=== PATIENT | female | born 1960 | race Caucasian/White ===

== ENCOUNTER → 2018-05-28 14:50 | Outpatient (CLI) | payer OTHER, SELFPAY ==
--- NOTE | 2018-05-28 14:55 | DI.CT.S_ITS ---
PROCEDURE: CT CHEST ABD PEL W CON INDICATIONS: recurrent ovarian cancer TECHNIQUE: After the administration of oral and intravenous contrast, 5 mm thick sections acquired from the lung apices to the symphysis. 5 mm coronal and sagittal reformats were performed, with additional 7 mm coronal MIP reformats through the lungs. For radiation dose reduction, the following was used: automated exposure control, adjustment of mA and/or kV according to patient size. COMPARISON: None. FINDINGS: Image quality: Excellent. CHEST: Lungs and pleura: No acute airspace opacities. No pleural effusions or pneumothorax. Central and peripheral airways appear patent and normal in caliber. Mediastinum: Heart size is normal. No pericardial effusion. No mediastinal or hilar adenopathy by size criteria. Thoracic aorta and central pulmonary arteries are normal in size. Esophagus is normal in caliber. No hiatal hernia. Chest wall: Bilateral breast implants. No axillary or supraclavicular adenopathy by size criteria. Thyroid gland appears normal. ABDOMEN: Solid organs: Liver is normal in size and enhancement. Gallbladder appears normal. Biliary system is mildly dilated. Pancreas enhances normally. Spleen is normal in size and enhancement. No adrenal nodules. Kidneys demonstrate normal size and enhancement, without hydronephrosis. Peritoneum and bowel: Bowel loops demonstrate normal wall thickness and caliber. Appendix is slightly thickened measuring 6.7 mm in diameter but no inflammatory changes are evident. The rectosigmoid colon is nondistended suggesting mild, diffuse wall thickening and mild diverticulosis. No free fluid or air. Nodes and vessels: No retroperitoneal or mesenteric adenopathy by size criteria. Aorta and inferior vena cava are normal in size. Miscellaneous: Midline diastases rectus. Right lower quadrant ostomy. PELVIS: Genitourinary: Bladder wall is mildly thickened. Uterus is surgically absent. Miscellaneous: No inguinal hernias or adenopathy. Bones: No suspicious bony lesions. No vertebral body compression fractures. IMPRESSION: 1. Status post hysterectomy. No evidence of metastatic disease. 2. Common bile duct is mildly dilated at 8.7 mm but tapers normally distally. Correlate with liver function tests. 3. Right lower quadrant ostomy. Midline diastases rectus 4. Slight thickening of the appendix without evidence of appendicitis. #5. Mild uniform thickening of the urinary bladder wall, correlate for possible cystitis. Dictated by: Archie Yates M.D. on 05/28/2018 at 16:49 Approved by: Archie Yates M.D. on 05/28/2018 at 16:58
[2018-05-28 15:21] LABS: BUN Creatinine Ratio 26.7 (6-22); Blood Urea Nitrogen 24 mg/dL (7-17); Estimated Glomerular Filt Rate > 60.0 mL/min (>60)
== END ==
PROVIDERS: PCP Internal Medicine; Visit Provider Nurse Practitioner Gerontology
DX: C56.9 Malignant neoplasm of unspecified ovary (principal)
CPT/HCPCS: 36415; 71260; 74177; 82565; 84520; Q9967

== ENCOUNTER 2019-06-13 08:53 | Emergency (ER) | payer OTHER, SELFPAY ==
--- NOTE | 2019-06-13 09:11 | PC.NURSE ---
Patient reports blood/dark brown mucous from urethra or vagina. Patient states it feels like a menstrual cycle. Patient states she is taking allergy medications to help dry up copious mucous production she had been having both in sinus and in colostomy bag.
[2019-06-13 09:13] VITALS: BP 113/73; PULSE 81; RESP 20; TEMP 35.7; O2SAT 99; BMI 29.2
[2019-06-13 09:21] LABS: Bacteria Urine None Seen
[2019-06-13 09:32] LABS: RBC Urine 10-30/HPF (0-5/HPF); WBC Urine 10-30/HPF (0-5/HPF)
[2019-06-13 09:33] LABS: Culture Indicated Urine Specimen Cultured; Squamous Epithelial Cell Urine 0-1 /HPF (0-5/HPF)
--- NOTE | 2019-06-13 09:39 | ED.FEMALEGU ---
HPI - Female Genitourinary General Chief complaint: Urogenital-Female Stated complaint: blood and brown mucas from uethra Time Seen by Provider: 06/13/19 09:03 Source: patient and family Mode of arrival: ambulatory Limitations: no limitations History of Present Illness HPI Narrative: Patient comes emergency department complaining of leakage of reddish brown fluid and mucus from her urethra. She states that this has been fairly constantly leaking. Patient states that she has never had this happen before, and that it just started this morning. Patient denies fevers or chills. No nausea or vomiting. No abdominal pain. Mild dysuria. 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 She has had a total hysterectomy, as well as bilateral mastectomy, and is on a PARB agent for chemotherapy. Patient states her last imaging study of the pelvis was in mid April. Patient denies any further complaints at this time. Related Data Home Medications Medication Instructions Recorded Confirmed multivitamin [Multiple Vitamins] 1 tab PO DAILY #0 05/16/17 06/13/19 turmeric 1 dose PO DAILY #0 05/16/17 06/13/19 fluoxetine [Prozac] 20 mg PO DAILY 04/10/19 06/13/19 olaparib 300 mg PO BID 04/10/19 06/13/19 fluconazole 150 mg PO QWEEK 06/13/19 06/13/19 Previous Rx's Medication Instructions Recorded sulfamethoxazole-trimethoprim 1 tab PO BID #14 tab 06/13/19 [Bactrim DS] Allergies Allergy/AdvReac Type Severity Reaction Status Date / Time No Known Drug Allergies Allergy Verified 06/13/19 09:18 Review of Systems Review of Systems ROS Unobtainable: All systems reviewed & are unremarkable except as noted in HPI and below Constitutional Constitutional: Denies chills, Denies fatigue, Denies fever(s), Denies frequent falls, Denies lethargy and Denies weakness Eyes Eyes: Denies change in vision, Denies eye discharge, Denies irritation and Denies loss of vision ENT Ears, Nose, Mouth, and Throat: Denies change in voice, Denies dizziness, Denies neck pain, Denies sore throat and Denies throat swelling Cardiovascular Cardiovascular: Denies chest pain, Denies irregular heart rhythm, Denies lightheadedness, Denies palpitations, Denies dyspnea, Denies dyspnea on exertion and Denies orthopnea Respiratory Respiratory: Denies cough, Denies dyspnea, Denies dyspnea on exertion and Denies wheezing Gastrointestinal Gastrointestinal: Denies abdominal pain, Denies change in bowel habits, Denies diarrhea, Denies nausea and Denies vomiting Genitourinary Genitourinary: Denies hematuria, Denies flank pain, Denies urinary incontinence and Denies urinary urgency Comments: Urethral mucus and fluid drainage, dysuria Musculoskeletal Musculoskeletal: Denies back pain, Denies muscle weakness, Denies neck pain, Denies numbness and Denies tingling Integumentary/Breasts Skin/Breast: Denies pruritus, Denies erythema, Denies rash and Denies wounds Neurologic Neurologic: Denies behavioral changes, Denies confusion, Denies dizziness, Denies frequent falls, Denies loss of vision, Denies numbness, Denies tingling and Denies weakness Psychiatric Psychiatric: Denies anxiety, Denies behavioral changes, Denies confusion, Denies depression, Denies homicidal ideation and Denies suicidal ideation Endocrine Endocrine: Denies fatigue, Denies flushing and Denies palpitations Hematologic/Lymphatic Hematologic/Lymphatic: Denies easy bruising Allergic/Immunologic Allergic/Immunologic: Denies urticaria, Denies throat swelling and Denies wheezing [facility] History Ovarian cancer, BRCA2 positive (Acute) Surgical History H/O bilateral mastectomy (Acute) H/O total hysterectomy (Acute) Social History Smoking Status: Never smoker Social History Smoking Status: Never smoker Exam Initial Vital Signs Initial Vital Signs: Vital Signs Temperature 96.3 F L 06/13/19 09:13 Pulse Rate 81 06/13/19 09:13 Respiratory Rate 20 06/13/19 09:13 Blood Pressure 113/73 06/13/19 09:13 Pulse Oximetry 99 06/13/19 09:13 Const General: cooperative and well developed Nutritional Appearance: well nourished Orientation: alert, awake, oriented x3 and not confused HENMT Head: normocephalic and atraumatic Ears: external ears normal and TM's normal bilaterally Nose: external nose normal and No nasal discharge Face and sinus: sinuses nontender, face symmetric, no sinus tenderness and No dry mucous membranes Mouth: oral mucosae normal and moist mucous membranes Teeth and gingiva: dentition normal Throat: tonsils normal and uvula midline Eyes General: appearance normal, both eyes and all related structures Eyelids: eyelids normal Conjunctivae: conjunctivae normal Sclera: sclerae normal Pupils: PERRL EOM: EOM intact bilaterally Neck Neck: normal visual inspection, trachea midline, No lymphadenopathy, No midline deformity and No JVD Lymphatic: No lymphedema Chest Chest: normal inspection of the chest Resp Effort & Inspection: normal respiratory effort, able to speak in complete sentences, no respiratory distress and no use of accessory muscles Auscultation: clear to auscultation bilaterally, no rales, no rhonchi and no wheezes Cardio Rate: regular rate Rhythm: regular rhythm Heart Sounds: no click, no gallops, no murmurs and no rubs Pulses: normal peripheral pulses GI Inspection: non-distended Palpation: soft, no hepatosplenomegaly, No guarding, No pulsatile mass and No tender Auscultation: normal bowel sounds Other: Patient has normal female genitalia. She is noted to have fluid coating her genitalia, with a drop of reddish brown serous fluid running down her vaginal introitus and perineum. No mucus or pus. Back/Spine/Pelvis Back: No CVA tenderness Cervical Spine: cervical ROM normal and No pain with cervical ROM Thoracic/Lumbar Spine: thoracic and lumbar spine normal to inspection Skin General: no rashes or lesions noted, No jaundice and No petechiae Neuro General: alert, oriented x3, gait normal and no focal motor deficits Speech: speech normal Extrem General: full ROM, no clubbing, cyanosis or edema, no pedal edema and no calf tenderness Psych Appearance: well kempt Mental Status: mental status grossly normal Attitude: cooperative Thought Content: normal and suicidality Judgment: judgment good Course Course Course Narrative: Patient was worked up with urinalysis and culture of the fluid. Urinalysis was strongly positive for infection. Culture is pending at this time. Patient was started on antibiotics in the emergency department. I spoke with Dr. Chanel, the patient's oncologist, who felt that this was all that should be done for the patient this time, but he would follow up with her after the antibiotic treatment to see how she is doing. Plan was discussed with the patient, who was agreeable. She was given a dose of Bactrim in the emergency department. We have discussed home management of symptoms, as well as the usual indications for return. Orders Ordered: Discontinued Medications Trimethoprim/Sulfamethoxazole (Bactrim Ds) 1 tab PO NOW ONE Stop: 06/13/19 09:57 Last Admin: 06/13/19 10:09 Dose: 1 tab Documented by: DEMETRI Vital Signs Vital signs: Vital Signs - 8 hr 06/13/19 09:13 Temperature 96.3 F L Pulse Rate 81 Respiratory Rate 20 Blood Pressure 113/73 Pulse Oximetry 99 MDM - Female Genitourinary Medical Records Attestation: I reviewed the patient's medical records. Lab Data Attestation: I reviewed the patient's lab results. Labs: Lab Results 06/13/19 Range/Units 09:20 Urine RBC 10-30/hpf H (0-5/HPF) Urine WBC 10-30/hpf H (0-5/HPF) Ur Squamous Epith Cells 0-1 /hpf (0-5/HPF) Urine Bacteria None seen (None) Ur Culture Indicated? Specimen cultured Urine Dip Bedside Urine Glucose Negative Bedside Urine Bilirubin - Negative Bedside Urine Ketone - Negative Urine Specific [place] 1.015 Bedside Urine Occult Blood + Bedside Urine pH 6.0 Bedside Urine Protein + 30 Bedside Urine Urobilinogen +/- 1mg Bedside Urine Nitrite - Negative Bedside Urine Leukocytes + 70 Esterase Discharge Plan Departure Patient Disposition: Home Clinical Impression: Urinary tract infection Qualifiers: Urinary tract infection type: acute cystitis Hematuria presence: with hematuria Qualified Code(s): N30.01 - Acute cystitis with hematuria Discharge Date/Time: 06/13/19 10:30 Instructions: DI for Urinary Tract Infection (UTI) Activity Restrictions/Additional Instructions: Your urine was strongly positive for infection. Your culture swab is being evaluated and preliminary results will be back tomorrow. Your case has been discussed with Dr. Chanel, who would like you to be treated for urinary tract infection 1st. If your symptoms continue, then he will explore further potential issues. However, at this point, he agrees that this is most likely a urinary tract infection. Please plan to keep her appointment in June with Dr. Chanel, as scheduled. He is happy to see you sooner if you need more expedited follow-up. If you develop high fevers, abdominal pain, or vomiting to the point where you cannot keep your antibiotics down, then please return to the emergency department. [facility] [place]. Prescriptions: New sulfamethoxazole-trimethoprim [Bactrim DS] 800-160 mg tablet 1 tab PO BID Qty: 14 RF: 0 No Action multivitamin [Multiple Vitamins] 1 EACH tablet 1 tab PO DAILY Qty: 0 RF: 0 turmeric 1 dose PO DAILY Qty: 0 RF: 0 fluoxetine [Prozac] 20 mg Capsule 20 mg PO DAILY RF: 0 olaparib 150 mg Tablet 300 mg PO BID RF: 0 fluconazole 150 mg tablet 150 mg PO QWEEK RF: 0 Referrals: Kolton Chanel MD [Physician] - Dianna Barragan MD [Primary Care Provider] -
[2019-06-13] MEDS: TRIMETH/SULFA 160/800 (DS) TABLET 1 TAB PO (10:09)
== END 2019-06-13 10:30 | disposition home or self-care (01) ==
PROVIDERS: Emergency Provider Emergency Medicine; PCP Internal Medicine
DX: N30.01 Acute cystitis with hematuria (principal)
CPT/HCPCS: 81003; 81015; 87070; 87077; 87086; 87186; 87205; 99283

== ENCOUNTER → 2019-09-23 10:19 | Outpatient (CLI) | payer OTHER, SELFPAY ==
[2019-09-23 11:09] LABS: Appearance Urine UA CLEAR; Bilirubin Urine UA NEGATIVE (NEGATIVE); Color Urine UA YELLOW; Glucose Urine UA NEGATIVE (Negative); Ketones Urine UA NEGATIVE (NEGATIVE); Leukocyte Esterase Urine UA NEGATIVE (NEGATIVE); Nitrite Urine UA NEGATIVE (Negative); Occult Blood Urine UA NEGATIVE (Negative); Protein Urine UA NEGATIVE (Negative); Specific Gravity Urine UA 1.015 (1.000-1.035); Urobilinogen Urine UA 0.2 E.U./dL (0.2)
[2019-09-23 11:47] LABS: Cholesterol 273 mg/dL (140-199); HDL Cholesterol 67 mg/dL (40-60); LDL Cholesterol Calculated 178 mg/dL (<100); Triglycerides 138 mg/dL (35-150)
[2019-09-23 12:04] LABS: pH Urine UA 6.5 (4.5-8.0)
[2019-09-23 12:27] LABS: RBC Urine 0-1/HPF (0-5/HPF)
[2019-09-23 12:28] LABS: Bacteria Urine Few (2-10); Culture Indicated Urine Cult Not Indicated; Mucus Urine 1+ (Negative); WBC Urine 1-5/HPF (0-5/HPF)
== END ==
PROVIDERS: PCP Student in an Organized Health Care Education/Training Program; Visit Provider Student in an Organized Health Care Education/Training Program
DX: Z13.220 Encounter for screening for lipoid disorders (principal); R30.0 Dysuria
CPT/HCPCS: 36415; 80061; 81001

== ENCOUNTER → 2020-01-08 10:51 | Outpatient (CLI) | payer OTHER, SELFPAY ==
--- NOTE | 2020-01-08 10:55 | DI.US.S_ITS ---
PROCEDURE: US PERIPH VENOUS LOW EXTREM RT INDICATIONS: RIGHT THIGH SWELLING,MILD PAIN,MILD NUMBNESS TECHNIQUE: Real-time imaging, as well as color and pulse Doppler interrogation, were performed of the lower extremity deep veins from the inguinal ligament to the popliteal fossa. COMPARISON: None. FINDINGS: There is a small amount of nonocclusive thrombus seen at the confluence of the greater saphenous vein and the common femoral vein. No additional findings of deep venous thrombosis can be seen. Additional, dedicated ultrasound scanning is performed at the area of right thigh swelling. No focal ultrasound abnormalities are seen within this region. Prominent lymph nodes can be seen within the groin and the common femoral vein. The IVC is patent. IMPRESSION: There is a small amount of nonocclusive thrombus seen at the confluence of the greater saphenous vein and common femoral vein, without additional findings of deep venous thrombosis. Prominent lymph nodes are noted. Dictated by: Alexis Montanez M.D. on 01/08/2020 at 11:08 Approved by: Alexis Montanez M.D. on 01/08/2020 at 11:10
== END ==
PROVIDERS: PCP Student in an Organized Health Care Education/Training Program; Referring Provider Internal Medicine Hematology & Oncology; Visit Provider Internal Medicine Hematology & Oncology
DX: C56.9 Malignant neoplasm of unspecified ovary (principal); I82.411 Acute embolism and thrombosis of right femoral vein; I82.890 Acute embolism and thrombosis of other specified veins; R59.0 Localized enlarged lymph nodes; M79.604 Pain in right leg; M79.89 Other specified soft tissue disorders; Z15.01 Genetic susceptibility to malignant neoplasm of breast
CPT/HCPCS: 93971

== ENCOUNTER → 2020-01-21 10:41 | Outpatient (CLI) | payer OTHER, SELFPAY ==
--- NOTE | 2020-01-21 12:04 | DI.CT.S_ITS ---
PROCEDURE: CT ABDOMEN PELVIS W CON INDICATIONS: ovarian cancer TECHNIQUE: After the administration of oral and intravenous contrast, 5 mm thick sections acquired from the diaphragms to the symphysis. 5 mm thick coronal and sagittal reformats were performed. For radiation dose reduction, the following was used: automated exposure control, adjustment of mA and/or kV according to patient size. COMPARISON: [facility], CT, CT CHEST ABD PEL W CON, 05/28/2018, 16:01. FINDINGS: Image quality: Excellent. ABDOMEN: Lung bases: Lung bases are clear. Heart size is normal. Solid organs: Liver is normal in size and enhancement. Gallbladder is unremarkable. Biliary system is non-dilated. Pancreas enhances normally. Spleen is normal in size and enhancement. No adrenal nodules. Kidneys are normal in size and enhancement, without hydronephrosis. Peritoneum and bowel: Again noted is ileostomy. There is diffuse rectal wall thickening, which has developed since the prior study. There is associated inflammatory change in the surrounding fat and outside of the perirectal fascia. There is an ill-defined area of fluid and air between the rectum and the bladder which does not appear to be endoluminal in the colon. This is not definite. It measures approximately 2.8 x 2.8 cm. It may potentially represent interloop abscess versus necrotic tumor, or may potentially be within the colon. Nodes and vessels: No retroperitoneal or mesenteric adenopathy. Aorta and inferior vena cava are normal in caliber. Miscellaneous: Again noted is rectus diastases with a herniation of bowel anteriorly. Interval development of anterior subcutaneous edema. PELVIS: Genitourinary: Diffuse bladder wall thickening has progressed.. Miscellaneous: No inguinal hernias or adenopathy. Uterus is surgically absent. Bones: No suspicious bony lesions. No vertebral body compression fractures. IMPRESSION: 1. Interval development of rectal wall thickening and increase in bladder wall thickening. 2. Question extraluminal fluid and air outside the rectosigmoid region, possibly representing interloop abscess or necrotic neoplasm. Comment: Repeat pelvic CT with IV and rectal contrast may be helpful to better evaluate the potential extraluminal fluid and air. Dictated by: Vitor Connolly M.D. on 01/21/2020 at 12:20 Approved by: Vitor Connolly M.D. on 01/21/2020 at 12:33
== END ==
PROVIDERS: PCP Student in an Organized Health Care Education/Training Program; Referring Provider Internal Medicine Hematology & Oncology; Visit Provider Internal Medicine Hematology & Oncology
DX: C56.9 Malignant neoplasm of unspecified ovary (principal); M62.08 Separation of muscle (nontraumatic), other site; Z15.01 Genetic susceptibility to malignant neoplasm of breast; Z15.09 Genetic susceptibility to other malignant neoplasm; Z93.2 Ileostomy status; Z90.710 Acquired absence of both cervix and uterus
CPT/HCPCS: 74177; Q9967

== ENCOUNTER → 2020-01-26 16:33 | Outpatient (CLI) | payer OTHER, SELFPAY ==
--- NOTE | 2020-01-26 16:38 | DI.US.S_ITS ---
PROCEDURE: US PERIPH VENOUS LOW EXTREM RT INDICATIONS: WORSENING RIGHT LEG SWELLING TECHNIQUE: Real-time imaging, as well as color and pulse Doppler interrogation, were performed of the lower extremity deep veins from the inguinal ligament to the popliteal fossa. COMPARISON: [facility], CT, CT ABDOMEN PELVIS W CON, 01/21/2020, 11:51. [facility], US, US PERIPH VENOUS LOW EXTREM RT, 01/08/2020, 11:30. FINDINGS: The common femoral, femoral and popliteal veins are normally compressible, and free of intraluminal thrombus. Color and pulse Doppler demonstrate normal phasic intraluminal flow. There is normal augmentation response to distal compression maneuver. The distal femoral vein is not well-seen. IMPRESSION: Negative for deep venous thrombosis. The previously seen deep venous thrombosis is no longer seen. Dictated by: Alexis Montanez M.D. on 01/26/2020 at 16:13 Approved by: Alexis Montanez M.D. on 01/26/2020 at 16:14
== END ==
PROVIDERS: PCP Student in an Organized Health Care Education/Training Program; Referring Provider Internal Medicine Hematology & Oncology; Visit Provider Internal Medicine Hematology & Oncology
DX: C56.9 Malignant neoplasm of unspecified ovary (principal); I82.811 Embolism and thrombosis of superficial veins of right lower extremity; I82.411 Acute embolism and thrombosis of right femoral vein; M79.604 Pain in right leg; M79.89 Other specified soft tissue disorders; Z15.09 Genetic susceptibility to other malignant neoplasm; Z79.01 Long term (current) use of anticoagulants
CPT/HCPCS: 93971

== ENCOUNTER → 2020-02-12 11:43 | Outpatient (CLI) | payer OTHER, SELFPAY ==
--- NOTE | 2020-02-12 11:47 | DI.CT.S_ITS ---
PROCEDURE: CT PELVIS W CON INDICATIONS: pelvis lesion TECHNIQUE: After the administration of oral contrast and intravenous contrast, 5 mm thick sections acquired from the iliac crests to the symphysis. 5 mm thick coronal and sagittal reformats were acquired. For radiation dose reduction, the following was used: automated exposure control, adjustment of mA and/or kV according to patient size. COMPARISON: [facility], CT, CT ABDOMEN PELVIS W CON, 01/21/2020, 11:51. FINDINGS: Image quality: Excellent. Peritoneum and bowel: Again noted is right lower quadrant ileostomy. There is no evidence of bowel obstruction. No small bowel loop thickening. The appendix is visualized and is within normal limits. Visualized colonic loops shows wall thickening versus underdistention involving distal descending colon and sigmoid colon extending to rectum. Previously described ill-defined area of fluid and air between rectum and bladder has decreased in size, with ill-defined fluid density area measures 2.3 x 1.9 cm in size. No internal air is seen on the current study. Patient is status post hysterectomy with no gross abnormality seen in the vaginal cuff region. There is no peritoneal free fluid or free air. Genitourinary: Diffuse bladder wall thickening is again noted more prominent along right and posterior wall of urinary bladder. No definite discrete bladder wall mass is seen.. Nodes and vessels: No iliac, pelvic, or inguinal adenopathy by size criteria are. Subcentimeter lymph nodes are noted in bilateral inguinal region or along bilateral external iliac chain measures up to 8 mm in short axis diameter.. Iliac vessels demonstrate normal size and enhancement. Bones: No suspicious bony lesions. Degenerative disc disease in lower lumbar spine is seen. Miscellaneous: No inguinal hernias. Asymmetric enlargement of right upper thigh is seen with subcutaneous fat stranding and small amount of fluid along anterior and medial right upper thigh muscles. IMPRESSION: 1. Interval decrease in size of previously described extraluminal fluid collection situated between rectum and urinary bladder with adjacent rectosigmoid colon wall thickening and bladder wall thickening, concerning for abscess collection in this area. This collection now measures 2.3 x 1.9 cm in size compared to 2.8 x 2.8 cm in size on previous study. No internal air is seen on the current study. 2. No peritoneal free fluid or free air. A right sided ileostomy in place. 3. Subcentimeter bilateral inguinal lymph nodes more prominent on the right side it measures up to 8 mm in size. 4. Finding is concerning for synovitis involving anterior medial right upper thigh as above. Dictated by: Lalo Coleman M.D. on 02/12/2020 at 13:47 Approved by: Lalo Coleman M.D. on 02/12/2020 at 14:17
--- NOTE | 2020-02-12 13:40 | DI.CT.S_ITS ---
PROCEDURE: CT LE RT W CON INDICATIONS: right leg swelling, and several right thigh lateral pain TECHNIQUE: After the administration of intravenous contrast, 3 mm axial sections acquired of the right thigh, with coronal and sagittal reformats. COMPARISON: None. FINDINGS: Image quality: Excellent. Bones: Right hip joint osteoarthritic changes are seen. No fracture or dislocation. No bony erosive changes. No suspicious intraosseous lesion. No evidence of avascular necrosis of femoral head. Soft tissues: Please correlate with CT of pelvis study performed on the same day for evaluation of peritoneal structures. There is asymmetrically enlarged right upper thigh with extensive subcutaneous soft tissue swelling and edema and overlying skin thickening. Small amount of fluid is seen along anterior and medial upper to mid thigh muscles. No gross intramuscular mass or fluid collection. No abnormal intramuscular enhancement is seen. IMPRESSION: 1. Asymmetric enlargement of the right thigh with suggestion of extensive right-sided cellulitis. No discrete drainable abscess collection is seen. Small amount of fluid along anterior medial right upper to mid thigh muscles. No evidence of intramuscular mass or fluid collection. 2. No fracture or dislocation. No suspicious intraosseous lesion. Right hip joint osteoarthritis. No evidence of avascular necrosis. 3. Please refer to CT of pelvis findings for evaluation of peritoneal structures. Dictated by: Lalo Coleman M.D. on 02/12/2020 at 14:22 Approved by: Lalo Coleman M.D. on 02/12/2020 at 14:25
== END ==
PROVIDERS: PCP Student in an Organized Health Care Education/Training Program; Referring Provider Internal Medicine Hematology & Oncology; Visit Provider Internal Medicine Hematology & Oncology
DX: C56.9 Malignant neoplasm of unspecified ovary (principal); R59.0 Localized enlarged lymph nodes; M79.651 Pain in right thigh; M79.89 Other specified soft tissue disorders; M16.11 Unilateral primary osteoarthritis, right hip; M51.36 Other intervertebral disc degeneration, lumbar region; Z15.01 Genetic susceptibility to malignant neoplasm of breast; Z15.09 Genetic susceptibility to other malignant neoplasm; Z93.2 Ileostomy status; Z90.710 Acquired absence of both cervix and uterus
CPT/HCPCS: 72193; 73701; Q9967

== ENCOUNTER → 2020-02-23 12:43 | Outpatient (CLI) | payer OTHER, SELFPAY ==
--- NOTE | 2020-02-23 12:44 | DI.MRI.S_ITS ---
PROCEDURE: MR LOWER LEG RT WO/W CON INDICATIONS: right thigh cellulitis, pain TECHNIQUE: Noncontrast coronal T1 spin echo and STIR, sagittal T1 spin echo with fat saturation and STIR, axial T1 spin echo and T2 fast spin echo with fat saturation. After the administration of contrast, axial/sagittal/coronal T1 spin echo with fat saturation through the right thigh. COMPARISON: None. FINDINGS: Image quality: Excellent. Bones: The visualized bone marrow demonstrates normal signal on all sequences. The overlying cortex appears intact. No abnormal intraosseous enhancement. Soft tissues: There is asymmetric diffuse soft tissue swelling and edema throughout visualized right thigh with overlying skin thickening suggestive of cellulitis. No discrete drainable abscess collection is seen. No enhancing subcutaneous soft tissue mass is seen. There is edema and enhancement involving inferior right iliopsoas muscle as well as anterior right upper to mid thigh muscles consistent with myositis. No intramuscular abscess collection is seen. IMPRESSION: 1. Significant cellulitis involving right thigh with underlying myositis involving anterior right upper to mid thigh muscles. No discrete drainable abscess collection. No gross soft tissue mass is noted. 2. No underlying marrow signal abnormality. No fracture or dislocation. No suspicious bony lesion. Dictated by: Lalo Coleman M.D. on 02/23/2020 at 14:52 Approved by: Lalo Coleman M.D. on 02/23/2020 at 15:02
== END ==
PROVIDERS: PCP Student in an Organized Health Care Education/Training Program; Referring Provider Student in an Organized Health Care Education/Training Program; Visit Provider Internal Medicine Hematology & Oncology
DX: C56.9 Malignant neoplasm of unspecified ovary (principal); L03.115 Cellulitis of right lower limb; M60.9 Myositis, unspecified; M79.604 Pain in right leg; M79.89 Other specified soft tissue disorders; Z15.01 Genetic susceptibility to malignant neoplasm of breast; Z15.09 Genetic susceptibility to other malignant neoplasm
CPT/HCPCS: 73720

== ENCOUNTER 2020-02-24 12:47 | Observation (INO) | payer OTHER, SELFPAY ==
[2020-02-24] VITALS (7 sets, daily range): BP systolic 93–119; BP diastolic 56–75; PULSE 67–82; RESP 13–18; TEMP 35.9–36.7; O2SAT 93–99; BMI 30.2
--- NOTE | 2020-02-24 14:06 | ED_ITS ---
HPI - Skin/Abscess/Foreign Bdy <SANGEETHA Bryan - Last Filed: 02/24/20 21:32> General Chief complaint: Skin/Abscess/Foreign Body Stated complaint: RT UPPER THIGH CELLULITIS PER AVI Time Seen by Provider: 02/24/20 13:29 Source: patient Mode of arrival: Wheelchair History of Present Illness HPI narrative: 60 year old female with a history of ovarian cancer (BRCA2 positive), presents to the emergency department complaining of right leg swelling. She states this has been ongoing since January 03, she noticed left leg swelling. Patient states she has been seen by Dr. Chanel who has diagnosed her with cellulitis. She received a recent MRI yesterday showing underlying myositis without abscess. Patient states she has been taking cephalexin and just finished a course of Augmentin without relief. She denies any fevers, chest pain, shortness of breath, nausea, vomiting, diarrhea, or any other concerns. Patient states she is receiving chemo for her ovarian cancer, her last chemo was 3 weeks ago. Related Data Home Medications Medication Instructions Recorded Confirmed multivitamin [Multiple Vitamins] 1 tab PO DAILY #0 05/16/17 02/24/20 turmeric 1 dose PO DAILY #0 05/16/17 02/24/20 sennosides-docusate sodium 1 tab-cap PO BEDTIME PRN 01/08/20 02/24/20 [Senokot-S] Eliquis 5 mg PO BID 01/15/20 02/24/20 Previous Rx's Medication Instructions Recorded fluoxetine 20 mg capsule 20 mg PO DAILY #90 cap 10/21/19 dexamethasone 4 mg PO DAILY #10 tab 11/24/19 zolpidem [Ambien] 5 mg PO BEDTIME PRN #30 tab 02/05/20 hydromorphone 1 - 2 mg PO Q3H PRN #35 tab 03/01/20 sulfamethoxazole-trimethoprim 1 tab PO Q12H #26 tab 03/04/20 [Bactrim DS] Allergies Allergy/AdvReac Type Severity Reaction Status Date / Time No Known Drug Allergies Allergy Verified 09/23/19 09:45 Review of Systems <SANGEETHA Bryan - Last Filed: 02/24/20 21:32> Review of Systems Narrative: REVIEW OF SYSTEMS: GENERAL: Denies fever or chills. HENT: No head trauma. EYES: No vision changes. CARDIOVASCULAR: No chest pain or syncope. RESPIRATORY: No shortness of breath or cough. GASTROINTESTINAL: No nausea, vomiting, diarrhea, or constipation. MUSCULOSKELETAL: Complains of R leg pain, see HPI. INTEGUMENTARY: Complains of redness on right leg, see HPI. NEURO: No numbness, tingling. PSYCH: No behavior or mood changes. Patient History <SANGEETHA Bryan - Last Filed: 02/24/20 21:32> Medical History Chicken pox (Resolved ~1962) Neuropathy (Chronic ~2012) Ovarian cancer, BRCA2 positive (Chronic ~2012) Pneumothorax (Inactive) Vertigo (Inactive ~2012) Surgical History Anesthesia (Resolved) H/O bilateral mastectomy (Resolved ~2015) H/O total hysterectomy (Resolved ~2012) Social History household members: other Smoking Status: Never smoker Smoking Status: Never smoker alcohol intake frequency: 0-2 drinks per day Substance Use Type: does not use Exam <SANGEETHA Bryan - Last Filed: 02/24/20 21:32> Initial Vital Signs Initial Vital Signs: Vital Signs Temperature 97 F L 02/24/20 13:18 Pulse Rate 76 02/24/20 13:18 Respiratory Rate 13 02/24/20 13:18 Blood Pressure 119/75 02/24/20 13:18 Pulse Oximetry 98 02/24/20 13:18 PHYSICAL EXAMINATION: GENERAL: Well groomed, alert, and cooperative. Answers questions promptly and appropriately. Vital signs noted. HENT: Normocephalic, atraumatic. EYES: Symmetrical, sclera white, no periorbital swelling. CARDIOVASCULAR: S1 and S2 sounds normal. Regular rate and rhythm, no murmurs, clicks, or bruits. No pedal edema. RESPIRATORY: Normal respiratory rate, trachea midline, airway patent. No stridor, nasal flaring or accessory muscle use. MUSCULOSKELETAL: Tenderness to lateral aspect of right upper thigh along and slightly anterior to IT band. Swelling, mild erythema, increased temp noted to medial aspect of thigh, no fluctuation. Soft compartments. Increased circumference of thigh as compared to left leg. No calf tenderness. EXTREMITIES: CMS intact. No pedal edema. SKIN: Warm, dry, soft, appropriate color for ethnicity. No lesions, rashes, or wounds. NEURO: Alert and Oriented X 3. No sensory deficits. PSYCH: Appropriate affect and mood. <Jerome Avelar MD - Last Filed: 03/05/20 07:40> Initial Vital Signs Initial Vital Signs: Vital Signs Temperature 97 F L 02/24/20 13:18 Pulse Rate 76 02/24/20 13:18 Respiratory Rate 13 02/24/20 13:18 Blood Pressure 119/75 02/24/20 13:18 Pulse Oximetry 98 02/24/20 13:18 Course <SANGEETHA Bryan - Last Filed: 02/24/20 21:32> Course Course Narrative: 1442: Spoke with Dr. Purdy with general surgery about MRI and patient's symptoms. Discussed myositis. Will get ultrasound to further investigate DVT. Discussed less likely compartment syndrome due to location, prolonged duration of symptoms, and exam findings. 1502: Dr. Purdy at bedside to evaluate patient. 1600: Spoke with with Dr. Cheema, discussed admission. Except observation for pain control. Orders Ordered: Discontinued Medications Acetaminophen (Tylenol) 650 mg PO Q6HR PRN PRN Reason: Fever/Mild Pain (1-3) Last Admin: 02/24/20 19:20 Dose: 650 mg Documented by: VICKEY Apixaban (Eliquis) 5 mg PO BID [facility] Last Admin: 02/25/20 09:05 Dose: 5 mg Documented by: Admin: 02/24/20 21:36 Dose: 5 mg Documented by: VICKEY Dexamethasone (Decadron) 4 mg PO DAILY [facility] Enoxaparin Sodium (Lovenox) 40 mg SUBCUT DAILY [facility] Fluoxetine HCl (Prozac) 20 mg PO DAILY [facility] Last Admin: 02/25/20 09:05 Dose: 20 mg Documented by: YAS Heparin Sodium (Porcine) (Heparin Flush (Port)) 500 unit IV NOW ONE Stop: 02/25/20 12:18 Last Admin: 02/25/20 12:18 Dose: 500 unit Documented by: YAS Hydromorphone HCl (Dilaudid) 0.5 mg IV NOW ONE Stop: 02/24/20 14:01 Last Admin: 02/24/20 14:31 Dose: 0.5 mg Documented by: CARLOS MANUEL Hydromorphone HCl (Dilaudid) 0.5 mg IV NOW ONE Stop: 02/24/20 14:58 Last Admin: 02/24/20 15:12 Dose: 0.5 mg Documented by: CARLOS MANUEL Hydromorphone HCl (Dilaudid) 0.5 mg IV NOW ONE Stop: 02/24/20 15:59 Last Admin: 02/24/20 16:23 Dose: 0.5 mg Documented by: CARLOS MANUEL Hydromorphone HCl (Dilaudid) 0.5 mg IV Q6HR PRN PRN Reason: Pain, Moderate (4-6) Last Admin: 02/24/20 19:25 Dose: 0.5 mg Documented by: VICKEY Hydromorphone HCl (Dilaudid) 2 mg PO Q3H PRN PRN Reason: Pain, Severe (7-10) Last Admin: 02/25/20 09:35 Dose: 2 mg Documented by: Admin: 02/25/20 06:51 Dose: 2 mg Documented by: Admin: 02/25/20 03:40 Dose: 2 mg Documented by: Admin: 02/24/20 23:30 Dose: 2 mg Documented by: ANEUDY Hydromorphone HCl (Dilaudid) 1 mg PO Q3H PRN PRN Reason: Pain, Severe (7-10) Vancomycin HCl/Dextrose (Vancomycin) 1,500 mg in 300 mls @ 200 mls/hr IV NOW ONE Stop: 02/24/20 15:31 Last Infusion: 02/24/20 16:25 Dose: 0 mls/hr Documented by: CARLOS MANUEL Admin: 02/24/20 14:31 Dose: 200 mls/hr Documented by: CARLOS MANUEL Sodium Chloride (Normal Saline 0.9%) 1,000 mls @ 125 mls/hr IV CONT KAREN Last Admin: 02/25/20 05:39 Dose: 125 mls/hr Documented by: Infusion: 02/25/20 02:45 Dose: 125 mls/hr Documented by: Admin: 02/24/20 18:45 Dose: 125 mls/hr Documented by: Infusion: 02/24/20 16:32 Dose: 0 mls/hr Documented by: CARLOS MANUEL Admin: 02/24/20 14:31 Dose: 125 mls/hr Documented by: CARLOS MANUEL Ceftriaxone Sodium/Dextrose (Rocephin) 2 gm in 50 mls @ 100 mls/hr IV Q24H [facility] Last Infusion: 02/24/20 19:20 Dose: 0 mls/hr Documented by: Admin: 02/24/20 18:46 Dose: 100 mls/hr Documented by: VICKEY Vancomycin HCl/Dextrose (Vancomycin) 750 mg in 150 mls @ 150 mls/hr IV Q12H [facility] Last Infusion: 02/25/20 03:39 Dose: 0 mls/hr Documented by: Admin: 02/25/20 02:06 Dose: 150 mls/hr Documented by: ANEUDY Multivitamins (Tab-A-Andrea) 1 tab PO DAILY [facility] Last Admin: 02/25/20 09:05 Dose: 1 tab Documented by: YAS Ondansetron HCl (Zofran) 4 mg IV NOW ONE Stop: 02/24/20 14:01 Last Admin: 02/24/20 14:31 Dose: 4 mg Documented by: CARLOS MANUEL Ondansetron HCl (Zofran) 4 mg IV Q8HR PRN PRN Reason: Nausea And Vomiting Vancomycin HCl (Vancomycin Per Pharmacy) 1 [place] [facility] [place] Stop: 02/24/20 18:44 Last Admin: 02/25/20 02:22 Dose: Not Given Documented by: ANEUDY Vancomycin HCl (Vancomycin Trough) 1 request [facility] [place] [facility] Stop: 02/26/20 01:31 Zolpidem Tartrate (Ambien) 5 mg PO BEDTIME PRN PRN Reason: Sleep Last Admin: 02/24/20 21:36 Dose: 5 mg Documented by: VICKEY Reevaluation(s) Reevaluation #1: Patient staffed with Dr. Avelar discussed test, test results, and plan of care. Consultations Consultation #1: Patient staffed with Dr. Avelar, discussed test, test results, plan of care. Vital Signs Vital signs: Vital Signs - 8 hr 02/24/20 14:37 02/24/20 15:30 Pulse Rate 67 82 Respiratory Rate 14 16 Blood Pressure [Right Arm] 113/56 L 117/59 L Pulse Oximetry 99 98 <Jerome Avelar MD - Last Filed: 03/05/20 07:40> Orders Ordered: Discontinued Medications Acetaminophen (Tylenol) 650 mg PO Q6HR PRN PRN Reason: Fever/Mild Pain (1-3) Last Admin: 02/24/20 19:20 Dose: 650 mg Documented by: VICKEY Apixaban (Eliquis) 5 mg PO BID [facility] Last Admin: 02/25/20 09:05 Dose: 5 mg Documented by: Admin: 02/24/20 21:36 Dose: 5 mg Documented by: VICKEY Dexamethasone (Decadron) 4 mg PO DAILY [facility] Enoxaparin Sodium (Lovenox) 40 mg SUBCUT DAILY [facility] Fluoxetine HCl (Prozac) 20 mg PO DAILY [facility] Last Admin: 02/25/20 09:05 Dose: 20 mg Documented by: YAS Heparin Sodium (Porcine) (Heparin Flush (Port)) 500 unit IV NOW ONE Stop: 02/25/20 12:18 Last Admin: 02/25/20 12:18 Dose: 500 unit Documented by: YAS Hydromorphone HCl (Dilaudid) 0.5 mg IV NOW ONE Stop: 02/24/20 14:01 Last Admin: 02/24/20 14:31 Dose: 0.5 mg Documented by: CARLOS MANUEL Hydromorphone HCl (Dilaudid) 0.5 mg IV NOW ONE Stop: 02/24/20 14:58 Last Admin: 02/24/20 15:12 Dose: 0.5 mg Documented by: CARLOS MANUEL Hydromorphone HCl (Dilaudid) 0.5 mg IV NOW ONE Stop: 02/24/20 15:59 Last Admin: 02/24/20 16:23 Dose: 0.5 mg Documented by: CARLOS MANUEL Hydromorphone HCl (Dilaudid) 0.5 mg IV Q6HR PRN PRN Reason: Pain, Moderate (4-6) Last Admin: 02/24/20 19:25 Dose: 0.5 mg Documented by: VICKEY Hydromorphone HCl (Dilaudid) 2 mg PO Q3H PRN PRN Reason: Pain, Severe (7-10) Last Admin: 02/25/20 09:35 Dose: 2 mg Documented by: Admin: 02/25/20 06:51 Dose: 2 mg Documented by: Admin: 02/25/20 03:40 Dose: 2 mg Documented by: Admin: 02/24/20 23:30 Dose: 2 mg Documented by: ANEUDY Hydromorphone HCl (Dilaudid) 1 mg PO Q3H PRN PRN Reason: Pain, Severe (7-10) Vancomycin HCl/Dextrose (Vancomycin) 1,500 mg in 300 mls @ 200 mls/hr IV NOW ONE Stop: 02/24/20 15:31 Last Infusion: 02/24/20 16:25 Dose: 0 mls/hr Documented by: CARLOS MANUEL Admin: 02/24/20 14:31 Dose: 200 mls/hr Documented by: CARLOS MANUEL Sodium Chloride (Normal Saline 0.9%) 1,000 mls @ 125 mls/hr IV CONT [facility] Last Admin: 02/25/20 05:39 Dose: 125 mls/hr Documented by: Infusion: 02/25/20 02:45 Dose: 125 mls/hr Documented by: Admin: 02/24/20 18:45 Dose: 125 mls/hr Documented by: Infusion: 02/24/20 16:32 Dose: 0 mls/hr Documented by: CARLOS MANUEL Admin: 02/24/20 14:31 Dose: 125 mls/hr Documented by: CARLOS MANUEL Ceftriaxone Sodium/Dextrose (Rocephin) 2 gm in 50 mls @ 100 mls/hr IV Q24H [facility] Last Infusion: 02/24/20 19:20 Dose: 0 mls/hr Documented by: Admin: 02/24/20 18:46 Dose: 100 mls/hr Documented by: VICKEY Vancomycin HCl/Dextrose (Vancomycin) 750 mg in 150 mls @ 150 mls/hr IV Q12H [facility] Last Infusion: 02/25/20 03:39 Dose: 0 mls/hr Documented by: Admin: 02/25/20 02:06 Dose: 150 mls/hr Documented by: ANEUDY Multivitamins (Tab-A-Andrea) 1 tab PO DAILY [facility] Last Admin: 02/25/20 09:05 Dose: 1 tab Documented by: YAS Ondansetron HCl (Zofran) 4 mg IV NOW ONE Stop: 02/24/20 14:01 Last Admin: 02/24/20 14:31 Dose: 4 mg Documented by: CARLOS MANUEL Ondansetron HCl (Zofran) 4 mg IV Q8HR PRN PRN Reason: Nausea And Vomiting Vancomycin HCl (Vancomycin Per Pharmacy) 1 request [facility] Stop: 02/24/20 18:44 Last Admin: 02/25/20 02:22 Dose: Not Given Documented by: ANEUDY Vancomycin HCl (Vancomycin Trough) 1 request [facility] [place] Stop: 02/26/20 01:31 Zolpidem Tartrate (Ambien) 5 mg PO BEDTIME PRN PRN Reason: Sleep Last Admin: 02/24/20 21:36 Dose: 5 mg Documented by: VICKEY Vital Signs Vital signs: Vital Signs - 8 hr 02/24/20 14:37 02/24/20 15:30 Pulse Rate 67 82 Respiratory Rate 14 16 Blood Pressure [Right Arm] 113/56 L 117/59 L Pulse Oximetry 99 98 MDM - Skin/Abscess/Foreign Bdy <SANGEETHA Bryan - Last Filed: 02/24/20 21:32> Medical Records Attestation: I reviewed the patient's medical records. Lab Data Attestation: I reviewed the patient's lab results. Result diagrams: 02/25/20 05:55 02/25/20 05:55 Labs: Lab Results 02/24/20 02/24/20 Range/Units 14:25 14:25 WBC 12.1 H (4.5-11.0) X10^3/uL RBC 4.24 (4.0-5.2) X10^6/uL Hgb 13.1 (12.0-16.0) g/dL Hct 39.3 (36-46) % MCV 92.8 (80-100) fL MCH 30.9 (26-34) PG MCHC 33.3 (30-36) % RDW 14.2 (11.6-14.8) % Plt Count 314 (150-400) X10^3/uL Neut % (Auto) 64.4 (50-75) % Lymph % (Auto) 21.5 L (25-40) % [place] % (Auto) 12.5 (3-14) % Eos % (Auto) 0.5 L (2-4) % Baso % (Auto) 1.1 (0-2) % Neut # (Auto) 7800 H (7607-2910) /uL Lymph # (Auto) 2600 (4642-9427) /uL [place] # (Auto) 1500 H (0-900) /uL Eos # (Auto) 100 (0-450) /uL Baso # (Auto) 100 (0-100) /uL ESR 42 H (0-20) MM/HR Sodium 135 L (137-145) mmol/L Potassium 3.8 (3.4-5.1) mmol/L Chloride 103 (98-107) mmol/L Carbon Dioxide 26 (22-32) mmol/L BUN 14 (7-17) mg/dL Creatinine 0.57 (0.52-1.04) mg/dL Estimated GFR > 60.0 (>60) mL/min BUN/Creatinine Ratio 24.6 H (6-22) Glucose 104 (80-110) mg/dL Calcium 9.2 (8.4-10.2) mg/dL Total Bilirubin 0.3 (0.2-1.3) mg/dL AST 61 H (14-36) IU/L ALT 25 (<35) IU/L Alkaline Phosphatase 222 H (38-126) U/L C-Reactive Protein 2.4 H (<1.0) mg/dL Total Protein 7.5 (6.3-8.2) g/dL Albumin 3.8 (3.5-5.0) g/dL Globulin 3.7 (1.7-4.1) g/dL Albumin/Globulin Ratio 1.0 (1.0-2.8) Imaging Data US - DVT: Radiologist's Impression: [address] [address] Ultrasound Report Signed Patient: Medina Monteiro LMR#: [id number] : 8Acct:[id number] Age/Sex: 60 / FDate of Service: 02/24/20 Loc: ED Accession Number: [id number] Procedure: US periph venous low extrem lt Ordering Provider: Anastasiia Huizar PROCEDURE: PERIP VENOUS LOW EXTREM LT INDICATIONS: RT THIGH SWELLIN, DVT VERSUS PHLEBITIS TECHNIQUE: Real-time imaging, as well as color and pulse Doppler interrogation, were performed of the lower extremity deep veins from the inguinal ligament to the popliteal fossa. COMPARISON: [facility], [facility] [place] VENOUS LOW EXTREM RT, 01/26/2020, 16:50. FINDINGS: The common femoral, femoral and popliteal veins are normally compressible, and free of intraluminal thrombus. Color and pulse Doppler demonstrate normal phasic intraluminal flow. There is normal augmentation response to distal compression maneuver. IMPRESSION: Negative for deep venous thrombosis. Dictated by: Alexis Montanez M.D. on 02/24/2020 at 14:26 Approved by: Alexis Montanez M.D. on 02/24/2020 at 14:26 Lower extremity MR: Radiologist's Impression: [place] [address] Ultrasound Report Signed Patient: Medina Monteiro LMR#: [id number] : 8Acct:[id number] Age/Sex: 60 / FDate of Service: 02/24/20 Loc: ED Accession Number: [id number] Procedure: [facility] venous low extrem lt Ordering Provider: Anastasiia Huizar PROCEDURE: PERIP VENOUS LOW EXTREM LT INDICATIONS: RT THIGH SWELLIN, DVT VERSUS PHLEBITIS TECHNIQUE: Real-time imaging, as well as color and pulse Doppler interrogation, were performed of the lower extremity deep veins from the inguinal ligament to the popliteal fossa. COMPARISON: [facility], PERIP VENOUS LOW EXTREM RT, 01/26/2020, 16: 50. FINDINGS: The common femoral, femoral and popliteal veins are normally compressible, and free of intraluminal thrombus. Color and pulse Doppler demonstrate normal phasic intraluminal flow. There is normal augmentation response to distal compression maneuver. IMPRESSION: Negative for deep venous thrombosis. Dictated by: Alexis Montanez M.D. on 02/24/2020 at 14:26 Approved by: Alexis Montanez M.D. on 02/24/2020 at 14:26 MDM Narrative Medical decision making narrative: 60-year-old female with a history of ovarian cancer, presents emergency department for right leg swelling. She was diagnosed via MRI with cellulitis and myositis. She is reporting increasing pain and continued swelling and erythema despite two rounds of antibiotic treatment. Less concern for compartment syndrome as upper leg compartments are soft. Swelling appears most likely from cellulitis and lymphedema. Concern for continued infection and possibly filled out treatment antibiotics due to to rounds of antibiotics without successful resolution. However, antibiotics did not cover for MRSA which may also contribute to continued infection. Swelling and pain is further complicated by ovarian cancer related lymphedema. Less concern for sepsis, patient does have a elevated white blood cell count however lactic, procalcitonin are within normal limits. Patient is afebrile and non tachycardic. Patient was admitted to Dr. Cheema for pain control and IV antibiotics <Jerome Avelar MD - Last Filed: 03/05/20 07:40> Lab Data Labs: Lab Results 02/24/20 02/24/20 Range/Units 14:25 14:25 WBC 12.1 H (4.5-11.0) X10^3/uL RBC 4.24 (4.0-5.2) X10^6/uL Hgb 13.1 (12.0-16.0) g/dL Hct 39.3 (36-46) % MCV 92.8 (80-100) fL MCH 30.9 (26-34) PG MCHC 33.3 (30-36) % RDW 14.2 (11.6-14.8) % Plt Count 314 (150-400) X10^3/uL Neut % (Auto) 64.4 (50-75) % Lymph % (Auto) 21.5 L (25-40) % [place] % (Auto) 12.5 (3-14) % Eos % (Auto) 0.5 L (2-4) % Baso % (Auto) 1.1 (0-2) % Neut # (Auto) 7800 H (6166-2188) /uL Lymph # (Auto) 2600 (4338-9873) /uL [place] # (Auto) 1500 H (0-900) /uL Eos # (Auto) 100 (0-450) /uL Baso # (Auto) 100 (0-100) /uL ESR 42 H (0-20) MM/HR Sodium 135 L (137-145) mmol/L Potassium 3.8 (3.4-5.1) mmol/L Chloride 103 (98-107) mmol/L Carbon Dioxide 26 (22-32) mmol/L BUN 14 (7-17) mg/dL Creatinine 0.57 (0.52-1.04) mg/dL Estimated GFR > 60.0 (>60) mL/min BUN/Creatinine Ratio 24.6 H (6-22) Glucose 104 (80-110) mg/dL Calcium 9.2 (8.4-10.2) mg/dL Total Bilirubin 0.3 (0.2-1.3) mg/dL AST 61 H (14-36) IU/L ALT 25 (<35) IU/L Alkaline Phosphatase 222 H (38-126) U/L C-Reactive Protein 2.4 H (<1.0) mg/dL Total Protein 7.5 (6.3-8.2) g/dL Albumin 3.8 (3.5-5.0) g/dL Globulin 3.7 (1.7-4.1) g/dL Albumin/Globulin Ratio 1.0 (1.0-2.8) Discharge Plan Departure Patient Disposition: Admitted as Observation Clinical Impression: Cellulitis Qualifiers: Site of cellulitis: extremity Site of cellulitis of extremity: upper extremity Laterality: right Qualified Code(s): L03.113 - Cellulitis of right upper limb Myositis Qualifiers: Myositis type: infective Myositis location: thigh Laterality: right Qualified Code(s): M60.051 - Infective myositis, right thigh Discharge Date/Time: 02/24/20 16:39 Instructions: DI for Cellulitis -- Adult, How To Perform RICE (Rest, Ice, Compress, Elevate), DI for Lymphedema, Sulfamethoxazole/Trimethoprim (By mouth) Referrals: Huber Caba MD [Primary Care Provider] - Kolton Chanel MD [Physician] - As previously scheduled Admit Date/Time: 02/24/20 16:00 Admit Provider: Adarsh Cheema
[2020-02-24] MEDS: ONDANSETRON 4 MG/2 ML INJ IV (14:31)
[2020-02-24] MEDS: VANCOMYCIN 1,500 MG/300 ML FROZ.PIGGY 200 MG IV (14:31)
[2020-02-24] MEDS: SODIUM CHLORIDE 0.9% 1,000 ML 125 ML IV ×2 (14:31→18:45)
[2020-02-24] MEDS: HYDROMORPHONE 0.5 MG INJ IV ×3 (14:31→16:23)
[2020-02-24 14:34] LABS: Add Manual Diff / Slide Review NO; Basophils Absolute Auto 100 /uL (0-100); Basophils Percent Auto 1.1 % (0-2); Eosinophils Absolute Auto 100 /uL (0-450); Eosinophils Percent Auto 0.5 % (2-4); Hematocrit 39.3 % (36-46); Hemoglobin 13.1 g/dL (12.0-16.0); Lymphocytes Absolute Auto 2600 /uL (1100-4500); Lymphocytes Percent Auto 21.5 % (25-40); Mean Corpuscular HGB Conc 33.3 % (30-36); Mean Corpuscular Hemoglobin 30.9 PG (26-34); Mean Corpuscular Volume 92.8 fL (80-100); Monocytes Absolute Auto 1500 /uL (0-900); Monocytes Percent Auto 12.5 % (3-14); Neutrophils Absolute Auto 7800 /uL (1500-7000); Neutrophils Percent Auto 64.4 % (50-75); Platelet Count 314 X10^3/uL (150-400); Red Blood Cell Count 4.24 X10^6/uL (4.0-5.2); Red Cell Distribution Width 14.2 % (11.6-14.8); White Blood Cell Count 12.1 X10^3/uL (4.5-11.0)
--- NOTE | 2020-02-24 14:39 | DI.US.S_ITS ---
PROCEDURE: US PERIPH VENOUS LOW EXTREM LT INDICATIONS: RT THIGH SWELLIN, DVT VERSUS PHLEBITIS TECHNIQUE: Real-time imaging, as well as color and pulse Doppler interrogation, were performed of the lower extremity deep veins from the inguinal ligament to the popliteal fossa. COMPARISON: [facility], , PERIP VENOUS LOW EXTREM RT, 01/26/2020, 16:50. FINDINGS: The common femoral, femoral and popliteal veins are normally compressible, and free of intraluminal thrombus. Color and pulse Doppler demonstrate normal phasic intraluminal flow. There is normal augmentation response to distal compression maneuver. IMPRESSION: Negative for deep venous thrombosis. Dictated by: Alexis Montanez M.D. on 02/24/2020 at 14:26 Approved by: Alexis Montanez M.D. on 02/24/2020 at 14:26
[2020-02-24 14:49] LABS: Alanine Aminotransferase 25 IU/L (<35); Albumin 3.8 g/dL (3.5-5.0); Alkaline Phosphatase 222 U/L (38-126); Aspartate Aminotransferase 61 IU/L (14-36); BUN Creatinine Ratio 24.6 (6-22); Bilirubin Total 0.3 mg/dL (0.2-1.3); Blood Urea Nitrogen 14 mg/dL (7-17); C-Reactive Protein Quant 2.4 mg/dL (<1.0); Calcium 9.2 mg/dL (8.4-10.2); Carbon Dioxide 26 mmol/L (22-32); Chloride 103 mmol/L (98-107); Estimated Glomerular Filt Rate > 60.0 mL/min (>60); Globulin 3.7 g/dL (1.7-4.1); Glucose 104 mg/dL (80-110); HEMOLYSIS < 15 (0-50); Potassium 3.8 mmol/L (3.4-5.1); Sodium 135 mmol/L (137-145); Total Protein 7.5 g/dL (6.3-8.2)
[2020-02-24 14:53] LABS: Erythrocyte Sedimentation Rate 42 MM/HR (0-20)
--- NOTE | 2020-02-24 14:56 | PC.NURSE ---
Right leg w/ lymphadema + redness in groin, upper leg area.
--- NOTE | 2020-02-24 16:33 | PM.CN ---
History of Present Illness Consult details Date Patient Seen: 02/24/20 Time Patient Seen: 16:33 Chief complaint: RT UPPER THIGH CELLULITIS PER AVI Narrative: This is a 60-year-old female with metastatic ovarian cancer lymphedema who is seen for evaluation of right thigh pain. Ovarian carcinoma diagnosed 2012 is currently undergoing chemotherapy with Carboplatin. Six weeks ago she developed a acute swelling of her right lateral thigh and underwent a duplex 01/07 which showed a DVT in the saphenofemoral junction and was started on Eliquis. A repeat of the duplex 01/25 showed resolution of the DVT, however she did continue to have thigh pain and underwent a CT extremity in late January as well as an MRI 02/22. The MRI demonstrates extensive cellulitis of the right thigh in addition to underlying myositis there was no fluid collection. She has no fever no open wounds. She is able to ambulate and move her lower leg and upper leg through a large range of motion without discomfort. Her discomfort is focal along the iliotibial tract just above the knee. No recent trauma. Meds Home Medications and Allergies Home Medications Medication Instructions Recorded Confirmed Type multivitamin [Multiple Vitamins] 1 tab PO DAILY #0 05/16/17 02/17/20 History turmeric 1 dose PO DAILY #0 05/16/17 02/17/20 History fluoxetine 20 mg capsule 20 mg PO DAILY #90 cap 10/21/19 02/17/20 Rx dexamethasone 4 mg PO DAILY #10 tab 11/24/19 02/17/20 Rx sennosides-docusate sodium 1 tab-cap PO BEDTIME 01/08/20 02/17/20 History [Senokot-S] apixaban [Eliquis] 5 mg PO BID 01/15/20 02/17/20 History hydrocodone-acetaminophen 1 tab PO Q6H PRN #60 tab 02/05/20 02/17/20 Rx zolpidem [Ambien] 5 mg PO BEDTIME PRN #30 tab 02/05/20 02/17/20 Rx amoxicillin-pot clavulanate 1 tab PO Q12H #14 tab 02/23/20 Rx [Augmentin] Allergies Allergy/AdvReac Type Severity Reaction Status Date / Time No Known Drug Allergies Allergy Verified 09/23/19 09:45 Review of Systems Review of Systems Narrative: A 10 point review of systems is negative except as noted in the HPI Exam Vital Signs (past 8 hours): - 02/24/20 13:18 02/24/20 14:37 02/24/20 15:30 Temperature 97 F L Pulse Rate 76 67 82 Respiratory Rate 13 14 16 Blood Pressure 119/75 Blood Pressure [Right Arm] 113/56 L 117/59 L Pulse Oximetry 98 99 98 02/24/20 16:30 Temperature Pulse Rate 72 Respiratory Rate 14 Blood Pressure Blood Pressure [Right Arm] 112/70 Pulse Oximetry 97 Oxygen Delivery Method Room Air Narrative Exam Narrative: General-no acute distress, well nourished HEENT-moist mucous membranes, no scleral icterus Neck-supple, no lymphadenopathy Chest- non labored respirations, clear to auscultation bilaterally Cardiac-regular rate no peripheral edema Abdomen-soft, nontender, non distended Extremities- Right thigh visibly more swollen than left. The anterior medial and posterior compartments of the right thigh are soft and compressible. There is an area of focal tenderness on the lateral aspect right thigh handbreadth above the knee overlying the IT band. She is able to flex and extend the foot as well as the thigh without discomfort. Palpable right DP pulse normal capillary refill, motor and sensory intact. Neurological-alert and oriented, no focal deficits Objective Labs Result Diagrams: 02/24/20 14:25 02/24/20 14:25 Labs: Laboratory Results - last 24 hr 02/24/20 02/24/20 14:25 14:25 WBC 12.1 H RBC 4.24 Hgb 13.1 Hct 39.3 MCV 92.8 MCH 30.9 MCHC 33.3 RDW 14.2 Plt Count 314 Neut % (Auto) 64.4 Lymph % (Auto) 21.5 L [place] % (Auto) 12.5 Eos % (Auto) 0.5 L Baso % (Auto) 1.1 Neut # (Auto) 7800 H Lymph # (Auto) 2600 [place] # (Auto) 1500 H Eos # (Auto) 100 Baso # (Auto) 100 ESR 42 H Sodium 135 L Potassium 3.8 Chloride 103 Carbon Dioxide 26 BUN 14 Creatinine 0.57 Estimated GFR > 60.0 BUN/Creatinine Ratio 24.6 H Glucose 104 Calcium 9.2 Total Bilirubin 0.3 AST 61 H ALT 25 Alkaline Phosphatase 222 H C-Reactive Protein 2.4 H Total Protein 7.5 Albumin 3.8 Globulin 3.7 Albumin/Globulin Ratio 1.0 Assessment & Plan Assessment & Plan narrative: This is a 60-year-old woman with metastatic ovarian cancer lymphedema and chronic right thigh pain. There is no evidence of compartment syndrome at admission, the anterior, medial and posterior thigh compartments are soft/ compressible, no neurological deficits, normal pulses. I reviewed her laboratory studies and imaging including the MRI yesterday which demonstrates cellulitis as well as myositis of the right thigh and the duplex from today which demonstrates the previous right leg DVT has resolved. I suspect that her thigh pain is likely secondary to myositis and underlying lymphedema. There is no identified fluid collection and no surgical intervention is warranted at this time. Think she would benefit from IV antibiotic therapy and leg compression.
--- NOTE | 2020-02-24 18:06 | PC.NURSE ---
Pt arrived to RM 210 @ [id number] from ER. Alert/oriented. Denies discomfort at this time. Right side flory cath accessed. Pt right leg larger than left, tender to touch. Pt states painful area on the outer aspect of the right thigh. No visible bruising noted. Pt has colostomy that she maintains on her own. Pt oriented to room & call system. Call light w/in reach, bed alarm on for pt safety.
--- NOTE | 2020-02-24 18:38 | PM.HP.1 ---
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 Patient states that she has been having right lower extremity pain for the past 6 weeks or so. It started after she felt a pop in her right leg that she felt when she was hiking. The next morning her right leg had swollen up quite dramatically. Lower extremity ultrasound showed a nonocclusive thrombus at the confluence of the greater saphenous vein and, if overall vein as well as prominent lymph nodes. The patient was started on Eliquis at that time, and her swelling has improved but her pain continued. Her oncologist ordered a CT of her right lower extremity on February 11, which showed asymmetric enlargement of the right thigh with suggestion right-sided cellulitis and possible myositis but no discrete abscess. She was given a trial Keflex initially, and when this did not help her pain, she was given Augmentin which also failed to improve her symptoms. She then underwent an MRI which again showed continued soft tissue infection and myositis but no discrete collections, leading to today when Dr. Chanel referred her to the emergency room. She denies any systemic symptoms including fever, chills, nausea, vomiting, abdominal pain worse than usual. She has had no shortness of breath, chest pain, palpitations, headaches. There is a known fluid collection in her abdomen between sigmoid and bladder that is decrease in size. She underwent prior sigmoidoscopy for further evaluation, but no known cause has been found to this time. In the emergency room, her vital signs were unremarkable. She had a mild leukocytosis to 12.1, ESR mildly elevated at 42. Chemistries were largely unremarkable with a sodium of 135, AST of 61, and an alk-phos of 222. She is admitted to Medicine under observation status for her right lower extremity skin and soft tissue infection and myositis. Patient History Medical History Chicken pox (Resolved ~1962) Neuropathy (Chronic ~2012) Ovarian cancer, BRCA2 positive (Chronic ~2012) Pneumothorax (Inactive) Vertigo (Inactive ~2012) Surgical History Anesthesia (Resolved) H/O bilateral mastectomy (Resolved ~2015) H/O total hysterectomy (Resolved ~2012) Family & Social History Social History: household members other Prior Living Arrangements Apartment/Condo Safety & Behavioral: Feels Safe in Current Yes Environment Suicidal Ideation Description None Suicide Plan Description No Plan Tobacco & Substance use: Smoking Status Never smoker alcohol intake frequency 0-2 drinks per day Substance Use Type does not use Meds Home Medications and Allergies Home Medications Medication Instructions Recorded Confirmed Type multivitamin [Multiple Vitamins] 1 tab PO DAILY #0 05/16/17 02/24/20 History turmeric 1 dose PO DAILY #0 05/16/17 02/24/20 History fluoxetine 20 mg capsule 20 mg PO DAILY #90 cap 10/21/19 02/24/20 Rx dexamethasone 4 mg PO DAILY #10 tab 11/24/19 02/24/20 Rx sennosides-docusate sodium 1 tab-cap PO BEDTIME PRN 01/08/20 02/24/20 History [Senokot-S] apixaban [Eliquis] 5 mg PO BID 01/15/20 02/24/20 History hydrocodone-acetaminophen 1 tab PO Q6H PRN #60 tab 02/05/20 02/24/20 Rx zolpidem [Ambien] 5 mg PO BEDTIME PRN #30 tab 02/05/20 02/24/20 Rx amoxicillin-pot clavulanate 1 tab PO Q12H #14 tab 02/23/20 02/24/20 Rx [Augmentin] Allergies Allergy/AdvReac Type Severity Reaction Status Date / Time No Known Drug Allergies Allergy Verified 09/23/19 09:45 Review of Systems Review of Systems Narrative: All other systems reviewed with the patient and are negative unless otherwise stated. Exam Vital Signs (past 8 hours): - 02/24/20 13:18 02/24/20 14:37 02/24/20 15:30 Temperature 97 F L Pulse Rate 76 67 82 Respiratory Rate 13 14 16 Blood Pressure 119/75 Blood Pressure [Right Arm] 113/56 L 117/59 L Pulse Oximetry 98 99 98 02/24/20 16:30 02/24/20 16:55 Temperature 98.1 F Pulse Rate 72 75 Respiratory Rate 14 18 Blood Pressure 104/61 Blood Pressure [Right Arm] 112/70 Pulse Oximetry 97 95 Oxygen Delivery Method Room Air Narrative Exam Narrative: GENERAL APPEARANCE: Well developed, well nourished, in no acute distress. SKIN: Inspection of the skin reveals no rashes, ulcerations or petechiae. HEENT: Normocephalic atraumatic, extraocular muscles are intact, oropharynx is clear and mucous membranes are moist, neck is supple without adenopathy NECK: Supple and symmetric. There was no thyroid enlargement, and no tenderness, or masses were felt. CHEST: Normal AP diameter and normal contour without any kyphoscoliosis. LUNGS: Auscultation of the lungs revealed no wheezes, rhonchi, or rales. CARDIOVASCULAR: There was a regular rate and rhythm without any murmurs, gallops, rubs. Peripheral pulses were 2+ and symmetric. ABDOMEN: Soft and nontender with normal bowel sounds. Colostomy in place. MUSCULOSKELETAL: There was mild tenderness of approximately a 4x4 cm area on her R thigh without overlying erythema or induration. Muscle strength and tone were normal. EXTREMITIES: No cyanosis, clubbing or edema. NEUROLOGIC: Alert and oriented x 3. Normal affect. Gait was normal. Strength is +5/5 in the Upper Extremities and Lower Extremities Bilaterally. Sensation to touch was normal. Objective Labs Result Diagrams: 02/24/20 14:25 02/24/20 14:25 Labs: Laboratory Results - last 24 hr 02/24/20 02/24/20 14:25 14:25 WBC 12.1 H RBC 4.24 Hgb 13.1 Hct 39.3 MCV 92.8 MCH 30.9 MCHC 33.3 RDW 14.2 Plt Count 314 Neut % (Auto) 64.4 Lymph % (Auto) 21.5 L [place] % (Auto) 12.5 Eos % (Auto) 0.5 L Baso % (Auto) 1.1 Neut # (Auto) 7800 H Lymph # (Auto) 2600 [place] # (Auto) 1500 H Eos # (Auto) 100 Baso # (Auto) 100 ESR 42 H Sodium 135 L Potassium 3.8 Chloride 103 Carbon Dioxide 26 BUN 14 Creatinine 0.57 Estimated GFR > 60.0 BUN/Creatinine Ratio 24.6 H Glucose 104 Calcium 9.2 Total Bilirubin 0.3 AST 61 H ALT 25 Alkaline Phosphatase 222 H C-Reactive Protein 2.4 H Total Protein 7.5 Albumin 3.8 Globulin 3.7 Albumin/Globulin Ratio 1.0 Assessment & Plan Assessment & Plan narrative: Medina Monteiro is a 60-year-old female with BCRA-2 mutation, Stage IV ovarian CA on chemo (last round middle of January), right lower extremity DVT on apixaban since December who presents at the recommendation of her oncologist for right lower extremity cellulitis and myositis was not responding to outpatient oral antibiotic therapy. 1. RLE soft tissue infection and myositis - continue ceftriaxone daily and vancomycin per pharmacy. Outpatient coverage did not cover against MRSA. - there is no overlying erythema, and no drainable fluid collections on imaging performed as an outpatient. - unclear if lymphadeonpathy is reactive to cellulitis or if cellulitis is a result of lymphadenopathy and/or connected with underlying DVT which was found. - PT evaluation has been ordered - pain control with PO and IV dilaudid overnight 2. RLE DVT - continue apixaban 5 mg BID 3. Stage IV ovarian CA, active - patient is on decadron daily, 4mg. Will hold for now given likely underlying infection. - Oncologist is Dr. Chanel, follows here. 4. History of colostomy placement - 01/23/2017: Exploratory laparotomy, ALEAH, and diverting loop transverse colostomy for large bowel obstruction 5. Intra-abdominal fluid collection - extraluminal fluid collection situated between rectum and urinary bladder with adjacent rectosigmoid colon wall thickening and bladder wall thickening, concerning for abscess collection in this area. This collection now measures 2.3 x 1.9 cm in size compared to 2.8 x 2.8 cm in size on previous study. No internal air is seen on the current study. -She underwent prior sigmoidoscopy at [facility] in [place] for further evaluation, but no known cause has been found to this time. -it is not felt that this fluid collection is related to her current cellulitis and myositis given the chronicity in improving nature of the collection. However consider consultation with general surgery if she does not show improvement. She is seemingly asymptomatic at this time. -per Dr. Galo, underwent CT abdomen and pelvis on 01/21/2020. It showed interval development of rectal wall thickening and increase in bladder wall thickening, question extraluminal fluid and air outside the rectosigmoid region, possibly representing interloop abscess or necrotic neoplasm. The repeat CT of the pelvis showed that the fluid collection has decreased in size. Clinically patient does not have apparent sepsis presentation. For now I am going to continue observe closely. Code: Full, as discussed with the patient, she elects her surrogate decision maker to be her 2 daughters DVT: Lovenox daily Dispo: Admitted under observation status as her stay is not expected to exceed 2 midnights Quality VTE Deep Vein Thrombosis/Pulmonary Embolism Present on Admission: No
[2020-02-24] MEDS: CEFTRIAXONE 2 GM/50 ML FROZ.PIGGY IV (18:46)
[2020-02-24] MEDS: ACETAMINOPHEN 325 MG TABLET 650 MG PO (19:20)
[2020-02-24] MEDS: HYDROMORPHONE 1 MG INJ 0.5 MG IV (19:25)
[2020-02-24] MEDS: APIXABAN 5 MG TABLET PO (21:36)
[2020-02-24] MEDS: ZOLPIDEM 5 MG TABLET PO (21:36)
--- NOTE | 2020-02-24 23:24 | PC.NURSE ---
Assumed care at 1715. Physical assessment and admission performed by previous RN. Pain reported 3-4 throughout shift. Ambulates to bathroom with standby assist. SCD's on throughout shift.
[2020-02-24] MEDS: HYDROMORPHONE 2 MG TABLET PO (23:30)
[2020-02-25] MEDS: VANCOMYCIN 750 MG/150 ML FROZ.PIGGY 150 MG IV (02:06)
[2020-02-25] MEDS: HYDROMORPHONE 2 MG TABLET PO ×3 (03:40→09:35)
[2020-02-25 04:35] VITALS: BP 57/35; PULSE 68; RESP 18; TEMP 36.9; O2SAT 99
[2020-02-25] MEDS: SODIUM CHLORIDE 0.9% 1,000 ML 125 ML IV (05:39)
[2020-02-25 06:26] LABS: Add Manual Diff / Slide Review NO; Basophils Absolute Auto 100 /uL (0-100); Basophils Percent Auto 0.5 % (0-2); Eosinophils Absolute Auto 100 /uL (0-450); Hematocrit 36.4 % (36-46); Hemoglobin 12.2 g/dL (12.0-16.0); Lymphocytes Absolute Auto 2400 /uL (1100-4500); Lymphocytes Percent Auto 24.5 % (25-40); Mean Corpuscular HGB Conc 33.5 % (30-36); Mean Corpuscular Hemoglobin 31.3 PG (26-34); Mean Corpuscular Volume 93.4 fL (80-100); Monocytes Absolute Auto 1500 /uL (0-900); Monocytes Percent Auto 14.9 % (3-14); Neutrophils Absolute Auto 5800 /uL (1500-7000); Neutrophils Percent Auto 59.1 % (50-75); Platelet Count 279 X10^3/uL (150-400); Red Cell Distribution Width 14.1 % (11.6-14.8); White Blood Cell Count 9.8 X10^3/uL (4.5-11.0)
[2020-02-25 06:31] LABS: Alanine Aminotransferase 21 IU/L (<35); Albumin 3.1 g/dL (3.5-5.0); Albumin Globulin Ratio 0.9 (1.0-2.8); Alkaline Phosphatase 164 U/L (38-126); Aspartate Aminotransferase 59 IU/L (14-36); BUN Creatinine Ratio 23.3 (6-22); Bilirubin Total 0.3 mg/dL (0.2-1.3); Bilirubin Unconjugated 0.2 mg/dL (0.0-1.1); Blood Urea Nitrogen 14 mg/dL (7-17); Calcium 8.6 mg/dL (8.4-10.2); Carbon Dioxide 26 mmol/L (22-32); Chloride 104 mmol/L (98-107); Estimated Glomerular Filt Rate > 60.0 mL/min (>60); Globulin 3.4 g/dL (1.7-4.1); Glucose 89 mg/dL (80-110); HEMOLYSIS < 15 (0-50); Magnesium 1.7 mg/dL (1.6-2.3); Potassium 3.8 mmol/L (3.4-5.1); Sodium 134 mmol/L (137-145); Total Protein 6.5 g/dL (6.3-8.2)
[2020-02-25 06:43] LABS: Hemoglobin A1C% w Est Avg Glu 5.4 % (4.0-6.0)
[2020-02-25 07:25] VITALS: BP 105/57; PULSE 71; RESP 16; TEMP 37.2; O2SAT 97
[2020-02-25 09:03] LABS: Procalcitonin 0.05 ng/mL (<0.5)
[2020-02-25] MEDS: APIXABAN 5 MG TABLET PO (09:05)
[2020-02-25] MEDS: FLUoxetine 20 MG CAPSULE PO (09:05)
[2020-02-25] MEDS: MULTIVITAMIN 1 TABLET 1 TAB PO (09:05)
--- NOTE | 2020-02-25 09:20 | PT.IIE ---
Surgical History (Last Reviewed 02/24/20 @ 16:43 by Eliazar Purdy MD) Anesthesia (Resolved) H/O bilateral mastectomy (Resolved ~2015) H/O total hysterectomy (Resolved ~2012) Medical History (Last Reviewed 02/24/20 @ 16:43 by Eliazar Purdy MD) Chicken pox (Resolved ~1962) Neuropathy (Chronic ~2012) Ovarian cancer, BRCA2 positive (Chronic ~2012) Pneumothorax (Inactive) Vertigo (Inactive ~2012) Physical Therapy Inpatient Evaluation/Re-Eval M1 PT/OT-IP Prior Functional Status Start: 02/25/20 12:12 Freq: NEEDED Status: Active Protocol: Document 02/25/20 09:20 AB (Rec: 02/25/20 12:27 AB [id number]) Medical Review Prior Functional Status Medical History Reviewed Yes Communication able to make needs known Mobility and Gait pt stated that she is independent with all mobilities and ambulation without AD but has been using 1 crutch for the last 3 weeks on/off or for long distance ambulation since admission. Social History Household Members none Living Arrangements Apartment/Condo Number of Floors (Floors) One Floor Number of Stairs To Enter/Railing? has 16 steps with R rail ascending to get to her 2nd floor apartment Home Environment Standard Height Toilet,Walk in Shower Home Equipment Crutches Additional Social History Comment pt has an adjustable bed M2 PT-IP Current Condition Start: 02/25/20 12:12 Freq: NEEDED Status: Active Protocol: Document 02/25/20 09:20 AB (Rec: 02/25/20 12:27 [id number]) Physical Therapy Current Condition Current Condition Evaluation Date 02/25/20 Treatment Diagnosis RLE cellulitis; difficulty in walking Onset Date 02/24/20 M3 PT-IP Subjective Start: 02/25/20 12:12 Freq: NEEDED Status: Active Protocol: Document 02/25/20 09:20 AB (Rec: 02/25/20 12:27 AB [id number]) Subjective Physical Therapy Visit Type Type Initial Evaluation Visit Start Time 09:20 Visit Stop Time 09:57 Total Visit Minutes 37 Number of CAR BLOCKER Visits 0 Physical Therapy Visit Comments Patient Comments pt agreeable to do PT Therapy Pain Assessment Pain When Pain Assessed At Rest Pain Present Pain Present Pain Reported Location Right Leg Intensity 6 Scale Used increases to 10/10 with weight bearing Pain Management Techniques Timing of Activity with Medications M4 PT-IP Mobility and Gait Start: 02/25/20 12:12 Freq: NEEDED Status: Active Protocol: Document 02/25/20 09:20 AB (Rec: 02/25/20 12:27 AB [id number]) PT-Bed Mobility Assessment Supine to Sit Supine to Sit Independent Sit to Supine Sit to Supine Independent PT-Transfer Assessment Sit to and From Stand Sit to and from Stand Standby Assistance Equipment Transfer Assistive Device None,Gait Belt Orthotic/Prosthetic Devices or Brace: No Transfers Transfer Destination Toilet Transfer Technique ambulated without AD Transfer Ability Level of Assist Standby Assistance,Contact Guard Assistance,1 Person Assistance,Use of Upper Extremities Comments Mobility Comments pt completed bed mobility modified independent. ambulated to the toilet without AD CGA. completed toileting without assistance and ambulated towards the sink SBA to CGA without AD and completed handwashing maintaining standing balance SBA. pt presents with unsteady antalgic gait and c/o increase RLE pain to 10/10. pt has an axillary crutch that her daughter gave her. adjusted axillary crutch and instructed pt on how to use. pt ambulated using crutch SBA . pt stated that it helps decrease some of the pain. pt ambulated in the hallway using axillary crutch SBA ~ 150 ft x 2. pt completed the stairs. pt requested to go back to bed and LE elevated after PT session. call light and table placed within reach. Gait Assessment Gait Gait Assistance Required: Standby Assistance Distance (Feet) 150 Able to Maintain Weight Bearing Status Yes During Gait Assistive Devices Assistive Device Gait Belt,Axillary Crutches Orthotic/Prosthetic Devices or Brace: No Gait Deviations General Gait Pattern Antalgic,Decreased Stride Length,Decreased Feet Clearance Factors Limiting Gait Function Factors Limiting Gait Function Decreased Activity Tolerance, Decreased Strength,Pain,Poor Balance Comments Gait Comments pls refer to mobility section for details Stair Climbing Assessment Evaluation Level of Assist On Stairs Standby Assistance Devices Stair Climbing Assistive Devices Axillary Crutches,Right Railing Technique/Endurance Stair Climbing Direction Ascend and Descend Stair Climbing Technique Step to Step Number of Steps Climbed 3 Query Text: Stair Climbing Set # Repetitions (reps) 2 Comments Stair Climbing Comments initial intructions and cues provided but able to complete without cues on 2nd rep PT-Balance Assessment Sitting Balance and Reactions Static Sitting Balance Ability Good Dynamic Sitting Balance Ability Good Standing Balance and Reactions Static Standing Balance Ability Fair Dynamic Standing Balance Ability Fair Device Used without AD M5 PT-IP Objective Assessments Start: 02/25/20 12:12 Freq: NEEDED Status: Active Protocol: Document 02/25/20 09:20 AB (Rec: 02/25/20 12:27 AB [id number]) Orientation Orientation/Cognition Level of Alertness Alert Orientation Name,Age,Birthday,Month,Date, Year,Day of Week,Place, Situation Safety Awareness Understands Safety Issues Memory Description No Deficits Noted Gross Range of Motion Lower Extremity ROM Assessment Within Functional Limits Strength Lower Extremity Strength Assessment Within Functional Limits Muscle Tone Muscle Tone WNL Yes M6 PT-IP Treatment Start: 02/25/20 12:12 Freq: NEEDED Status: Active Protocol: Document 02/25/20 09:20 AB (Rec: 02/25/20 12:27 AB [id number]) Physical Therapy Treatment Education Education Provided Safety M7 PT-IP Assessment and Plan Start: 02/25/20 12:12 Freq: NEEDED Status: Active Protocol: Document 02/25/20 09:20 AB (Rec: 02/25/20 12:27 AB [id number]) PT Summary Assessment and Plan Potential Rehabilitation Potential Good Status of Condition at Evaluation Evolving Summary Impairments Pain,Strength,Balance,Bed Mobility,Transfers,Gait, Activity Tolerance Assessment Summary pt requiring SBA with mobility . pt stated that she can arrange for somebody to assist her if needed and is agreeable to have homehealth PT. Pt may go home when medically stable. Goals Bed Mobility Goal Independent Transfer Goal Independent Gait Goal Independent Gait Distance 200 Other Goals up/down 16 steps R rail ascending mod I Days to Meet Goals 5 Frequency of Treatment Frequency Of Treatment Once a Day Treatment Plan Physical Therapy Treatment Plan Bed Mobility Training,Transfer Training,Gait Training, Therapeutic Exercise,Balance Retraining,Discharge Planning, Neuromuscular Re-ed Recommendations To Nursing Amount of Assist Needed Standby Assistance Discharge Recommendations PT Discharge Recommendations Home with Assistance,Home Health Transportation Needs at Discharge Private Vehicle
--- NOTE | 2020-02-25 09:27 | PC.NURSE ---
Edema to right thigh greater than the left with lymphedema from foot up to hip. Some +1 pitting edema to dorsal right foot. Right thigh warm to touch in comparison with the left. Pt reports pain at 5/10 with pain meds which is tolerable for her.
--- NOTE | 2020-02-25 10:54 | P.DS_ITS ---
History of Present Illness History of Present Illness Date Patient Seen: 02/24/20 Chief complaint: RT UPPER THIGH CELLULITIS PER AVI Narrative: Written by Adarsh Cheema: Medina Monteiro is a 60-year-old female with BCRA-2 mutation, Stage IV ovarian CA on chemo (last round middle of January), right lower extremity DVT on apixaban since December who presents at the recommendation of her oncologist for right lower extremity cellulitis was not responding to outpatient oral antibiotic therapy. Patient states that she has been having right lower extremity pain for the past 6 weeks or so. It started after she felt a pop in her right leg that she felt when she was hiking. The next morning her right leg had swollen up quite dramatically. Lower extremity ultrasound showed a nonocclusive thrombus at the confluence of the greater saphenous vein and, if overall vein as well as prominent lymph nodes. The patient was started on Eliquis at that time, and her swelling has improved but her pain continued. Her oncologist ordered a CT of her right lower extremity on February 11, which showed asymmetric enlargement of the right thigh with suggestion right-sided cellulitis and possible myositis but no discrete abscess. She was given a trial Keflex initially, and when this did not help her pain, she was given Augmentin which also failed to improve her symptoms. She then underwent an MRI which again showed continued soft tissue infection and myositis but no discrete collections, leading to today when Dr. Chanel referred her to the emergency room. She denies any systemic symptoms including fever, chills, nausea, vomiting, abdominal pain worse than usual. She has had no shortness of breath, chest pain, palpitations, headaches. There is a known fluid collection in her abdomen between sigmoid and bladder that is decrease in size. She underwent prior sigmoidoscopy for further evaluation, but no known cause has been found to this time. In the emergency room, her vital signs were unremarkable. She had a mild leukocytosis to 12.1, ESR mildly elevated at 42. Chemistries were largely unremarkable with a sodium of 135, AST of 61, and an alk-phos of 222. She is ad mitted to Medicine under observation status for her right lower extremity skin and soft tissue infection and myositis. Discharge Providers Provider Date of admission: 02/24/20 16:00 Discharge Date: 02/25/20 Primary care physician: Huber Caba MD Consults: 02/24/20 18:44 Consult to Physical Therapy Evaluate & Treat Comment: Physician Instructions: Evaluate and Treat Discharge provider: Kathleen Huang DO Summary Hospital Course Discharge Diagnosis: 1. Right lower extremity cellulitis and myositis, present on admission. Improving. 2. History of right lower extremity DVT. 3. Stage IV ovarian cancer, chronic, present on admission. Presumed stable. 4. History of colostomy. 5. Intra-abdominal fluid collection, chronic, present on admission. Stable. Hospital Course: Medina Monteiro is a 60-year-old female with a past medical history significant for BCRA-2 mutation and prophylactic double mastectomy, Stage IV ovarian CA on chemotherapy with carboplatin last cycle 02/04 and previous right lower extremity DVT in December on Eliquis who presented to the ED at the recommendation of her oncologist for right lower extremity cellulitis and myositis which failed outpatient oral antibiotic therapy and concdern for compartment syndrome. 1. Right lower extremity cellulitis and myositis, present on admission. Improving. -Patient with acute on chronic right lower extremity thigh pain and outpatient workup performed by Dr. Chanel revealing cellulitis and myositis without significant exam findings and concern for compartment syndrome therefore recommended patient go to ED. -MR right lower extremity demonstrated significant cellulitis involving right thigh with underlying myositis involving anterior right upper to mid thigh muscles. No discrete drainable abscess collection. No gross soft tissue mass is noted. No underlying marrow signal abnormality. No fracture or dislocation. No suspicious bony lesion. -ED consulted general surgery, Dr. Purdy, who did not feel patient had compartment syndrome or any surgical intervention warranted. -Received ceftriaxone 2 g IV daily and vancomycin with dosing per pharmacist. Previous outpatient antibiotic treatment did not include coverage for MRSA. Discharged on Bactrim DS twice daily for 13 additional days to complete 14 day treatment course. Plan for close outpatient follow-up with oncologist Dr. Chanel which will be scheduled for next week. -Continued pain control with PO and IV dilaudid. Discharged on diluadid 1-2 mg every 3 hours as need for pain. -Continued physical and occupational evaluation and treatment. 2. History of right lower extremity DVT. -Venous doppler ultrasound of right lower extremity on 01/25 did not demonstrate right lower extremity DVT and previous DVT has resolved with treatment. Repeat venous doppler ultrasound ordered by ED with report stating it was a left sided exam and unclear if this was a typo and performed on right lower extremity or left?? -Continued Eliquis 5 mg twice daily. 3. Stage IV ovarian cancer, chronic, present on admission. Presumed stable. -Patient is followed by oncology, Dr. Chanel, with last cycle of carboplatin on 02/04. Patient will have close outpatient follow-up with Dr. Chanel scheduled for next week. -Held decadron initially due to underlying infection. 4. History of colostomy. -Patient had exploratory laparotomy, ALEAH, and diverting loop transverse colostomy for large bowel obstruction 01/23/2017. Colostomy stable with normal soft stool and output. 5. Intra-abdominal fluid collection, chronic, present on admission. Stable. -Per Dr. Chanel, underwent CT abdomen and pelvis with contrast on 01/21/2020. It showed interval development of rectal wall thickening and increase in bladder wall thickening, question extraluminal fluid and air outside the rectosigmoid region, possibly representing interloop abscess or necrotic neoplasm. Patient underwent prior sigmoidoscopy at [facility] in [place] for further evaluation of rectosigmoid wall thickening which was unreveiling. Repeat CT of the abdomen and pelvis showed that the fluid collection has decreased in size. It is not felt that this fluid collection is related to her current cellulitis and myositis given the chronicity in improving nature of the collection. She is seemingly asymptomatic at this time. Continue close outpatient follow-up with oncologist Dr. Chanel and consider outpatient general surgery and/or ID consult if worsening or patient becomes symptomatic. Exam Vital Signs (past 8 hours): - 02/25/20 04:35 02/25/20 07:25 Temperature 98.4 F 99.0 F Pulse Rate 68 71 Respiratory Rate 18 16 Blood Pressure 57/35 L 105/57 L Pulse Oximetry 99 97 Oxygen Delivery Method Room Air Oxygen Flow Rate 0 Narrative Exam Narrative: General: Older female lying in bed and in no acute distress, well-developed, well-nourished, good spirits and appropriately interactive. HEENT: Normocephalic, atraumatic. External ears without defect. Pupils equal, round, and reactive to light. Anicteric sclerae, moist conjunctivae, and no lid lag. Oropharynx free of erythema and cobble stoning with moist mucosa. Neck: Supple with full range of motion. No lymphadenopathy or thyromegaly. Cardiovascular: Regular rate and rhythm without murmurs, rubs, or gallops appreciated. Pulmonary: Clear to auscultation bilaterally without crackles, wheezes, or r honchi. Normal respiratory effort with no use of accessory muscles. Abdomen: Soft, bowel sounds present, nontender, nondistended. Clostomy present with soft stool. No hepatosplenomegaly or masses appreciated. Extremities: No clubbing or cyanosis. Asymmetrical swelling of right lower extremity consistent with lymphedema. Right lateral thigh with tenderness to palpation in small 4 x 4 cm area with subtle erythema (light pink) with mild thickening of skin but without distinct margins or fluctuance. Skin: Normal temperature, turgor, and texture; no ulcers, or subcutaneous nodules appreciated. Neurological: Cranial nerves grossly intact. Psychiatric: Normal mood and affect. Alert and oriented to person, place, and time. Objective Labs Result Diagrams: 02/25/20 05:55 02/25/20 05:55 Labs: Laboratory Results - last 24 hr 02/24/20 02/24/20 02/25/20 14:25 14:25 05:55 WBC 12.1 H 9.8 RBC 4.24 3.90 L Hgb 13.1 12.2 Hct 39.3 36.4 MCV 92.8 93.4 MCH 30.9 31.3 MCHC 33.3 33.5 RDW 14.2 14.1 Plt Count 314 279 Neut % (Auto) 64.4 59.1 Lymph % (Auto) 21.5 L 24.5 L [place] % (Auto) 12.5 14.9 H Eos % (Auto) 0.5 L 1.0 L Baso % (Auto) 1.1 0.5 Neut # (Auto) 7800 H 5800 Lymph # (Auto) 2600 2400 [place] # (Auto) 1500 H 1500 H Eos # (Auto) 100 100 Baso # (Auto) 100 100 ESR 42 H Sodium 135 L Potassium 3.8 Chloride 103 Carbon Dioxide 26 BUN 14 Creatinine 0.57 Estimated GFR > 60.0 BUN/Creatinine Ratio 24.6 H Glucose 104 Hemoglobin A1c Calcium 9.2 Magnesium Total Bilirubin 0.3 Conjugated Bilirubin Unconjugated Bilirubin AST 61 H ALT 25 Alkaline Phosphatase 222 H C-Reactive Protein 2.4 H Total Protein 7.5 Albumin 3.8 Globulin 3.7 Albumin/Globulin Ratio 1.0 Procalcitonin 02/25/20 02/25/20 02/25/20 05:55 05:55 05:55 WBC RBC Hgb Hct MCV MCH MCHC RDW Plt Count Neut % (Auto) Lymph % (Auto) [place] % (Auto) Eos % (Auto) Baso % (Auto) Neut # (Auto) Lymph # (Auto) [place] # (Auto) Eos # (Auto) Baso # (Auto) ESR Sodium 134 L Potassium 3.8 Chloride 104 Carbon Dioxide 26 BUN 14 Creatinine 0.60 Estimated GFR > 60.0 BUN/Creatinine Ratio 23.3 H Glucose 89 Hemoglobin A1c 5.4 Calcium 8.6 Magnesium 1.7 Total Bilirubin 0.3 Conjugated Bilirubin 0.0 Unconjugated Bilirubin 0.2 AST 59 H ALT 21 Alkaline Phosphatase 164 H C-Reactive Protein Total Protein 6.5 Albumin 3.1 L Globulin 3.4 Albumin/Globulin Ratio 0.9 L Procalcitonin 0.05 Discharge Plan Discharge Plan Patient Disposition: Home Health Service Discharge comment: You are being discharged home with home health for physical therapy and nursing need. You have extensive cellulitis (skin infection) and mild myositis (muscle infection). You have been prescribed Bactrim double strength twice daily for 13 additional days to complete 14 days of antibiotics total. Please try to stay well hydrated while taking this medication as it may injury your kidneys. Please try to not be overactive, elevate your right lower extremity frequently when not up and moving and higher than the level of your heart, and wear your thigh-high compression stocking while awake. Please follow- up with Dr. Chanel at your scheduled appointment next week with repeat lab work. Discharge orders & Medications Prescriptions: Continued multivitamin [Multiple Vitamins] 1 EACH tablet 1 tab PO DAILY Qty: 0 RF: 0 turmeric 1 dose PO DAILY Qty: 0 RF: 0 fluoxetine [Prozac] 20 mg capsule 20 mg PO DAILY Qty: 90 RF: 1 dexamethasone 4 mg Tablet 4 mg PO DAILY Qty: 10 RF: 0 sennosides-docusate sodium [Senokot-S] 8.6-50 mg Tablet 1 tab-cap PO BEDTIME PRN (Reason: only w/ chemo) RF: 0 Eliquis 5 mg Tablet 5 mg PO BID RF: 0 zolpidem [Ambien] 5 mg Tablet 5 mg PO BEDTIME PRN (Reason: Sleep) Qty: 30 RF: 0 Discontinued hydrocodone-acetaminophen 5-325 mg Tablet 1 tab PO Q6H PRN (Reason: leg pain, ovarian cancer.) Qty: 60 RF: 0 amoxicillin-pot clavulanate [Augmentin] 500-125 mg Tablet 1 tab PO Q12H Qty: 14 RF: 0 No Action hydromorphone 2 mg Tablet 1 - 2 mg PO Q3H PRN (Reason: Pain, Severe (7-10)) Qty: 35 RF: 0 sulfamethoxazole-trimethoprim [Bactrim DS] 800-160 mg tablet 1 tab PO Q12H Qty: 26 RF: 0 Follow up/Referrals: Huber Caba MD [Primary Care Provider] - Kolton Chanel MD [Physician] - As previously scheduled Diet/Activity/Treatments Diet: Diet as Tolerated Activity: Activity as tolerated Visit Report/Discharge Packet Instructions: DI for Cellulitis -- Adult, How To Perform RICE (Rest, Ice, Comp ress, Elevate), DI for Lymphedema, Sulfamethoxazole/Trimethoprim (By mouth) Discharge Data Primary Care Provider: Huber Caba Attending Provider: Adarsh Cheema Admit Date/Time: 02/24/20 16:00 Discharges patient from system. Discharge Date/Time: 02/25/20 12:45 Quality VTE Deep Vein Thrombosis/Pulmonary Embolism Present on Admission: No
--- NOTE | 2020-02-25 12:26 | CM.DANOTE ---
Addendum entered by Itzel Carroll R.N. 02/25/20 13:09: Abigail from [facility] referrals called. Stated, she received 31 pages, but no noted notes from today. She also wanted to know if patient was being discharged today, and let her know that this case mgr put that information on her face sheet that she was being discharged today. Did look for today's note, and is not yet complete. Faxed her and let her know that today's discharge summary is not yet completed, and will fax it over when done. Original Note: DCP: Case received, EMR reviewed and met with patient. Introduced self and role. Was able to meet with patient to obtain information regarding patient's baseline activity information, as well as health and living situation. DCP assessment completed with information currently available. Patient is a 60 year old female who admitted yesterday afternoon to the care of the hospitalist team. PCP: Dr. Caba. Payer: confirmed: [facility]. Patient came to the hospital via private vehicle sent over from the advice of her oncologist secondary to increased pain and swelling to lower extremity. Patient holds current diagnosis of cellulitis/RLE soft tissue anfection and myositis. Patient has history of stage 4 ovarian cancer, and goes to oncology. She also has history of DVT, and lymphodema. Met with patient in her room. She is alert and oriented, pleasant. She lives alone here in [place], but has a supportive daughter, Joy, who is local. Discussed resources, as recommended by P.T. Discussed home health. Patient did confirm that she is homebound, she is not driving, and relies on her daughter to take her to appointments. Had Dr. Huang sign face to face. Discussed home health agencies, and she has no preference. [facility] [employer] is listed on calendar for this week. Mentioned nursing to come in and evaluate her lower extremities, and pain management, as well as P.T. for strengthening. She is in agreement with the plan. Spoke to Mayra at [facility], and gave her update on referral. Sent her referral, as well as insurance information. They will review her insurance, and call back if any problems. Sent over face to face, face sheet, orders, H&P, and discharge summary. Stated that they should be able to see patient within 24-48 hours. P: Patient is discharging home today with [facility], nursing and PAngela Carroll RN/Senior Outside Sales Representative
--- NOTE | 2020-02-26 11:30 | CM.DPC ---
DCP cont: Faxed discharge summary to [facility] at fax # [phone]. Fax confirmation scanned in. Cherri Morales, [address] [employer]
== END 2020-02-25 12:45 | disposition home health service (06) ==
LOC: ED 16:00 → AC 16:01
PROVIDERS: Internal Medicine; Admitting Provider Internal Medicine; Emergency Provider Nurse Practitioner; PCP Student in an Organized Health Care Education/Training Program; Referring Provider Internal Medicine Hematology & Oncology; Visit Provider Internal Medicine
DX: L03.115 Cellulitis of right lower limb (principal); C56.9 Malignant neoplasm of unspecified ovary; I82.491 Acute embolism and thrombosis of other specified deep vein of right lower extremity; M60.9 Myositis, unspecified; R18.8 Other ascites
CPT/HCPCS: 36415; 80048; 80053; 80076; 83036; 83735; 84145; 85025; 85651; 86140; 93971; 96361; 96365; 96366; 96367; 96375; 96376; 97161; 99284; G0378; J0696; J1170; J1642; J2405; J3370

== ENCOUNTER → 2020-04-05 13:30 | Oncology outpatient (ONC) | payer OTHER, SELFPAY ==
[2018-05-09 12:14] VITALS: BP 102/73; PULSE 62; RESP 18; TEMP 36.6; O2SAT 100
[2018-05-09 13:02] LABS: Add Manual Diff / Slide Review NO; Basophils Percent Auto 1.3 % (0-2); Eosinophils Percent Auto 1.4 % (2-4); Hemoglobin 13.9 g/dL (12.0-16.0); Lymphocytes Percent Auto 31.9 % (25-40); Mean Corpuscular Hemoglobin 30.1 PG (26-34); Mean Corpuscular Volume 88.7 fL (80-100); Neutrophils Absolute Auto 3900 /uL (3000-5900); Neutrophils Percent Auto 54.4 % (50-75); Platelet Count 230 X10^3/uL (150-400); Red Blood Cell Count 4.62 X10^6/uL (4.0-5.2); Red Cell Distribution Width 13.1 % (11.6-14.8); White Blood Cell Count 7.1 X10^3/uL (4.5-11.0)
[2018-05-09 13:14] LABS: Alanine Aminotransferase 26 IU/L (9-52); Albumin 4.8 g/dL (3.5-5.0); Albumin Globulin Ratio 1.4 (1.0-2.8); Alkaline Phosphatase 150 U/L (38-126); Aspartate Aminotransferase 41 IU/L (14-36); BUN Creatinine Ratio 25.6 (6-22); Bilirubin Total 0.5 mg/dL (0.2-1.3); Blood Urea Nitrogen 23 mg/dL (7-17); Calcium 10.5 mg/dL (8.4-10.2); Carbon Dioxide 31 mmol/L (22-32); Chloride 101 mmol/L (98-107); Estimated Glomerular Filt Rate > 60.0 mL/min (>60); Globulin 3.4 g/dL (1.7-4.1); Glucose 101 mg/dL (80-110); HEMOLYSIS < 15 (0-50); Potassium 4.7 mmol/L (3.4-5.1); Sodium 140 mmol/L (137-145); Total Protein 8.2 g/dL (6.3-8.2)
[2018-05-09 13:45] LABS: Cancer Antigen 125 114 U/mL (0-35)
--- NOTE | 2018-05-09 16:49 | ONC.PN ---
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 Clinically she is doing very well and is not symptomatic. She has not received some chemotherapy after last carboplatin in 09/2017 at [facility]. CA 125 was drawn today. It was gradually increasing between October to February 2018. I will contact her with resolved next week. She will be some in [place] from June 2018 for about 6 months. She will have follow-up imaging studies there with her oncologist Dr. Nicolas Ewing, unless today's CA 125 is significantly elevated, in which case we will obtain imaging studies locally soon. At this point, we have scheduled a follow-up in this clinic in June 2018 before she leaves for [place], so that she can meet her new permanent oncology provider in [place]. 05/09/18 17:11 PN -Subjective Interval history: Medina Monteiro is a very pleasant 58-year-old woman, BRCA2 pathogenic mutation carrier, with established diagnosis of stage IV ovarian serous carcinoma. She lives 6 months in [place] and 6 months in [place]. She was previously under the care of Dr. Amaral, and needs to establish with a new local oncology provider. Her oncologist in [place] is Dr. Nicolas Ewing at [facility]. She needs to have her CA 125 of them checked today and called with result. She feels physically very well and has no complaints or concerning symptoms. She initially presented with abdominal distention, bloating and early satiety in early 2012, CA 11/08/2001 122, and evidence of extensive hypermetabolic peritoneal nodularity and stranding. She was taken to surgery and underwent a right salpingo-oophorectomy, omentum and peritoneal biopsies, pathology positive for poorly differentiated high-grade serous carcinoma. She was given 2 cycles of carboplatin and Taxol and had a good radiographic response. She underwent interval optimal debulking surgery in 02/2013. Postoperatively, she received 4 cycles of carboplatin/Taxol/Avastin, ending in 05/2013. She then continued with maintenance Avastin through 06/2014. CA 125 dinora to 195 in 10/2014, and 522 in 11/2014, and soon afterwards she developed abdominal symptoms. She was given carboplatin and paclitaxel x6 cycles for chilkoot sensitive relapse disease, from 12/2014 to 03/2015, with minimal persistent disease. She was offered tamoxifen as maintenance therapy but declined. She develops 2nd relapse in 12/2016, presenting with partial small-bowel obstruction. CT angio chest showed interval development of left supraclavicular, left hilar and bilateral mediastinal adenopathy, bilateral interlobular septal thickening representing mild interstitial pulmonary edema versus lymphangitic carcinomatosis, and according to notes there were new liver metastases. She underwent exploratory laparotomy, ALEAH, and diverting loop transverse colostomy for large bowel obstruction on 01/23/2017 at [facility]. Postoperatively she was given monthly carboplatin times 8 infusions, from 01/2018 through 09/2018, and since then has not received any further systemic therapy. She still had chilkoot sensitive disease, with drop in CA 125 from 231 in 03/2017 to 53 in 04/2017 and 10.2 in 07/2017. Most recent CA-125 was 29.8 in 02/2018, up from 16 in 12/2017. It was redrawn today. 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 She remains not symptomatic. - Patient Self-Reported Symptoms SR Constitution: Fatigue/Malaise Results - Labs 05/09/18 12:50 05/09/18 12:50 Laboratory Last Values WBC 7.1 X10^3/uL (4.5-11.0) 05/09/18 12:50 RBC 4.62 X10^6/uL (4.0-5.2) 05/09/18 12:50 Hgb 13.9 g/dL (12.0-16.0) 05/09/18 12:50 Hct 41.0 % (36-46) 05/09/18 12:50 MCV 88.7 fL (80-100) 05/09/18 12:50 MCH 30.1 PG (26-34) 05/09/18 12:50 MCHC 34.0 % (30-36) 05/09/18 12:50 RDW 13.1 % (11.6-14.8) 05/09/18 12:50 Plt Count 230 X10^3/uL (150-400) 05/09/18 12:50 Neut % (Auto) 54.4 % (50-75) 05/09/18 12:50 Lymph % (Auto) 31.9 % (25-40) 05/09/18 12:50 Stanton % (Auto) 11.0 % (3-14) 05/09/18 12:50 Eos % (Auto) 1.4 % (2-4) L 05/09/18 12:50 Baso % (Auto) 1.3 % (0-2) 05/09/18 12:50 Neut # (Auto) 3900 /uL (4474-1072) 05/09/18 12:50 Sodium 140 mmol/L (137-145) 05/09/18 12:50 Potassium 4.7 mmol/L (3.4-5.1) 05/09/18 12:50 Chloride 101 mmol/L (98-107) 05/09/18 12:50 Carbon Dioxide 31 mmol/L (22-32) 05/09/18 12:50 BUN 23 mg/dL (7-17) H 05/09/18 12:50 Creatinine 0.90 mg/dL (0.52-1.04) 05/09/18 12:50 Estimated GFR > 60.0 mL/min (>60) 05/09/18 12:50 BUN/Creatinine Ratio 25.6 (6-22) H 05/09/18 12:50 Glucose 101 mg/dL (80-110) 05/09/18 12:50 Calcium 10.5 mg/dL (8.4-10.2) H 05/09/18 12:50 Total Bilirubin 0.5 mg/dL (0.2-1.3) 05/09/18 12:50 AST 41 IU/L (14-36) H 05/09/18 12:50 ALT 26 IU/L (9-52) 05/09/18 12:50 Alkaline Phosphatase 150 U/L (38-126) H 05/09/18 12:50 Total Protein 8.2 g/dL (6.3-8.2) 05/09/18 12:50 Albumin 4.8 g/dL (3.5-5.0) 05/09/18 12:50 Globulin 3.4 g/dL (1.7-4.1) 05/09/18 12:50 Albumin/Globulin Ratio 1.4 (1.0-2.8) 05/09/18 12:50 CA 125 Antigen 114 U/mL (0-35) H 05/09/18 12:50 Home Medications and Allergies Home Medications Medication Instructions Recorded Confirmed Type [TURMERIC] #0 05/16/17 History multivitamin [Multiple Vitamins] 1 tab PO QDAY #0 05/16/17 History ondansetron HCl [Zofran] #0 05/16/17 History Exam Vital signs: Last Vital Signs Temp 97.9 F 05/09/18 12:14 Pulse 62 05/09/18 12:14 Resp 18 05/09/18 12:14 BP 102/73 05/09/18 12:14 Pulse Ox 100 05/09/18 12:14 - Constitutional positive no acute distress - Routine HEENT Exam Head: Present: normocephalic, atraumatic Eye: Present: EOMI, PERRL - Routine Neck Exam Present: supple. Absent: lymphadenopathy - Routine Respiratory Exam Present: Clear to auscultation bilaterally - Routine Cardiovascular Exam Present: RRR - Routine Abdominal Exam Present: soft. Absent: mass - Routine Extremities Exam Absent: edema
--- NOTE | 2018-05-09 17:10 | P.PNONC_ITS ---
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 Clinically she is doing very well and is not symptomatic. She has not received some chemotherapy after last carboplatin in 09/2017 at [facility]. CA 125 was drawn today. It was gradually increasing between October to February 2018. I will contact her with resolved next week. She will be some in [place] from June 2018 for about 6 months. She will have follow-up imaging studies there with her oncologist Dr. Nicolas Ewing, unless today's CA 125 is significantly elevated, in which case we will obtain imaging studies locally soon. At this point, we have scheduled a follow-up in this clinic in June 2018 before she leaves for [place], so that she can meet her new permanent oncology provider in [place]. 05/09/18 17:11 PN -Subjective Interval history: Medina Monteiro is a very pleasant 58-year-old woman, BRCA2 pathogenic mutation carrier, with established diagnosis of stage IV ovarian serous carcinoma. She lives 6 months in [place] and 6 months in [place]. She was previously under the care of Dr. Amaral, and needs to establish with a new local oncology provider. Her oncologist in [place] is Dr. Nicolas Ewing at [facility]. She needs to have her CA 125 of them checked today and called with result. She feels physically very well and has no complaints or concerning symptoms. She initially presented with abdominal distention, bloating and early satiety in early 2012, CA 11/08/2001 122, and evidence of extensive hypermetabolic peritoneal nodularity and stranding. She was taken to surgery and underwent a right salpingo-oophorectomy, omentum and peritoneal biopsies, pathology positive for poorly differentiated high-grade serous carcinoma. She was given 2 cycles of carboplatin and Taxol and had a good radiographic response. She underwent interval optimal debulking surgery in 02/2013. Postoperatively, she received 4 cycles of carboplatin/Taxol/Avastin, ending in 05/2013. She then continued with maintenance Avastin through 06/2014. CA 125 dinora to 195 in 10/2014, and 522 in 11/2014, and soon afterwards she developed abdominal symptoms. She was given carboplatin and paclitaxel x6 cycles for ninilchik sensitive relapse disease, from 12/2014 to 03/2015, with minimal persistent disease. She was offered tamoxifen as maintenance therapy but declined. She develops 2nd relapse in 12/2016, presenting with partial small-bowel obstruction. CT angio chest showed interval development of left supraclavicular , left hilar and bilateral mediastinal adenopathy, bilateral interlobular septal thickening representing mild interstitial pulmonary edema versus lymphangitic carcinomatosis, and according to notes there were new liver metastases. She underwent exploratory laparotomy, ALEAH, and diverting loop transverse colostomy for large bowel obstruction on 01/23/2017 at [facility]. Postoperatively she was given monthly carboplatin times 8 infusions, from 2017 through 09/2018, and since then has not received any further systemic therapy. She still had ninilchik sensitive disease, with drop in CA 125 from 231 in 03/2017 to 53 in 04/2017 and 10.2 in 07/2017. Most recent CA-125 was 29.8 in 02/2018, up from 16 in 12/2017. It was redrawn today. 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 She remains not symptomatic. - Patient Self-Reported Symptoms SR Constitution: Fatigue/Malaise Results - Labs 05/09/18 12:50 05/09/18 12:50 Laboratory Last Values WBC 7.1 X10^3/uL (4.5-11.0) 05/09/18 12:50 RBC 4.62 X10^6/uL (4.0-5.2) 05/09/18 12:50 Hgb 13.9 g/dL (12.0-16.0) 05/09/18 12:50 Hct 41.0 % (36-46) 05/09/18 12:50 MCV 88.7 fL (80-100) 05/09/18 12:50 MCH 30.1 PG (26-34) 05/09/18 12:50 MCHC 34.0 % (30-36) 05/09/18 12:50 RDW 13.1 % (11.6-14.8) 05/09/18 12:50 Plt Count 230 X10^3/uL (150-400) 05/09/18 12:50 Neut % (Auto) 54.4 % (50-75) 05/09/18 12:50 Lymph % (Auto) 31.9 % (25-40) 05/09/18 12:50 Branch % (Auto) 11.0 % (3-14) 05/09/18 12:50 Eos % (Auto) 1.4 % (2-4) L 05/09/18 12:50 Baso % (Auto) 1.3 % (0-2) 05/09/18 12:50 Neut # (Auto) 3900 /uL (6047-7482) 05/09/18 12:50 Sodium 140 mmol/L (137-145) 05/09/18 12:50 Potassium 4.7 mmol/L (3.4-5.1) 05/09/18 12:50 Chloride 101 mmol/L (98-107) 05/09/18 12:50 Carbon Dioxide 31 mmol/L (22-32) 05/09/18 12:50 BUN 23 mg/dL (7-17) H 05/09/18 12:50 Creatinine 0.90 mg/dL (0.52-1.04) 05/09/18 12:50 Estimated GFR > 60.0 mL/min (>60) 05/09/18 12:50 BUN/Creatinine Ratio 25.6 (6-22) H 05/09/18 12:50 Glucose 101 mg/dL (80-110) 05/09/18 12:50 Calcium 10.5 mg/dL (8.4-10.2) H 05/09/18 12:50 Total Bilirubin 0.5 mg/dL (0.2-1.3) 05/09/18 12:50 AST 41 IU/L (14-36) H 05/09/18 12:50 ALT 26 IU/L (9-52) 05/09/18 12:50 Alkaline Phosphatase 150 U/L (38-126) H 05/09/18 12:50 Total Protein 8.2 g/dL (6.3-8.2) 05/09/18 12:50 Albumin 4.8 g/dL (3.5-5.0) 05/09/18 12:50 Globulin 3.4 g/dL (1.7-4.1) 05/09/18 12:50 Albumin/Globulin Ratio 1.4 (1.0-2.8) 05/09/18 12:50 CA 125 Antigen 114 U/mL (0-35) H 05/09/18 12:50 Home Medications and Allergies Home Medications Medication Instructions Recorded Confirmed Type [TURMERIC] #0 05/16/17 History multivitamin [Multiple Vitamins] 1 tab PO QDAY #0 05/16/17 History ondansetron HCl [Zofran] #0 05/16/17 History Exam Vital signs: Last Vital Signs Temp 97.9 F 05/09/18 12:14 Pulse 62 05/09/18 12:14 Resp 18 05/09/18 12:14 BP 102/73 05/09/18 12:14 Pulse Ox 100 05/09/18 12:14 - Constitutional positive no acute distress - Routine HEENT Exam Head: Present: normocephalic, atraumatic Eye: Present: EOMI, PERRL - Routine Neck Exam Present: supple. Absent: lymphadenopathy - Routine Respiratory Exam Present: Clear to auscultation bilaterally - Routine Cardiovascular Exam Present: RRR - Routine Abdominal Exam Present: soft. Absent: mass - Routine Extremities Exam Absent: edema
--- NOTE | 2018-05-22 11:45 | PC.NURSE ---
Noted pt lab result from 05/09 CA 125 is 114. It had previously been in the 30's according to dictated note by Dr Loco. Per his recommendation, if there was a dramatic increase, pt would need more imaging done prior to return to [place] in Jun. She already has an oncologist established there. Phoned pt to let her know result and that she'll need to come in for possibly more imaging. Due to fact Dr Loco no longer seeing pts at this clinic, spoke with Sachi regarding this need. Pt scheduled to see Maricarmen VIVAS for possible ordering of further imaging.
--- NOTE | 2018-05-23 07:38 | ONC.APRN.PN ---
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 She lives in [facility], he used in [place] 6 months. She receives Cancer Care in both locations. She is planning to return to [place] soon and needed her Ca 125 checked locally as it had begun rising. She is here today to review results. Unfortunately, CA 125 does continue to climb. Most recently May 09, 2018 it was 114. Previously July 09, 2017 =10, May 25, 2017= 18. These tests were run here at [facility]. Outside facility result February of 2018 CA 125 was 29.8. She remains asymptomatic, specifically no abdominal bloating, early satiety, unexplained weight loss, fatigue. Exam was completely unremarkable. No palpable adenopathy. No hepatosplenomegaly. Overall patient looks quite healthy. We will send the patient for CT scan with contrast of chest, abdomen, pelvis. If in fact, unfortunately, we do have confirmation of progressive disease we will move forward with treatment as quickly as possible. The patient may very well be a good candidate for 1 of the new oral therapies for red devil sensitive recurrent metastatic ovarian cancer. I will review with our new oncologist Dr Chanel. Pt agrees with this POC. She understands her insurance does require preauthorization which we will work on as soon as possible and schedule imaging shortly thereafter. I am also happy to confer with her oncologist at [facility] after we review imaging results. As outlined earlier in this note this is the patient's 4th recurrence of ovarian serous carcinoma. She plans to return to [facility] in [place] in early june however if imaging demonstrates disease recurrence she wishes of course to initiate treatment as soon as possible. 05/23/18 10:09 05/23/18 10:12 - Time Spent with Patient 35 mins. 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 She lives in an [place] 6 months during the summer months, 6 months during the winter months in [place]. She receives Cancer Care in both locations. She is planning to return to [place] soon and needed her Ca 125 checked locally as it had begun rising. She is here today to review results, Dr Nelson called her earlier this week to inform her her CA 125 was unfortunately elevated. Unfortunately, CA 125 does continue to climb. Most recently May 09, 2018 it was 114. Previously July 09, 2017 =10, May 25, 2017= 18. These tests were run here at [facility]. Outside facility result February of 2018 CA 125 was 29.8. She remains asymptomatic, specifically no abdominal bloating, early satiety, unexplained weight loss, fatigue. Appetite stable, stools are also normal. No new lumps or bumps, no new pain. Overall feeling well, the pt reports she is surpried my CA 125 is up I am feeling so good. It is significant to note this is the patient's 4th recurrence of ovarian cancer although I can only find reports of 2 previous the pt is a very reliable historian and she is certain this is her 4th recurrence. February of 2013 the patient underwent debulking surgery, right salpingo oophorectomy, omentum, peritoneal biopsies. She was given 2 cycles of carboplatin and Taxol with good radiographic response. Postoperatively she received another 4 cycles of carboplatin/Taxol also with added a vast in completing this treatment regimen in May of 2013. She then continued with maintenance Avastin through June 2014. In October of 2014 CA 125 climbed to 195, November 2014 522. She then developed abdominal symptoms. She was treated with carboplatin and paclitaxel x6 cycles for red devil sensitive relapse from February 2015 to March 2015 with minimal persistent disease. She was offered tamoxifen as maintenance therapy however she declined. She developed 2nd relapse in February of 2017 for which she received monthly carboplatin x8 infusions from January 2017 to September 2017. 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 She lives 6 months in [place] and 6 months in [place]. She was previously under the care of Dr. Amaral, and needs to establish with a new local oncology provider. Her oncologist in [place] is Dr. Nicolas Ewing at [facility]. She needs to have her CA 125 of them checked today and called with result. She feels physically very well and has no complaints or concerning symptoms. She initially presented with abdominal distention, bloating and early satiety in early 2012, CA 11/08/2001 122, and evidence of extensive hypermetabolic peritoneal nodularity and stranding. She was taken to surgery and underwent a right salpingo-oophorectomy, omentum and peritoneal biopsies, pathology positive for poorly differentiated high-grade serous carcinoma. She was given 2 cycles of carboplatin and Taxol and had a good radiographic response. She underwent interval optimal debulking surgery in 02/2013. Postoperatively, she received 4 cycles of carboplatin/Taxol/Avastin, ending in 05/2013. She then continued with maintenance Avastin through 06/2014. CA 125 dinora to 195 in 10/2014, and 522 in 11/2014, and soon afterwards she developed abdominal symptoms. She was given carboplatin and paclitaxel x6 cycles for red devil sensitive relapse disease, from 12/2014 to 03/2015, with minimal persistent disease. She was offered tamoxifen as maintenance therapy but declined. She develops 2nd relapse in 12/2016, presenting with partial small-bowel obstruction. CT angio chest showed interval development of left supraclavicular, left hilar and bilateral mediastinal adenopathy, bilateral interlobular septal thickening representing mild interstitial pulmonary edema versus lymphangitic carcinomatosis, and according to notes there were new liver metastases. She underwent exploratory laparotomy, ALEAH, and diverting loop transverse colostomy for large bowel obstruction on 01/23/2017 at [facility]. Postoperatively she was given monthly carboplatin times 8 infusions, from 01/2018 through 09/2018, and since then has not received any further systemic therapy. She still had red devil sensitive disease, with drop in CA 125 from 231 in 03/2017 to 53 in 04/2017 and 10.2 in 07/2017. Most recent CA-125 was 29.8 in 02/2018, up from 16 in 12/2017. It was redrawn today. 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 She remains not symptomatic. - Patient Self-Reported Symptoms SR Constitution: Fatigue/Malaise Results - Labs 05/09/18 12:50 05/09/18 12:50 Laboratory Last Values WBC 7.1 X10^3/uL (4.5-11.0) 05/09/18 12:50 RBC 4.62 X10^6/uL (4.0-5.2) 05/09/18 12:50 Hgb 13.9 g/dL (12.0-16.0) 05/09/18 12:50 Hct 41.0 % (36-46) 05/09/18 12:50 MCV 88.7 fL (80-100) 05/09/18 12:50 MCH 30.1 PG (26-34) 05/09/18 12:50 MCHC 34.0 % (30-36) 05/09/18 12:50 RDW 13.1 % (11.6-14.8) 05/09/18 12:50 Plt Count 230 X10^3/uL (150-400) 05/09/18 12:50 Neut % (Auto) 54.4 % (50-75) 05/09/18 12:50 Lymph % (Auto) 31.9 % (25-40) 05/09/18 12:50 [place] % (Auto) 11.0 % (3-14) 05/09/18 12:50 Eos % (Auto) 1.4 % (2-4) L 05/09/18 12:50 Baso % (Auto) 1.3 % (0-2) 05/09/18 12:50 Neut # (Auto) 3900 /uL (5589-3527) 05/09/18 12:50 Sodium 140 mmol/L (137-145) 05/09/18 12:50 Potassium 4.7 mmol/L (3.4-5.1) 05/09/18 12:50 Chloride 101 mmol/L (98-107) 05/09/18 12:50 Carbon Dioxide 31 mmol/L (22-32) 05/09/18 12:50 BUN 23 mg/dL (7-17) H 05/09/18 12:50 Creatinine 0.90 mg/dL (0.52-1.04) 05/09/18 12:50 Estimated GFR > 60.0 mL/min (>60) 05/09/18 12:50 BUN/Creatinine Ratio 25.6 (6-22) H 05/09/18 12:50 Glucose 101 mg/dL (80-110) 05/09/18 12:50 Calcium 10.5 mg/dL (8.4-10.2) H 05/09/18 12:50 Total Bilirubin 0.5 mg/dL (0.2-1.3) 05/09/18 12:50 AST 41 IU/L (14-36) H 05/09/18 12:50 ALT 26 IU/L (9-52) 05/09/18 12:50 Alkaline Phosphatase 150 U/L (38-126) H 05/09/18 12:50 Total Protein 8.2 g/dL (6.3-8.2) 05/09/18 12:50 Albumin 4.8 g/dL (3.5-5.0) 05/09/18 12:50 Globulin 3.4 g/dL (1.7-4.1) 05/09/18 12:50 Albumin/Globulin Ratio 1.4 (1.0-2.8) 05/09/18 12:50 CA 125 Antigen 114 U/mL (0-35) H 05/09/18 12:50 Home Medications and Allergies Home Medications Medication Instructions Recorded Confirmed Type [TURMERIC] PO #0 05/16/17 History multivitamin [Multiple Vitamins] 1 tab PO QDAY #0 05/16/17 05/23/18 History ondansetron HCl [Zofran] 4 mg PO PRN PRN #0 05/16/17 05/23/18 History Exam Vital signs: Last Vital Signs Temp 97.9 F 05/09/18 12:14 Pulse 62 05/09/18 12:14 Resp 18 05/09/18 12:14 BP 102/73 05/09/18 12:14 Pulse Ox 100 05/09/18 12:14 Narrative: healthy and well appearing - Constitutional positive no acute distress, positive average body habitus - Routine HEENT Exam Head: Present: normocephalic, atraumatic Eye: Present: EOMI, PERRL, normal accommodation, conjunctivae pink. Absent: conjunctival icterus, scleral injection ENT: Present: mucous membranes moist, oropharynx clear - Routine Neck Exam Present: supple. Absent: lymphadenopathy - Routine Chest/Breast/Axilla Exam Chest wall exam standard: Absent: tenderness, mass Axillae: Absent: lymphadenopathy, mass, tenderness - Routine Respiratory Exam Present: Clear to auscultation bilaterally. Absent: decreased breath sounds, rales, rhonchi, wheezes - Routine Cardiovascular Exam Present: RRR, S1, S2. Absent: murmur, gallop, rubs, JVD - Routine Abdominal Exam Present: soft, normoactive bowel sounds, ostomy. Absent: tenderness, distended, guarding, organomegaly, mass Palpation/Percussion: Absent: fluid waves - Routine Extremities Exam Absent: edema, calf tenderness - Routine Skin Exam Present: intact, normal turgor. Absent: petechiae, rash - Routine Neurological Exam Present: alert, oriented X3 - Routine Psychiatric Exam Present: normal affect
--- NOTE | 2018-05-23 07:47 | P.PNONC_ITS ---
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 She lives in an [facility] 6 months, he used in [place] 6 months. She receives Cancer Care in both locations. She is planning to return to [place] soon and needed her Ca 125 checked locally as it had begun rising. She is here today to review results. Unfortunately, CA 125 does continue to climb. Most recently May 09, 2018 it was 114. Previously July 09, 2017 =10, May 25, 2017= 18. These tests were run here at [facility]. Outside facility result February of 2018 CA 125 was 29.8. She remains asymptomatic, specifically no abdominal bloating, early satiety, unexplained weight loss, fatigue. Exam was completely unremarkable. No palpable adenopathy. No hepatosplenomegaly. Overall patient looks quite healthy. We will send the patient for CT scan with contrast of chest, abdomen, pelvis. If in fact, unfortunately, we do have confirmation of progressive disease we will move forward with treatment as quickly as possible. The patient may very well be a good candidate for 1 of the new oral therapies for [place] sensitive recurrent metastatic ovarian cancer. I will review with our new oncologist Dr Chanel. Pt agrees with this POC. She understands her insurance does require preauthorization which we will work on as soon as possible and schedule imaging shortly thereafter. I am also happy to confer with her oncologist at [facility] after we review imaging results. As outlined earlier in this note this is the patient's 4th recurrence of ovarian serous carcinoma. She plans to return to [facility] in [place] in early june however if imaging demonstrates disease recurrence she wishes of course to initiate treatment as soon as possible. 05/23/18 10:09 05/23/18 10:12 - Time Spent with Patient 35 mins. 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 She lives in an [place] 6 months during the summer months, 6 months during the winter months in [place]. She receives Cancer Care in both locations. She is planning to return to [place] soon and needed her Ca 125 checked locally as it had begun rising. She is here today to review results, Dr Nelson called her earlier this week to inform her her CA 125 was unfortunately elevated. Unfortunately, CA 125 does continue to climb. Most recently May 09, 2018 it was 114. Previously July 09, 2017 =10, May 25, 2017= 18. These tests were run here at [facility]. Outside facility result February of 2018 CA 125 was 29.8. She remains asymptomatic, specifically no abdominal bloating, early satiety, unexplained weight loss, fatigue. Appetite stable, stools are also normal. No new lumps or bumps, no new pain. Overall feeling well, the pt reports she is surpried my CA 125 is up I am feeling so good. It is significant to note this is the patient's 4th recurrence of ovarian cancer although I can only find reports of 2 previous the pt is a very reliable historian and she is certain this is her 4th recurrence. February of 2013 the patient underwent debulking surgery, right salpingo oophorectomy, omentum, peritoneal biopsies. She was given 2 cycles of carboplatin and Taxol with good radiographic response. Postoperatively she received another 4 cycles of carboplatin/Taxol also with added a vast in completing this treatment regimen in May of 2013. She then continued with maintenance Avastin through June 2014. In October of 2014 CA 125 climbed to 195, November 2014 522. She then developed abdominal symptoms. She was treated with carboplatin and paclitaxel x6 cycles for [place] sensitive relapse from February 2015 to March 2015 with minimal persistent disease. She was offered tamoxifen as maintenance therapy however she declined. She developed 2nd relapse in February of 2017 for which she received monthly carboplatin x8 infusions from January 2017 to September [address]. 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 She lives 6 months in [place] and 6 months in [place]. She was previously under the care of Dr. Amaral, and needs to establish with a new local oncology provider. Her oncologist in [place] is Dr. Nicolas Ewing at [facility]. She needs to have her CA 125 of them checked today and called with result. She feels physically very well and has no complaints or concerning symptoms. She initially presented with abdominal distention, bloating and early satiety in early 2012, CA 11/08/2001 122, and evidence of extensive hypermetabolic peritoneal nodularity and stranding. She was taken to surgery and underwent a right salpingo-oophorectomy, omentum and peritoneal biopsies, pathology positive for poorly differentiated high-grade serous carcinoma. She was given 2 cycles of carboplatin and Taxol and had a good radiographic response. She underwent interval optimal debulking surgery in 02/2013. Postoperatively, she received 4 cycles of carboplatin/Taxol/Avastin, ending in 05/2013. She then continued with maintenance Avastin through 06/2014. CA 125 dinora to 195 in 10/2014, and 522 in 11/2014, and soon afterwards she developed abdominal symptoms. She was given carboplatin and paclitaxel x6 cycles for [place] sensitive relapse disease, from 12/2014 to 03/2015, with minimal persistent disease. She was offered tamoxifen as maintenance therapy but declined. She develops 2nd relapse in 12/2016, presenting with partial small-bowel obstruction. CT angio chest showed interval development of left supraclavicular , left hilar and bilateral mediastinal adenopathy, bilateral interlobular septal thickening representing mild interstitial pulmonary edema versus lymphangitic carcinomatosis, and according to notes there were new liver metastases. She underwent exploratory laparotomy, ALEAH, and diverting loop transverse colostomy for large bowel obstruction on 01/23/2017 at [facility]. Postoperatively she was given monthly carboplatin times 8 infusions, from 2017 through 09/2018, and since then has not received any further systemic therapy. She still had [place] sensitive disease, with drop in CA 125 from 231 in 03/2017 to 53 in 04/2017 and 10.2 in 07/2017. Most recent CA-125 was 29.8 in 02/2018, up from 16 in 12/2017. It was redrawn today. Past medical history includes gastric cancer, [id number], osteopenia, normal residual neuropathy at feet, and bilateral prophylactic mastectomy in 10/2015. She remains not symptomatic. - Patient Self-Reported Symptoms SR Constitution: Fatigue/Malaise Results - Labs 05/09/18 12:50 05/09/18 12:50 Laboratory Last Values WBC 7.1 X10^3/uL (4.5-11.0) 05/09/18 12:50 RBC 4.62 X10^6/uL (4.0-5.2) 05/09/18 12:50 Hgb 13.9 g/dL (12.0-16.0) 05/09/18 12:50 Hct 41.0 % (36-46) 05/09/18 12:50 MCV 88.7 fL (80-100) 05/09/18 12:50 MCH 30.1 PG (26-34) 05/09/18 12:50 MCHC 34.0 % (30-36) 05/09/18 12:50 RDW 13.1 % (11.6-14.8) 05/09/18 12:50 Plt Count 230 X10^3/uL (150-400) 05/09/18 12:50 Neut % (Auto) 54.4 % (50-75) 05/09/18 12:50 Lymph % (Auto) 31.9 % (25-40) 05/09/18 12:50 [place] % (Auto) 11.0 % (3-14) 05/09/18 12:50 Eos % (Auto) 1.4 % (2-4) L 05/09/18 12:50 Baso % (Auto) 1.3 % (0-2) 05/09/18 12:50 Neut # (Auto) 3900 /uL (5897-8646) 05/09/18 12:50 Sodium 140 mmol/L (137-145) 05/09/18 12:50 Potassium 4.7 mmol/L (3.4-5.1) 05/09/18 12:50 Chloride 101 mmol/L (98-107) 05/09/18 12:50 Carbon Dioxide 31 mmol/L (22-32) 05/09/18 12:50 BUN 23 mg/dL (7-17) H 05/09/18 12:50 Creatinine 0.90 mg/dL (0.52-1.04) 05/09/18 12:50 Estimated GFR > 60.0 mL/min (>60) 05/09/18 12:50 BUN/Creatinine Ratio 25.6 (6-22) H 05/09/18 12:50 Glucose 101 mg/dL (80-110) 05/09/18 12:50 Calcium 10.5 mg/dL (8.4-10.2) H 05/09/18 12:50 Total Bilirubin 0.5 mg/dL (0.2-1.3) 05/09/18 12:50 AST 41 IU/L (14-36) H 05/09/18 12:50 ALT 26 IU/L (9-52) 05/09/18 12:50 Alkaline Phosphatase 150 U/L (38-126) H 05/09/18 12:50 Total Protein 8.2 g/dL (6.3-8.2) 05/09/18 12:50 Albumin 4.8 g/dL (3.5-5.0) 05/09/18 12:50 Globulin 3.4 g/dL (1.7-4.1) 05/09/18 12:50 Albumin/Globulin Ratio 1.4 (1.0-2.8) 05/09/18 12:50 CA 125 Antigen 114 U/mL (0-35) H 05/09/18 12:50 Home Medications and Allergies Home Medications Medication Instructions Recorded Confirmed Type [TURMERIC] PO #0 05/16/17 History multivitamin [Multiple Vitamins] 1 tab PO QDAY #0 05/16/17 05/23/18 History ondansetron HCl [Zofran] 4 mg PO PRN PRN #0 05/16/17 05/23/18 History Exam Vital signs: Last Vital Signs Temp 97.9 F 05/09/18 12:14 Pulse 62 05/09/18 12:14 Resp 18 05/09/18 12:14 BP 102/73 05/09/18 12:14 Pulse Ox 100 05/09/18 12:14 Narrative: healthy and well appearing - Constitutional positive no acute distress, positive average body habitus - Routine HEENT Exam Head: Present: normocephalic, atraumatic Eye: Present: EOMI, PERRL, normal accommodation, conjunctivae pink. Absent: conjunctival icterus, scleral injection ENT: Present: mucous membranes moist, oropharynx clear - Routine Neck Exam Present: supple. Absent: lymphadenopathy - Routine Chest/Breast/Axilla Exam Chest wall exam standard: Absent: tenderness, mass Axillae: Absent: lymphadenopathy, mass, tenderness - Routine Respiratory Exam Present: Clear to auscultation bilaterally. Absent: decreased breath sounds, rales, rhonchi, wheezes - Routine Cardiovascular Exam Present: RRR, S1, S2. Absent: murmur, gallop, rubs, JVD - Routine Abdominal Exam Present: soft, normoactive bowel sounds, ostomy. Absent: tenderness, distended , guarding, organomegaly, mass Palpation/Percussion: Absent: fluid waves - Routine Extremities Exam Absent: edema, calf tenderness - Routine Skin Exam Present: intact, normal turgor. Absent: petechiae, rash - Routine Neurological Exam Present: alert, oriented X3 - Routine Psychiatric Exam Present: normal affect
[2018-05-23 09:43] VITALS: PULSE 71; RESP 18; TEMP 36.8
--- NOTE | 2018-05-27 09:33 | ONC.SCHED ---
TO PRE AUTH DIAGNOSTIC IMAGING CALL [phone]
[2018-05-30 13:45] VITALS: BP 111/75; PULSE 63; RESP 18; TEMP 37.1; O2SAT 99
--- NOTE | 2018-05-30 14:22 | ONC.APRN.PN ---
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 She lives in an [place] 6 months during the summer months, 6 months during the winter months in [place]. She receives Cancer Care in both locations. She is planning to return to [place] soon and needed her Ca 125 checked locally as it had begun rising. Unfortunately, CA 125 does continue to climb. Most recently May 09, 2018 it was 114. Previously July 09, 2017 =10, May 25, 2017= 18. These tests were run here at [facility]. Outside facility result February of 2018 CA 125 was 29.8. Medina reports she continues to remain asymptomatic, specifically no abdominal bloating, early satiety, unexplained weight loss, fatigue. Appetite stable, stools are also normal. No new lumps or bumps, no new pain. Overall feeling well, the pt reports she is surpried my CA 125 is up I am feeling so good. CT scan of chest, abdomen, pelvis with contrast May 28, 2018 was without evidence of any local or metastatic disease. Through the pts [facility] patient portal we have contacted the pts primary oncologist Dr Ewing for further direction. I expect he would like to obtain a PET/CT however in this pt who is completely asymptomatic it would also be reasonable to monitor clinically. The pt herself verbalizes she would like to hold off on treatment as long as possible. 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 She lives in an [place] 6 months during the summer months, 6 months during the winter months in [place]. She receives Cancer Care in both locations. She is planning to return to [place] soon and needed her Ca 125 checked locally as it had begun rising. She is here today to review results, Dr Nelson called her earlier this week to inform her her CA 125 was unfortunately elevated. Unfortunately, CA 125 does continue to climb. Most recently May 09, 2018 it was 114. Previously July 09, 2017 =10, May 25, 2017= 18. These tests were run here at [facility]. Outside facility result February of 2018 CA 125 was 29.8. Medina reports she continues to remain asymptomatic, specifically no abdominal bloating, early satiety, unexplained weight loss, fatigue. Appetite stable, stools are also normal. No new lumps or bumps, no new pain. Overall feeling well, the pt reports she is surpried my CA 125 is up I am feeling so good. CT scan of chest, abdomen, pelvis with contrast May 28, 2018 was without evidence of any local or metastatic disease. It is significant to note this is the patient's 4th recurrence of ovarian cancer although I can only find reports of 2 previous the pt is a very reliable historian and she is certain this is her 4th recurrence. February of 2013 the patient underwent debulking surgery, right salpingo oophorectomy, omentum, peritoneal biopsies. She was given 2 cycles of carboplatin and Taxol with good radiographic response. Postoperatively she received another 4 cycles of carboplatin/Taxol also with added a vast in completing this treatment regimen in May of 2013. She then continued with maintenance Avastin through June 2014. In October of 2014 CA 125 climbed to 195, November 2014 522. She then developed abdominal symptoms. She was treated with carboplatin and paclitaxel x6 cycles for [place] sensitive relapse from February 2015 to March 2015 with minimal persistent disease. She was offered tamoxifen as maintenance therapy however she declined. She developed 2nd relapse in February of 2017 for which she received monthly carboplatin x8 infusions from January 2017 to September [address]. 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 She lives 6 months in [place] and 6 months in [place]. She was previously under the care of Dr. Amaral, and needs to establish with a new local oncology provider. Her oncologist in [place] is Dr. Nicolas Ewing at [facility]. She needs to have her CA 125 of them checked today and called with result. She feels physically very well and has no complaints or concerning symptoms. She initially presented with abdominal distention, bloating and early satiety in early 2012, CA 11/08/2001 122, and evidence of extensive hypermetabolic peritoneal nodularity and stranding. She was taken to surgery and underwent a right salpingo-oophorectomy, omentum and peritoneal biopsies, pathology positive for poorly differentiated high-grade serous carcinoma. She was given 2 cycles of carboplatin and Taxol and had a good radiographic response. She underwent interval optimal debulking surgery in 02/2013. Postoperatively, she received 4 cycles of carboplatin/Taxol/Avastin, ending in 05/2013. She then continued with maintenance Avastin through 06/2014. CA 125 dinora to 195 in 10/2014, and 522 in 11/2014, and soon afterwards she developed abdominal symptoms. She was given carboplatin and paclitaxel x6 cycles for [place] sensitive relapse disease, from 12/2014 to 03/2015, with minimal persistent disease. She was offered tamoxifen as maintenance therapy but declined. She develops 2nd relapse in 12/2016, presenting with partial small-bowel obstruction. CT angio chest showed interval development of left supraclavicular, left hilar and bilateral mediastinal adenopathy, bilateral interlobular septal thickening representing mild interstitial pulmonary edema versus lymphangitic carcinomatosis, and according to notes there were new liver metastases. She underwent exploratory laparotomy, ALEAH, and diverting loop transverse colostomy for large bowel obstruction on 01/23/2017 at [facility]. Postoperatively she was given monthly carboplatin times 8 infusions, from 01/2018 through 09/2018, and since then has not received any further systemic therapy. She still had [place] sensitive disease, with drop in CA 125 from 231 in 03/2017 to 53 in 04/2017 and 10.2 in 07/2017. Most recent CA-125 was 29.8 in 02/2018, up from 16 in 12/2017. It was redrawn today. 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 She remains not symptomatic. - Patient Self-Reported Symptoms SR Constitution: Fatigue/Malaise Results - Labs Laboratory Last Values WBC 7.1 X10^3/uL (4.5-11.0) 05/09/18 12:50 RBC 4.62 X10^6/uL (4.0-5.2) 05/09/18 12:50 Hgb 13.9 g/dL (12.0-16.0) 05/09/18 12:50 Hct 41.0 % (36-46) 05/09/18 12:50 MCV 88.7 fL (80-100) 05/09/18 12:50 MCH 30.1 PG (26-34) 05/09/18 12:50 MCHC 34.0 % (30-36) 05/09/18 12:50 RDW 13.1 % (11.6-14.8) 05/09/18 12:50 Plt Count 230 X10^3/uL (150-400) 05/09/18 12:50 Neut % (Auto) 54.4 % (50-75) 05/09/18 12:50 Lymph % (Auto) 31.9 % (25-40) 05/09/18 12:50 [place] % (Auto) 11.0 % (3-14) 05/09/18 12:50 Eos % (Auto) 1.4 % (2-4) L 05/09/18 12:50 Baso % (Auto) 1.3 % (0-2) 05/09/18 12:50 Neut # (Auto) 3900 /uL (7196-9986) 05/09/18 12:50 Sodium 140 mmol/L (137-145) 05/09/18 12:50 Potassium 4.7 mmol/L (3.4-5.1) 05/09/18 12:50 Chloride 101 mmol/L (98-107) 05/09/18 12:50 Carbon Dioxide 31 mmol/L (22-32) 05/09/18 12:50 BUN 23 mg/dL (7-17) H 05/09/18 12:50 Creatinine 0.90 mg/dL (0.52-1.04) 05/09/18 12:50 Estimated GFR > 60.0 mL/min (>60) 05/09/18 12:50 BUN/Creatinine Ratio 25.6 (6-22) H 05/09/18 12:50 Glucose 101 mg/dL (80-110) 05/09/18 12:50 Calcium 10.5 mg/dL (8.4-10.2) H 05/09/18 12:50 Total Bilirubin 0.5 mg/dL (0.2-1.3) 05/09/18 12:50 AST 41 IU/L (14-36) H 05/09/18 12:50 ALT 26 IU/L (9-52) 05/09/18 12:50 Alkaline Phosphatase 150 U/L (38-126) H 05/09/18 12:50 Total Protein 8.2 g/dL (6.3-8.2) 05/09/18 12:50 Albumin 4.8 g/dL (3.5-5.0) 05/09/18 12:50 Globulin 3.4 g/dL (1.7-4.1) 05/09/18 12:50 Albumin/Globulin Ratio 1.4 (1.0-2.8) 05/09/18 12:50 CA 125 Antigen 114 U/mL (0-35) H 05/09/18 12:50 Home Medications and Allergies Home Medications Medication Instructions Recorded Confirmed Type [TURMERIC] PO #0 05/16/17 History multivitamin [Multiple Vitamins] 1 tab PO QDAY #0 05/16/17 05/23/18 History ondansetron HCl [Zofran] 4 mg PO PRN PRN #0 05/16/17 05/23/18 History Exam Vital signs: Last Vital Signs Temp 98.8 F 05/30/18 13:45 Pulse 63 05/30/18 13:45 Resp 18 05/30/18 13:45 BP 111/75 05/30/18 13:45 Pulse Ox 99 05/30/18 13:45 Narrative: very fit, well appearing - Constitutional positive no acute distress, positive average body habitus - Routine HEENT Exam ENT: Present: mucous membranes moist, oropharynx clear - Routine Neck Exam Present: supple. Absent: lymphadenopathy
--- NOTE | 2018-05-30 14:27 | P.PNONC_ITS ---
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 She lives in an [place] 6 months during the summer months, 6 months during the winter months in [place]. She receives Cancer Care in both locations. She is planning to return to [place] soon and needed her Ca 125 checked locally as it had begun rising. Unfortunately, CA 125 does continue to climb. Most recently May 09, 2018 it was 114. Previously July 09, 2017 =10, May 25, 2017= 18. These tests were run here at [facility]. Outside facility result February of 2018 CA 125 was 29.8. Medina reports she continues to remain asymptomatic, specifically no abdominal bloating, early satiety, unexplained weight loss, fatigue. Appetite stable, stools are also normal. No new lumps or bumps, no new pain. Overall feeling well, the pt reports she is surpried my CA 125 is up I am feeling so good. CT scan of chest, abdomen, pelvis with contrast May 28, 2018 was without evidence of any local or metastatic disease. Through the pts MD [facility] patient portal we have contacted the pts primary oncologist Dr Ewing for further direction. I expect he would like to obtain a PET/CT however in this pt who is completely asymptomatic it would also be reasonable to monitor clinically. The pt herself verbalizes she would like to hold off on treatment as long as possible. 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 She lives in an [place] 6 months during the summer months, 6 months during the winter months in [place]. She receives Cancer Care in both locations. She is planning to return to [place] soon and needed her Ca 125 checked locally as it had begun rising. She is here today to review results, Dr Nelson called her earlier this week to inform her her CA 125 was unfortunately elevated. Unfortunately, CA 125 does continue to climb. Most recently May 09, 2018 it was 114. Previously July 09, 2017 =10, May 25, 2017= 18. These tests were run here at [facility]. Outside facility result February of 2018 CA 125 was 29.8. Medina reports she continues to remain asymptomatic, specifically no abdominal bloating, early satiety, unexplained weight loss, fatigue. Appetite stable, stools are also normal. No new lumps or bumps, no new pain. Overall feeling well, the pt reports she is surpried my CA 125 is up I am feeling so good. CT scan of chest, abdomen, pelvis with contrast May 28, 2018 was without evidence of any local or metastatic disease. It is significant to note this is the patient's 4th recurrence of ovarian cancer although I can only find reports of 2 previous the pt is a very reliable historian and she is certain this is her 4th recurrence. February of 2013 the patient underwent debulking surgery, right salpingo oophorectomy, omentum, peritoneal biopsies. She was given 2 cycles of carboplatin and Taxol with good radiographic response. Postoperatively she received another 4 cycles of carboplatin/Taxol also with added a vast in completing this treatment regimen in May of 2013. She then continued with maintenance Avastin through June 2014. In October of 2014 CA 125 climbed to 195, November 2014 522. She then developed abdominal symptoms. She was treated with carboplatin and paclitaxel x6 cycles for paimiut sensitive relapse from February 2015 to March 2015 with minimal persistent disease. She was offered tamoxifen as maintenance therapy however she declined. She developed 2nd relapse in February of 2017 for which she received monthly carboplatin x8 infusions from January 2017 to September 2017. 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 She lives 6 months in [place] and 6 months in [place]. She was previously under the care of Dr. Amaral, and needs to establish with a new local oncology provider. Her oncologist in [place] is Dr. Nicolas Ewing at [facility]. She needs to have her CA 125 of them checked today and called with result. She feels physically very well and has no complaints or concerning symptoms. She initially presented with abdominal distention, bloating and early satiety in early 2012, CA 11/08/2001 122, and evidence of extensive hypermetabolic peritoneal nodularity and stranding. She was taken to surgery and underwent a right salpingo-oophorectomy, omentum and peritoneal biopsies, pathology positive for poorly differentiated high-grade serous carcinoma. She was given 2 cycles of carboplatin and Taxol and had a good radiographic response. She underwent interval optimal debulking surgery in 02/2013. Postoperatively, she received 4 cycles of carboplatin/Taxol/Avastin, ending in 05/2013. She then continued with maintenance Avastin through 06/2014. CA 125 dinora to 195 in 10/2014, and 522 in 11/2014, and soon afterwards she developed abdominal symptoms. She was given carboplatin and paclitaxel x6 cycles for paimiut sensitive relapse disease, from 12/2014 to 03/2015, with minimal persistent disease. She was offered tamoxifen as maintenance therapy but declined. She develops 2nd relapse in 12/2016, presenting with partial small-bowel obstruction. CT angio chest showed interval development of left supraclavicular , left hilar and bilateral mediastinal adenopathy, bilateral interlobular septal thickening representing mild interstitial pulmonary edema versus lymphangitic carcinomatosis, and according to notes there were new liver metastases. She underwent exploratory laparotomy, ALEAH, and diverting loop transverse colostomy for large bowel obstruction on 01/23/2017 at [facility]. Postoperatively she was given monthly carboplatin times 8 infusions, from 2017 through 09/2018, and since then has not received any further systemic therapy. She still had paimiut sensitive disease, with drop in CA 125 from 231 in 03/2017 to 53 in 04/2017 and 10.2 in 07/2017. Most recent CA-125 was 29.8 in 02/2018, up from 16 in 12/2017. It was redrawn today. Past medical history includes gastric cancer, [id number], osteopenia, normal residual neuropathy at feet, and bilateral prophylactic mastectomy in 10/2015. She remains not symptomatic. - Patient Self-Reported Symptoms SR Constitution: Fatigue/Malaise Results - Labs Laboratory Last Values WBC 7.1 X10^3/uL (4.5-11.0) 05/09/18 12:50 RBC 4.62 X10^6/uL (4.0-5.2) 05/09/18 12:50 Hgb 13.9 g/dL (12.0-16.0) 05/09/18 12:50 Hct 41.0 % (36-46) 05/09/18 12:50 MCV 88.7 fL (80-100) 05/09/18 12:50 MCH 30.1 PG (26-34) 05/09/18 12:50 MCHC 34.0 % (30-36) 05/09/18 12:50 RDW 13.1 % (11.6-14.8) 05/09/18 12:50 Plt Count 230 X10^3/uL (150-400) 05/09/18 12:50 Neut % (Auto) 54.4 % (50-75) 05/09/18 12:50 Lymph % (Auto) 31.9 % (25-40) 05/09/18 12:50 [place] % (Auto) 11.0 % (3-14) 05/09/18 12:50 Eos % (Auto) 1.4 % (2-4) L 05/09/18 12:50 Baso % (Auto) 1.3 % (0-2) 05/09/18 12:50 Neut # (Auto) 3900 /uL (4530-0171) 05/09/18 12:50 Sodium 140 mmol/L (137-145) 05/09/18 12:50 Potassium 4.7 mmol/L (3.4-5.1) 05/09/18 12:50 Chloride 101 mmol/L (98-107) 05/09/18 12:50 Carbon Dioxide 31 mmol/L (22-32) 05/09/18 12:50 BUN 23 mg/dL (7-17) H 05/09/18 12:50 Creatinine 0.90 mg/dL (0.52-1.04) 05/09/18 12:50 Estimated GFR > 60.0 mL/min (>60) 05/09/18 12:50 BUN/Creatinine Ratio 25.6 (6-22) H 05/09/18 12:50 Glucose 101 mg/dL (80-110) 05/09/18 12:50 Calcium 10.5 mg/dL (8.4-10.2) H 05/09/18 12:50 Total Bilirubin 0.5 mg/dL (0.2-1.3) 05/09/18 12:50 AST 41 IU/L (14-36) H 05/09/18 12:50 ALT 26 IU/L (9-52) 05/09/18 12:50 Alkaline Phosphatase 150 U/L (38-126) H 05/09/18 12:50 Total Protein 8.2 g/dL (6.3-8.2) 05/09/18 12:50 Albumin 4.8 g/dL (3.5-5.0) 05/09/18 12:50 Globulin 3.4 g/dL (1.7-4.1) 05/09/18 12:50 Albumin/Globulin Ratio 1.4 (1.0-2.8) 05/09/18 12:50 CA 125 Antigen 114 U/mL (0-35) H 05/09/18 12:50 Home Medications and Allergies Home Medications Medication Instructions Recorded Confirmed Type [TURMERIC] PO #0 05/16/17 History multivitamin [Multiple Vitamins] 1 tab PO QDAY #0 05/16/17 05/23/18 History ondansetron HCl [Zofran] 4 mg PO PRN PRN #0 05/16/17 05/23/18 History Exam Vital signs: Last Vital Signs Temp 98.8 F 05/30/18 13:45 Pulse 63 05/30/18 13:45 Resp 18 05/30/18 13:45 BP 111/75 05/30/18 13:45 Pulse Ox 99 05/30/18 13:45 Narrative: very fit, well appearing - Constitutional positive no acute distress, positive average body habitus - Routine HEENT Exam ENT: Present: mucous membranes moist, oropharynx clear - Routine Neck Exam Present: supple. Absent: lymphadenopathy
--- NOTE | 2019-03-11 10:20 | ONC.SCHED ---
called [phone] to [facility] 03/11/19 and requested records from current visits to Dr Nicolas Ewing. They will fax to us.
[2019-03-20 15:14] LABS: Add Manual Diff / Slide Review NO; Basophils Absolute Auto 100 /uL (0-100); Eosinophils Absolute Auto 200 /uL (0-450); Eosinophils Percent Auto 2.8 % (2-4); Hematocrit 35.1 % (36-46); Hemoglobin 12.2 g/dL (12.0-16.0); Lymphocytes Absolute Auto 1700 /uL (1100-4500); Mean Corpuscular HGB Conc 34.8 % (30-36); Mean Corpuscular Hemoglobin 32.5 PG (26-34); Mean Corpuscular Volume 93.2 fL (80-100); Monocytes Absolute Auto 800 /uL (0-900); Monocytes Percent Auto 12.8 % (3-14); Neutrophils Absolute Auto 3800 /uL (1500-7000); Neutrophils Percent Auto 57.4 % (50-75); Platelet Count 244 X10^3/uL (150-400); Red Blood Cell Count 3.77 X10^6/uL (4.0-5.2); Red Cell Distribution Width 17.2 % (11.6-14.8); White Blood Cell Count 6.5 X10^3/uL (4.5-11.0)
[2019-03-20 16:46] LABS: Alanine Aminotransferase 28 IU/L (9-52); Albumin 4.2 g/dL (3.5-5.0); Albumin Globulin Ratio 1.4 (1.0-2.8); Alkaline Phosphatase 138 U/L (38-126); Aspartate Aminotransferase 37 IU/L (14-36); BUN Creatinine Ratio 26.4 (6-22); Bilirubin Total 0.4 mg/dL (0.2-1.3); Blood Urea Nitrogen 29 mg/dL (7-17); Calcium 9.6 mg/dL (8.4-10.2); Carbon Dioxide 28 mmol/L (22-32); Chloride 104 mmol/L (98-107); Estimated Glomerular Filt Rate 50.5 mL/min (>60); Glucose 93 mg/dL (80-110); HEMOLYSIS < 15 (0-50); Magnesium 1.9 mg/dL (1.6-2.3); Potassium 4.1 mmol/L (3.4-5.1); Sodium 139 mmol/L (137-145); Total Protein 7.2 g/dL (6.3-8.2)
[2019-03-20 17:16] LABS: Cancer Antigen 125 520 U/mL (0-35)
[2019-04-10 14:37] VITALS: BP 120/76; PULSE 66; RESP 18; TEMP 36.4; O2SAT 98
--- NOTE | 2019-04-10 14:55 | ONC.PN ---
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 She lives in [place] for 6 months during the summer months, and in [place] for 6 months during the winter months. She is been followed here as well as in [facility] in [place]. Due to CA125 recurrence, she was started on Olaparib on 01/17/2019. She is planning to go back to [facility] in April of 2019 for follow-up visit with Dr. Beavers. She presents here today for regular scheduled follow-up visit. Clinically patient has been tolerating olaparib exceedingly well. She reported that her life style has not affected at all. She is doing swimming, walking, hiking, etc. She is highly educated and is on top of her own treatment diligently. Her ovarian cancer history is summarized from [facility] medical records as follows: 12/2012: initial diagnosis, CA 125 2000 and peritoneal nodularity 12/2012: surgery: Laparoscopic RSO, omentectomy, and peritoneal biopsy. 01/04/2013-02/13/2013: Carbo/Taxol x2 02/25/2013: Optimal tumor reductive surgery. 02/2013-05/2013: carbo/Taxol x 4 and avastin added for last 3 cycles 06/2013-06/16/2014: Avastin maintenance 10/2014: Rising CA 125 to 522 and bloating 11/18/2014: [facility] initial visit 12/2014-03/2015: Carbo/Taxol x 6 with some minimal persistent disease 01/19/2017: new liver mets and chest adenopathy on CT scan and elevated CA 125 to 2914. 01/23/2017: Exploratory laparotomy, ALEAH, and diverting loop transverse colostomy for large bowel obstruction. 02/02/2017-09/28/2017: Single agent carboplatin 10/26/2017-07/25/2018: post 9 cycles of Carboplatin with TATUM on imaging and negative CA-125. 07/26/2018: BRCA testing turned out to be positive 07/31/2018: Relapse/recurrence: Feels small hypoattenuating foci in the liver and interval development of bilateral iliac multi compartmental lymphadenopathy with rising CA 125. 08/02/2018-12/13/2018: Carboplatin x 5 cycles 01/16/2019: CT showed minimal evidence of increasing pelvic lymph nodes. 01/2019 - Olaparib 300 mg po bid - Patient Self-Reported Symptoms SR Constitution: Fatigue/Malaise - Additional ROS All systems PM: reviewed and no additional remarkable complaints except as stated Home Medications and Allergies Home Medications Medication Instructions Recorded Confirmed Type [TURMERIC] PO #0 05/16/17 History multivitamin [Multiple Vitamins] 1 tab PO QDAY #0 05/16/17 04/10/19 History ondansetron HCl [Zofran] 4 mg PO PRN PRN #0 05/16/17 04/10/19 History fluoxetine [Prozac] 20 mg PO DAILY 04/10/19 04/10/19 History olaparib 300 mg BID 04/10/19 04/10/19 History Exam Vital signs: Last Vital Signs Temp 97.5 F L 04/10/19 14:37 Pulse 66 04/10/19 14:37 Resp 18 04/10/19 14:37 BP 120/76 04/10/19 14:37 Pulse Ox 98 04/10/19 14:37 ECOG 1 Narrative: Gen: WDWN, NAD, pleasant and cooperative. HEENT: NCAT, EOMI, PERRLA, anicteric sclera. Neck: Supple, No palpable thyromegaly or lymphadenopathy. Respiratory: CTAB, no wheezes audible. No JVD Cardiovascular: RRR, S1 and S2 normal, no M/G/R. Abdomen: Soft, NTND, BS normal, no palpable organomegaly Extremities: No LE pitting edema. Lymphatic: no palpable lymph nodes in the neck, axillae, or groins. Neurological: AOx3, CN II-XII grossly intact. No focal motor or sensory deficit. Psychiatric: Good judgment and insight; normal affect; normal thought process; cooperative, no depression, no anxiety. Results - Labs Laboratory Last Values WBC 6.5 X10^3/uL (4.5-11.0) 03/20/19 14:50 RBC 3.77 X10^6/uL (4.0-5.2) L 03/20/19 14:50 Hgb 12.2 g/dL (12.0-16.0) 03/20/19 14:50 Hct 35.1 % (36-46) L 03/20/19 14:50 MCV 93.2 fL (80-100) 03/20/19 14:50 MCH 32.5 PG (26-34) 03/20/19 14:50 MCHC 34.8 % (30-36) 03/20/19 14:50 RDW 17.2 % (11.6-14.8) H 03/20/19 14:50 Plt Count 244 X10^3/uL (150-400) 03/20/19 14:50 Neut % (Auto) 57.4 % (50-75) 03/20/19 14:50 Lymph % (Auto) 26.0 % (25-40) 03/20/19 14:50 [place] % (Auto) 12.8 % (3-14) 03/20/19 14:50 Eos % (Auto) 2.8 % (2-4) 03/20/19 14:50 Baso % (Auto) 1.0 % (0-2) 03/20/19 14:50 Neut # (Auto) 3800 /uL (0256-1747) 03/20/19 14:50 Lymph # (Auto) 1700 /uL (2488-1282) 03/20/19 14:50 [place] # (Auto) 800 /uL (0-900) 03/20/19 14:50 Eos # (Auto) 200 /uL (0-450) 03/20/19 14:50 Baso # (Auto) 100 /uL (0-100) 03/20/19 14:50 Sodium 139 mmol/L (137-145) 03/20/19 14:50 Potassium 4.1 mmol/L (3.4-5.1) 03/20/19 14:50 Chloride 104 mmol/L (98-107) 03/20/19 14:50 Carbon Dioxide 28 mmol/L (22-32) 03/20/19 14:50 BUN 29 mg/dL (7-17) H 03/20/19 14:50 Creatinine 1.10 mg/dL (0.52-1.04) H 03/20/19 14:50 Estimated GFR 50.5 mL/min (>60) L 03/20/19 14:50 BUN/Creatinine Ratio 26.4 (6-22) H 03/20/19 14:50 Glucose 93 mg/dL (80-110) 03/20/19 14:50 Calcium 9.6 mg/dL (8.4-10.2) 03/20/19 14:50 Magnesium 1.9 mg/dL (1.6-2.3) 03/20/19 14:50 Total Bilirubin 0.4 mg/dL (0.2-1.3) 03/20/19 14:50 AST 37 IU/L (14-36) H 03/20/19 14:50 ALT 28 IU/L (9-52) 03/20/19 14:50 Alkaline Phosphatase 138 U/L (38-126) H 03/20/19 14:50 Total Protein 7.2 g/dL (6.3-8.2) 03/20/19 14:50 Albumin 4.2 g/dL (3.5-5.0) 03/20/19 14:50 Globulin 3.0 g/dL (1.7-4.1) 03/20/19 14:50 Albumin/Globulin Ratio 1.4 (1.0-2.8) 03/20/19 14:50 CA 125 Antigen 520 U/mL (0-35) H 03/20/19 14:50 Assessment and Plan (1) Ovarian cancer, BRCA2 positive Medina 59-year-old female, BRCA 2 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 Throughout the past 6 years, she has undergone multiple surgeries as well as multiple cycles of chemotherapy due to multiple recurrences. The most recent recurrence happened in July 2018. She has been followed at [facility] and was started on olaparib 300 mg twice daily. Patient came in here today to discuss logistics about following at both locations here at [facility]. She would like to continue follow-up at [facility] while at the same time maintain a follow-up schedule here at [facility]. She is worried about that her underlying ovarian cancer may progress rapidly and would like to see us every month for close monitoring including tumor marker CA 125. Plan: 1. MD Dmitriy visit in April 2019 as scheduled. 2. RTC in 2 months, CBC, CMP, CA125
--- NOTE | 2019-04-10 14:59 | P.PNONC_ITS ---
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 She lives in [place] for 6 months during the summer months, and in [place] for 6 months during the winter months. She is been followed here as well as in [facility] in [place]. Due to CA125 recurrence, she was started on Olaparib on 01/17/2019. She is planning to go back to [facility] in April of 2019 for follow-up visit with Dr. Beavers. She presents here today for regular scheduled follow-up visit. Clinically patient has been tolerating olaparib exceedingly well. She reported that her life style has not affected at all. She is doing swimming, walking, hiking, etc. She is highly educated and is on top of her own treatment diligently. Her ovarian cancer history is summarized from [facility] medical records as follows: 12/2012: initial diagnosis, CA 125 2000 and peritoneal nodularity 12/2012: surgery: Laparoscopic RSO, omentectomy, and peritoneal biopsy. 01/04/2013-02/13/2013: Carbo/Taxol x2 02/25/2013: Optimal tumor reductive surgery. 02/2013-05/2013: carbo/Taxol x 4 and avastin added for last 3 cycles 06/2013-06/16/2014: Avastin maintenance 10/2014: Rising CA 125 to 522 and bloating 11/18/2014: [facility] initial visit 12/2014-03/2015: Carbo/Taxol x 6 with some minimal persistent disease 01/19/2017: new liver mets and chest adenopathy on CT scan and elevated CA 125 to 2914. 01/23/2017: Exploratory laparotomy, ALEAH, and diverting loop transverse colostomy for large bowel obstruction. 02/02/2017-09/28/2017: Single agent carboplatin 10/26/2017-07/25/2018: post 9 cycles of Carboplatin with TATUM on imaging and negative CA-125. 07/26/2018: BRCA testing turned out to be positive 07/31/2018: Relapse/recurrence: Feels small hypoattenuating foci in the liver and interval development of bilateral iliac multi compartmental lymphadenopathy with rising CA 125. 08/02/2018-12/13/2018: Carboplatin x 5 cycles 01/16/2019: CT showed minimal evidence of increasing pelvic lymph nodes. 01/2019 - Olaparib 300 mg po bid - Patient Self-Reported Symptoms SR Constitution: Fatigue/Malaise - Additional ROS All systems PM: reviewed and no additional remarkable complaints except as stated Home Medications and Allergies Home Medications Medication Instructions Recorded Confirmed Type [TURMERIC] PO #0 05/16/17 History multivitamin [Multiple Vitamins] 1 tab PO QDAY #0 05/16/17 04/10/19 History ondansetron HCl [Zofran] 4 mg PO PRN PRN #0 05/16/17 04/10/19 History fluoxetine [Prozac] 20 mg PO DAILY 04/10/19 04/10/19 History olaparib 300 mg BID 04/10/19 04/10/19 History Exam Vital signs: Last Vital Signs Temp 97.5 F L 04/10/19 14:37 Pulse 66 04/10/19 14:37 Resp 18 04/10/19 14:37 BP 120/76 04/10/19 14:37 Pulse Ox 98 04/10/19 14:37 ECOG 1 Narrative: Gen: WDWN, NAD, pleasant and cooperative. HEENT: NCAT, EOMI, PERRLA, anicteric sclera. Neck: Supple, No palpable thyromegaly or lymphadenopathy. Respiratory: CTAB, no wheezes audible. No JVD Cardiovascular: RRR, S1 and S2 normal, no M/G/R. Abdomen: Soft, NTND, BS normal, no palpable organomegaly Extremities: No LE pitting edema. Lymphatic: no palpable lymph nodes in the neck, axillae, or groins. Neurological: AOx3, CN II-XII grossly intact. No focal motor or sensory deficit. Psychiatric: Good judgment and insight; normal affect; normal thought process; cooperative, no depression, no anxiety. Results - Labs Laboratory Last Values WBC 6.5 X10^3/uL (4.5-11.0) 03/20/19 14:50 RBC 3.77 X10^6/uL (4.0-5.2) L 03/20/19 14:50 Hgb 12.2 g/dL (12.0-16.0) 03/20/19 14:50 Hct 35.1 % (36-46) L 03/20/19 14:50 MCV 93.2 fL (80-100) 03/20/19 14:50 MCH 32.5 PG (26-34) 03/20/19 14:50 MCHC 34.8 % (30-36) 03/20/19 14:50 RDW 17.2 % (11.6-14.8) H 03/20/19 14:50 Plt Count 244 X10^3/uL (150-400) 03/20/19 14:50 Neut % (Auto) 57.4 % (50-75) 03/20/19 14:50 Lymph % (Auto) 26.0 % (25-40) 03/20/19 14:50 [place] % (Auto) 12.8 % (3-14) 03/20/19 14:50 Eos % (Auto) 2.8 % (2-4) 03/20/19 14:50 Baso % (Auto) 1.0 % (0-2) 03/20/19 14:50 Neut # (Auto) 3800 /uL (8632-6385) 03/20/19 14:50 Lymph # (Auto) 1700 /uL (8201-4493) 03/20/19 14:50 [place] # (Auto) 800 /uL (0-900) 03/20/19 14:50 Eos # (Auto) 200 /uL (0-450) 03/20/19 14:50 Baso # (Auto) 100 /uL (0-100) 03/20/19 14:50 Sodium 139 mmol/L (137-145) 03/20/19 14:50 Potassium 4.1 mmol/L (3.4-5.1) 03/20/19 14:50 Chloride 104 mmol/L (98-107) 03/20/19 14:50 Carbon Dioxide 28 mmol/L (22-32) 03/20/19 14:50 BUN 29 mg/dL (7-17) H 03/20/19 14:50 Creatinine 1.10 mg/dL (0.52-1.04) H 03/20/19 14:50 Estimated GFR 50.5 mL/min (>60) L 03/20/19 14:50 BUN/Creatinine Ratio 26.4 (6-22) H 03/20/19 14:50 Glucose 93 mg/dL (80-110) 03/20/19 14:50 Calcium 9.6 mg/dL (8.4-10.2) 03/20/19 14:50 Magnesium 1.9 mg/dL (1.6-2.3) 03/20/19 14:50 Total Bilirubin 0.4 mg/dL (0.2-1.3) 03/20/19 14:50 AST 37 IU/L (14-36) H 03/20/19 14:50 ALT 28 IU/L (9-52) 03/20/19 14:50 Alkaline Phosphatase 138 U/L (38-126) H 03/20/19 14:50 Total Protein 7.2 g/dL (6.3-8.2) 03/20/19 14:50 Albumin 4.2 g/dL (3.5-5.0) 03/20/19 14:50 Globulin 3.0 g/dL (1.7-4.1) 03/20/19 14:50 Albumin/Globulin Ratio 1.4 (1.0-2.8) 03/20/19 14:50 CA 125 Antigen 520 U/mL (0-35) H 03/20/19 14:50 Assessment and Plan (1) Ovarian cancer, BRCA2 positive Medina 59-year-old female, BRCA 2 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 Throughout the past 6 years, she has undergone multiple surgeries as well as multiple cycles of chemotherapy due to multiple recurrences. The most recent recurrence happened in July 2018. She has been followed at [facility] and was started on olaparib 300 mg twice daily. Patient came in here today to discuss logistics about following at both locations here at [facility]. She would like to continue follow-up at [facility] while at the same time maintain a follow-up schedule here at [facility]. She is worried about that her underlying ovarian cancer may progress rapidly and would like to see us every month for close monitoring including tumor marker CA 125. Plan: 1. MD Dmitriy visit in April 2019 as scheduled. 2. RTC in 2 months, CBC, CMP, CA125
[2019-06-02 14:19] LABS: Add Manual Diff / Slide Review NO; Basophils Absolute Auto 100 /uL (0-100); Basophils Percent Auto 1.1 % (0-2); Eosinophils Absolute Auto 100 /uL (0-450); Eosinophils Percent Auto 1.2 % (2-4); Hematocrit 36.3 % (36-46); Hemoglobin 12.7 g/dL (12.0-16.0); Lymphocytes Absolute Auto 1800 /uL (1100-4500); Lymphocytes Percent Auto 18.8 % (25-40); Mean Corpuscular HGB Conc 34.9 % (30-36); Mean Corpuscular Volume 97.5 fL (80-100); Monocytes Absolute Auto 1100 /uL (0-900); Neutrophils Absolute Auto 6300 /uL (1500-7000); Neutrophils Percent Auto 66.9 % (50-75); Platelet Count 269 X10^3/uL (150-400); Red Blood Cell Count 3.72 X10^6/uL (4.0-5.2); Red Cell Distribution Width 16.5 % (11.6-14.8); White Blood Cell Count 9.4 X10^3/uL (4.5-11.0)
[2019-06-02 14:32] LABS: Alanine Aminotransferase 16 IU/L (9-52); Albumin 4.3 g/dL (3.5-5.0); Albumin Globulin Ratio 1.2 (1.0-2.8); Alkaline Phosphatase 155 U/L (38-126); Aspartate Aminotransferase 37 IU/L (14-36); BUN Creatinine Ratio 19.1 (6-22); Bilirubin Total 0.5 mg/dL (0.2-1.3); Blood Urea Nitrogen 21 mg/dL (7-17); Calcium 9.4 mg/dL (8.4-10.2); Carbon Dioxide 26 mmol/L (22-32); Chloride 101 mmol/L (98-107); Estimated Glomerular Filt Rate 50.5 mL/min (>60); Globulin 3.6 g/dL (1.7-4.1); Glucose 129 mg/dL (80-110); HEMOLYSIS 18 (0-50); Potassium 3.7 mmol/L (3.4-5.1); Sodium 138 mmol/L (137-145); Total Protein 7.9 g/dL (6.3-8.2)
[2019-06-02 15:03] LABS: Cancer Antigen 125 422 U/mL (0-35)
[2019-06-05 14:19] VITALS: BP 107/68; PULSE 73; RESP 16; TEMP 37; O2SAT 97
--- NOTE | 2019-06-05 14:20 | P.PNONC_ITS ---
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 She lives in [place] for 6 months during the summer months, and in [place] for 6 months during the winter months. She is been followed here as well as in [facility] in [place]. Oncology History: Her ovarian cancer history is summarized from [facility] medical records as follows: 12/2012: initial diagnosis, CA 125 2000 and peritoneal nodularity 12/2012: surgery: Laparoscopic RSO, omentectomy, and peritoneal biopsy. 01/04/2013-02/13/2013: Carbo/Taxol x2 02/25/2013: Optimal tumor reductive surgery. 02/2013-05/2013: carbo/Taxol x 4 and avastin added for last 3 cycles 06/2013-06/16/2014: Avastin maintenance 10/2014: Rising CA 125 to 522 and bloating 11/18/2014: [facility] initial visit 12/2014-03/2015: Carbo/Taxol x 6 with some minimal persistent disease 01/19/2017: new liver mets and chest adenopathy on CT scan and elevated CA 125 to 2914. 01/23/2017: Exploratory laparotomy, ALEAH, and diverting loop transverse colostomy for large bowel obstruction. 02/02/2017-09/28/2017: Single agent carboplatin 10/26/2017-07/25/2018: post 9 cycles of Carboplatin with TATUM on imaging and negative CA-125. 07/26/2018: BRCA testing turned out to be positive 07/31/2018: Relapse/recurrence: Feels small hypoattenuating foci in the liver and interval development of bilateral iliac multi compartmental lymphadenopathy with rising CA 125. 08/02/2018-12/13/2018: Carboplatin x 5 cycles 01/16/2019: CT showed minimal evidence of increasing pelvic lymph nodes. 01/2019 - Olaparib 300 mg po bid Interim Events: Recently he was seen on [id number] by Dr. Nicolas browning and [facility]. Her CA 125 has decreased from 461.4 on 02/14/2019 to 300 on 05/01/2019. Clinically patient has been doing very very well. She is very active. However she said recently she has noticed that more constant and frequent distress from anus occasionally blood. She has an ostomy. She talked with Dr. Erasmo phillips and it was thought to be normal mucus production. - Patient Self-Reported Symptoms SR Constitution: Fatigue/Malaise - Additional ROS All systems PM: reviewed and no additional remarkable complaints except as stated Home Medications and Allergies Home Medications Medication Instructions Recorded Confirmed Type [TURMERIC] PO #0 05/16/17 History multivitamin [Multiple Vitamins] 1 tab PO QDAY #0 05/16/17 04/10/19 History ondansetron HCl [Zofran] 4 mg PO PRN PRN #0 05/16/17 04/10/19 History fluoxetine [Prozac] 20 mg PO DAILY 04/10/19 04/10/19 History olaparib 300 mg BID 04/10/19 04/10/19 History Exam Vital signs: Last Vital Signs Temp 98.6 F 06/05/19 14:19 Pulse 73 06/05/19 14:19 Resp 16 06/05/19 14:19 BP 107/68 06/05/19 14:19 Pulse Ox 97 06/05/19 14:19 Narrative: Gen: WDWN, NAD, pleasant and cooperative. HEENT: NCAT, EOMI, PERRLA, anicteric sclera. Neck: Supple, No palpable thyromegaly or lymphadenopathy. Respiratory: CTAB, no wheezes audible. No JVD Cardiovascular: RRR, S1 and S2 normal, no M/G/R. Abdomen: Soft, NTND, BS normal, no palpable organomegaly Extremities: No LE pitting edema. Lymphatic: no palpable lymph nodes in the neck, axillae, or groins. Neurological: AOx3, CN II-XII grossly intact. No focal motor or sensory deficit. Psychiatric: Good judgment and insight; normal affect; normal thought process; cooperative, no depression, no anxiety. Results - Labs Laboratory Last Values WBC 9.4 X10^3/uL (4.5-11.0) 06/02/19 14:10 RBC 3.72 X10^6/uL (4.0-5.2) L 06/02/19 14:10 Hgb 12.7 g/dL (12.0-16.0) 06/02/19 14:10 Hct 36.3 % (36-46) 06/02/19 14:10 MCV 97.5 fL (80-100) 06/02/19 14:10 MCH 34.0 PG (26-34) 06/02/19 14:10 MCHC 34.9 % (30-36) 06/02/19 14:10 RDW 16.5 % (11.6-14.8) H 06/02/19 14:10 Plt Count 269 X10^3/uL (150-400) 06/02/19 14:10 Neut % (Auto) 66.9 % (50-75) 06/02/19 14:10 Lymph % (Auto) 18.8 % (25-40) L 06/02/19 14:10 [place] % (Auto) 12.0 % (3-14) 06/02/19 14:10 Eos % (Auto) 1.2 % (2-4) L 06/02/19 14:10 Baso % (Auto) 1.1 % (0-2) 06/02/19 14:10 Neut # (Auto) 6300 /uL (3610-6033) 06/02/19 14:10 Lymph # (Auto) 1800 /uL (7053-7875) 06/02/19 14:10 [place] # (Auto) 1100 /uL (0-900) H 06/02/19 14:10 Eos # (Auto) 100 /uL (0-450) 06/02/19 14:10 Baso # (Auto) 100 /uL (0-100) 06/02/19 14:10 Sodium 138 mmol/L (137-145) 06/02/19 14:10 Potassium 3.7 mmol/L (3.4-5.1) 06/02/19 14:10 Chloride 101 mmol/L (98-107) 06/02/19 14:10 Carbon Dioxide 26 mmol/L (22-32) 06/02/19 14:10 BUN 21 mg/dL (7-17) H 06/02/19 14:10 Creatinine 1.10 mg/dL (0.52-1.04) H 06/02/19 14:10 Estimated GFR 50.5 mL/min (>60) L 06/02/19 14:10 BUN/Creatinine Ratio 19.1 (6-22) 06/02/19 14:10 Glucose 129 mg/dL (80-110) H 06/02/19 14:10 Calcium 9.4 mg/dL (8.4-10.2) 06/02/19 14:10 Magnesium 1.9 mg/dL (1.6-2.3) 03/20/19 14:50 Total Bilirubin 0.5 mg/dL (0.2-1.3) 06/02/19 14:10 AST 37 IU/L (14-36) H 06/02/19 14:10 ALT 16 IU/L (9-52) 06/02/19 14:10 Alkaline Phosphatase 155 U/L (38-126) H 06/02/19 14:10 Total Protein 7.9 g/dL (6.3-8.2) 06/02/19 14:10 Albumin 4.3 g/dL (3.5-5.0) 06/02/19 14:10 Globulin 3.6 g/dL (1.7-4.1) 06/02/19 14:10 Albumin/Globulin Ratio 1.2 (1.0-2.8) 06/02/19 14:10 CA 125 Antigen 422 U/mL (0-35) H 06/02/19 14:10 Assessment and Plan (1) Ovarian cancer, BRCA2 positive Overview: Medina 59-year-old female, BRCA 2 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 Throughout the past 6 years, she has undergone multiple surgeries as well as multiple cycles of chemotherapy due to multiple recurrences. The most recent recurrence happened in July 2018. She has been followed at [facility] and was started on olaparib 300 mg twice daily. Assessment: I reviewed the lab tests from our [facility]. The CA 125 also has decreased from previous 520 on 03/16/2000 19-422 on 06/02/2019. Again patient tolerated Olaparib very well. She is very active. As far as the anus discharge is concerned, I recommended that she contact ostomy nurse at [facility] for recommendations. I will see the patient in 1 month and for more discussion. Plan: RTC in 1 months, CBC, CMP, CA125
[2019-07-03 11:50] LABS: Hematocrit 36.8 % (36-46); Hemoglobin 12.7 g/dL (12.0-16.0); Mean Corpuscular HGB Conc 34.6 % (30-36); Mean Corpuscular Hemoglobin 33.6 PG (26-34); Mean Corpuscular Volume 97.2 fL (80-100); Platelet Count 271 X10^3/uL (150-400); Red Blood Cell Count 3.78 X10^6/uL (4.0-5.2); Red Cell Distribution Width 16.7 % (11.6-14.8); White Blood Cell Count 5.8 X10^3/uL (4.5-11.0)
[2019-07-03 12:11] LABS: Alanine Aminotransferase 20 IU/L (9-52); Albumin 4.2 g/dL (3.5-5.0); Albumin Globulin Ratio 1.3 (1.0-2.8); Alkaline Phosphatase 161 U/L (38-126); Aspartate Aminotransferase 45 IU/L (14-36); BUN Creatinine Ratio 21.3 (6-22); Bilirubin Total 0.6 mg/dL (0.2-1.3); Blood Urea Nitrogen 17 mg/dL (7-17); Calcium 9.4 mg/dL (8.4-10.2); Carbon Dioxide 24 mmol/L (22-32); Chloride 101 mmol/L (98-107); Estimated Glomerular Filt Rate > 60.0 mL/min (>60); Globulin 3.3 g/dL (1.7-4.1); Glucose 101 mg/dL (80-110); HEMOLYSIS < 15 (0-50); Sodium 136 mmol/L (137-145); Total Protein 7.5 g/dL (6.3-8.2)
[2019-07-03 12:18] LABS: Neutrophils Absolute Manual 2900 /uL (3000-5900); Total Cells Counted 100
[2019-07-03 12:19] LABS: Anisocytosis 1+
--- NOTE | 2019-07-03 12:22 | PC.NURSE ---
Pt port unable to obtain blood return, will re-access port Sunday and check port for blood return. Blood work obtained via peripheral IV stick.
[2019-07-03 12:41] LABS: Cancer Antigen 125 491 U/mL (0-35)
[2019-07-07 11:32] VITALS: BP 129/76; PULSE 61; RESP 18; TEMP 36.7; O2SAT 98
--- NOTE | 2019-07-07 12:01 | P.PNONC_ITS ---
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 She lives in [place] for 6 months during the summer months, and in [place] for 6 months during the winter months. She is been followed here as well as in [facility] in [place]. Oncology History: Her ovarian cancer history is summarized from [facility] medical records as follows: 12/2012: initial diagnosis, CA 125 2000 and peritoneal nodularity 12/2012: surgery: Laparoscopic RSO, omentectomy, and peritoneal biopsy. 01/04/2013-02/13/2013: Carbo/Taxol x2 02/25/2013: Optimal tumor reductive surgery. 02/2013-05/2013: carbo/Taxol x 4 and avastin added for last 3 cycles 06/2013-06/16/2014: Avastin maintenance 10/2014: Rising CA 125 to 522 and bloating 11/18/2014: [facility] initial visit 12/2014-03/2015: Carbo/Taxol x 6 with some minimal persistent disease 01/19/2017: new liver mets and chest adenopathy on CT scan and elevated CA 125 to 2914. 01/23/2017: Exploratory laparotomy, ALEAH, and diverting loop transverse colostomy for large bowel obstruction. 02/02/2017-09/28/2017: Single agent carboplatin 10/26/2017-07/25/2018: post 9 cycles of Carboplatin with TATUM on imaging and negative CA-125. 07/26/2018: BRCA testing turned out to be positive 07/31/2018: Relapse/recurrence: Feels small hypoattenuating foci in the liver and interval development of bilateral iliac multi compartmental lymphadenopathy with rising CA 125. 08/02/2018-12/13/2018: Carboplatin x 5 cycles 01/16/2019: CT showed minimal evidence of increasing pelvic lymph nodes. 01/2019 - Olaparib 300 mg po bid Interim Events: Patient has been doing very well except the episode of what she called nasty urinary tract infection. She was put on antibiotic and has improved clinically. Otherwise patient reports that she has no other symptoms and he is playing golf all the time. She has good energy good appetite. No shortness of breath no chest pain. No abdominal pain no diarrhea and no constipation. She is planning to fly down to [place] in July for follow-up at [facility]. - Patient Self-Reported Symptoms SR Constitution: Fatigue/Malaise - Additional ROS All systems PM: reviewed and no additional remarkable complaints except as stated Home Medications and Allergies Home Medications Medication Instructions Recorded Confirmed Type multivitamin [Multiple Vitamins] 1 tab PO DAILY #0 05/16/17 07/07/19 History turmeric 1 dose PO DAILY #0 05/16/17 07/07/19 History fluoxetine [Prozac] 20 mg PO DAILY 04/10/19 07/07/19 History olaparib 300 mg PO BID 04/10/19 07/07/19 History fluconazole 150 mg PO QWEEK 06/13/19 07/07/19 History Allergies Allergy/AdvReac Type Severity Reaction Status Date / Time No Known Drug Allergies Allergy Verified 06/13/19 09:18 Exam Vital signs: Vital Signs Temp Pulse Resp BP Pulse Ox 07/07/19 11:32 98.1 F 61 18 129/76 98 Intake and Output 07/06/19 07/07/19 07/07/19 23:59 07:59 15:59 Other: Weight 73.1 kg Patient Weight 07/07/19 23:59 Weight 73.1 kg - Constitutional positive no acute distress, positive average body habitus - Routine HEENT Exam Head: Present: normocephalic, atraumatic Eye: Present: EOMI, PERRL, normal accommodation. Absent: conjunctival icterus ENT: Present: mucous membranes moist - Routine Neck Exam Present: supple. Absent: lymphadenopathy, thyromegaly - Routine Chest/Breast/Axilla Exam Axillae: Absent: lymphadenopathy - Routine Respiratory Exam Present: Clear to auscultation bilaterally. Absent: wheezes - Routine Cardiovascular Exam Present: RRR, S1, S2. Absent: murmur, gallop, rubs - Routine Abdominal Exam Present: soft. Absent: tenderness, distended, organomegaly - Routine Extremities Exam Absent: edema - Routine Neurological Exam Present: alert, oriented X3, CN II-XII intact. Absent: sensory deficit, motor deficit - Routine Psychiatric Exam Present: normal affect Results - Labs Laboratory Last Values WBC 5.8 X10^3/uL (4.5-11.0) 07/03/19 11:45 RBC 3.78 X10^6/uL (4.0-5.2) L 07/03/19 11:45 Hgb 12.7 g/dL (12.0-16.0) 07/03/19 11:45 Hct 36.8 % (36-46) 07/03/19 11:45 MCV 97.2 fL (80-100) 07/03/19 11:45 MCH 33.6 PG (26-34) 07/03/19 11:45 MCHC 34.6 % (30-36) 07/03/19 11:45 RDW 16.7 % (11.6-14.8) H 07/03/19 11:45 Plt Count 271 X10^3/uL (150-400) 07/03/19 11:45 Neut % (Auto) 66.9 % (50-75) 06/02/19 14:10 Lymph % (Auto) 18.8 % (25-40) L 06/02/19 14:10 [place] % (Auto) 12.0 % (3-14) 06/02/19 14:10 Eos % (Auto) 1.2 % (2-4) L 06/02/19 14:10 Baso % (Auto) 1.1 % (0-2) 06/02/19 14:10 Neut # (Auto) 6300 /uL (8584-2273) 06/02/19 14:10 Lymph # (Auto) 1800 /uL (3973-5138) 06/02/19 14:10 [place] # (Auto) 1100 /uL (0-900) H 06/02/19 14:10 Eos # (Auto) 100 /uL (0-450) 06/02/19 14:10 Baso # (Auto) 100 /uL (0-100) 06/02/19 14:10 Total Counted 100 07/03/19 11:45 Seg Neutrophils % 50.0 % (38-70) 07/03/19 11:45 Lymphocytes % (Manual) 30.0 % (25-45) 07/03/19 11:45 Monocytes % (Manual) 17.0 % (2-11) H 07/03/19 11:45 Eosinophils % (Manual) 3.0 % (2-4) 07/03/19 11:45 Neutrophils # (Manual) 2900 /uL (3640-0243) L 07/03/19 11:45 RBC Morphology See below 07/03/19 11:45 Anisocytosis 1+ H 07/03/19 11:45 Sodium 136 mmol/L (137-145) L 07/03/19 11:45 Potassium 4.0 mmol/L (3.4-5.1) 07/03/19 11:45 Chloride 101 mmol/L (98-107) 07/03/19 11:45 Carbon Dioxide 24 mmol/L (22-32) 07/03/19 11:45 BUN 17 mg/dL (7-17) 07/03/19 11:45 Creatinine 0.80 mg/dL (0.52-1.04) 07/03/19 11:45 Estimated GFR > 60.0 mL/min (>60) 07/03/19 11:45 BUN/Creatinine Ratio 21.3 (6-22) 07/03/19 11:45 Glucose 101 mg/dL (80-110) 07/03/19 11:45 Calcium 9.4 mg/dL (8.4-10.2) 07/03/19 11:45 Magnesium 1.9 mg/dL (1.6-2.3) 03/20/19 14:50 Total Bilirubin 0.6 mg/dL (0.2-1.3) 07/03/19 11:45 AST 45 IU/L (14-36) H 07/03/19 11:45 ALT 20 IU/L (9-52) 07/03/19 11:45 Alkaline Phosphatase 161 U/L (38-126) H 07/03/19 11:45 Total Protein 7.5 g/dL (6.3-8.2) 07/03/19 11:45 Albumin 4.2 g/dL (3.5-5.0) 07/03/19 11:45 Globulin 3.3 g/dL (1.7-4.1) 07/03/19 11:45 Albumin/Globulin Ratio 1.3 (1.0-2.8) 07/03/19 11:45 CA 125 Antigen 491 U/mL (0-35) H 07/03/19 11:45 Assessment and Plan (1) Ovarian cancer, BRCA2 positive Overview: Medina 59-year-old female, BRCA 2 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 Throughout the past 6 years, she has undergone multiple surgeries as well as multiple cycles of chemotherapy due to multiple recurrences. The most recent recurrence happened in July 2018. She has been followed at [facility] and was started on olaparib 300 mg twice daily. Assessment: I reviewed the lab tests from our [facility]. The CA 125 also has been stable. She tolerated Olaparib very well. She is very active. She is going to [facility] for follow-up visit and [facility] next month. I will see the patient after she comes back. Plan: [facility] follow up as scheduled next month RTC in 1 months, CBC, CMP, CA125
[2019-08-07 11:33] LABS: Alanine Aminotransferase 16 IU/L (9-52); Albumin 4.3 g/dL (3.5-5.0); Albumin Globulin Ratio 1.3 (1.0-2.8); Alkaline Phosphatase 146 U/L (38-126); Aspartate Aminotransferase 41 IU/L (14-36); BUN Creatinine Ratio 25.6 (6-22); Bilirubin Total 0.5 mg/dL (0.2-1.3); Blood Urea Nitrogen 23 mg/dL (7-17); Calcium 9.7 mg/dL (8.4-10.2); Carbon Dioxide 29 mmol/L (22-32); Chloride 102 mmol/L (98-107); Estimated Glomerular Filt Rate > 60.0 mL/min (>60); Globulin 3.4 g/dL (1.7-4.1); Glucose 93 mg/dL (80-110); HEMOLYSIS < 15 (0-50); Lactate Dehydrogenase 432 U/L (313-618); Potassium 4.4 mmol/L (3.4-5.1); Sodium 138 mmol/L (137-145); Total Protein 7.7 g/dL (6.3-8.2)
[2019-08-07 11:38] LABS: Add Manual Diff / Slide Review NO; Basophils Absolute Auto 100 /uL (0-100); Basophils Percent Auto 0.9 % (0-2); Eosinophils Absolute Auto 100 /uL (0-450); Eosinophils Percent Auto 1.4 % (2-4); Hematocrit 39.8 % (36-46); Hemoglobin 13.4 g/dL (12.0-16.0); Lymphocytes Absolute Auto 1800 /uL (1100-4500); Lymphocytes Percent Auto 24.5 % (25-40); Mean Corpuscular HGB Conc 33.8 % (30-36); Mean Corpuscular Hemoglobin 33.1 PG (26-34); Monocytes Absolute Auto 1000 /uL (0-900); Monocytes Percent Auto 13.5 % (3-14); Neutrophils Absolute Auto 4300 /uL (1500-7000); Neutrophils Percent Auto 59.7 % (50-75); Platelet Count 260 X10^3/uL (150-400); Red Blood Cell Count 4.06 X10^6/uL (4.0-5.2); Red Cell Distribution Width 17.1 % (11.6-14.8); White Blood Cell Count 7.3 X10^3/uL (4.5-11.0)
[2019-08-07 12:03] LABS: Cancer Antigen 125 576 U/mL (0-35)
--- NOTE | 2019-08-11 11:45 | P.PNONC_ITS ---
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 She lives in [place] for 6 months during the summer months, and in [place] for 6 months during the winter months. She is been followed here as well as in [facility] in [place]. Oncology History: Her ovarian cancer history is summarized from [facility] medical records as follows: 12/2012: initial diagnosis, CA 125 2000 and peritoneal nodularity 12/2012: surgery: Laparoscopic RSO, omentectomy, and peritoneal biopsy. 01/04/2013-02/13/2013: Carbo/Taxol x2 02/25/2013: Optimal tumor reductive surgery. 02/2013-05/2013: carbo/Taxol x 4 and avastin added for last 3 cycles 06/2013-06/16/2014: Avastin maintenance 10/2014: Rising CA 125 to 522 and bloating 11/18/2014: [facility] initial visit 12/2014-03/2015: Carbo/Taxol x 6 with some minimal persistent disease 01/19/2017: new liver mets and chest adenopathy on CT scan and elevated CA 125 to 2914. 01/23/2017: Exploratory laparotomy, ALEAH, and diverting loop transverse colostomy for large bowel obstruction. 02/02/2017-09/28/2017: Single agent carboplatin 10/26/2017-07/25/2018: post 9 cycles of Carboplatin with TATUM on imaging and negative CA-125. 07/26/2018: BRCA testing turned out to be positive 07/31/2018: Relapse/recurrence: Feels small hypoattenuating foci in the liver and interval development of bilateral iliac multi compartmental lymphadenopathy with rising CA 125. 08/02/2018-12/13/2018: Carboplatin x 5 cycles 01/16/2019: CT showed minimal evidence of increasing pelvic lymph nodes. 01/2019 - Olaparib 300 mg po bid Interim Events: On [id number], nusrat paulino was evaluated by Dr. Nicolas Ewing at [facility] in [place]. Repeat CT of chest abdomen and pelvis showed new peritoneal implants involving the vaginal cuff and rectosigmoid colon. It showed stable prominent retroperitoneal and pelvic metastatic lymph nodes. Dr. Ewing discussed the results in detail with the patient. Dr. Ewing recommended continued current olaparib treatment - Patient Self-Reported Symptoms SR Constitution: Fatigue/Malaise - Additional ROS All systems PM: reviewed and no additional remarkable complaints except as stated Home Medications and Allergies Home Medications Medication Instructions Recorded Confirmed Type multivitamin [Multiple Vitamins] 1 tab PO DAILY #0 05/16/17 07/07/19 History turmeric 1 dose PO DAILY #0 05/16/17 07/07/19 History fluoxetine [Prozac] 20 mg PO DAILY 04/10/19 07/07/19 History olaparib 300 mg PO BID 04/10/19 07/07/19 History fluconazole 150 mg PO QWEEK 06/13/19 07/07/19 History Allergies Allergy/AdvReac Type Severity Reaction Status Date / Time No Known Drug Allergies Allergy Verified 06/13/19 09:18 Exam Vital signs: Last Vital Signs Temp 98.1 F 08/11/19 11:50 Pulse 60 08/11/19 11:50 Resp 16 08/11/19 11:50 BP 123/62 08/11/19 11:50 Pulse Ox 98 08/11/19 11:50 Last Vital Signs Temp 98.1 F 08/11/19 11:50 Pulse 60 08/11/19 11:50 Resp 16 08/11/19 11:50 BP 123/62 08/11/19 11:50 Pulse Ox 98 08/11/19 11:50 - Constitutional positive no acute distress, positive average body habitus, positive cooperative - Routine HEENT Exam Head: Present: normocephalic, atraumatic Eye: Present: EOMI, PERRL, normal accommodation. Absent: conjunctival icterus ENT: Present: mucous membranes moist - Routine Neck Exam Present: supple. Absent: lymphadenopathy, thyromegaly - Routine Chest/Breast/Axilla Exam Axillae: Absent: lymphadenopathy - Routine Respiratory Exam Present: Clear to auscultation bilaterally. Absent: wheezes - Routine Cardiovascular Exam Present: RRR, S1, S2. Absent: murmur, gallop, rubs - Routine Abdominal Exam Present: soft. Absent: organomegaly - Routine Extremities Exam Absent: edema - Routine Neurological Exam Present: alert, oriented X3, CN II-XII intact. Absent: sensory deficit, motor deficit - Routine Psychiatric Exam Present: normal affect, good judgment Results - Labs Laboratory Last Values WBC 7.3 X10^3/uL (4.5-11.0) 08/07/19 11:15 RBC 4.06 X10^6/uL (4.0-5.2) 08/07/19 11:15 Hgb 13.4 g/dL (12.0-16.0) 08/07/19 11:15 Hct 39.8 % (36-46) 08/07/19 11:15 MCV 98.0 fL (80-100) 08/07/19 11:15 MCH 33.1 PG (26-34) 08/07/19 11:15 MCHC 33.8 % (30-36) 08/07/19 11:15 RDW 17.1 % (11.6-14.8) H 08/07/19 11:15 Plt Count 260 X10^3/uL (150-400) 08/07/19 11:15 Neut % (Auto) 59.7 % (50-75) 08/07/19 11:15 Lymph % (Auto) 24.5 % (25-40) L 08/07/19 11:15 [place] % (Auto) 13.5 % (3-14) 08/07/19 11:15 Eos % (Auto) 1.4 % (2-4) L 08/07/19 11:15 Baso % (Auto) 0.9 % (0-2) 08/07/19 11:15 Neut # (Auto) 4300 /uL (3259-8600) 08/07/19 11:15 Lymph # (Auto) 1800 /uL (8339-7678) 08/07/19 11:15 [place] # (Auto) 1000 /uL (0-900) H 08/07/19 11:15 Eos # (Auto) 100 /uL (0-450) 08/07/19 11:15 Baso # (Auto) 100 /uL (0-100) 08/07/19 11:15 Total Counted 100 07/03/19 11:45 Seg Neutrophils % 50.0 % (38-70) 07/03/19 11:45 Lymphocytes % (Manual) 30.0 % (25-45) 07/03/19 11:45 Monocytes % (Manual) 17.0 % (2-11) H 07/03/19 11:45 Eosinophils % (Manual) 3.0 % (2-4) 07/03/19 11:45 Neutrophils # (Manual) 2900 /uL (2487-0125) L 07/03/19 11:45 RBC Morphology See below 07/03/19 11:45 Anisocytosis 1+ H 07/03/19 11:45 Sodium 138 mmol/L (137-145) 08/07/19 11:15 Potassium 4.4 mmol/L (3.4-5.1) 08/07/19 11:15 Chloride 102 mmol/L (98-107) 08/07/19 11:15 Carbon Dioxide 29 mmol/L (22-32) 08/07/19 11:15 BUN 23 mg/dL (7-17) H 08/07/19 11:15 Creatinine 0.90 mg/dL (0.52-1.04) 08/07/19 11:15 Estimated GFR > 60.0 mL/min (>60) 08/07/19 11:15 BUN/Creatinine Ratio 25.6 (6-22) H 08/07/19 11:15 Glucose 93 mg/dL (80-110) 08/07/19 11:15 Calcium 9.7 mg/dL (8.4-10.2) 08/07/19 11:15 Magnesium 1.9 mg/dL (1.6-2.3) 03/20/19 14:50 Total Bilirubin 0.5 mg/dL (0.2-1.3) 08/07/19 11:15 AST 41 IU/L (14-36) H 08/07/19 11:15 ALT 16 IU/L (9-52) 08/07/19 11:15 Alkaline Phosphatase 146 U/L (38-126) H 08/07/19 11:15 Lactate Dehydrogenase 432 U/L (313-618) 08/07/19 11:15 Total Protein 7.7 g/dL (6.3-8.2) 08/07/19 11:15 Albumin 4.3 g/dL (3.5-5.0) 08/07/19 11:15 Globulin 3.4 g/dL (1.7-4.1) 08/07/19 11:15 Albumin/Globulin Ratio 1.3 (1.0-2.8) 08/07/19 11:15 CA 125 Antigen 576 U/mL (0-35) H 08/07/19 11:15 Assessment and Plan (1) Ovarian cancer, BRCA2 positive Overview: Medina 59-year-old female, BRCA 2 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 Throughout the past 6 years, she has undergone multiple surgeries as well as multiple cycles of chemotherapy due to multiple recurrences. The most recent recurrence happened in July 2018. She has been followed at [facility] and was started on olaparib 300 mg twice daily. Assessment: Lanny was seen by Nicolas Patel on 08/01/2019 at [facility]. Continue current therapy is recommended. Plan: Contine Olaparib 300 mg bid RTC in 1 months, CBC, CMP, CA125
[2019-08-11 11:50] VITALS: BP 123/62; PULSE 60; RESP 16; TEMP 36.7; O2SAT 98
[2019-09-03 16:16] LABS: Add Manual Diff / Slide Review NO; Basophils Absolute Auto 100 /uL (0-100); Basophils Percent Auto 1.2 % (0-2); Eosinophils Absolute Auto 100 /uL (0-450); Eosinophils Percent Auto 2.5 % (2-4); Hematocrit 36.2 % (36-46); Hemoglobin 12.6 g/dL (12.0-16.0); Lymphocytes Absolute Auto 1600 /uL (1100-4500); Lymphocytes Percent Auto 30.6 % (25-40); Mean Corpuscular HGB Conc 34.7 % (30-36); Mean Corpuscular Hemoglobin 33.8 PG (26-34); Mean Corpuscular Volume 97.2 fL (80-100); Monocytes Absolute Auto 800 /uL (0-900); Monocytes Percent Auto 15.5 % (3-14); Neutrophils Absolute Auto 2700 /uL (1500-7000); Neutrophils Percent Auto 50.2 % (50-75); Platelet Count 244 X10^3/uL (150-400); Red Blood Cell Count 3.72 X10^6/uL (4.0-5.2); Red Cell Distribution Width 17.9 % (11.6-14.8); White Blood Cell Count 5.4 X10^3/uL (4.5-11.0)
[2019-09-03 16:28] LABS: Alanine Aminotransferase 19 IU/L (<35); Albumin 4.2 g/dL (3.5-5.0); Albumin Globulin Ratio 1.4 (1.0-2.8); Alkaline Phosphatase 127 U/L (38-126); Aspartate Aminotransferase 40 IU/L (14-36); Bilirubin Total 0.5 mg/dL (0.2-1.3); Blood Urea Nitrogen 24 mg/dL (7-17); Calcium 9.4 mg/dL (8.4-10.2); Carbon Dioxide 29 mmol/L (22-32); Chloride 102 mmol/L (98-107); Estimated Glomerular Filt Rate 56.4 mL/min (>60); Globulin 3.1 g/dL (1.7-4.1); Glucose 103 mg/dL (80-110); HEMOLYSIS < 15 (0-50); Lactate Dehydrogenase 438 U/L (313-618); Sodium 139 mmol/L (137-145); Total Protein 7.3 g/dL (6.3-8.2)
[2019-09-03 16:58] LABS: Cancer Antigen 125 552 U/mL (0-35)
[2019-09-04 11:13] VITALS: BP 109/64; PULSE 65; RESP 18; TEMP 35.8; O2SAT 99
--- NOTE | 2019-09-04 11:14 | ONC.PN ---
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 She lives in [place] for 6 months during the summer, and in [place] for 6 months during the winter. She is been followed here as well as in [facility] in [place]. Oncology History: Her ovarian cancer history is summarized from [facility] medical records as follows: 12/2012: initial diagnosis, CA 125 2000 and peritoneal nodularity 12/2012: surgery: Laparoscopic RSO, omentectomy, and peritoneal biopsy. 01/04/2013-02/13/2013: Carbo/Taxol x2 02/25/2013: Optimal tumor reductive surgery. 02/2013-05/2013: carbo/Taxol x 4 and avastin added for last 3 cycles 06/2013-06/16/2014: Avastin maintenance 10/2014: Rising CA 125 to 522 and bloating 11/18/2014: [facility] initial visit 12/2014-03/2015: Carbo/Taxol x 6 with some minimal persistent disease 01/19/2017: new liver mets and chest adenopathy on CT scan and elevated CA 125 to 2914. 01/23/2017: Exploratory laparotomy, ALEAH, and diverting loop transverse colostomy for large bowel obstruction. 02/02/2017-09/28/2017: Single agent carboplatin 10/26/2017-07/25/2018: post 9 cycles of Carboplatin with TATUM on imaging and negative CA-125. 07/26/2018: BRCA testing turned out to be positive 07/31/2018: Relapse/recurrence: Feels small hypoattenuating foci in the liver and interval development of bilateral iliac multi compartmental lymphadenopathy with rising CA 125. 08/02/2018-12/13/2018: Carboplatin x 5 cycles 01/16/2019: CT showed minimal evidence of increasing pelvic lymph nodes. 01/2019 - Olaparib 300 mg po bid Interim Events: On August 01, 2019, nusrat paulino was evaluated by Dr. Nicolas Ewing at [facility] in [place]. Repeat CT of chest abdomen and pelvis showed new peritoneal implants involving the vaginal cuff and rectosigmoid colon. It showed stable prominent retroperitoneal and pelvic metastatic lymph nodes. Dr. Ewing discussed the results in detail with the patient. Dr. Ewing recommended continued current olaparib treatment. She presents today for scheduled follow up visit. Clinically patient has been very active. She participants in a lot of exercises including weight lifting, golfing, piano etc. She denies any shortness of breath or chest pain. She denies abdominal pain. - Patient Self-Reported Symptoms SR Constitution: Fatigue/Malaise - Additional ROS All systems PM: reviewed and no additional remarkable complaints except as stated Home Medications and Allergies Home Medications Medication Instructions Recorded Confirmed Type multivitamin [Multiple Vitamins] 1 tab PO DAILY #0 05/16/17 09/04/19 History turmeric 1 dose PO DAILY #0 05/16/17 09/04/19 History fluoxetine [Prozac] 20 mg PO DAILY 04/10/19 09/04/19 History olaparib 300 mg PO BID 04/10/19 09/04/19 History fluconazole 150 mg PO QWEEK 06/13/19 09/04/19 History Allergies Allergy/AdvReac Type Severity Reaction Status Date / Time No Known Drug Allergies Allergy Verified 06/13/19 09:18 Exam Vital signs: Vital Signs Temp Pulse Resp BP Pulse Ox 09/04/19 11:13 96.4 F L 65 18 109/64 99 Intake and Output 09/03/19 09/04/19 09/04/19 23:59 07:59 15:59 Other: Weight 75.6 kg Patient Weight 09/04/19 23:59 Weight 75.6 kg - Constitutional positive no acute distress, positive average body habitus, positive cooperative - Routine HEENT Exam Head: Present: normocephalic, atraumatic Eye: Present: EOMI, PERRL, normal accommodation. Absent: conjunctival icterus ENT: Present: mucous membranes moist - Routine Neck Exam Present: supple. Absent: lymphadenopathy - Routine Chest/Breast/Axilla Exam Axillae: Absent: lymphadenopathy - Routine Respiratory Exam Present: Clear to auscultation bilaterally. Absent: wheezes - Routine Cardiovascular Exam Present: RRR, S1, S2. Absent: murmur, gallop, rubs - Routine Abdominal Exam Present: soft. Absent: tenderness, organomegaly - Routine Extremities Exam Absent: edema - Routine Neurological Exam Present: alert, oriented X3, CN II-XII intact. Absent: sensory deficit, motor deficit - Routine Psychiatric Exam Present: normal affect Results - Labs Laboratory Last Values WBC 5.4 X10^3/uL (4.5-11.0) 09/03/19 16:00 RBC 3.72 X10^6/uL (4.0-5.2) L 09/03/19 16:00 Hgb 12.6 g/dL (12.0-16.0) 09/03/19 16:00 Hct 36.2 % (36-46) 09/03/19 16:00 MCV 97.2 fL (80-100) 09/03/19 16:00 MCH 33.8 PG (26-34) 09/03/19 16:00 MCHC 34.7 % (30-36) 09/03/19 16:00 RDW 17.9 % (11.6-14.8) H 09/03/19 16:00 Plt Count 244 X10^3/uL (150-400) 09/03/19 16:00 Neut % (Auto) 50.2 % (50-75) 09/03/19 16:00 Lymph % (Auto) 30.6 % (25-40) 09/03/19 16:00 [place] % (Auto) 15.5 % (3-14) H 09/03/19 16:00 Eos % (Auto) 2.5 % (2-4) 09/03/19 16:00 Baso % (Auto) 1.2 % (0-2) 09/03/19 16:00 Neut # (Auto) 2700 /uL (4595-0310) 09/03/19 16:00 Lymph # (Auto) 1600 /uL (2111-4720) 09/03/19 16:00 [place] # (Auto) 800 /uL (0-900) 09/03/19 16:00 Eos # (Auto) 100 /uL (0-450) 09/03/19 16:00 Baso # (Auto) 100 /uL (0-100) 09/03/19 16:00 Total Counted 100 07/03/19 11:45 Seg Neutrophils % 50.0 % (38-70) 07/03/19 11:45 Lymphocytes % (Manual) 30.0 % (25-45) 07/03/19 11:45 Monocytes % (Manual) 17.0 % (2-11) H 07/03/19 11:45 Eosinophils % (Manual) 3.0 % (2-4) 07/03/19 11:45 Neutrophils # (Manual) 2900 /uL (3781-8410) L 07/03/19 11:45 RBC Morphology See below 07/03/19 11:45 Anisocytosis 1+ H 07/03/19 11:45 Sodium 139 mmol/L (137-145) 09/03/19 16:00 Potassium 4.0 mmol/L (3.4-5.1) 09/03/19 16:00 Chloride 102 mmol/L (98-107) 09/03/19 16:00 Carbon Dioxide 29 mmol/L (22-32) 09/03/19 16:00 BUN 24 mg/dL (7-17) H 09/03/19 16:00 Creatinine 1.00 mg/dL (0.52-1.04) 09/03/19 16:00 Estimated GFR 56.4 mL/min (>60) L 09/03/19 16:00 BUN/Creatinine Ratio 24.0 (6-22) H 09/03/19 16:00 Glucose 103 mg/dL (80-110) 09/03/19 16:00 Calcium 9.4 mg/dL (8.4-10.2) 09/03/19 16:00 Magnesium 1.9 mg/dL (1.6-2.3) 03/20/19 14:50 Total Bilirubin 0.5 mg/dL (0.2-1.3) 09/03/19 16:00 AST 40 IU/L (14-36) H 09/03/19 16:00 ALT 19 IU/L (<35) 09/03/19 16:00 Alkaline Phosphatase 127 U/L (38-126) H 09/03/19 16:00 Lactate Dehydrogenase 438 U/L (313-618) 09/03/19 16:00 Total Protein 7.3 g/dL (6.3-8.2) 09/03/19 16:00 Albumin 4.2 g/dL (3.5-5.0) 09/03/19 16:00 Globulin 3.1 g/dL (1.7-4.1) 09/03/19 16:00 Albumin/Globulin Ratio 1.4 (1.0-2.8) 09/03/19 16:00 CA 125 Antigen 552 U/mL (0-35) H 09/03/19 16:00 Assessment and Plan (1) Ovarian cancer, BRCA2 positive Overview: Medina 59-year-old female, BRCA 2 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 Since then, she has undergone multiple surgeries as well as multiple cycles of chemotherapy due to multiple recurrences. The most recent recurrence happened in July 2018. She has been followed at [facility] and was started on olaparib 300 mg twice daily. Assessment: Lanny was seen by Nicolas Patel on 08/01/2019 at [facility]. Continue current therapy is recommended. Plan: Contine Olaparib 300 mg bid RTC in 1 month, CBC, CMP, CA125
[2019-10-01 15:40] LABS: Add Manual Diff / Slide Review NO; Basophils Absolute Auto 100 /uL (0-100); Basophils Percent Auto 1.6 % (0-2); Eosinophils Absolute Auto 400 /uL (0-450); Eosinophils Percent Auto 6.2 % (2-4); Hematocrit 38.1 % (36-46); Hemoglobin 12.9 g/dL (12.0-16.0); Lymphocytes Absolute Auto 1700 /uL (1100-4500); Lymphocytes Percent Auto 23.6 % (25-40); Mean Corpuscular HGB Conc 33.9 % (30-36); Mean Corpuscular Hemoglobin 33.5 PG (26-34); Mean Corpuscular Volume 98.8 fL (80-100); Monocytes Absolute Auto 900 /uL (0-900); Monocytes Percent Auto 11.9 % (3-14); Neutrophils Absolute Auto 4100 /uL (1500-7000); Neutrophils Percent Auto 56.7 % (50-75); Platelet Count 286 X10^3/uL (150-400); Red Blood Cell Count 3.86 X10^6/uL (4.0-5.2); Red Cell Distribution Width 17.2 % (11.6-14.8); White Blood Cell Count 7.2 X10^3/uL (4.5-11.0)
[2019-10-01 15:57] LABS: Alanine Aminotransferase 18 IU/L (<35); Albumin 4.2 g/dL (3.5-5.0); Albumin Globulin Ratio 1.3 (1.0-2.8); Alkaline Phosphatase 146 U/L (38-126); Aspartate Aminotransferase 43 IU/L (14-36); Bilirubin Total 0.3 mg/dL (0.2-1.3); Blood Urea Nitrogen 25 mg/dL (7-17); Calcium 9.4 mg/dL (8.4-10.2); Carbon Dioxide 28 mmol/L (22-32); Chloride 103 mmol/L (98-107); Estimated Glomerular Filt Rate 56.4 mL/min (>60); Globulin 3.2 g/dL (1.7-4.1); Glucose 112 mg/dL (80-110); HEMOLYSIS < 15 (0-50); Potassium 3.8 mmol/L (3.4-5.1); Sodium 140 mmol/L (137-145); Total Protein 7.4 g/dL (6.3-8.2)
[2019-10-01 16:28] LABS: Cancer Antigen 125 694 U/mL (0-35)
--- NOTE | 2019-10-09 09:46 | P.PNONC_ITS ---
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 She lives in [place] for 6 months during the summer, and in [place] for 6 months during the winter. She is been followed here as well as in [facility] in [place]. Oncology History: Her ovarian cancer history is summarized from [facility] medical records as follows: 12/2012: initial diagnosis, CA 125 2000 and peritoneal nodularity 12/2012: surgery: Laparoscopic RSO, omentectomy, and peritoneal biopsy. 01/04/2013-02/13/2013: Carbo/Taxol x2 02/25/2013: Optimal tumor reductive surgery. 02/2013-05/2013: carbo/Taxol x 4 and avastin added for last 3 cycles 06/2013-06/16/2014: Avastin maintenance 10/2014: Rising CA 125 to 522 and bloating 11/18/2014: [facility] initial visit 12/2014-03/2015: Carbo/Taxol x 6 with some minimal persistent disease 01/19/2017: new liver mets and chest adenopathy on CT scan and elevated CA 125 to 2914. 01/23/2017: Exploratory laparotomy, ALEAH, and diverting loop transverse colost lulú for large bowel obstruction. 02/02/2017-09/28/2017: Single agent carboplatin 10/26/2017-07/25/2018: post 9 cycles of Carboplatin with TATUM on imaging and negative CA-125. 07/26/2018: BRCA testing turned out to be positive 07/31/2018: Relapse/recurrence: Feels small hypoattenuating foci in the liver and interval development of bilateral iliac multi compartmental lymphadenopathy with rising CA 125. 08/02/2018-12/13/2018: Carboplatin x 5 cycles 01/16/2019: CT showed minimal evidence of increasing pelvic lymph nodes. 01/2019 - Olaparib 300 mg po bid Interim Events: On August 01, 2019, nusrat paulino was evaluated by Dr. Nicolas Ewing at [facility] in [place]. Repeat CT of chest abdomen and pelvis showed new peritoneal implants involving the vaginal cuff and rectosigmoid colon. It showed stable prominent retroperitoneal and pelvic metastatic lymph nodes. Dr. Ewing discussed the results in detail with the patient. Dr. Ewing recommended continued current olaparib treatment. She presents today for scheduled follow up visit. She has been fully active. She just came back from a weight training early this morning. She denies any nausea vomiting. She denies fatigue. She denies any abdominal pain diarrhea or constipation. She denies any shortness of breath or chest pain. She denies any coughing symptoms she denies any new pain. - Patient Self-Reported Symptoms SR Constitution: Fatigue/Malaise - Additional ROS All systems PM: reviewed and no additional remarkable complaints except as stated Home Medications and Allergies Home Medications Medication Instructions Recorded Confirmed Type multivitamin [Multiple Vitamins] 1 tab PO DAILY #0 05/16/17 09/23/19 History turmeric 1 dose PO DAILY #0 05/16/17 09/23/19 History fluoxetine [Prozac] 20 mg PO DAILY 04/10/19 09/23/19 History olaparib 300 mg PO BID 04/10/19 09/23/19 History Allergies Allergy/AdvReac Type Severity Reaction Status Date / Time No Known Drug Allergies Allergy Verified 09/23/19 09:45 Exam Vital signs: Last Vital Signs Temp 98.6 F 10/09/19 09:49 Pulse 67 10/09/19 09:49 Resp 18 10/09/19 09:49 BP 114/74 10/09/19 09:49 Pulse Ox 97 10/09/19 09:49 ECOG 1 Narrative: Gen: WDWN, NAD, pleasant and cooperative. HEENT: NCAT, EOMI, PERRLA, anicteric sclera. Neck: Supple, No palpable thyromegaly or lymphadenopathy. Respiratory: CTAB, no wheezes audible. No JVD Cardiovascular: RRR, S1 and S2 normal, no M/G/R. Abdomen: Soft, NTND, BS normal, no palpable organomegaly. Right colostomy noted. Extremities: No LE pitting edema. Lymphatic: no palpable lymph nodes in the neck, axillae, or groins. Neurological: AOx3, CN II-XII grossly intact. No focal motor or sensory deficit. Psychiatric: Normal affect; normal thought process; cooperative, no depression, no anxiety. Results - Labs Laboratory Last Values WBC 7.2 X10^3/uL (4.5-11.0) 10/01/19 15:30 RBC 3.86 X10^6/uL (4.0-5.2) L 10/01/19 15:30 Hgb 12.9 g/dL (12.0-16.0) 10/01/19 15:30 Hct 38.1 % (36-46) 10/01/19 15:30 MCV 98.8 fL (80-100) 10/01/19 15:30 MCH 33.5 PG (26-34) 10/01/19 15:30 MCHC 33.9 % (30-36) 10/01/19 15:30 RDW 17.2 % (11.6-14.8) H 10/01/19 15:30 Plt Count 286 X10^3/uL (150-400) 10/01/19 15:30 Neut % (Auto) 56.7 % (50-75) 10/01/19 15:30 Lymph % (Auto) 23.6 % (25-40) L 10/01/19 15:30 [place] % (Auto) 11.9 % (3-14) 10/01/19 15:30 Eos % (Auto) 6.2 % (2-4) H 10/01/19 15:30 Baso % (Auto) 1.6 % (0-2) 10/01/19 15:30 Neut # (Auto) 4100 /uL (6128-5467) 10/01/19 15:30 Lymph # (Auto) 1700 /uL (2561-9513) 10/01/19 15:30 [place] # (Auto) 900 /uL (0-900) 10/01/19 15:30 Eos # (Auto) 400 /uL (0-450) 10/01/19 15:30 Baso # (Auto) 100 /uL (0-100) 10/01/19 15:30 Total Counted 100 07/03/19 11:45 Seg Neutrophils % 50.0 % (38-70) 07/03/19 11:45 Lymphocytes % (Manual) 30.0 % (25-45) 07/03/19 11:45 Monocytes % (Manual) 17.0 % (2-11) H 07/03/19 11:45 Eosinophils % (Manual) 3.0 % (2-4) 07/03/19 11:45 Neutrophils # (Manual) 2900 /uL (4535-9899) L 07/03/19 11:45 RBC Morphology See below 07/03/19 11:45 Anisocytosis 1+ H 07/03/19 11:45 Sodium 140 mmol/L (137-145) 10/01/19 15:30 Potassium 3.8 mmol/L (3.4-5.1) 10/01/19 15:30 Chloride 103 mmol/L (98-107) 10/01/19 15:30 Carbon Dioxide 28 mmol/L (22-32) 10/01/19 15:30 BUN 25 mg/dL (7-17) H 10/01/19 15:30 Creatinine 1.00 mg/dL (0.52-1.04) 10/01/19 15:30 Estimated GFR 56.4 mL/min (>60) L 10/01/19 15:30 BUN/Creatinine Ratio 25.0 (6-22) H 10/01/19 15:30 Glucose 112 mg/dL (80-110) H 10/01/19 15:30 Calcium 9.4 mg/dL (8.4-10.2) 10/01/19 15:30 Magnesium 1.9 mg/dL (1.6-2.3) 03/20/19 14:50 Total Bilirubin 0.3 mg/dL (0.2-1.3) 10/01/19 15:30 AST 43 IU/L (14-36) H 10/01/19 15:30 ALT 18 IU/L (<35) 10/01/19 15:30 Alkaline Phosphatase 146 U/L (38-126) H 10/01/19 15:30 Lactate Dehydrogenase 438 U/L (313-618) 09/03/19 16:00 Total Protein 7.4 g/dL (6.3-8.2) 10/01/19 15:30 Albumin 4.2 g/dL (3.5-5.0) 10/01/19 15:30 Globulin 3.2 g/dL (1.7-4.1) 10/01/19 15:30 Albumin/Globulin Ratio 1.3 (1.0-2.8) 10/01/19 15:30 CA 125 Antigen 694 U/mL (0-35) H 10/01/19 15:30 Assessment and Plan (1) Ovarian cancer, BRCA2 positive Overview: Medina 59-year-old female, BRCA 2 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 Since then, she has undergone multiple surgeries as well as multiple cycles of chemotherapy due to multiple recurrences. The most recent recurrence happened in July 2018. She has been followed at [facility] and was started on olaparib 300 mg twice daily. Assessment: Lanny was seen by Nicolas Patel on 08/01/2019 at [facility]. Continue current therapy is recommended. Today, I reviewed the laboratory test with patient. The CA 125 has increased slightly. Clinically, patient is basically asymptomatic. Patient is scheduled to see Dr. Beavers so next month and likely will repeat a CT of the abdomen and pelvis. I talked with the patient that I will see the patient after her [facility] visit. Plan: Contine Olaparib 300 mg bid RTC in 2 month, CBC, CMP, CA125
[2019-10-09 09:49] VITALS: BP 114/74; PULSE 67; RESP 18; TEMP 37; O2SAT 97
[2019-11-10 11:35] LABS: Add Manual Diff / Slide Review NO; Basophils Absolute Auto 100 /uL (0-100); Basophils Percent Auto 1.1 % (0-2); Eosinophils Absolute Auto 300 /uL (0-450); Eosinophils Percent Auto 4.6 % (2-4); Hematocrit 38.4 % (36-46); Lymphocytes Absolute Auto 1600 /uL (1100-4500); Lymphocytes Percent Auto 23.5 % (25-40); Mean Corpuscular HGB Conc 33.8 % (30-36); Mean Corpuscular Hemoglobin 33.3 PG (26-34); Mean Corpuscular Volume 98.7 fL (80-100); Monocytes Absolute Auto 1000 /uL (0-900); Monocytes Percent Auto 14.5 % (3-14); Neutrophils Absolute Auto 3900 /uL (1500-7000); Neutrophils Percent Auto 56.3 % (50-75); Platelet Count 260 X10^3/uL (150-400); Red Blood Cell Count 3.89 X10^6/uL (4.0-5.2); Red Cell Distribution Width 16.8 % (11.6-14.8); White Blood Cell Count 6.9 X10^3/uL (4.5-11.0)
[2019-11-10 11:47] LABS: Alanine Aminotransferase 23 IU/L (<35); Albumin Globulin Ratio 1.1 (1.0-2.8); Alkaline Phosphatase 137 U/L (38-126); Aspartate Aminotransferase 51 IU/L (14-36); BUN Creatinine Ratio 26.7 (6-22); Bilirubin Total 0.5 mg/dL (0.2-1.3); Blood Urea Nitrogen 24 mg/dL (7-17); Calcium 9.5 mg/dL (8.4-10.2); Carbon Dioxide 29 mmol/L (22-32); Chloride 99 mmol/L (98-107); Estimated Glomerular Filt Rate > 60.0 mL/min (>60); Globulin 3.5 g/dL (1.7-4.1); Glucose 98 mg/dL (80-110); HEMOLYSIS < 15 (0-50); Sodium 135 mmol/L (137-145); Total Protein 7.5 g/dL (6.3-8.2)
--- NOTE | 2019-11-11 08:35 | P.PNONC_ITS ---
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 She lives in [place] for 6 months during the summer, and in [place] for 6 months during the winter. She is been followed here as well as in [facility] in [place]. Oncology History: Her ovarian cancer history is summarized from [facility] medical records as follows: 12/2012: initial diagnosis, CA 125 2000 and peritoneal nodularity 12/2012: surgery: Laparoscopic RSO, omentectomy, and peritoneal biopsy. 01/04/2013-02/13/2013: Carbo/Taxol x2 02/25/2013: Optimal tumor reductive surgery. 02/2013-05/2013: carbo/Taxol x 4 and avastin added for last 3 cycles 06/2013-06/16/2014: Avastin maintenance 10/2014: Rising CA 125 to 522 and bloating 11/18/2014: [facility] initial visit 12/2014-03/2015: Carbo/Taxol x 6 with some minimal persistent disease 01/19/2017: new liver mets and chest adenopathy on CT scan and elevated CA 125 to 2914. 01/23/2017: Exploratory laparotomy, ALEAH, and diverting loop transverse colos martina for large bowel obstruction. 02/02/2017-09/28/2017: Single agent carboplatin 10/26/2017-07/25/2018: post 9 cycles of Carboplatin with TATUM on imaging and negative CA-125. 07/26/2018: BRCA testing turned out to be positive 07/31/2018: Relapse/recurrence: Feels small hypoattenuating foci in the liver and interval development of bilateral iliac multi compartmental lymphadenopathy with rising CA 125. 08/02/2018-12/13/2018: Carboplatin x 5 cycles 01/16/2019: CT showed minimal evidence of increasing pelvic lymph nodes. 01/2019 - Olaparib 300 mg po bid Interim Events: On August 01, 2019, nusrat paulino was evaluated by Dr. Nicolas Ewing at [facility] in [place]. Repeat CT of chest abdomen and pelvis showed new peritoneal implants involving the vaginal cuff and rectosigmoid colon. It showed stable prominent retroperitoneal and pelvic metastatic lymph nodes. Dr. Ewing discussed the results in detail with the patient. Dr. Ewing recommended continued current olaparib treatment. October 30, 2019 CT chest abdomen pelvis with contrast was performed at [facility]. The results showed slightly increased peritoneal implants and slightly increased pelvic metastatic lymphadenopathy. SD Dmitriy Beavers is recommended. Dr. De Leon recommended stop PARP inhibitor, and initiate carboplatin AUC 5 IV over 60 minutes every 28 days for 3 cycles followed by a treatment planning visit at [facility]. Clinically, she is reporting more frequency and urgency of urination. No fever. It does not stop and it affects her sleep. - Patient Self-Reported Symptoms SR Constitution: Fatigue/Malaise - Additional ROS All systems PM: reviewed and no additional remarkable complaints except as stated Home Medications and Allergies Home Medications Medication Instructions Recorded Confirmed Type multivitamin [Multiple Vitamins] 1 tab PO DAILY #0 05/16/17 09/23/19 History turmeric 1 dose PO DAILY #0 05/16/17 09/23/19 History olaparib 300 mg PO BID 04/10/19 09/23/19 History fluoxetine 20 mg capsule 20 mg PO DAILY #90 cap 10/21/19 Rx zolpidem [Ambien] 5 mg PO BEDTIME PRN #30 tab 11/11/19 Rx Allergies Allergy/AdvReac Type Severity Reaction Status Date / Time No Known Drug Allergies Allergy Verified 09/23/19 09:45 Exam Vital signs: Last Vital Signs Temp 98.0 F 11/11/19 08:46 Pulse 54 L 11/11/19 08:46 Resp 16 11/11/19 08:46 BP 110/66 11/11/19 08:46 Pulse Ox 96 11/11/19 08:46 ECOG 1 Narrative: Gen: WDWN, NAD, pleasant and cooperative. HEENT: NCAT, EOMI, PERRLA, anicteric sclera. Neck: Supple, No palpable thyromegaly or lymphadenopathy. Respiratory: CTAB, no wheezes audible. No JVD Cardiovascular: RRR, S1 and S2 normal, no M/G/R. Abdomen: Soft, NTND, BS normal, no palpable organomegaly. Right colostomy noted. Extremities: No LE pitting edema. Lymphatic: no palpable lymph nodes in the neck, axillae, or groins. Neurological: AOx3, CN II-XII grossly intact. No focal motor or sensory deficit. Psychiatric: Normal affect; normal thought process; cooperative, no depression, no anxiety. Results - Labs Laboratory Last Values WBC 6.9 X10^3/uL (4.5-11.0) 11/10/19 11:10 RBC 3.89 X10^6/uL (4.0-5.2) L 11/10/19 11:10 Hgb 13.0 g/dL (12.0-16.0) 11/10/19 11:10 Hct 38.4 % (36-46) 11/10/19 11:10 MCV 98.7 fL (80-100) 11/10/19 11:10 MCH 33.3 PG (26-34) 11/10/19 11:10 MCHC 33.8 % (30-36) 11/10/19 11:10 RDW 16.8 % (11.6-14.8) H 11/10/19 11:10 Plt Count 260 X10^3/uL (150-400) 11/10/19 11:10 Neut % (Auto) 56.3 % (50-75) 11/10/19 11:10 Lymph % (Auto) 23.5 % (25-40) L 11/10/19 11:10 [place] % (Auto) 14.5 % (3-14) H 11/10/19 11:10 Eos % (Auto) 4.6 % (2-4) H 11/10/19 11:10 Baso % (Auto) 1.1 % (0-2) 11/10/19 11:10 Neut # (Auto) 3900 /uL (6713-1450) 11/10/19 11:10 Lymph # (Auto) 1600 /uL (2823-7469) 11/10/19 11:10 [place] # (Auto) 1000 /uL (0-900) H 11/10/19 11:10 Eos # (Auto) 300 /uL (0-450) 11/10/19 11:10 Baso # (Auto) 100 /uL (0-100) 11/10/19 11:10 Total Counted 100 07/03/19 11:45 Seg Neutrophils % 50.0 % (38-70) 07/03/19 11:45 Lymphocytes % (Manual) 30.0 % (25-45) 07/03/19 11:45 Monocytes % (Manual) 17.0 % (2-11) H 07/03/19 11:45 Eosinophils % (Manual) 3.0 % (2-4) 07/03/19 11:45 Neutrophils # (Manual) 2900 /uL (1815-0716) L 07/03/19 11:45 RBC Morphology See below 07/03/19 11:45 Anisocytosis 1+ H 07/03/19 11:45 Sodium 135 mmol/L (137-145) L 11/10/19 11:10 Potassium 4.0 mmol/L (3.4-5.1) 11/10/19 11:10 Chloride 99 mmol/L (98-107) 11/10/19 11:10 Carbon Dioxide 29 mmol/L (22-32) 11/10/19 11:10 BUN 24 mg/dL (7-17) H 11/10/19 11:10 Creatinine 0.90 mg/dL (0.52-1.04) 11/10/19 11:10 Estimated GFR > 60.0 mL/min (>60) 11/10/19 11:10 BUN/Creatinine Ratio 26.7 (6-22) H 11/10/19 11:10 Glucose 98 mg/dL (80-110) 11/10/19 11:10 Calcium 9.5 mg/dL (8.4-10.2) 11/10/19 11:10 Magnesium 1.9 mg/dL (1.6-2.3) 03/20/19 14:50 Total Bilirubin 0.5 mg/dL (0.2-1.3) 11/10/19 11:10 AST 51 IU/L (14-36) H 11/10/19 11:10 ALT 23 IU/L (<35) 11/10/19 11:10 Alkaline Phosphatase 137 U/L (38-126) H 11/10/19 11:10 Lactate Dehydrogenase 438 U/L (313-618) 09/03/19 16:00 Total Protein 7.5 g/dL (6.3-8.2) 11/10/19 11:10 Albumin 4.0 g/dL (3.5-5.0) 11/10/19 11:10 Globulin 3.5 g/dL (1.7-4.1) 11/10/19 11:10 Albumin/Globulin Ratio 1.1 (1.0-2.8) 11/10/19 11:10 CA 125 Antigen 694 U/mL (0-35) H 10/01/19 15:30 Assessment and Plan (1) Ovarian cancer, BRCA2 positive Overview: Medina 59-year-old female, BRCA 2 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 Since then, she has undergone multiple surgeries as well as multiple cycles of chemotherapy due to multiple recurrences. The most recent recurrence happened in July 2018. She has been followed at [facility] and was started on olaparib 300 mg twice daily. Assessment: Recently, she was evaluated by Dr. Beavers at [facility]. Imaging studies showed progression of the underlying ovarian cancer. Dr. Beavers recommended that patient stop olaparib and start chemotherapy with carboplatin AUC 5 every 28 days for 3 cycles before going back to [facility]. Patient is aware of the plan. Patient clinically is complaining of frequency and urgency of urine with disruption of her sleep. I talked with her that I can give her low-dose Ambien and see if may be of some help. Plan: Stop Olaparib 300 mg bid Carboplatin AUC 5 q28 days to be started on 11/13/2019 Pegfilgrastim 6 mg on day 2 Weekly CBC, CMP after start of chemothererapy RTC C2D1 for second cycle, labs per Treatment Plan including CBC, CMP, CA125
[2019-11-11 08:46] VITALS: BP 110/66; PULSE 54; RESP 16; TEMP 36.7; O2SAT 96
[2019-11-13 11:23] LABS: Add Manual Diff / Slide Review NO; Basophils Absolute Auto 100 /uL (0-100); Eosinophils Absolute Auto 200 /uL (0-450); Eosinophils Percent Auto 3.1 % (2-4); Hematocrit 37.9 % (36-46); Hemoglobin 12.9 g/dL (12.0-16.0); Lymphocytes Absolute Auto 1500 /uL (1100-4500); Lymphocytes Percent Auto 20.4 % (25-40); Mean Corpuscular HGB Conc 34.2 % (30-36); Mean Corpuscular Hemoglobin 33.3 PG (26-34); Mean Corpuscular Volume 97.6 fL (80-100); Monocytes Absolute Auto 900 /uL (0-900); Monocytes Percent Auto 12.5 % (3-14); Neutrophils Absolute Auto 4600 /uL (1500-7000); Platelet Count 260 X10^3/uL (150-400); Red Blood Cell Count 3.88 X10^6/uL (4.0-5.2); Red Cell Distribution Width 16.3 % (11.6-14.8); White Blood Cell Count 7.3 X10^3/uL (4.5-11.0)
[2019-11-13 11:36] LABS: Alanine Aminotransferase 23 IU/L (<35); Albumin 4.2 g/dL (3.5-5.0); Albumin Globulin Ratio 1.2 (1.0-2.8); Alkaline Phosphatase 137 U/L (38-126); Aspartate Aminotransferase 54 IU/L (14-36); BUN Creatinine Ratio 23.3 (6-22); Bilirubin Total 0.5 mg/dL (0.2-1.3); Blood Urea Nitrogen 21 mg/dL (7-17); Calcium 9.6 mg/dL (8.4-10.2); Carbon Dioxide 28 mmol/L (22-32); Chloride 100 mmol/L (98-107); Estimated Glomerular Filt Rate > 60.0 mL/min (>60); Globulin 3.5 g/dL (1.7-4.1); Glucose 91 mg/dL (80-110); HEMOLYSIS < 15 (0-50); Potassium 3.9 mmol/L (3.4-5.1); Sodium 136 mmol/L (137-145); Total Protein 7.7 g/dL (6.3-8.2)
[2019-11-13] MEDS: LORazepam 0.5 MG TABLET PO (12:01)
[2019-11-13 12:05] VITALS: BP 106/72; PULSE 64; RESP 16; TEMP 36.9; O2SAT 96
[2019-11-13] MEDS: ONDANSETRON 16 MG in SODIUM CHLORIDE 0.9% 50 ML 232 ML IV (12:23)
[2019-11-13] MEDS: FOSAPREPITANT 150 MG in SODIUM CHLORIDE 0.9% 150 ML 300 ML IV (12:48)
[2019-11-13] MEDS: SODIUM CHLORIDE 0.9% 100 ML 30 ML IV (14:07)
[2019-11-13] MEDS: SODIUM CHLORIDE 0.9% IV (14:07)
[2019-11-13] MEDS: CARBOPLATIN IV (14:07)
--- NOTE | 2019-11-13 14:34 | PC.NURSE ---
ZOFRAN- Called in to [facility] PO Zofran 4mg PRN q6, #60
[2019-11-14 10:19] VITALS: BP 109/68; PULSE 65; RESP 16; TEMP 36.7; O2SAT 97
[2019-11-14] MEDS: PEGFILGRASTIM-CBQV 6 MG/0.6 ML SYRINGE SUBCUT (10:21)
[2019-11-20 14:47] LABS: Hematocrit 38.1 % (36-46); Hemoglobin 12.9 g/dL (12.0-16.0); Mean Corpuscular HGB Conc 33.9 % (30-36); Mean Corpuscular Hemoglobin 33.2 PG (26-34); Mean Corpuscular Volume 97.8 fL (80-100); Platelet Count 198 X10^3/uL (150-400); Red Blood Cell Count 3.89 X10^6/uL (4.0-5.2); Red Cell Distribution Width 16.8 % (11.6-14.8); White Blood Cell Count 23.9 X10^3/uL (4.5-11.0)
[2019-11-20 14:52] LABS: Add Manual Diff / Slide Review YES
[2019-11-20 14:57] LABS: Alanine Aminotransferase 26 IU/L (<35); Albumin 4.1 g/dL (3.5-5.0); Albumin Globulin Ratio 1.2 (1.0-2.8); Alkaline Phosphatase 267 U/L (38-126); Aspartate Aminotransferase 55 IU/L (14-36); BUN Creatinine Ratio 31.4 (6-22); Bilirubin Total 0.3 mg/dL (0.2-1.3); Blood Urea Nitrogen 22 mg/dL (7-17); Calcium 9.4 mg/dL (8.4-10.2); Carbon Dioxide 26 mmol/L (22-32); Chloride 100 mmol/L (98-107); Estimated Glomerular Filt Rate > 60.0 mL/min (>60); Globulin 3.4 g/dL (1.7-4.1); Glucose 95 mg/dL (80-110); HEMOLYSIS 17 (0-50); Potassium 3.8 mmol/L (3.4-5.1); Sodium 136 mmol/L (137-145); Total Protein 7.5 g/dL (6.3-8.2)
[2019-11-20 15:19] LABS: Neutrophils Absolute Manual 17925 /uL (3000-5900); RBC Morphology Normal Morphology; Total Cells Counted 100
--- NOTE | 2019-11-24 16:40 | P.PNONC_ITS ---
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 She lives in [place] for 6 months during the summer, and in [place] for 6 months during the winter. She is been followed here as well as in [facility] in [place]. Oncology History: Her ovarian cancer history is summarized from [facility] medical records as follows: 12/2012: initial diagnosis, CA 125 2000 and peritoneal nodularity 12/2012: surgery: Laparoscopic RSO, omentectomy, and peritoneal biopsy. 01/04/2013-02/13/2013: Carbo/Taxol x2 02/25/2013: Optimal tumor reductive surgery. 02/2013-05/2013: carbo/Taxol x 4 and avastin added for last 3 cycles 06/2013-06/16/2014: Avastin maintenance 10/2014: Rising CA 125 to 522 and bloating 11/18/2014: [facility] initial visit 12/2014-03/2015: Carbo/Taxol x 6 with some minimal persistent disease 01/19/2017: new liver mets and chest adenopathy on CT scan and elevated CA 125 to 2914. 01/23/2017: Exploratory laparotomy, ALEAH, and diverting loop transverse colostomy for large bowel obstruction. 02/02/2017-09/28/2017: Single agent carboplatin 10/26/2017-07/25/2018: post 9 cycles of Carboplatin with TATUM on imaging and negative CA-125. 07/26/2018: BRCA testing turned out to be positive 07/31/2018: Relapse/recurrence: Feels small hypoattenuating foci in the liver and interval development of bilateral iliac multi compartmental lymphadenopathy with rising CA 125. 08/02/2018-12/13/2018: Carboplatin x 5 cycles 01/16/2019: CT showed minimal evidence of increasing pelvic lymph nodes. 01/2019 - 11/13/2019, Olaparib 300 mg po bid Interim Events: On August 01, 2019, nusrat paulino was evaluated by Dr. Nicolas Ewing at [facility] in [place]. Repeat CT of chest abdomen and pelvis showed new peritoneal implants involving the vaginal cuff and rectosigmoid colon. It showed stable prominent retroperitoneal and pelvic metastatic lymph nodes. Dr. Ewing discussed the results in detail with the patient. Dr. Ewing recommended continued current olaparib treatment. October 30, 2019 CT chest abdomen pelvis with contrast was performed at [facility]. The results showed slightly increased peritoneal implants and slightly increased pelvic metastatic lymphadenopathy. MD Dmitriy Beavers recommended stop PARP inhibitor, and initiate carboplatin AUC 5 IV over 60 minutes every 28 days for 3 cycles followed by a treatment planning visit at [facility]. On 11/14/2019, she received C1# Carboplatin AUC 5. She has tolerated well except fatigue on day 3 to day 5. No nausea no vomiting. No fever and no chills. No abdominal pain. No diarrhea and no constipation. She is planning to leave on Sun to [facility] and plan for 2 weeks of vacation. - Patient Self-Reported Symptoms SR Constitution: Fatigue/Malaise SR Genitourinary issues: Change in stream - Additional ROS All systems PM: reviewed and no additional remarkable complaints except as stated Home Medications and Allergies Home Medications Medication Instructions Recorded Confirmed Type multivitamin [Multiple Vitamins] 1 tab PO DAILY #0 05/16/17 11/11/19 History turmeric 1 dose PO DAILY #0 05/16/17 11/11/19 History olaparib 300 mg PO BID 04/10/19 11/11/19 History fluoxetine 20 mg capsule 20 mg PO DAILY #90 cap 10/21/19 11/11/19 Rx zolpidem [Ambien] 5 mg PO BEDTIME PRN #30 tab 11/11/19 Rx dexamethasone 4 mg PO DAILY #10 tab 11/24/19 Rx Allergies Allergy/AdvReac Type Severity Reaction Status Date / Time No Known Drug Allergies Allergy Verified 09/23/19 09:45 Exam Vital signs: 11/24/19 17:36 Last Vital Signs Temp 98.1 F 11/14/19 10:19 Pulse 65 11/14/19 10:19 Resp 16 11/14/19 10:19 BP 109/68 11/14/19 10:19 Pulse Ox 97 11/14/19 10:19 Narrative: Gen: WDWN, NAD, pleasant and cooperative. HEENT: NCAT, EOMI, PERRLA, anicteric sclera. Neck: Supple, No palpable thyromegaly or lymphadenopathy. Respiratory: CTAB, no wheezes audible. No JVD Cardiovascular: RRR, S1 and S2 normal, no M/G/R. Abdomen: Soft, NTND, BS normal, no palpable organomegaly. Right colostomy noted. Extremities: No LE pitting edema. Lymphatic: no palpable lymph nodes in the neck, axillae, or groins. Neurological: AOx3, CN II-XII grossly intact. No focal motor or sensory deficit. Psychiatric: Normal affect; normal thought process; cooperative, no depression, no anxiety. Results - Labs Laboratory Last Values WBC 15.5 X10^3/uL (4.5-11.0) H 11/24/19 15:50 RBC 3.65 X10^6/uL (4.0-5.2) L 11/24/19 15:50 Hgb 12.0 g/dL (12.0-16.0) 11/24/19 15:50 Hct 35.7 % (36-46) L 11/24/19 15:50 MCV 97.8 fL (80-100) 11/24/19 15:50 MCH 32.8 PG (26-34) 11/24/19 15:50 MCHC 33.6 % (30-36) 11/24/19 15:50 RDW 16.9 % (11.6-14.8) H 11/24/19 15:50 Plt Count 156 X10^3/uL (150-400) 11/24/19 15:50 Neut % (Auto) 80.3 % (50-75) H 11/24/19 15:50 Lymph % (Auto) 12.6 % (25-40) L 11/24/19 15:50 [place] % (Auto) 6.3 % (3-14) 11/24/19 15:50 Eos % (Auto) 0.6 % (2-4) L 11/24/19 15:50 Baso % (Auto) 0.2 % (0-2) 11/24/19 15:50 Neut # (Auto) 73982 /uL (2853-4184) H 11/24/19 15:50 Lymph # (Auto) 2000 /uL (4418-3996) 11/24/19 15:50 [place] # (Auto) 1000 /uL (0-900) H 11/24/19 15:50 Eos # (Auto) 100 /uL (0-450) 11/24/19 15:50 Baso # (Auto) 0 /uL (0-100) 11/24/19 15:50 Total Counted 100 11/20/19 14:30 Seg Neutrophils % 62.0 % (38-70) 11/20/19 14:30 Band Neutrophils % 13.0 % (3-7) H 11/20/19 14:30 Lymphocytes % (Manual) 14.0 % (25-45) L 11/20/19 14:30 Monocytes % (Manual) 8.0 % (2-11) 11/20/19 14:30 Eosinophils % (Manual) 1.0 % (2-4) L 11/20/19 14:30 Metamyelocytes % 2.0 % (-0) H 11/20/19 14:30 Neutrophils # (Manual) 16594 /uL (0708-4991) H 11/20/19 14:30 RBC Morphology Normal morphology 11/20/19 14:30 Anisocytosis 1+ H 07/03/19 11:45 Sodium 135 mmol/L (137-145) L 11/24/19 15:50 Potassium 4.2 mmol/L (3.4-5.1) 11/24/19 15:50 Chloride 100 mmol/L (98-107) 11/24/19 15:50 Carbon Dioxide 26 mmol/L (22-32) 11/24/19 15:50 BUN 23 mg/dL (7-17) H 11/24/19 15:50 Creatinine 0.70 mg/dL (0.52-1.04) 11/24/19 15:50 Estimated GFR > 60.0 mL/min (>60) 11/24/19 15:50 BUN/Creatinine Ratio 32.9 (6-22) H 11/24/19 15:50 Glucose 105 mg/dL (80-110) 11/24/19 15:50 Calcium 9.2 mg/dL (8.4-10.2) 11/24/19 15:50 Magnesium 1.9 mg/dL (1.6-2.3) 03/20/19 14:50 Total Bilirubin 0.4 mg/dL (0.2-1.3) 11/24/19 15:50 AST 43 IU/L (14-36) H 11/24/19 15:50 ALT 25 IU/L (<35) 11/24/19 15:50 Alkaline Phosphatase 217 U/L (38-126) H 11/24/19 15:50 Lactate Dehydrogenase 438 U/L (313-618) 09/03/19 16:00 Total Protein 7.3 g/dL (6.3-8.2) 11/24/19 15:50 Albumin 4.0 g/dL (3.5-5.0) 11/24/19 15:50 Globulin 3.3 g/dL (1.7-4.1) 11/24/19 15:50 Albumin/Globulin Ratio 1.2 (1.0-2.8) 11/24/19 15:50 CA 125 Antigen 694 U/mL (0-35) H 10/01/19 15:30 Assessment and Plan (1) Ovarian cancer, BRCA2 positive Overview: Medina 59-year-old female, BRCA2 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 Since then, she has undergone multiple surgeries as well as multiple cycles of chemotherapy due to multiple recurrences. The most recent recurrence happened in July 2018. She has been followed at [facility] and was started on olaparib 300 mg twice daily. On 11/13/2019, due to disease progression, regina parib was stopped and she was started on Carboplatin AUC [address] Beavers at [facility]. Assessment: With Neulasta support, she tolerated the first infusion of Carboplatin relative well up to now. She did reported severe fatigue on day 3-5. She received dexamethasone 12 mg on day1. I recommended that for cycle 2, I will give her dexamethoasone 8 mg po am on day 2 and 4 mg on day 3. Hopefully, the fatigue on day 3-5 will be less profound. Today, I reviewed the labs. They are expected after Neulasta injection with mild leukocytosis. Medina is planning a 2 week vacation in [place] which I think is reasonable. Plan: RTC C2D1 for second cycle, labs per Treatment Plan including CBC, CMP, CA125
[2019-11-24 17:05] LABS: Add Manual Diff / Slide Review NO; Basophils Absolute Auto 0 /uL (0-100); Basophils Percent Auto 0.2 % (0-2); Eosinophils Absolute Auto 100 /uL (0-450); Eosinophils Percent Auto 0.6 % (2-4); Hematocrit 35.7 % (36-46); Lymphocytes Absolute Auto 2000 /uL (1100-4500); Lymphocytes Percent Auto 12.6 % (25-40); Mean Corpuscular HGB Conc 33.6 % (30-36); Mean Corpuscular Hemoglobin 32.8 PG (26-34); Mean Corpuscular Volume 97.8 fL (80-100); Monocytes Absolute Auto 1000 /uL (0-900); Monocytes Percent Auto 6.3 % (3-14); Neutrophils Absolute Auto 12400 /uL (1500-7000); Neutrophils Percent Auto 80.3 % (50-75); Platelet Count 156 X10^3/uL (150-400); Red Blood Cell Count 3.65 X10^6/uL (4.0-5.2); Red Cell Distribution Width 16.9 % (11.6-14.8); White Blood Cell Count 15.5 X10^3/uL (4.5-11.0)
[2019-11-24 17:18] LABS: Alanine Aminotransferase 25 IU/L (<35); Albumin Globulin Ratio 1.2 (1.0-2.8); Alkaline Phosphatase 217 U/L (38-126); Aspartate Aminotransferase 43 IU/L (14-36); BUN Creatinine Ratio 32.9 (6-22); Bilirubin Total 0.4 mg/dL (0.2-1.3); Blood Urea Nitrogen 23 mg/dL (7-17); Calcium 9.2 mg/dL (8.4-10.2); Carbon Dioxide 26 mmol/L (22-32); Chloride 100 mmol/L (98-107); Estimated Glomerular Filt Rate > 60.0 mL/min (>60); Globulin 3.3 g/dL (1.7-4.1); Glucose 105 mg/dL (80-110); HEMOLYSIS < 15 (0-50); Potassium 4.2 mmol/L (3.4-5.1); Sodium 135 mmol/L (137-145); Total Protein 7.3 g/dL (6.3-8.2)
[2019-11-24 17:47] LABS: Cancer Antigen 125 514 U/mL (0-35)
[2019-12-11 09:55] LABS: Add Manual Diff / Slide Review NO; Basophils Absolute Auto 100 /uL (0-100); Basophils Percent Auto 0.9 % (0-2); Eosinophils Absolute Auto 100 /uL (0-450); Eosinophils Percent Auto 1.2 % (2-4); Hematocrit 37.1 % (36-46); Hemoglobin 12.6 g/dL (12.0-16.0); Lymphocytes Absolute Auto 1900 /uL (1100-4500); Lymphocytes Percent Auto 27.9 % (25-40); Mean Corpuscular HGB Conc 33.9 % (30-36); Mean Corpuscular Hemoglobin 33.2 PG (26-34); Mean Corpuscular Volume 97.8 fL (80-100); Monocytes Absolute Auto 1000 /uL (0-900); Monocytes Percent Auto 14.7 % (3-14); Neutrophils Absolute Auto 3700 /uL (1500-7000); Neutrophils Percent Auto 55.3 % (50-75); Platelet Count 345 X10^3/uL (150-400); Red Blood Cell Count 3.79 X10^6/uL (4.0-5.2); Red Cell Distribution Width 16.4 % (11.6-14.8); White Blood Cell Count 6.7 X10^3/uL (4.5-11.0)
--- NOTE | 2019-12-11 09:59 | P.PNONC_ITS ---
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 She lives in [place] for 6 months during the summer, and in [place] for 6 months during the winter. She is been followed here as well as in [facility] in [place]. Oncology History: Her ovarian cancer history is summarized from [facility] medical records as follows: 12/2012: initial diagnosis, CA 125 2000 and peritoneal nodularity 12/2012: surgery: Laparoscopic RSO, omentectomy, and peritoneal biopsy. 01/04/2013-02/13/2013: Carbo/Taxol x2 02/25/2013: Optimal tumor reductive surgery. 02/2013-05/2013: carbo/Taxol x 4 and avastin added for last 3 cycles 06/2013-06/16/2014: Avastin maintenance 10/2014: Rising CA 125 to 522 and bloating 11/18/2014: [facility] initial visit 12/2014-03/2015: Carbo/Taxol x 6 with some minimal persistent disease 01/19/2017: new liver mets and chest adenopathy on CT scan and elevated CA 125 to 2914. 01/23/2017: Exploratory laparotomy, ALEAH, and diverting loop transverse colostomy for large bowel obstruction. 02/02/2017-09/28/2017: Single agent carboplatin 10/26/2017-07/25/2018: post 9 cycles of Carboplatin with TATUM on imaging and negative CA-125. 07/26/2018: BRCA testing turned out to be positive 07/31/2018: Relapse/recurrence: Feels small hypoattenuating foci in the liver and interval development of bilateral iliac multi compartmental lymphadenopathy with rising CA 125. 08/02/2018-12/13/2018: Carboplatin x 5 cycles 01/16/2019: CT showed minimal evidence of increasing pelvic lymph nodes. 01/2019 - 11/13/2019, Olaparib 300 mg po bid On August 01, 2019, want a was evaluated by Dr. Nicolas Ewing at [facility] in [place]. Repeat CT of chest abdomen and pelvis showed new peritoneal implants involving the vaginal cuff and rectosigmoid colon. It showed stable prominent retroperitoneal and pelvic metastatic lymph nodes. Dr. Ewing discussed the results in detail with the patient. Dr. Ewing recommended continued current olaparib treatment. October 30, 2019 CT chest abdomen pelvis with contrast was performed at [facility]. The results showed slightly increased peritoneal implants and slightly increased pelvic metastatic lymphadenopathy. MD [facility] Beavers recommended stop PARP inhibitor, and initiate carboplatin AUC 5 IV over 60 minutes every 28 days for 3 cycles followed by a treatment planning visit at [facility]. On 11/14/2019, she received C1# Carboplatin AUC 5. She has tolerated well except fatigue on day 3 to day 5. No nausea no vomiting. No fever and no chills. No abdominal pain. No diarrhea and no constipation. She is planning to leave on Sun to [place] and plan for 2 weeks of vacation. Interim Events: She just came back from a 2 week trip to [place]. She said he has enjoyed the trip very much [employer] trip. He just came back last night. She said she does not have any fever or chills. She does not have any nausea vomiting. She does not have any shortness of breath or chest pain. She does not have any abdominal pain diarrhea or constipation. - Patient Self-Reported Symptoms SR Constitution: Fatigue/Malaise SR Genitourinary issues: Change in stream - Additional ROS All systems PM: reviewed and no additional remarkable complaints except as stated Home Medications and Allergies Home Medications Medication Instructions Recorded Confirmed Type multivitamin [Multiple Vitamins] 1 tab PO DAILY #0 05/16/17 11/11/19 History turmeric 1 dose PO DAILY #0 05/16/17 11/11/19 History olaparib 300 mg PO BID 04/10/19 11/11/19 History fluoxetine 20 mg capsule 20 mg PO DAILY #90 cap 10/21/19 11/11/19 Rx zolpidem [Ambien] 5 mg PO BEDTIME PRN #30 tab 11/11/19 Rx dexamethasone 4 mg PO DAILY #10 tab 11/24/19 Rx Allergies Allergy/AdvReac Type Severity Reaction Status Date / Time No Known Drug Allergies Allergy Verified 09/23/19 09:45 Exam Vital signs: Last Vital Signs Temp 96.2 F L 12/11/19 10:06 Pulse 75 12/11/19 10:06 Resp 16 12/11/19 10:06 BP 122/75 12/11/19 10:06 Pulse Ox 100 12/11/19 10:06 Narrative: ECOG 1 Gen: WDWN, NAD, pleasant and cooperative. HEENT: NCAT, EOMI, PERRLA, anicteric sclera. Neck: Supple, No palpable thyromegaly or lymphadenopathy. Respiratory: CTAB, no wheezes audible. No JVD Cardiovascular: RRR, S1 and S2 normal, no M/G/R. Abdomen: Soft, NTND, BS normal, no palpable organomegaly. Right colostomy noted. Extremities: No LE pitting edema. Lymphatic: no palpable lymph nodes in the neck, axillae, or groins. Neurological: AOx3, CN II-XII grossly intact. No focal motor or sensory deficit. Psychiatric: Normal affect; normal thought process; cooperative, no depression, no anxiety. Results - Labs Laboratory Last Values WBC 6.7 X10^3/uL (4.5-11.0) 12/11/19 09:45 RBC 3.79 X10^6/uL (4.0-5.2) L 12/11/19 09:45 Hgb 12.6 g/dL (12.0-16.0) 12/11/19 09:45 Hct 37.1 % (36-46) 12/11/19 09:45 MCV 97.8 fL (80-100) 12/11/19 09:45 MCH 33.2 PG (26-34) 12/11/19 09:45 MCHC 33.9 % (30-36) 12/11/19 09:45 RDW 16.4 % (11.6-14.8) H 12/11/19 09:45 Plt Count 345 X10^3/uL (150-400) 12/11/19 09:45 Neut % (Auto) 55.3 % (50-75) 12/11/19 09:45 Lymph % (Auto) 27.9 % (25-40) 12/11/19 09:45 [place] % (Auto) 14.7 % (3-14) H 12/11/19 09:45 Eos % (Auto) 1.2 % (2-4) L 12/11/19 09:45 Baso % (Auto) 0.9 % (0-2) 12/11/19 09:45 Neut # (Auto) 3700 /uL (6478-3167) 12/11/19 09:45 Lymph # (Auto) 1900 /uL (3271-0826) 12/11/19 09:45 [place] # (Auto) 1000 /uL (0-900) H 12/11/19 09:45 Eos # (Auto) 100 /uL (0-450) 12/11/19 09:45 Baso # (Auto) 100 /uL (0-100) 12/11/19 09:45 Total Counted 100 11/20/19 14:30 Seg Neutrophils % 62.0 % (38-70) 11/20/19 14:30 Band Neutrophils % 13.0 % (3-7) H 11/20/19 14:30 Lymphocytes % (Manual) 14.0 % (25-45) L 11/20/19 14:30 Monocytes % (Manual) 8.0 % (2-11) 11/20/19 14:30 Eosinophils % (Manual) 1.0 % (2-4) L 11/20/19 14:30 Metamyelocytes % 2.0 % (-0) H 11/20/19 14:30 Neutrophils # (Manual) 82167 /uL (8421-6847) H 11/20/19 14:30 RBC Morphology Normal morphology 11/20/19 14:30 Anisocytosis 1+ H 07/03/19 11:45 Sodium 135 mmol/L (137-145) L 11/24/19 15:50 Potassium 4.2 mmol/L (3.4-5.1) 11/24/19 15:50 Chloride 100 mmol/L (98-107) 11/24/19 15:50 Carbon Dioxide 26 mmol/L (22-32) 11/24/19 15:50 BUN 23 mg/dL (7-17) H 11/24/19 15:50 Creatinine 0.70 mg/dL (0.52-1.04) 11/24/19 15:50 Estimated GFR > 60.0 mL/min (>60) 11/24/19 15:50 BUN/Creatinine Ratio 32.9 (6-22) H 11/24/19 15:50 Glucose 105 mg/dL (80-110) 11/24/19 15:50 Calcium 9.2 mg/dL (8.4-10.2) 11/24/19 15:50 Magnesium 1.9 mg/dL (1.6-2.3) 03/20/19 14:50 Total Bilirubin 0.4 mg/dL (0.2-1.3) 11/24/19 15:50 AST 43 IU/L (14-36) H 11/24/19 15:50 ALT 25 IU/L (<35) 11/24/19 15:50 Alkaline Phosphatase 217 U/L (38-126) H 11/24/19 15:50 Lactate Dehydrogenase 438 U/L (313-618) 09/03/19 16:00 Total Protein 7.3 g/dL (6.3-8.2) 11/24/19 15:50 Albumin 4.0 g/dL (3.5-5.0) 11/24/19 15:50 Globulin 3.3 g/dL (1.7-4.1) 11/24/19 15:50 Albumin/Globulin Ratio 1.2 (1.0-2.8) 11/24/19 15:50 CA 125 Antigen 514 U/mL (0-35) H 11/24/19 15:50 Assessment and Plan (1) Ovarian cancer, BRCA2 positive Overview: Medina 59-year-old female, BRCA2 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 Since then, she has undergone multiple surgeries as well as multiple cycles of chemotherapy due to multiple recurrences. The most recent recurrence happened in August 03. She has been followed at [facility] and was started on olaparib 300 mg twice daily. On 11/13/2019, due to disease progression, olaparib was stopped and she was started on Carboplatin AUC [address] Beavers at [facility]. Assessment: She has tolerated the first cycle of carboplatin very well. I reviewed the laboratory tests from today. The blood counts and the CMP are appropriate. Will proceed with cycle 2 with Neulasta support. Plan: Ok to proceed to C2# Carboplatin AUC 5, with neulasta 6 mg tomorrow RT C3D1, labs per Treatment Plan including CBC, CMP, CA125
[2019-12-11 10:06] VITALS: BP 122/75; PULSE 75; RESP 16; TEMP 35.7; O2SAT 100
[2019-12-11 10:06] LABS: Alanine Aminotransferase 24 IU/L (<35); Albumin Globulin Ratio 1.2 (1.0-2.8); Alkaline Phosphatase 198 U/L (38-126); Aspartate Aminotransferase 47 IU/L (14-36); Bilirubin Total 0.5 mg/dL (0.2-1.3); Blood Urea Nitrogen 16 mg/dL (7-17); Calcium 9.5 mg/dL (8.4-10.2); Carbon Dioxide 25 mmol/L (22-32); Chloride 100 mmol/L (98-107); Estimated Glomerular Filt Rate > 60.0 mL/min (>60); Globulin 3.4 g/dL (1.7-4.1); Glucose 143 mg/dL (80-110); HEMOLYSIS < 15 (0-50); Sodium 135 mmol/L (137-145); Total Protein 7.4 g/dL (6.3-8.2)
[2019-12-11] MEDS: LORazepam 0.5 MG TABLET PO (10:26)
[2019-12-11] MEDS: SODIUM CHLORIDE 0.9% 100 ML 21 ML IV (10:27)
[2019-12-11] MEDS: ONDANSETRON 16 MG in SODIUM CHLORIDE 0.9% 50 ML 232 ML IV (11:00)
[2019-12-11] MEDS: FOSAPREPITANT 150 MG in SODIUM CHLORIDE 0.9% 150 ML 300 ML IV (11:21)
[2019-12-11] MEDS: CARBOPLATIN IV (12:04)
[2019-12-11] MEDS: SODIUM CHLORIDE 0.9% IV (12:04)
--- NOTE | 2019-12-11 13:56 | PC.NURSE ---
[employer] AUTH: AUTHORIZATION APPROVED 12/11/19 THROUGH 06/10/20 UNDER AUTH NUMBER: [id number].
[2019-12-12] MEDS: PEGFILGRASTIM-CBQV 6 MG/0.6 ML SYRINGE SUBCUT (13:17)
[2019-12-12 13:18] VITALS: BP 122/84; PULSE 75; RESP 16; TEMP 36.3; O2SAT 98
--- NOTE | 2019-12-12 13:26 | PC.NURSE ---
PATIENT PLEASANT UPON ARRIVAL. HAD NO COMPLAINTS OF, STATED SHE USUALLY FEELS NORMAL THE DAY AFTER SHE RECIEVES HER STEROIDS, SHE FEELS TIRED 2-3 DAYS AFTER PER PATIENT. VS CARLOSL.
[2019-12-18 14:51] LABS: Hematocrit 37.7 % (36-46); Hemoglobin 13.2 g/dL (12.0-16.0); Mean Corpuscular HGB Conc 35.2 % (30-36); Mean Corpuscular Hemoglobin 34.2 PG (26-34); Mean Corpuscular Volume 97.1 fL (80-100); Platelet Count 280 X10^3/uL (150-400); Red Blood Cell Count 3.88 X10^6/uL (4.0-5.2)
[2019-12-18 14:54] LABS: Add Manual Diff / Slide Review YES; White Blood Cell Count 33.4 X10^3/uL (4.5-11.0)
[2019-12-18 15:07] LABS: Alanine Aminotransferase 25 IU/L (<35); Albumin 3.8 g/dL (3.5-5.0); Albumin Globulin Ratio 1.2 (1.0-2.8); Alkaline Phosphatase 349 U/L (38-126); Aspartate Aminotransferase 50 IU/L (14-36); BUN Creatinine Ratio 34.3 (6-22); Bilirubin Total 0.3 mg/dL (0.2-1.3); Blood Urea Nitrogen 24 mg/dL (7-17); Calcium 9.1 mg/dL (8.4-10.2); Carbon Dioxide 29 mmol/L (22-32); Chloride 101 mmol/L (98-107); Estimated Glomerular Filt Rate > 60.0 mL/min (>60); Globulin 3.3 g/dL (1.7-4.1); Glucose 137 mg/dL (80-110); HEMOLYSIS 22 (0-50); Potassium 3.9 mmol/L (3.4-5.1); Sodium 136 mmol/L (137-145); Total Protein 7.1 g/dL (6.3-8.2)
[2019-12-18 15:08] LABS: Neutrophils Absolute Manual 26386 /uL (3000-5900); Total Cells Counted 100
[2019-12-18 15:09] LABS: Anisocytosis 1+
--- NOTE | 2019-12-18 15:58 | PC.NURSE ---
Dr. Chanel aware of pt's critical WBC, no new orders received.
[2020-01-08 09:52] VITALS: BP 100/71; PULSE 100; RESP 18; TEMP 37; O2SAT 98
[2020-01-08 09:52] LABS: Add Manual Diff / Slide Review NO; Basophils Absolute Auto 100 /uL (0-100); Eosinophils Absolute Auto 200 /uL (0-450); Hematocrit 38.4 % (36-46); Lymphocytes Absolute Auto 1400 /uL (1100-4500); Lymphocytes Percent Auto 17.8 % (25-40); Mean Corpuscular HGB Conc 33.8 % (30-36); Mean Corpuscular Hemoglobin 33.2 PG (26-34); Monocytes Absolute Auto 1000 /uL (0-900); Monocytes Percent Auto 12.5 % (3-14); Neutrophils Absolute Auto 5100 /uL (1500-7000); Neutrophils Percent Auto 66.7 % (50-75); Platelet Count 377 X10^3/uL (150-400); Red Blood Cell Count 3.92 X10^6/uL (4.0-5.2); Red Cell Distribution Width 14.8 % (11.6-14.8); White Blood Cell Count 7.7 X10^3/uL (4.5-11.0)
[2020-01-08 10:05] LABS: Alanine Aminotransferase 19 IU/L (<35); Albumin 3.9 g/dL (3.5-5.0); Alkaline Phosphatase 197 U/L (38-126); Aspartate Aminotransferase 46 IU/L (14-36); BUN Creatinine Ratio 32.9 (6-22); Bilirubin Total 0.4 mg/dL (0.2-1.3); Blood Urea Nitrogen 25 mg/dL (7-17); Calcium 9.4 mg/dL (8.4-10.2); Carbon Dioxide 26 mmol/L (22-32); Chloride 104 mmol/L (98-107); Estimated Glomerular Filt Rate > 60.0 mL/min (>60); Globulin 3.8 g/dL (1.7-4.1); Glucose 107 mg/dL (80-110); HEMOLYSIS < 15 (0-50); Potassium 4.1 mmol/L (3.4-5.1); Sodium 136 mmol/L (137-145); Total Protein 7.7 g/dL (6.3-8.2)
--- NOTE | 2020-01-08 10:37 | P.PNONC_ITS ---
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 She lives in [place] for 6 months during the summer, and in [place] for 6 months during the winter. She is been followed here as well as in [facility] in [place]. Oncology History: Her ovarian cancer history is summarized from [facility] medical records as follows: 12/2012: initial diagnosis, CA 125 2000 and peritoneal nodularity 12/2012: surgery: Laparoscopic RSO, omentectomy, and peritoneal biopsy. 01/04/2013-02/13/2013: Carbo/Taxol x2 02/25/2013: Optimal tumor reductive surgery. 02/2013-05/2013: carbo/Taxol x 4 and avastin added for last 3 cycles 06/2013-06/16/2014: Avastin maintenance 10/2014: Rising CA 125 to 522 and bloating 11/18/2014: [facility] initial visit 12/2014-03/2015: Carbo/Taxol x 6 with some minimal persistent disease 01/19/2017: new liver mets and chest adenopathy on CT scan and elevated CA 125 to 2914. 01/23/2017: Exploratory laparotomy, ALEAH, and diverting loop transverse colostomy for large bowel obstruction. 02/02/2017-09/28/2017: Single agent carboplatin 10/26/2017-07/25/2018: post 9 cycles of Carboplatin with TATUM on imaging and negative CA-125. 07/26/2018: BRCA testing turned out to be positive 07/31/2018: Relapse/recurrence: Feels small hypoattenuating foci in the liver and interval development of bilateral iliac multi compartmental lymphadenopathy with rising CA 125. 08/02/2018-12/13/2018: Carboplatin x 5 cycles 01/16/2019: CT showed minimal evidence of increasing pelvic lymph nodes. 01/2019 - 11/13/2019, Olaparib 300 mg po bid On August 01, 2019, want a was evaluated by Dr. Nicolas Ewing at [facility] in [place]. Repeat CT of chest abdomen and pelvis showed new peritoneal implants involving the vaginal cuff and rectosigmoid colon. It showed stable prominent retroperitoneal and pelvic metastatic lymph nodes. Dr. Ewing discussed the results in detail with the patient. Dr. Ewing recommended continued current olaparib treatment. October 30, 2019 CT chest abdomen pelvis with contrast was performed at [facility]. The results showed slightly increased peritoneal implants and slightly increased pelvic metastatic lymphadenopathy. [place] [facility] Beavers recommended stop PARP inhibitor, and initiate carboplatin AUC 5 IV over 60 minutes every 28 days for 3 cycles followed by a treatment planning visit at [facility]. On 11/14/2019, she received C1# Carboplatin AUC 5. She has tolerated well except fatigue on day 3 to day 5. No nausea no vomiting. No fever and no chills. No abdominal pain. No diarrhea and no constipation. She is planning to leave on Sun to [facility] and plan for 2 weeks of vacation. Interim Events: She presents here today for cycle 3 carboplatin treatment. Patient reported that on Sunday01/04/2020, while she was hiking, she noted right thigh swelling and mild tenderness. In addition patient also noticed mild numbness of the lateral aspect of the right thigh. She denies any itching. She was wondering if that was caused by insect bites. She called Dr. Beckett and antihistamines were recommended. She took Benadryl at night. She has not noticed any significant improvement. And during the next couple of days, patient has noticed increase in the girth of the right thigh compared to the left thigh. Patient denies any fever or chills. Pain denies any chest pain or shortness of breath. Patient does have mild fatigue compared to her previous visit. - Patient Self-Reported Symptoms SR Constitution: Fatigue/Malaise SR respiratory issues: Cough SR Genitourinary issues: Change in stream - Additional ROS All systems PM: reviewed and no additional remarkable complaints except as stated (Except those mentioned in history of present illness and interim events.) Home Medications and Allergies Home Medications Medication Instructions Recorded Confirmed Type multivitamin [Multiple Vitamins] 1 tab PO DAILY #0 05/16/17 01/08/20 History turmeric 1 dose PO DAILY #0 05/16/17 01/08/20 History olaparib 300 mg PO BID 04/10/19 01/08/20 History fluoxetine 20 mg capsule 20 mg PO DAILY #90 cap 10/21/19 01/08/20 Rx dexamethasone 4 mg PO DAILY #10 tab 11/24/19 01/08/20 Rx zolpidem [Ambien] 5 mg PO BEDTIME PRN #30 tab 01/05/20 01/08/20 Rx sennosides-docusate sodium 1 tab-cap PO BEDTIME 01/08/20 01/08/20 History [Senokot-S] Allergies Allergy/AdvReac Type Severity Reaction Status Date / Time No Known Drug Allergies Allergy Verified 09/23/19 09:45 Exam Vital signs: Vital Signs Temp Pulse Resp BP Pulse Ox 01/08/20 09:52 98.6 F 100 H 18 100/71 98 Intake and Output 01/07/20 01/08/20 01/08/20 23:59 07:59 15:59 Other: Weight 75.6 kg Patient Weight 01/08/20 23:59 Weight 75.6 kg Narrative: ECOG 1 Gen: WDWN, NAD, pleasant and cooperative. HEENT: NCAT, EOMI, PERRLA, anicteric sclera. Neck: Supple, No palpable thyromegaly or lymphadenopathy. Respiratory: CTAB, no wheezes audible. No JVD Cardiovascular: RRR, S1 and S2 normal, no M/G/R. Abdomen: Soft, NTND, BS normal, no palpable organomegaly. Right colostomy noted. Extremities: Right thigh is significantly swollen and bigger compared to the left side. Mild erythema noticed. No palpable lymph nodes in the right groin or the left groin. Lymphatic: no palpable lymph nodes in the neck, axillae, or groins. Neurological: AOx3, CN II-XII grossly intact. No focal motor or sensory deficit. Psychiatric: Normal affect; normal thought process; cooperative, no depression, no anxiety. Results - Labs Laboratory Last Values WBC 7.7 X10^3/uL (4.5-11.0) 01/08/20 09:40 RBC 3.92 X10^6/uL (4.0-5.2) L 01/08/20 09:40 Hgb 13.0 g/dL (12.0-16.0) 01/08/20 09:40 Hct 38.4 % (36-46) 01/08/20 09:40 MCV 98.0 fL (80-100) 01/08/20 09:40 MCH 33.2 PG (26-34) 01/08/20 09:40 MCHC 33.8 % (30-36) 01/08/20 09:40 RDW 14.8 % (11.6-14.8) 01/08/20 09:40 Plt Count 377 X10^3/uL (150-400) 01/08/20 09:40 Neut % (Auto) 66.7 % (50-75) 01/08/20 09:40 Lymph % (Auto) 17.8 % (25-40) L 01/08/20 09:40 [place] % (Auto) 12.5 % (3-14) 01/08/20 09:40 Eos % (Auto) 2.0 % (2-4) 01/08/20 09:40 Baso % (Auto) 1.0 % (0-2) 01/08/20 09:40 Neut # (Auto) 5100 /uL (3677-1314) 01/08/20 09:40 Lymph # (Auto) 1400 /uL (2474-5526) 01/08/20 09:40 [place] # (Auto) 1000 /uL (0-900) H 01/08/20 09:40 Eos # (Auto) 200 /uL (0-450) 01/08/20 09:40 Baso # (Auto) 100 /uL (0-100) 01/08/20 09:40 Total Counted 100 12/18/19 14:45 Seg Neutrophils % 68.0 % (38-70) 12/18/19 14:45 Band Neutrophils % 11.0 % (3-7) H 12/18/19 14:45 Lymphocytes % (Manual) 4.0 % (25-45) L 12/18/19 14:45 Atypical Lymphs % 6.0 % (-0) H 12/18/19 14:45 Monocytes % (Manual) 11.0 % (2-11) 12/18/19 14:45 Eosinophils % (Manual) 1.0 % (2-4) L 11/20/19 14:30 Metamyelocytes % 2.0 % (-0) H 11/20/19 14:30 Neutrophils # (Manual) 83294 /uL (0902-1056) H 12/18/19 14:45 RBC Morphology Not Reportable 12/18/19 14:45 Anisocytosis 1+ H 12/18/19 14:45 Sodium 136 mmol/L (137-145) L 01/08/20 09:40 Potassium 4.1 mmol/L (3.4-5.1) 01/08/20 09:40 Chloride 104 mmol/L (98-107) 01/08/20 09:40 Carbon Dioxide 26 mmol/L (22-32) 01/08/20 09:40 BUN 25 mg/dL (7-17) H 01/08/20 09:40 Creatinine 0.76 mg/dL (0.52-1.04) 01/08/20 09:40 Estimated GFR > 60.0 mL/min (>60) 01/08/20 09:40 BUN/Creatinine Ratio 32.9 (6-22) H 01/08/20 09:40 Glucose 107 mg/dL (80-110) 01/08/20 09:40 Calcium 9.4 mg/dL (8.4-10.2) 01/08/20 09:40 Magnesium 1.9 mg/dL (1.6-2.3) 03/20/19 14:50 Total Bilirubin 0.4 mg/dL (0.2-1.3) 01/08/20 09:40 AST 46 IU/L (14-36) H 01/08/20 09:40 ALT 19 IU/L (<35) 01/08/20 09:40 Alkaline Phosphatase 197 U/L (38-126) H 01/08/20 09:40 Lactate Dehydrogenase 438 U/L (313-618) 09/03/19 16:00 Total Protein 7.7 g/dL (6.3-8.2) 01/08/20 09:40 Albumin 3.9 g/dL (3.5-5.0) 01/08/20 09:40 Globulin 3.8 g/dL (1.7-4.1) 01/08/20 09:40 Albumin/Globulin Ratio 1.0 (1.0-2.8) 01/08/20 09:40 CA 125 Antigen 514 U/mL (0-35) H 11/24/19 15:50 Assessment and Plan (1) Ovarian cancer, BRCA2 positive Overview: Medina 59-year-old female, BRCA2 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 Since then, she has undergone multiple surgeries as well as multiple cycles of chemotherapy due to multiple recurrences. The most recent recurrence happened in July 2018. She has been followed at [facility] and was started on olaparib 300 mg twice daily. On 11/13/2019, due to disease progression, olaparib was stopped and she was started on Carboplatin AUC [address] Beavers at [facility]. Assessment: She has tolerated the first cycle of carboplatin very well. I reviewed the laboratory tests from today. The blood counts and the CMP are appropriate. Will proceed with cycle 3 with Neulasta support. Plan: Ok to proceed to C3# Carboplatin AUC 5, with neulasta 6 mg tomorrow RTC C4D1, labs per Treatment Plan including CBC, CMP, CA125 (2) Pain and swelling of right lower extremity Overview: Acute onset of right thigh swelling, mild pain, and numbness since 01/04/2020. No shortness of breath and no chest pain. Assessment: I talked with the patient that the clinical presentation is suspicious for possible deep venous thrombosis. I obtained a stat Doppler study that indeed showed a small amount of nonocclusive thrombus at the confluence of the greater saphenous vein and common femoral vein, without additional findings of deep venous thrombosis. Prominent lymph nodes are noted within the groin and the common femoral vein. I explained to the patient that I would recommend starting anticoagulation with Eliquis 10 mg twice daily for 7 days and then switch to 5 mg twice daily. Plan: Eliquis 10 mg bid x 7 days, then 5 mg bid RTC in one week, CBC, CMP
[2020-01-08] MEDS: SODIUM CHLORIDE 0.9% 100 ML 21 ML IV (13:05)
[2020-01-08] MEDS: LORazepam 0.5 MG TABLET PO (13:08)
[2020-01-08] MEDS: ONDANSETRON 16 MG in SODIUM CHLORIDE 0.9% 50 ML 232 ML IV (13:26)
[2020-01-08] MEDS: FOSAPREPITANT 150 MG in SODIUM CHLORIDE 0.9% 150 ML 300 ML IV (13:54)
[2020-01-08] MEDS: SODIUM CHLORIDE 0.9% IV (14:38)
[2020-01-08] MEDS: CARBOPLATIN IV (14:38)
--- NOTE | 2020-01-08 15:14 | PC.NURSE ---
RX for Eliquis called into [facility]
[2020-01-09 16:25] VITALS: BP 119/65; PULSE 73; RESP 20; TEMP 36.5; O2SAT 94
[2020-01-09] MEDS: PEGFILGRASTIM-CBQV 6 MG/0.6 ML SYRINGE SUBCUT (16:29)
[2020-01-15 15:10] LABS: Hematocrit 38.3 % (36-46); Hemoglobin 12.5 g/dL (12.0-16.0); Mean Corpuscular HGB Conc 32.6 % (30-36); Mean Corpuscular Hemoglobin 31.8 PG (26-34); Mean Corpuscular Volume 97.7 fL (80-100); Platelet Count 282 X10^3/uL (150-400); Red Blood Cell Count 3.92 X10^6/uL (4.0-5.2); Red Cell Distribution Width 15.1 % (11.6-14.8)
[2020-01-15 15:14] LABS: Add Manual Diff / Slide Review YES; White Blood Cell Count 37.6 X10^3/uL (4.5-11.0)
[2020-01-15 15:22] VITALS: BP 112/76; PULSE 73; RESP 18; TEMP 36.8; O2SAT 98
[2020-01-15 15:25] LABS: Alanine Aminotransferase 39 IU/L (<35); Albumin 3.7 g/dL (3.5-5.0); Albumin Globulin Ratio 1.1 (1.0-2.8); Alkaline Phosphatase 418 U/L (38-126); Aspartate Aminotransferase 66 IU/L (14-36); BUN Creatinine Ratio 27.4 (6-22); Bilirubin Total 0.2 mg/dL (0.2-1.3); Blood Urea Nitrogen 17 mg/dL (7-17); Calcium 8.9 mg/dL (8.4-10.2); Carbon Dioxide 26 mmol/L (22-32); Chloride 102 mmol/L (98-107); Estimated Glomerular Filt Rate > 60.0 mL/min (>60); Globulin 3.5 g/dL (1.7-4.1); Glucose 146 mg/dL (80-110); HEMOLYSIS < 15 (0-50); Potassium 3.9 mmol/L (3.4-5.1); Sodium 134 mmol/L (137-145); Total Protein 7.2 g/dL (6.3-8.2)
--- NOTE | 2020-01-15 15:28 | P.PNONC_ITS ---
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 She lives in [place] for 6 months during the summer, and in [place] for 6 months during the winter. She is been followed here as well as in [facility] in [place]. Oncology History: Her ovarian cancer history is summarized from [facility] medical records as follows: 12/2012: initial diagnosis, CA 125 2000 and peritoneal nodularity 12/2012: surgery: Laparoscopic RSO, omentectomy, and peritoneal biopsy. 01/04/2013-02/13/2013: Carbo/Taxol x2 02/25/2013: Optimal tumor reductive surgery. 02/2013-05/2013: carbo/Taxol x 4 and avastin added for last 3 cycles 06/2013-06/16/2014: Avastin maintenance 10/2014: Rising CA 125 to 522 and bloating 11/18/2014: [facility] initial visit 12/2014-03/2015: Carbo/Taxol x 6 with some minimal persistent disease 01/19/2017: new liver mets and chest adenopathy on CT scan and elevated CA 125 to 2914. 01/23/2017: Exploratory laparotomy, ALEAH, and diverting loop transverse colostomy for large bowel obstruction. 02/02/2017-09/28/2017: Single agent carboplatin 10/26/2017-07/25/2018: post 9 cycles of Carboplatin with TATUM on imaging and negative CA-125. 07/26/2018: BRCA testing turned out to be positive 07/31/2018: Relapse/recurrence: Feels small hypoattenuating foci in the liver and interval development of bilateral iliac multi compartmental lymphadenopathy with rising CA 125. 08/02/2018-12/13/2018: Carboplatin x 5 cycles 01/16/2019: CT showed minimal evidence of increasing pelvic lymph nodes. 01/2019 - 11/13/2019, Olaparib 300 mg po bid On August 01, 2019, want a was evaluated by Dr. Nicolas Ewing at [facility] in [place]. Repeat CT of chest abdomen and pelvis showed new peritoneal implants involving the vaginal cuff and rectosigmoid colon. It showed stable prominent retroperitoneal and pelvic metastatic lymph nodes. Dr. Ewing discussed the results in detail with the patient. Dr. Ewing recommended continued current olaparib treatment. October 30, 2019 CT chest abdomen pelvis with contrast was performed at [facility]. The results showed slightly increased peritoneal implants and slightly increased pelvic metastatic lymphadenopathy. MD Dmitriy Beavers recommended stop PARP inhibitor, and initiate carboplatin AUC 5 IV over 60 minutes every 28 days for 3 cycles followed by a treatment planning visit at [facility]. On 11/14/2019, she received C1# Carboplatin AUC 5. She has tolerated well except fatigue on day 3 to day 5. No nausea no vomiting. No fever and no chills. No abdominal pain. No diarrhea and no constipation. She is planning to leave on Sun to [facility] and plan for 2 weeks of vacation. Interim Events: She presents here today for cycle 3 carboplatin treatment. Patient reported that on Sunday01/04/2020, while she was hiking, she noted right thigh swelling and mild tenderness. In addition patient also noticed mild numbness of the lateral aspect of the right thigh. Stat lower extremity ultrasound showed a small amount of non occlusive thrombus at the confluence of the greater saphenous vein and common femoral vein, without additional findings of deep venous thrombosis. In addition prominent lymph nodes were noted. Patient was therefore started on Eliquis 10 mg twice daily with plan to switch to 5 mg twice daily after 5 days. Patient said that she noticed may be slightly improvement of the right lower extremity swelling. However she is complaining significant pain of the right lower extremities especially during the night. He denies any shortness of breath or chest pain. - Patient Self-Reported Symptoms SR Constitution: Fatigue/Malaise SR respiratory issues: Cough SR Genitourinary issues: Change in stream - Additional ROS All systems PM: reviewed and no additional remarkable complaints except as stated (Those mentioned in HPI, Interval History and SR above.) Home Medications and Allergies Home Medications Medication Instructions Recorded Confirmed Type multivitamin [Multiple Vitamins] 1 tab PO DAILY #0 05/16/17 01/08/20 History turmeric 1 dose PO DAILY #0 05/16/17 01/08/20 History olaparib 300 mg PO BID 04/10/19 01/08/20 History fluoxetine 20 mg capsule 20 mg PO DAILY #90 cap 10/21/19 01/08/20 Rx dexamethasone 4 mg PO DAILY #10 tab 11/24/19 01/08/20 Rx zolpidem [Ambien] 5 mg PO BEDTIME PRN #30 tab 01/05/20 01/08/20 Rx sennosides-docusate sodium 1 tab-cap PO BEDTIME 01/08/20 01/08/20 History [Senokot-S] hydrocodone-acetaminophen 1 tab PO Q6H PRN #60 tab 01/15/20 Rx Allergies Allergy/AdvReac Type Severity Reaction Status Date / Time No Known Drug Allergies Allergy Verified 09/23/19 09:45 Exam Vital signs: Last Vital Signs Temp 98.2 F 01/15/20 15: Pulse 73 01/15/20 15:22 Resp 18 01/15/20 15:22 BP 112/76 01/15/20 15:22 Pulse Ox 98 01/15/20 15:22 Narrative: ECOG 1 Gen: WDWN, NAD, pleasant and cooperative. HEENT: NCAT, EOMI, PERRLA, anicteric sclera. Neck: Supple, No palpable thyromegaly or lymphadenopathy. Respiratory: CTAB, no wheezes audible. No JVD Cardiovascular: RRR, S1 and S2 normal, no M/G/R. Abdomen: Soft, NTND, BS normal, no palpable organomegaly. Right colostomy noted. Extremities: Right thigh is significantly swollen and bigger compared to the left side. No palpable lymph nodes in the right groin or the left groin. Lymphatic: no palpable lymph nodes in the neck, axillae, or groins. Neurological: AOx3, CN II-XII grossly intact. No focal motor or sensory deficit. Psychiatric: Normal affect; normal thought process; cooperative, no depression, no anxiety. Results - Labs Laboratory Last Values WBC 37.6 X10^3/uL (4.5-11.0) H* 01/15/20 15:00 RBC 3.92 X10^6/uL (4.0-5.2) L 01/15/20 15:00 Hgb 12.5 g/dL (12.0-16.0) 01/15/20 15:00 Hct 38.3 % (36-46) 01/15/20 15:00 MCV 97.7 fL (80-100) 01/15/20 15:00 MCH 31.8 PG (26-34) 01/15/20 15:00 MCHC 32.6 % (30-36) 01/15/20 15:00 RDW 15.1 % (11.6-14.8) H 01/15/20 15:00 Plt Count 282 X10^3/uL (150-400) 01/15/20 15:00 Neut % (Auto) Not Reportable 01/15/20 15:00 Lymph % (Auto) Not Reportable 01/15/20 15:00 [place] % (Auto) Not Reportable 01/15/20 15:00 Eos % (Auto) Not Reportable 01/15/20 15:00 Baso % (Auto) Not Reportable 01/15/20 15:00 Neut # (Auto) 5100 /uL (4909-3926) 01/08/20 09:40 Lymph # (Auto) Not Reportable 01/15/20 15:00 [place] # (Auto) Not Reportable 01/15/20 15:00 Eos # (Auto) 200 /uL (0-450) 01/08/20 09:40 Baso # (Auto) Not Reportable 01/15/20 15:00 Total Counted 100 12/18/19 14:45 Seg Neutrophils % 68.0 % (38-70) 12/18/19 14:45 Band Neutrophils % 11.0 % (3-7) H 12/18/19 14:45 Lymphocytes % (Manual) 4.0 % (25-45) L 12/18/19 14:45 Atypical Lymphs % 6.0 % (-0) H 12/18/19 14:45 Monocytes % (Manual) 11.0 % (2-11) 12/18/19 14:45 Eosinophils % (Manual) 1.0 % (2-4) L 11/20/19 14:30 Metamyelocytes % 2.0 % (-0) H 11/20/19 14:30 Neutrophils # (Manual) 91813 /uL (8331-0778) H 12/18/19 14:45 RBC Morphology Not Reportable 12/18/19 14:45 Anisocytosis 1+ H 12/18/19 14:45 Sodium 134 mmol/L (137-145) L 01/15/20 15:00 Potassium 3.9 mmol/L (3.4-5.1) 01/15/20 15:00 Chloride 102 mmol/L (98-107) 01/15/20 15:00 Carbon Dioxide 26 mmol/L (22-32) 01/15/20 15:00 BUN 17 mg/dL (7-17) 01/15/20 15:00 Creatinine 0.62 mg/dL (0.52-1.04) 01/15/20 15:00 Estimated GFR > 60.0 mL/min (>60) 01/15/20 15:00 BUN/Creatinine Ratio 27.4 (6-22) H 01/15/20 15:00 Glucose 146 mg/dL (80-110) H 01/15/20 15:00 Calcium 8.9 mg/dL (8.4-10.2) 01/15/20 15:00 Magnesium 1.9 mg/dL (1.6-2.3) 03/20/19 14:50 Total Bilirubin 0.2 mg/dL (0.2-1.3) 01/15/20 15:00 AST 66 IU/L (14-36) H 01/15/20 15:00 ALT 39 IU/L (<35) H 01/15/20 15:00 Alkaline Phosphatase 418 U/L (38-126) H D 01/15/20 15:00 Lactate Dehydrogenase 438 U/L (313-618) 09/03/19 16:00 Total Protein 7.2 g/dL (6.3-8.2) 01/15/20 15:00 Albumin 3.7 g/dL (3.5-5.0) 01/15/20 15:00 Globulin 3.5 g/dL (1.7-4.1) 01/15/20 15:00 Albumin/Globulin Ratio 1.1 (1.0-2.8) 01/15/20 15:00 CA 125 Antigen 514 U/mL (0-35) H 11/24/19 15:50 Assessment and Plan (1) Ovarian cancer, BRCA2 positive Overview: Medina 59-year-old female, BRCA2 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 Since then, she has undergone multiple surgeries as well as multiple cycles of chemotherapy due to multiple recurrences. The most recent recurrence happened in July 2018. She has been followed at [facility] and was started on olaparib 300 mg twice daily. On 11/13/2019, due to disease progression, olaparib was stopped and she was started on Carboplatin AUC [address] Beavers at [facility]. Assessment: She has tolerated the first cycle of carboplatin very well. I reviewed the laboratory tests from today. The blood counts and the CMP are appropriate. Will proceed with cycle 3 with Neulasta support. Plan: RTC C4D1, labs per Treatment Plan including CBC, CMP, CA125 (2) Pain and swelling of right lower extremity Overview: Acute onset of right thigh swelling, mild pain, and numbness since 01/04/2020. No shortness of breath and no chest pain. Assessment: Doppler study on 01/08/2020 showed a small amount of nonocclusive thrombus at the confluence of the greater saphenous vein and common femoral vein, without additional findings of deep venous thrombosis. Prominent lymph nodes are noted within the groin and the common femoral vein. She was started on Eliquis 10 mg twice daily for 7 days with plan to switch to 5 mg twice daily. Patient is complaining significant right lower extremity pain to the point that she was having difficulties going to sleep. I talked with her that I will prescribe hydrocodone 5 mg size to see if that can be of some help. In addition, the significant right lower extremity swelling indicate possible blockage in the pelvis. I will obtain CT of abdomen pelvis for further evaluation. Plan: Continue Eliquis as instructed, that is 10 mg bid x 7 days, then 5 mg bid Hydrocodone/Acet 5/325, 1# q6h prn, 60# written. CT abd/pelvis w/contrast RTC in 1-2 weeks, CBC, CMP
[2020-01-15 15:29] LABS: Neutrophils Absolute Manual 30832 /uL (3000-5900); Nucleated Red Blood Cells 1 #/Diff; Total Cells Counted 100
[2020-01-15 15:30] LABS: Anisocytosis 1+; Polychromasia 1+
--- NOTE | 2020-01-15 16:13 | PC.NURSE ---
WBC 37.6, pt has appt with Dr. martinez today.
--- NOTE | 2020-01-26 15:59 | ONC.PN ---
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 She lives in [place] for 6 months during the summer, and in [place] for 6 months during the winter. She is been followed here as well as in [facility] in [place]. Oncology History: Her ovarian cancer history is summarized from [facility] medical records as follows: 12/2012: initial diagnosis, CA 125 2000 and peritoneal nodularity 12/2012: surgery: Laparoscopic RSO, omentectomy, and peritoneal biopsy. 01/04/2013-02/13/2013: Carbo/Taxol x2 02/25/2013: Optimal tumor reductive surgery. 02/2013-05/2013: carbo/Taxol x 4 and avastin added for last 3 cycles 06/2013-06/16/2014: Avastin maintenance 10/2014: Rising CA 125 to 522 and bloating 11/18/2014: [facility] initial visit 12/2014-03/2015: Carbo/Taxol x 6 with some minimal persistent disease 01/19/2017: new liver mets and chest adenopathy on CT scan and elevated CA 125 to 2914. 01/23/2017: Exploratory laparotomy, ALEAH, and diverting loop transverse colostomy for large bowel obstruction. 02/02/2017-09/28/2017: Single agent carboplatin 10/26/2017-07/25/2018: post 9 cycles of Carboplatin with TATUM on imaging and negative CA-125. 07/26/2018: BRCA testing turned out to be positive 07/31/2018: Relapse/recurrence: Feels small hypoattenuating foci in the liver and interval development of bilateral iliac multi compartmental lymphadenopathy with rising CA 125. 08/02/2018-12/13/2018: Carboplatin x 5 cycles 01/16/2019: CT showed minimal evidence of increasing pelvic lymph nodes. 01/2019 - 11/13/2019, Olaparib 300 mg po bid On August 01, 2019, want a was evaluated by Dr. Nicolas Ewing at [facility] in [place]. Repeat CT of chest abdomen and pelvis showed new peritoneal implants involving the vaginal cuff and rectosigmoid colon. It showed stable prominent retroperitoneal and pelvic metastatic lymph nodes. Dr. Ewing discussed the results in detail with the patient. Dr. Ewing recommended continued current olaparib treatment. October 30, 2019 CT chest abdomen pelvis with contrast was performed at [facility]. The results showed slightly increased peritoneal implants and slightly increased pelvic metastatic lymphadenopathy. [place] Dmitriy Beavers recommended stop PARP inhibitor, and initiate carboplatin AUC 5 IV over 60 minutes every 28 days for 3 cycles followed by a treatment planning visit at [facility]. On 11/14/2019, she received C1# Carboplatin AUC 5. She has tolerated well except fatigue on day 3 to day 5. No nausea no vomiting. No fever and no chills. No abdominal pain. No diarrhea and no constipation. She is planning to leave on Sun to and plan for 2 weeks of vacation. On 01/04/2020, while she was hiking, she noted right thigh swelling and mild tenderness. In addition patient also noticed mild numbness of the lateral aspect of the right thigh. Stat lower extremity ultrasound showed a small amount of non occlusive thrombus at the confluence of the greater saphenous vein and common femoral vein, without additional findings of deep venous thrombosis. In addition prominent lymph nodes were noted. Patient was therefore started on Eliquis 10 mg twice daily with plan to switch to 5 mg twice daily after 5 days. Interim Events: She has been on Eliquis since January 03. However patient said that the right lower extremity continues to increase in size. She complains of tightness and heaviness. In addition she is complaining mild weakness in the upper thigh. No fever and no chills. No shortness of breath no chest pain. Otherwise she said she has been doing well and herself thought that her cancer might have responded to the current chemotherapy with carboplatin. - Patient Self-Reported Symptoms SR Constitution: Fatigue/Malaise SR respiratory issues: Cough SR Genitourinary issues: Change in stream - Additional ROS All systems PM: reviewed and no additional remarkable complaints except as stated (those mentioned in HPI, Interval History and SR above.) Home Medications and Allergies Home Medications Medication Instructions Recorded Confirmed Type multivitamin [Multiple Vitamins] 1 tab PO DAILY #0 05/16/17 01/08/20 History turmeric 1 dose PO DAILY #0 05/16/17 01/08/20 History olaparib 300 mg PO BID 04/10/19 01/08/20 History fluoxetine 20 mg capsule 20 mg PO DAILY #90 cap 10/21/19 01/08/20 Rx dexamethasone 4 mg PO DAILY #10 tab 11/24/19 01/08/20 Rx zolpidem [Ambien] 5 mg PO BEDTIME PRN #30 tab 01/05/20 01/08/20 Rx sennosides-docusate sodium 1 tab-cap PO BEDTIME 01/08/20 01/08/20 History [Senokot-S] apixaban [Eliquis] 5 mg PO BID 01/15/20 01/15/20 History hydrocodone-acetaminophen 1 tab PO Q6H PRN #60 tab 01/15/20 Rx Allergies Allergy/AdvReac Type Severity Reaction Status Date / Time No Known Drug Allergies Allergy Verified 09/23/19 09:45 Exam Vital signs: 01/26/20 17:58 Last Vital Signs Temp 98.3 F 01/26/20 16:01 Pulse 62 01/26/20 16:01 Resp 16 01/26/20 16:01 BP 110/60 01/26/20 16:01 Pulse Ox 96 01/26/20 16:01 Narrative: ECOG 1 Gen: WDWN, NAD, pleasant and cooperative. HEENT: NCAT, EOMI, PERRLA, anicteric sclera. Neck: Supple, No palpable thyromegaly or lymphadenopathy. Respiratory: CTAB, no wheezes audible. No JVD Cardiovascular: RRR, S1 and S2 normal, no M/G/R. Abdomen: Soft, NTND, BS normal, no palpable organomegaly. Right colostomy noted. Extremities: Right thigh significantly swollen and bigger compared to the left side. Lymphatic: no palpable lymph nodes in the neck, axillae, or groins. Neurological: AOx3, CN II-XII grossly intact. No focal motor or sensory deficit. Psychiatric: Normal affect; normal thought process; cooperative, no depression, no anxiety. Results - Labs Laboratory Last Values WBC 37.6 X10^3/uL (4.5-11.0) H* 01/15/20 15:00 RBC 3.92 X10^6/uL (4.0-5.2) L 01/15/20 15:00 Hgb 12.5 g/dL (12.0-16.0) 01/15/20 15:00 Hct 38.3 % (36-46) 01/15/20 15:00 MCV 97.7 fL (80-100) 01/15/20 15:00 MCH 31.8 PG (26-34) 01/15/20 15:00 MCHC 32.6 % (30-36) 01/15/20 15:00 RDW 15.1 % (11.6-14.8) H 01/15/20 15:00 Plt Count 282 X10^3/uL (150-400) 01/15/20 15:00 Neut % (Auto) Not Reportable 01/15/20 15:00 Lymph % (Auto) Not Reportable 01/15/20 15:00 [place] % (Auto) Not Reportable 01/15/20 15:00 Eos % (Auto) Not Reportable 01/15/20 15:00 Baso % (Auto) Not Reportable 01/15/20 15:00 Neut # (Auto) 5100 /uL (1492-0130) 01/08/20 09:40 Lymph # (Auto) Not Reportable 01/15/20 15:00 [place] # (Auto) Not Reportable 01/15/20 15:00 Eos # (Auto) 200 /uL (0-450) 01/08/20 09:40 Baso # (Auto) Not Reportable 01/15/20 15:00 Total Counted 100 01/15/20 15:00 Seg Neutrophils % 68.0 % (38-70) 01/15/20 15:00 Band Neutrophils % 14.0 % (3-7) H 01/15/20 15:00 Atypical Lymphs % 6.0 % (-0) H 12/18/19 14:45 Lymphocytes % (Manual) 8.0 % (25-45) L 01/15/20 15:00 Eosinophils % (Manual) 1.0 % (2-4) L 11/20/19 14:30 Monocytes % (Manual) 9.0 % (2-11) 01/15/20 15:00 Metamyelocytes % 2.0 % (-0) H 11/20/19 14:30 Basophils % (Manual) 1.0 % (0-1) 01/15/20 15:00 Neutrophils # (Manual) 84616 /uL (0838-2490) H 01/15/20 15:00 Nucleated RBCs 1 #/Diff (-0) H 01/15/20 15:00 RBC Morphology Not Reportable 01/15/20 15:00 Polychromasia 1+ H 01/15/20 15:00 Anisocytosis 1+ H 01/15/20 15:00 Sodium 134 mmol/L (137-145) L 01/15/20 15:00 Potassium 3.9 mmol/L (3.4-5.1) 01/15/20 15:00 Chloride 102 mmol/L (98-107) 01/15/20 15:00 Carbon Dioxide 26 mmol/L (22-32) 01/15/20 15:00 BUN 17 mg/dL (7-17) 01/15/20 15:00 Creatinine 0.62 mg/dL (0.52-1.04) 01/15/20 15:00 Estimated GFR > 60.0 mL/min (>60) 01/15/20 15:00 BUN/Creatinine Ratio 27.4 (6-22) H 01/15/20 15:00 Glucose 146 mg/dL (80-110) H 01/15/20 15:00 Calcium 8.9 mg/dL (8.4-10.2) 01/15/20 15:00 Magnesium 1.9 mg/dL (1.6-2.3) 03/20/19 14:50 Total Bilirubin 0.2 mg/dL (0.2-1.3) 01/15/20 15:00 AST 66 IU/L (14-36) H 01/15/20 15:00 ALT 39 IU/L (<35) H 01/15/20 15:00 Alkaline Phosphatase 418 U/L (38-126) H D 01/15/20 15:00 Lactate Dehydrogenase 438 U/L (313-618) 09/03/19 16:00 Total Protein 7.2 g/dL (6.3-8.2) 01/15/20 15:00 Albumin 3.7 g/dL (3.5-5.0) 01/15/20 15:00 Globulin 3.5 g/dL (1.7-4.1) 01/15/20 15:00 Albumin/Globulin Ratio 1.1 (1.0-2.8) 01/15/20 15:00 CA 125 Antigen 875 U/mL (0-35) H 01/26/20 16:30 Assessment and Plan (1) Ovarian cancer, BRCA2 positive Overview: Medina 60-year-old female, BRCA2 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 Since then, she has undergone multiple surgeries as well as multiple cycles of chemotherapy due to multiple recurrences. The most recent recurrence happened in July 2018. She has been followed at [facility] and was started on olaparib 300 mg twice daily. On 11/13/2019, due to disease progression, olaparib was stopped and she was started on Carboplatin AUC [address] Beavers at [facility] [[email or web address] Assessment: Patient underwent CT abdomen and pelvis on January the 06/03/2020. It showed interval development of rectal wall thickening and increase in bladder wall thickening, question extraluminal fluid and air outside the rectosigmoid region, possibly representing interloop abscess or necrotic neoplasm. A repeat pelvic CT with IV and rectal contrast was recommended. Patient currently is doing well clinically. She is scheduled for the next cycle of chemotherapy on 02/05/2020. Plan: RTC C4D1, labs per Treatment Plan including CBC, CMP, CA125 (2) Pain and swelling of right lower extremity Overview: Acute onset of right thigh swelling, mild pain, and numbness since 01/04/2020. No shortness of breath and no chest pain. Doppler study on 01/08/2020 showed a small amount of nonocclusive thrombus at the confluence of the greater saphenous vein and common femoral vein, without additional findings of deep venous thrombosis. Prominent lymph nodes are noted within the groin and the common femoral vein. She was started on Eliquis 10 mg twice daily for 7 days with plan to switch to 5 mg twice daily. Assessment: I talked with the patient that the right lower extremity persistent swelling indicates either that there is new clot extension or there is a problems with venous flow due to pelvic malignancy compressing on the veins. I will obtain a Doppler study to further evaluate. Patient voiced understanding. Plan: Continue Eliquis 5 mg bid Hydrocodone/Acet 5/325, 1# q6h prn, 60# written. US periph venous scan RTC in 1 week
[2020-01-26 16:01] VITALS: BP 110/60; PULSE 62; RESP 16; TEMP 36.8; O2SAT 96
[2020-01-26 17:44] LABS: Cancer Antigen 125 875 U/mL (0-35)
--- NOTE | 2020-02-02 16:33 | P.PNONC_ITS ---
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 She lives in [place] for 6 months during the summer, and in [place] for 6 months during the winter. She is been followed here as well as in [facility] in [place]. Oncology History: Her ovarian cancer history is summarized from [facility] medical records as follows: 12/2012: initial diagnosis, CA 125 2000 and peritoneal nodularity 12/2012: surgery: Laparoscopic RSO, omentectomy, and peritoneal biopsy. 01/04/2013-02/13/2013: Carbo/Taxol x2 02/25/2013: Optimal tumor reductive surgery. 02/2013-05/2013: carbo/Taxol x 4 and avastin added for last 3 cycles 06/2013-06/16/2014: Avastin maintenance 10/2014: Rising CA 125 to 522 and bloating 11/18/2014: [facility] initial visit 12/2014-03/2015: Carbo/Taxol x 6 with some minimal persistent disease 01/19/2017: new liver mets and chest adenopathy on CT scan and elevated CA 125 to 2914. 01/23/2017: Exploratory laparotomy, ALEAH, and diverting loop transverse colostomy for large bowel obstruction. 02/02/2017-09/28/2017: Single agent carboplatin 10/26/2017-07/25/2018: post 9 cycles of Carboplatin with TATUM on imaging and negative CA-125. 07/26/2018: BRCA testing turned out to be positive 07/31/2018: Relapse/recurrence: Feels small hypoattenuating foci in the liver and interval development of bilateral iliac multi compartmental lymphadenopathy with rising CA 125. 08/02/2018-12/13/2018: Carboplatin x 5 cycles 01/16/2019: CT showed minimal evidence of increasing pelvic lymph nodes. 01/2019 - 11/13/2019, Olaparib 300 mg po bid On August 01, 2019, want a was evaluated by Dr. Nicolas Ewing at [facility] in [place]. Repeat CT of chest abdomen and pelvis showed new peritoneal implants involving the vaginal cuff and rectosigmoid colon. It showed stable prominent retroperitoneal and pelvic metastatic lymph nodes. Dr. Ewing discussed the results in detail with the patient. Dr. Ewing recommended continued current olaparib treatment. October 30, 2019 CT chest abdomen pelvis with contrast was performed at [facility]. The results showed slightly increased peritoneal implants and slightly increased pelvic metastatic lymphadenopathy. MD Dmitriy Beavers recommended stop PARP inhibitor, and initiate carboplatin AUC 5 IV over 60 minutes every 28 days for 3 cycles followed by a treatment planning visit at [facility]. On 11/14/2019, she received C1# Carboplatin AUC 5. She has tolerated well except fatigue on day 3 to day 5. No nausea no vomiting. No fever and no chills. No abdominal pain. No diarrhea and no constipation. She is planning to leave on Sun to and plan for 2 weeks of vacation. On 01/04/2020, while she was hiking, she noted right thigh swelling and mild tenderness. In addition patient also noticed mild numbness of the lateral aspect of the right thigh. Stat lower extremity ultrasound showed a small amount of non occlusive thrombus at the confluence of the greater saphenous vein and common femoral vein, without additional findings of deep venous thrombosis. In addition prominent lymph nodes were noted. Patient was therefore started on Eliquis 10 mg twice daily with plan to switch to 5 mg twice daily after 5 days. Interim Events: Patient presents here today for scheduled follow-up visit. The right lower extremity edema has improved to some extent. However patient is complaining significant pain at the lower third of lateral right thigh. Patient said that the pain at some point was 10/10 in severity and she was having problems ambulating. There was no erythema or masses or bruises. Patient said that apart from the thigh pain, she actually feels good and she would have done a lot of exercise and hiking. Patient underwent a repeat lower extremity ultrasound during her previous visit. No deep venous thrombosis was identified. - Patient Self-Reported Symptoms SR Constitution: Fatigue/Malaise SR respiratory issues: Cough SR Genitourinary issues: Change in stream - Additional ROS All systems PM: reviewed and no additional remarkable complaints except as stated (those mentioned in HPI, Interval History and SR above.) Home Medications and Allergies Home Medications Medication Instructions Recorded Confirmed Type multivitamin [Multiple Vitamins] 1 tab PO DAILY #0 05/16/17 01/08/20 History turmeric 1 dose PO DAILY #0 05/16/17 01/08/20 History olaparib 300 mg PO BID 04/10/19 01/08/20 History fluoxetine 20 mg capsule 20 mg PO DAILY #90 cap 10/21/19 01/08/20 Rx dexamethasone 4 mg PO DAILY #10 tab 11/24/19 01/08/20 Rx sennosides-docusate sodium 1 tab-cap PO BEDTIME 01/08/20 01/08/20 History [Senokot-S] apixaban [Eliquis] 5 mg PO BID 01/15/20 01/15/20 History hydrocodone-acetaminophen 1 tab PO Q6H PRN #60 tab 02/02/20 Rx zolpidem [Ambien] 5 mg PO BEDTIME PRN #30 tab 02/02/20 Rx Allergies Allergy/AdvReac Type Severity Reaction Status Date / Time No Known Drug Allergies Allergy Verified 09/23/19 09:45 Exam Vital signs: 02/02/20 18:06 Last Vital Signs Temp 98.3 F 01/26/20 16:01 Pulse 72 02/02/20 16:42 Resp 16 02/02/20 16:42 BP 103/65 02/02/20 16:42 Pulse Ox 97 02/02/20 16:42 Narrative: ECOG 1 Gen: WDWN, NAD, pleasant and cooperative. HEENT: NCAT, EOMI, PERRLA, anicteric sclera. Neck: Supple, No palpable thyromegaly or lymphadenopathy. Respiratory: CTAB, no wheezes audible. No JVD Cardiovascular: RRR, S1 and S2 normal, no M/G/R. Abdomen: Soft, NTND, BS normal, no palpable organomegaly. Right colostomy noted. Extremities: Right thigh significantly swollen and bigger compared to the left side. Seems to be slightly less tight and less swollen. Lymphatic: no palpable lymph nodes in the neck, axillae, or groins. Neurological: AOx3, CN II-XII grossly intact. No focal motor or sensory deficit. Psychiatric: Normal affect; normal thought process; cooperative, no depression, no anxiety. Results - Labs Laboratory Last Values WBC 37.6 X10^3/uL (4.5-11.0) H* 01/15/20 15:00 RBC 3.92 X10^6/uL (4.0-5.2) L 01/15/20 15:00 Hgb 12.5 g/dL (12.0-16.0) 01/15/20 15:00 Hct 38.3 % (36-46) 01/15/20 15:00 MCV 97.7 fL (80-100) 01/15/20 15:00 MCH 31.8 PG (26-34) 01/15/20 15:00 MCHC 32.6 % (30-36) 01/15/20 15:00 RDW 15.1 % (11.6-14.8) H 01/15/20 15:00 Plt Count 282 X10^3/uL (150-400) 01/15/20 15:00 Neut % (Auto) Not Reportable 01/15/20 15:00 Lymph % (Auto) Not Reportable 01/15/20 15:00 [place] % (Auto) Not Reportable 01/15/20 15:00 Eos % (Auto) Not Reportable 01/15/20 15:00 Baso % (Auto) Not Reportable 01/15/20 15:00 Neut # (Auto) 5100 /uL (2798-8590) 01/08/20 09:40 Lymph # (Auto) Not Reportable 01/15/20 15:00 [place] # (Auto) Not Reportable 01/15/20 15:00 Eos # (Auto) 200 /uL (0-450) 01/08/20 09:40 Baso # (Auto) Not Reportable 01/15/20 15:00 Total Counted 100 01/15/20 15:00 Seg Neutrophils % 68.0 % (38-70) 01/15/20 15:00 Band Neutrophils % 14.0 % (3-7) H 01/15/20 15:00 Atypical Lymphs % 6.0 % (-0) H 12/18/19 14:45 Lymphocytes % (Manual) 8.0 % (25-45) L 01/15/20 15:00 Eosinophils % (Manual) 1.0 % (2-4) L 11/20/19 14:30 Monocytes % (Manual) 9.0 % (2-11) 01/15/20 15:00 Metamyelocytes % 2.0 % (-0) H 11/20/19 14:30 Basophils % (Manual) 1.0 % (0-1) 01/15/20 15:00 Neutrophils # (Manual) 06636 /uL (0834-1766) H 01/15/20 15:00 Nucleated RBCs 1 #/Diff (-0) H 01/15/20 15:00 RBC Morphology Not Reportable 01/15/20 15:00 Polychromasia 1+ H 01/15/20 15:00 Anisocytosis 1+ H 01/15/20 15:00 Sodium 134 mmol/L (137-145) L 01/15/20 15:00 Potassium 3.9 mmol/L (3.4-5.1) 01/15/20 15:00 Chloride 102 mmol/L (98-107) 01/15/20 15:00 Carbon Dioxide 26 mmol/L (22-32) 01/15/20 15:00 BUN 17 mg/dL (7-17) 01/15/20 15:00 Creatinine 0.62 mg/dL (0.52-1.04) 01/15/20 15:00 Estimated GFR > 60.0 mL/min (>60) 01/15/20 15:00 BUN/Creatinine Ratio 27.4 (6-22) H 01/15/20 15:00 Glucose 146 mg/dL (80-110) H 01/15/20 15:00 Calcium 8.9 mg/dL (8.4-10.2) 01/15/20 15:00 Magnesium 1.9 mg/dL (1.6-2.3) 03/20/19 14:50 Total Bilirubin 0.2 mg/dL (0.2-1.3) 01/15/20 15:00 AST 66 IU/L (14-36) H 01/15/20 15:00 ALT 39 IU/L (<35) H 01/15/20 15:00 Alkaline Phosphatase 418 U/L (38-126) H D 01/15/20 15:00 Lactate Dehydrogenase 438 U/L (313-618) 09/03/19 16:00 Total Protein 7.2 g/dL (6.3-8.2) 01/15/20 15:00 Albumin 3.7 g/dL (3.5-5.0) 01/15/20 15:00 Globulin 3.5 g/dL (1.7-4.1) 01/15/20 15:00 Albumin/Globulin Ratio 1.1 (1.0-2.8) 01/15/20 15:00 CA 125 Antigen 875 U/mL (0-35) H 01/26/20 16:30 Assessment and Plan (1) Pain and swelling of right lower extremity Overview: Acute onset of right thigh swelling, mild pain, and numbness since 01/04/2020. No shortness of breath and no chest pain. Doppler study on 01/08/2020 showed a small amount of nonocclusive thrombus at the confluence of the greater saphenous vein and common femoral vein, without additional findings of deep venous thrombosis. Prominent lymph nodes are noted within the groin and the common femoral vein. She was started on Eliquis 10 mg twice daily for 7 days with plan to switch to 5 mg twice daily. Assessment: Overall the right lower extremity swelling especially the upper thigh has been gradually improving. I examined the right lower thigh, I did not see any injury, trauma, mass, erythema, or warmth. At this moment I do not know exactly what could be the cause for the pain. I talked with her that I will keep a close monitoring. The right leg in my opinion seems to be lymphedema rather than deep venous thrombosis. I think probably related to pelvic pathology as result of ovarian cancer. I talked with the patient that physical therapy may be help. Patient voiced understanding and agreement. Plan: Continue Eliquis 5 mg bid Hydrocodone/Acet 5/325, 1# q6h prn, 60# written. Referral to physical therapy (2) Ovarian cancer, BRCA2 positive Overview: Medina 60-year-old female, BRCA2 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 Since then, she has undergone multiple surgeries as well as multiple cycles of chemotherapy due to multiple recurrences. The most recent recurrence happened in July 2018. She has been followed at [facility] and was started on olaparib 300 mg twice daily. On 11/13/2019, due to disease progression, olaparib was stopped and she was started on Carboplatin AUC [address] Erasmo davis at [facility]. Assessment: Patient underwent CT abdomen and pelvis on January the 06/03/2020. It showed interval development of rectal wall thickening and increase in bladder wall thickening, question extraluminal fluid and air outside the rectosigmoid region, possibly representing interloop abscess or necrotic neoplasm. A repeat pelvic CT with IV and rectal contrast was recommended. Patient currently is doing well clinically. She is scheduled for the next cycle of chemotherapy on 02/05/2020. Plan: RTC C4D1, labs per Treatment Plan including CBC, CMP, CA125
[2020-02-02 16:42] VITALS: BP 103/65; PULSE 72; RESP 16; O2SAT 97
[2020-02-05 09:15] VITALS: BP 111/75; PULSE 80; RESP 18; TEMP 36.9; O2SAT 96
--- NOTE | 2020-02-05 09:19 | P.PNONC_ITS ---
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 She lives in [place] for 6 months during the summer, and in [place] for 6 months during the winter. She is been followed here as well as in [facility] in [place]. Oncology History: Her ovarian cancer history is summarized from [facility] medical records as follows: 12/2012: initial diagnosis, CA 125 2000 and peritoneal nodularity 12/2012: surgery: Laparoscopic RSO, omentectomy, and peritoneal biopsy. 01/04/2013-02/13/2013: Carbo/Taxol x2 02/25/2013: Optimal tumor reductive surgery. 02/2013-05/2013: carbo/Taxol x 4 and avastin added for last 3 cycles 06/2013-06/16/2014: Avastin maintenance 10/2014: Rising CA 125 to 522 and bloating 11/18/2014: [facility] initial visit 12/2014-03/2015: Carbo/Taxol x 6 with some minimal persistent disease 01/19/2017: new liver mets and chest adenopathy on CT scan and elevated CA 125 to 2914. 01/23/2017: Exploratory laparotomy, ALEAH, and diverting loop transverse colostomy for large bowel obstruction. 02/02/2017-09/28/2017: Single agent carboplatin 10/26/2017-07/25/2018: post 9 cycles of Carboplatin with TATUM on imaging and negative CA-125. 07/26/2018: BRCA testing turned out to be positive 07/31/2018: Relapse/recurrence: Feels small hypoattenuating foci in the liver and interval development of bilateral iliac multi compartmental lymphadenopathy with rising CA 125. 08/02/2018-12/13/2018: Carboplatin x 5 cycles 01/16/2019: CT showed minimal evidence of increasing pelvic lymph nodes. 01/2019 - 11/13/2019, Olaparib 300 mg po bid On August 01, 2019, want a was evaluated by Dr. Nicolas Ewing at [facility] in [place]. Repeat CT of chest abdomen and pelvis showed new peritoneal implants involving the vaginal cuff and rectosigmoid colon. It showed stable prominent retroperitoneal and pelvic metastatic lymph nodes. Dr. Ewing discussed the results in detail with the patient. Dr. Ewing recommended continued current olaparib treatment. October 30, 2019 CT chest abdomen pelvis with contrast was performed at [facility]. The results showed slightly increased peritoneal implants and slightly increased pelvic metastatic lymphadenopathy. MD Dmitriy Beavers recommended stop PARP inhibitor, and initiate carboplatin AUC 5 IV over 60 minutes every 28 days for 3 cycles followed by a treatment planning visit at [facility]. On 11/14/2019, she received C1# Carboplatin AUC 5. She has tolerated well except fatigue on day 3 to day 5. No nausea no vomiting. No fever and no chills. No abdominal pain. No diarrhea and no constipation. She is planning to leave on Sun to and plan for 2 weeks of vacation. On 01/04/2020, while she was hiking, she noted right thigh swelling and mild tenderness. In addition patient also noticed mild numbness of the lateral aspect of the right thigh. Stat lower extremity ultrasound showed a small amount of non occlusive thrombus at the confluence of the greater saphenous vein and common femoral vein, without additional findings of deep venous thrombosis. In addition prominent lymph nodes were noted. Patient was therefore started on Eliquis 10 mg twice daily with plan to switch to 5 mg twice daily after 5 days. Interim Events: Patient presents here today for new cycle of carboplatin treatment. During her previous visit, patient was complaining right lower thigh lateral pain. Today patient said that the pain is still there and may be slightly better. The swelling of the thigh has gone down slightly. Patient is currently doing physical therapy herself by watching YouTube instructions. The physical therapy downstairs are temporarily closed due to current COVID-pandemic. Patient said that she is also having rectal discharge. But it has not changed since her previous visit. She denies ever seeing blood. She denies fever. She denies chills. She denies nausea or vomiting. She denies abdominal pain. She denies diarrhea or constipation. Patient said that she is ?a happy girl? and would be feeling very well apart from the lower extremity swelling and lateral thigh pain. - Patient Self-Reported Symptoms SR Constitution: Fatigue/Malaise SR respiratory issues: Cough SR Cardiovascular issues: Extreme swelling SR Genitourinary issues: Change in stream - Additional ROS All systems PM: reviewed and no additional remarkable complaints except as stated (those mentioned in HPI, Interval History and SR above.) Home Medications and Allergies Home Medications Medication Instructions Recorded Confirmed Type multivitamin [Multiple Vitamins] 1 tab PO DAILY #0 05/16/17 02/02/20 History turmeric 1 dose PO DAILY #0 05/16/17 02/02/20 History olaparib 300 mg PO BID 04/10/19 02/02/20 History fluoxetine 20 mg capsule 20 mg PO DAILY #90 cap 10/21/19 02/02/20 Rx dexamethasone 4 mg PO DAILY #10 tab 11/24/19 02/02/20 Rx sennosides-docusate sodium 1 tab-cap PO BEDTIME 01/08/20 02/02/20 History [Senokot-S] apixaban [Eliquis] 5 mg PO BID 01/15/20 02/02/20 History hydrocodone-acetaminophen 1 tab PO Q6H PRN #60 tab 02/05/20 Rx zolpidem [Ambien] 5 mg PO BEDTIME PRN #30 tab 02/05/20 Rx Allergies Allergy/AdvReac Type Severity Reaction Status Date / Time No Known Drug Allergies Allergy Verified 09/23/19 09:45 Exam Vital signs: Vital Signs Temp Pulse Resp BP Pulse Ox 02/05/20 09:15 98.5 F 80 18 111/75 96 Intake and Output 02/04/20 02/05/20 02/05/20 23:59 07:59 15:59 Other: Weight 77.4 kg Patient Weight 02/05/20 23:59 Weight 77.4 kg Narrative: ECOG 1 Gen: WDWN, NAD, pleasant and cooperative. HEENT: NCAT, EOMI, PERRLA, anicteric sclera. Neck: Supple, No palpable thyromegaly or lymphadenopathy. Respiratory: CTAB, no wheezes audible. No JVD Cardiovascular: RRR, S1 and S2 normal, no M/G/R. Abdomen: Soft, NTND, BS normal, no palpable organomegaly. Right colostomy noted. Extremities: Right thigh significantly swollen and bigger compared to the left side. Seems to be slightly less tight and less swollen. Lymphatic: no palpable lymph nodes in the neck, axillae, or groins. Neurological: AOx3, CN II-XII grossly intact. No focal motor or sensory deficit. Psychiatric: Normal affect; normal thought process; cooperative, no depression, no anxiety. Results - Labs Laboratory Last Values WBC 37.6 X10^3/uL (4.5-11.0) H* 01/15/20 15:00 RBC 3.92 X10^6/uL (4.0-5.2) L 01/15/20 15:00 Hgb 12.5 g/dL (12.0-16.0) 01/15/20 15:00 Hct 38.3 % (36-46) 01/15/20 15:00 MCV 97.7 fL (80-100) 01/15/20 15:00 MCH 31.8 PG (26-34) 01/15/20 15:00 MCHC 32.6 % (30-36) 01/15/20 15:00 RDW 15.1 % (11.6-14.8) H 01/15/20 15:00 Plt Count 282 X10^3/uL (150-400) 01/15/20 15:00 Neut % (Auto) Not Reportable 01/15/20 15:00 Lymph % (Auto) Not Reportable 01/15/20 15:00 [place] % (Auto) Not Reportable 01/15/20 15:00 Eos % (Auto) Not Reportable 01/15/20 15:00 Baso % (Auto) Not Reportable 01/15/20 15:00 Neut # (Auto) 5100 /uL (3598-4600) 01/08/20 09:40 Lymph # (Auto) Not Reportable 01/15/20 15:00 [place] # (Auto) Not Reportable 01/15/20 15:00 Eos # (Auto) 200 /uL (0-450) 01/08/20 09:40 Baso # (Auto) Not Reportable 01/15/20 15:00 Total Counted 100 01/15/20 15:00 Seg Neutrophils % 68.0 % (38-70) 01/15/20 15:00 Band Neutrophils % 14.0 % (3-7) H 01/15/20 15:00 Atypical Lymphs % 6.0 % (-0) H 12/18/19 14:45 Lymphocytes % (Manual) 8.0 % (25-45) L 01/15/20 15:00 Eosinophils % (Manual) 1.0 % (2-4) L 11/20/19 14:30 Monocytes % (Manual) 9.0 % (2-11) 01/15/20 15:00 Metamyelocytes % 2.0 % (-0) H 11/20/19 14:30 Basophils % (Manual) 1.0 % (0-1) 01/15/20 15:00 Neutrophils # (Manual) 44815 /uL (2268-3150) H 01/15/20 15:00 Nucleated RBCs 1 #/Diff (-0) H 01/15/20 15:00 RBC Morphology Not Reportable 01/15/20 15:00 Polychromasia 1+ H 01/15/20 15:00 Anisocytosis 1+ H 01/15/20 15:00 Sodium 134 mmol/L (137-145) L 01/15/20 15:00 Potassium 3.9 mmol/L (3.4-5.1) 01/15/20 15:00 Chloride 102 mmol/L (98-107) 01/15/20 15:00 Carbon Dioxide 26 mmol/L (22-32) 01/15/20 15:00 BUN 17 mg/dL (7-17) 01/15/20 15:00 Creatinine 0.62 mg/dL (0.52-1.04) 01/15/20 15:00 Estimated GFR > 60.0 mL/min (>60) 01/15/20 15:00 BUN/Creatinine Ratio 27.4 (6-22) H 01/15/20 15:00 Glucose 146 mg/dL (80-110) H 01/15/20 15:00 Calcium 8.9 mg/dL (8.4-10.2) 01/15/20 15:00 Magnesium 1.9 mg/dL (1.6-2.3) 03/20/19 14:50 Total Bilirubin 0.2 mg/dL (0.2-1.3) 01/15/20 15:00 AST 66 IU/L (14-36) H 01/15/20 15:00 ALT 39 IU/L (<35) H 01/15/20 15:00 Alkaline Phosphatase 418 U/L (38-126) H D 01/15/20 15:00 Lactate Dehydrogenase 438 U/L (313-618) 09/03/19 16:00 Total Protein 7.2 g/dL (6.3-8.2) 01/15/20 15:00 Albumin 3.7 g/dL (3.5-5.0) 01/15/20 15:00 Globulin 3.5 g/dL (1.7-4.1) 01/15/20 15:00 Albumin/Globulin Ratio 1.1 (1.0-2.8) 01/15/20 15:00 CA 125 Antigen 875 U/mL (0-35) H 01/26/20 16:30 Assessment and Plan (1) Ovarian cancer, BRCA2 positive Overview: Medina 60-year-old female, BRCA2 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 Since then, she has undergone multiple surgeries as well as multiple cycles of chemotherapy due to multiple recurrences. The most recent recurrence happened in July 2018. She has been followed at [facility] and was started on olaparib 300 mg twice daily. On 11/13/2019, due to disease progression, ol aparib was stopped and she was started on Carboplatin AUC [address] Beavers at [facility]. Assessment: Patient underwent CT abdomen and pelvis on 01/21/2020. It showed interval development of rectal wall thickening and increase in bladder wall thickening, question extraluminal fluid and air outside the rectosigmoid region, possibly representing interloop abscess or necrotic neoplasm. A repeat pelvic CT with IV and rectal contrast was recommended. Plan: Ok to proceed to C4D1 carboplatin AUC [address] pelvis with iv and rectal contrast RTC in 4 weeks for next cycle Carbo, labs per protocol (2) Pain and swelling of right lower extremity Overview: Acute onset of right thigh swelling, mild pain, and numbness since 01/04/2020. No shortness of breath and no chest pain. Doppler study on 01/08/2020 showed a small amount of nonocclusive thrombus at the confluence of the greater saphenous vein and common femoral vein, without additional findings of deep venous thrombosis. Prominent lymph nodes are noted within the groin and the common femoral vein. She was started on Eliquis 10 mg twice daily for 7 days with plan to switch to 5 mg twice daily. Assessment: During her previous visit, I referred the patient to physical therapy for evaluation and treatment of right lower extremity lymphedema. Unfortunately, due to current coronavirus pandemic, the physical therapy department is currently closed. Patient herself is doing physical therapy by watching YouTube instructions. Patient said that the right lower extremity lymphedema seems to be slightly improving. I encouraged her continue Plan: Continue Eliquis 5 mg bid Hydrocodone/Acet 5/325, 1# q6h prn, 60# written. (3) Port-A-Cath in place Flush every 4-6 weeks
[2020-02-05 09:26] LABS: Add Manual Diff / Slide Review NO; Basophils Absolute Auto 100 /uL (0-100); Basophils Percent Auto 0.9 % (0-2); Eosinophils Absolute Auto 200 /uL (0-450); Eosinophils Percent Auto 1.7 % (2-4); Hematocrit 39.5 % (36-46); Hemoglobin 13.5 g/dL (12.0-16.0); Lymphocytes Absolute Auto 2100 /uL (1100-4500); Lymphocytes Percent Auto 21.9 % (25-40); Mean Corpuscular HGB Conc 34.3 % (30-36); Mean Corpuscular Hemoglobin 32.8 PG (26-34); Mean Corpuscular Volume 95.6 fL (80-100); Monocytes Absolute Auto 1100 /uL (0-900); Monocytes Percent Auto 11.9 % (3-14); Neutrophils Absolute Auto 5900 /uL (1500-7000); Neutrophils Percent Auto 63.6 % (50-75); Platelet Count 385 X10^3/uL (150-400); Red Blood Cell Count 4.13 X10^6/uL (4.0-5.2); Red Cell Distribution Width 14.2 % (11.6-14.8); White Blood Cell Count 9.3 X10^3/uL (4.5-11.0)
[2020-02-05 09:31] LABS: Alanine Aminotransferase 21 IU/L (<35); Albumin 3.7 g/dL (3.5-5.0); Alkaline Phosphatase 235 U/L (38-126); Aspartate Aminotransferase 58 IU/L (14-36); BUN Creatinine Ratio 21.4 (6-22); Bilirubin Total 0.4 mg/dL (0.2-1.3); Blood Urea Nitrogen 15 mg/dL (7-17); Calcium 9.3 mg/dL (8.4-10.2); Carbon Dioxide 27 mmol/L (22-32); Chloride 102 mmol/L (98-107); Estimated Glomerular Filt Rate > 60.0 mL/min (>60); Globulin 3.8 g/dL (1.7-4.1); Glucose 102 mg/dL (80-110); HEMOLYSIS < 15 (0-50); Potassium 3.9 mmol/L (3.4-5.1); Sodium 135 mmol/L (137-145); Total Protein 7.5 g/dL (6.3-8.2)
[2020-02-05] MEDS: LORazepam 0.5 MG TABLET PO (10:44)
[2020-02-05 10:46] LABS: Cancer Antigen 125 1300 U/mL (0-35)
[2020-02-05] MEDS: SODIUM CHLORIDE 0.9% 100 ML 21 ML IV (10:47)
[2020-02-05] MEDS: ONDANSETRON 16 MG in SODIUM CHLORIDE 0.9% 50 ML 232 ML IV (11:09)
[2020-02-05] MEDS: FOSAPREPITANT 150 MG in SODIUM CHLORIDE 0.9% 150 ML 300 ML IV (11:40)
[2020-02-05] MEDS: SODIUM CHLORIDE 0.9% IV (12:23)
[2020-02-05] MEDS: CARBOPLATIN IV (12:23)
--- NOTE | 2020-02-10 16:00 | PC.NURSE ---
Pt called triage line today c/o 04/23 left lower extremity pain and edema r/t lymph edema. Pt reported they are unable to be up standing for more than a couple of minutes. Pt is using light compression, massage, and elevation as well as hydrocodone for pain relief. Dr. Chanel was notified of symptoms, and added Left upper leg CT- to her current pelvic CT order this week. Pt was notified of new orders. This nurse encouraged pt to call if anything changes r/t leg pain and edema. Pt verbalized agreement.
[2020-02-12 11:44] LABS: Add Manual Diff / Slide Review NO; Basophils Absolute Auto 100 /uL (0-100); Basophils Percent Auto 0.8 % (0-2); Eosinophils Absolute Auto 100 /uL (0-450); Hematocrit 37.4 % (36-46); Hemoglobin 12.7 g/dL (12.0-16.0); Lymphocytes Absolute Auto 1700 /uL (1100-4500); Lymphocytes Percent Auto 21.7 % (25-40); Mean Corpuscular HGB Conc 33.9 % (30-36); Mean Corpuscular Hemoglobin 31.8 PG (26-34); Mean Corpuscular Volume 93.9 fL (80-100); Monocytes Absolute Auto 1200 /uL (0-900); Monocytes Percent Auto 14.8 % (3-14); Neutrophils Absolute Auto 4900 /uL (1500-7000); Neutrophils Percent Auto 61.7 % (50-75); Platelet Count 372 X10^3/uL (150-400); Red Blood Cell Count 3.99 X10^6/uL (4.0-5.2); Red Cell Distribution Width 13.8 % (11.6-14.8); White Blood Cell Count 7.9 X10^3/uL (4.5-11.0)
[2020-02-12 11:56] LABS: Alanine Aminotransferase 23 IU/L (<35); Albumin 3.6 g/dL (3.5-5.0); Albumin Globulin Ratio 1.1 (1.0-2.8); Alkaline Phosphatase 213 U/L (38-126); Aspartate Aminotransferase 50 IU/L (14-36); BUN Creatinine Ratio 35.6 (6-22); Bilirubin Total 0.3 mg/dL (0.2-1.3); Blood Urea Nitrogen 21 mg/dL (7-17); Calcium 8.8 mg/dL (8.4-10.2); Carbon Dioxide 26 mmol/L (22-32); Chloride 102 mmol/L (98-107); Estimated Glomerular Filt Rate > 60.0 mL/min (>60); Globulin 3.4 g/dL (1.7-4.1); Glucose 122 mg/dL (80-110); HEMOLYSIS < 15 (0-50); Sodium 134 mmol/L (137-145)
--- NOTE | 2020-02-17 12:25 | P.PNONC_ITS ---
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 She lives in [place] for 6 months during the summer, and in [place] for 6 months during the winter. She is been followed here as well as in [facility] in [place]. Oncology History: Her ovarian cancer history is summarized from [facility] medical records as follows: 12/2012: initial diagnosis, CA 125 2000 and peritoneal nodularity 12/2012: surgery: Laparoscopic RSO, omentectomy, and peritoneal biopsy. 01/04/2013-02/13/2013: Carbo/Taxol x2 02/25/2013: Optimal tumor reductive surgery. 02/2013-05/2013: carbo/Taxol x 4 and avastin added for last 3 cycles 06/2013-06/16/2014: Avastin maintenance 10/2014: Rising CA 125 to 522 and bloating 11/18/2014: [facility] initial visit 12/2014-03/2015: Carbo/Taxol x 6 with some minimal persistent disease 01/19/2017: new liver mets and chest adenopathy on CT scan and elevated CA 125 to 2914. 01/23/2017: Exploratory laparotomy, ALEAH, and diverting loop transverse colostomy for large bowel obstruction. 02/02/2017-09/28/2017: Single agent carboplatin 10/26/2017-07/25/2018: post 9 cycles of Carboplatin with TATUM on imaging and negative CA-125. 07/26/2018: BRCA testing turned out to be positive 07/31/2018: Relapse/recurrence: Feels small hypoattenuating foci in the liver and interval development of bilateral iliac multi compartmental lymphadenopathy with rising CA 125. 08/02/2018-12/13/2018: Carboplatin x 5 cycles 01/16/2019: CT showed minimal evidence of increasing pelvic lymph nodes. 01/2019 - 11/13/2019, Olaparib 300 mg po bid On August 01, 2019, want a was evaluated by Dr. Nicolas Ewing at [facility] in [place]. Repeat CT of chest abdomen and pelvis showed new peritoneal implants involving the vaginal cuff and rectosigmoid colon. It showed stable prominent retroperitoneal and pelvic metastatic lymph nodes. Dr. Ewing discussed the results in detail with the patient. Dr. Ewing recommended continued current olaparib treatment. October 30, 2019 CT chest abdomen pelvis with contrast was performed at [facility]. The results showed slightly increased peritoneal implants and slightly increased pelvic metastatic lymphadenopathy. MD Dmitriy Beavers recommended stop PARP inhibitor, and initiate carboplatin AUC 5 IV over 60 minutes every 28 days for 3 cycles followed by a treatment planning visit at [facility]. On 11/14/2019, she received C1# Carboplatin AUC 5. She has tolerated well except fatigue on day 3 to day 5. No nausea no vomiting. No fever and no chills. No abdominal pain. No diarrhea and no constipation. She is planning to leave on Sun to and plan for 2 weeks of vacation. On 01/04/2020, while she was hiking, she noted right thigh swelling and mild tenderness. In addition patient also noticed mild numbness of the lateral aspect of the right thigh. Stat lower extremity ultrasound showed a small amount of non occlusive thrombus at the confluence of the greater saphenous vein and common femoral vein, without additional findings of deep venous thrombosis. In addition prominent lymph nodes were noted. Patient was therefore started on Eliquis 10 mg twice daily with plan to switch to 5 mg twice daily after 5 days. Interim Events: Patient presents here today to review of the CT of the lower extremity and pelvic CT results. Patient said that apart from the right thigh swelling with exquisite pain at the lateral aspect, she has been feeling quite well. Especially she denies any fever or chills. She denies any fatigue. She denies any abdominal pain diarrhea or constipation. CT of the lower extremity was obtained on 02/12/2020. It showed asymmetric enlargement of the right thigh with suggestion of extensive right-sided cellulitis. No discrete drainable abscess collection was seen. Small amount of fluid along anterior medial right upper to mid thigh muscles noted. No evidence of intramuscular mass or fluid collection. No fracture or dislocation. No suspicious intra [place] lesion. Right hip joint showed osteoarthritis. No evidence of avascular necrosis. Same day CT of the pelvis showed interval decrease in size of previously described extraluminal fluid collection situated between the rectum and urinary bladder with adjacent rectosigmoid colon wall thickening and bladder wall thickening, concerning for abscess collection in this area. This collection now measured 2.3 x 1.9 cm in size compared to 2.8 x 2.8 cm in size on previous study. No peritoneal fluid collection or free air. Sub cm bilateral lymph nodes in the groins noted prominent on the right side. - Patient Self-Reported Symptoms SR Constitution: Fatigue/Malaise SR respiratory issues: Cough SR Cardiovascular issues: Extreme swelling SR Genitourinary issues: Change in stream - Additional ROS All systems PM: reviewed and no additional remarkable complaints except as stated (Those mentioned in HIstory of Present Illness, Interval History and Patient Self-Reported Symptoms.) Home Medications and Allergies Home Medications Medication Instructions Recorded Confirmed Type multivitamin [Multiple Vitamins] 1 tab PO DAILY #0 05/16/17 02/17/20 History turmeric 1 dose PO DAILY #0 05/16/17 02/17/20 History olaparib 300 mg PO BID 04/10/19 02/17/20 History fluoxetine 20 mg capsule 20 mg PO DAILY #90 cap 10/21/19 02/17/20 Rx dexamethasone 4 mg PO DAILY #10 tab 11/24/19 02/17/20 Rx sennosides-docusate sodium 1 tab-cap PO BEDTIME 01/08/20 02/17/20 History [Senokot-S] apixaban [Eliquis] 5 mg PO BID 01/15/20 02/17/20 History hydrocodone-acetaminophen 1 tab PO Q6H PRN #60 tab 02/05/20 02/17/20 Rx zolpidem [Ambien] 5 mg PO BEDTIME PRN #30 tab 02/05/20 02/17/20 Rx cephalexin 500 mg PO QID #30 tab 02/17/20 Rx Allergies Allergy/AdvReac Type Severity Reaction Status Date / Time No Known Drug Allergies Allergy Verified 09/23/19 09:45 Exam Vital signs: 02/17/20 13:23 Last Vital Signs Temp 96.6 F L 02/17/20 12:47 Pulse 83 02/17/20 12:47 Resp 16 02/17/20 12:47 BP 121/76 02/17/20 12:47 Pulse Ox 98 02/17/20 12:47 Narrative: ECOG 1 Gen: WDWN, NAD, pleasant and cooperative. HEENT: NCAT, EOMI, PERRLA, anicteric sclera. Neck: Supple, No palpable thyromegaly or lymphadenopathy. Respiratory: CTAB, no wheezes audible. No JVD Cardiovascular: RRR, S1 and S2 normal, no M/G/R. Abdomen: Soft, NTND, BS normal, no palpable organomegaly. Right colostomy noted. Extremities: Right thigh significantly swollen and bigger compared to the left side. Very mild tinge of erythema without distinct margins noted compared to the left upper thigh. No fluid collection palpable. Significant tenderness noted at the midpoint lateral side of the right thigh. Lymphatic: no palpable lymph nodes in the neck, axillae, or groins. Neurological: AOx3, CN II-XII grossly intact. No focal motor or sensory deficit. Psychiatric: Normal affect; normal thought process; cooperative, no depression, no anxiety. Results - Labs Laboratory Last Values WBC 7.9 X10^3/uL (4.5-11.0) 02/12/20 11:35 RBC 3.99 X10^6/uL (4.0-5.2) L 02/12/20 11:35 Hgb 12.7 g/dL (12.0-16.0) 02/12/20 11:35 Hct 37.4 % (36-46) 02/12/20 11:35 MCV 93.9 fL (80-100) 02/12/20 11:35 MCH 31.8 PG (26-34) 02/12/20 11:35 MCHC 33.9 % (30-36) 02/12/20 11:35 RDW 13.8 % (11.6-14.8) 02/12/20 11:35 Plt Count 372 X10^3/uL (150-400) 02/12/20 11:35 Neut % (Auto) 61.7 % (50-75) 02/12/20 11:35 Lymph % (Auto) 21.7 % (25-40) L 02/12/20 11:35 [place] % (Auto) 14.8 % (3-14) H 02/12/20 11:35 Eos % (Auto) 1.0 % (2-4) L 02/12/20 11:35 Baso % (Auto) 0.8 % (0-2) 02/12/20 11:35 Neut # (Auto) 4900 /uL (6174-1827) 02/12/20 11:35 Lymph # (Auto) 1700 /uL (2322-7901) 02/12/20 11:35 [place] # (Auto) 1200 /uL (0-900) H 02/12/20 11:35 Eos # (Auto) 100 /uL (0-450) 02/12/20 11:35 Baso # (Auto) 100 /uL (0-100) 02/12/20 11:35 Total Counted 100 01/15/20 15:00 Seg Neutrophils % 68.0 % (38-70) 01/15/20 15:00 Band Neutrophils % 14.0 % (3-7) H 01/15/20 15:00 Atypical Lymphs % 6.0 % (-0) H 12/18/19 14:45 Lymphocytes % (Manual) 8.0 % (25-45) L 01/15/20 15:00 Eosinophils % (Manual) 1.0 % (2-4) L 11/20/19 14:30 Monocytes % (Manual) 9.0 % (2-11) 01/15/20 15:00 Metamyelocytes % 2.0 % (-0) H 11/20/19 14:30 Basophils % (Manual) 1.0 % (0-1) 01/15/20 15:00 Neutrophils # (Manual) 13518 /uL (8351-1743) H 01/15/20 15:00 Nucleated RBCs 1 #/Diff (-0) H 01/15/20 15:00 RBC Morphology Not Reportable 01/15/20 15:00 Polychromasia 1+ H 01/15/20 15:00 Anisocytosis 1+ H 01/15/20 15:00 Sodium 134 mmol/L (137-145) L 02/12/20 11:35 Potassium 4.0 mmol/L (3.4-5.1) 02/12/20 11:35 Chloride 102 mmol/L (98-107) 02/12/20 11:35 Carbon Dioxide 26 mmol/L (22-32) 02/12/20 11:35 BUN 21 mg/dL (7-17) H 02/12/20 11:35 Creatinine 0.59 mg/dL (0.52-1.04) 02/12/20 11:35 Estimated GFR > 60.0 mL/min (>60) 02/12/20 11:35 BUN/Creatinine Ratio 35.6 (6-22) H 02/12/20 11:35 Glucose 122 mg/dL (80-110) H 02/12/20 11:35 Calcium 8.8 mg/dL (8.4-10.2) 02/12/20 11:35 Magnesium 1.9 mg/dL (1.6-2.3) 03/20/19 14:50 Total Bilirubin 0.3 mg/dL (0.2-1.3) 02/12/20 11:35 AST 50 IU/L (14-36) H 02/12/20 11:35 ALT 23 IU/L (<35) 02/12/20 11:35 Alkaline Phosphatase 213 U/L (38-126) H 02/12/20 11:35 Lactate Dehydrogenase 438 U/L (313-618) 09/03/19 16:00 Total Protein 7.0 g/dL (6.3-8.2) 02/12/20 11:35 Albumin 3.6 g/dL (3.5-5.0) 02/12/20 11:35 Globulin 3.4 g/dL (1.7-4.1) 02/12/20 11:35 Albumin/Globulin Ratio 1.1 (1.0-2.8) 02/12/20 11:35 CA 125 Antigen 1300 U/mL (0-35) H 02/05/20 09:10 Assessment and Plan (1) Ovarian cancer, BRCA2 positive Overview: Medina 60-year-old female, BRCA2 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 Since then, she has undergone multiple surgeries as well as multiple cycles of chemotherapy due to multiple recurrences. The most recent recurrence happened in July 2018. She has been followed at [facility] and was started on olaparib 300 mg twice daily. On 11/13/2019, due to disease progression, olaparib was stopped and she was started on Carboplatin AUC [address] Beavers at [facility]. Assessment: Patient underwent CT abdomen and pelvis on 01/21/2020. It showed interval development of rectal wall thickening and increase in bladder wall thickening, question extraluminal fluid and air outside the rectosigmoid region, possibly representing interloop abscess or necrotic neoplasm. The repeat CT of the pelvis showed that the fluid collection has decreased in size. Clinically patient does not have apparent sepsis presentation. For now I am going to continue observe closely. Plan: RTC on C5D1, labs per protocol (2) Pain and swelling of right lower extremity Overview: Acute onset of right thigh swelling, mild pain, and numbness since 01/04/2020. No shortness of breath and no chest pain. Doppler study on 01/08/2020 showed a small amount of nonocclusive thrombus at the confluence of the greater saphenous vein and common femoral vein, without additional findings of deep venous thrombosis. Prominent lymph nodes are noted within the groin and the common femoral vein. She was started on Eliquis 10 mg twice daily for 7 days with plan to switch to 5 mg twice daily. Assessment: I reviewed the right upper thigh CT scan results with the patient. It suggests possible cellulitis. But no distinct fluid collection. I talked with her that it is on atypical cellulitis given the fact that she did not have fatigue, fever, chills, weight loss, or night sweats etc.. In addition on physical examination there is no warmth, and no significant erythema. Nevertheless, I will try cephalexin 500 mg 4 times a day for 7 days and see if it can help with the swelling and pain. I will see the patient in 1 week. Plan: Continue Eliquis 5 mg bid Cephalexin 500 mg qid x 7 days Hydrocodone/Acet 5/325, 1# q6h prn, 60# written. RTC in one week for follow up visit. (3) Port-A-Cath in place Flush every 4-6 weeks
[2020-02-17 12:47] VITALS: BP 121/76; PULSE 83; RESP 16; TEMP 35.9; O2SAT 98
--- NOTE | 2020-02-23 09:00 | PC.NURSE ---
RIGHT LEG SWELLING: PATIENT CALLED STATING THAT SHE DOES NOT SEE ANY IMPROVEMENT SINCE TAKING THE CEPHALEXIN. PER DR CÁRDENAS SHE WAS INFORMED THAT SHE SHOULD TAKE THE CEPHALEXIN TO THE END AND THEN TRY AUGMENTIN FOR WHICH RX WAS SENT TO [facility]. SCHEDULING WILL BE CALLING HER TO SET UP AN MRI APPT. SCHEDULING INFORMED.
--- NOTE | 2020-02-24 12:30 | ONC.PN ---
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 She lives in [place] for 6 months during the summer, and in [place] for 6 months during the winter. She is been followed here as well as in [facility] in [place]. Oncology History: Her ovarian cancer history is summarized from [facility] medical records as follows: 12/2012: initial diagnosis, CA 125 2000 and peritoneal nodularity 12/2012: surgery: Laparoscopic RSO, omentectomy, and peritoneal biopsy. 01/04/2013-02/13/2013: Carbo/Taxol x2 02/25/2013: Optimal tumor reductive surgery. 02/2013-05/2013: carbo/Taxol x 4 and avastin added for last 3 cycles 06/2013-06/16/2014: Avastin maintenance 10/2014: Rising CA 125 to 522 and bloating 11/18/2014: [facility] initial visit 12/2014-03/2015: Carbo/Taxol x 6 with some minimal persistent disease 01/19/2017: new liver mets and chest adenopathy on CT scan and elevated CA 125 to 2914. 01/23/2017: Exploratory laparotomy, ALEAH, and diverting loop transverse colostomy for large bowel obstruction. 02/02/2017-09/28/2017: Single agent carboplatin 10/26/2017-07/25/2018: post 9 cycles of Carboplatin with TATUM on imaging and negative CA-125. 07/26/2018: BRCA testing turned out to be positive 07/31/2018: Relapse/recurrence: Feels small hypoattenuating foci in the liver and interval development of bilateral iliac multi compartmental lymphadenopathy with rising CA 125. 08/02/2018-12/13/2018: Carboplatin x 5 cycles 01/16/2019: CT showed minimal evidence of increasing pelvic lymph nodes. 01/2019 - 11/13/2019, Olaparib 300 mg po bid On August 01, 2019, want a was evaluated by Dr. Nicolas Ewing at [facility] in [place]. Repeat CT of chest abdomen and pelvis showed new peritoneal implants involving the vaginal cuff and rectosigmoid colon. It showed stable prominent retroperitoneal and pelvic metastatic lymph nodes. Dr. Ewing discussed the results in detail with the patient. Dr. Ewing recommended continued current olaparib treatment. October 30, 2019 CT chest abdomen pelvis with contrast was performed at [facility]. The results showed slightly increased peritoneal implants and slightly increased pelvic metastatic lymphadenopathy. MD Dmitriy Beavers recommended stop PARP inhibitor, and initiate carboplatin AUC 5 IV over 60 minutes every 28 days for 3 cycles followed by a treatment planning visit at [facility]. On 11/14/2019, she received C1# Carboplatin AUC 5. She has tolerated well except fatigue on day 3 to day 5. No nausea no vomiting. No fever and no chills. No abdominal pain. No diarrhea and no constipation. She is planning to leave on Sun to and plan for 2 weeks of vacation. On 01/04/2020, while she was hiking, she noted right thigh swelling and mild tenderness. In addition patient also noticed mild numbness of the lateral aspect of the right thigh. Stat lower extremity ultrasound showed a small amount of non occlusive thrombus at the confluence of the greater saphenous vein and common femoral vein, without additional findings of deep venous thrombosis. In addition prominent lymph nodes were noted. Patient was therefore started on Eliquis 10 mg twice daily with plan to switch to 5 mg twice daily after [address] of the lower extremity was obtained on 02/12/2020. It showed asymmetric enlargement of the right thigh with suggestion of extensive right-sided cellulitis. No discrete drainable abscess collection was seen. Small amount of fluid along anterior medial right upper to mid thigh muscles noted. No evidence of intramuscular mass or fluid collection. No fracture or dislocation. No suspicious intra Halbur lesion. Right hip joint showed osteoarthritis. No evidence of avascular necrosis. Same day CT of the pelvis showed interval decrease in size of previously described extraluminal fluid collection situated between the rectum and urinary bladder with adjacent rectosigmoid colon wall thickening and bladder wall thickening, concerning for abscess collection in this area. This collection now measured 2.3 x 1.9 cm in size compared to 2.8 x 2.8 cm in size on previous study. No peritoneal fluid collection or free air. Sub cm bilateral lymph nodes in the groins noted prominent on the right side. Interim Events: Yesterday, patient called reporting excruciating right thigh pain. Other than that patient said she actually has felt pretty okay. Due to the pain, we obtained MRI of the right thigh. The scan showed significant cellulitis involving the right thigh with underlying myositis involving anterior right upper to mid thigh muscles. No discrete drainable abscess collection. No gross soft tissue mass is noted. No underlying marrow signal abnormality. No fracture or dislocation. No suspicious bone lesion. Patient came here today to review the results. Clinically, as mentioned above, the pain is the only symptom that the patient is now complaining. No fever, and no chills. No nausea and no vomiting. She does report hematuira for the last couple of days. - Patient Self-Reported Symptoms SR Constitution: Fatigue/Malaise SR respiratory issues: Cough SR Cardiovascular issues: Extreme swelling SR Genitourinary issues: Change in stream - Additional ROS All systems PM: reviewed and no additional remarkable complaints except as stated Home Medications and Allergies Home Medications Medication Instructions Recorded Confirmed Type multivitamin [Multiple Vitamins] 1 tab PO DAILY #0 05/16/17 02/17/20 History turmeric 1 dose PO DAILY #0 05/16/17 02/17/20 History olaparib 300 mg PO BID 04/10/19 02/17/20 History fluoxetine 20 mg capsule 20 mg PO DAILY #90 cap 10/21/19 02/17/20 Rx dexamethasone 4 mg PO DAILY #10 tab 11/24/19 02/17/20 Rx sennosides-docusate sodium 1 tab-cap PO BEDTIME 01/08/20 02/17/20 History [Senokot-S] apixaban [Eliquis] 5 mg PO BID 01/15/20 02/17/20 History hydrocodone-acetaminophen 1 tab PO Q6H PRN #60 tab 02/05/20 02/17/20 Rx zolpidem [Ambien] 5 mg PO BEDTIME PRN #30 tab 02/05/20 02/17/20 Rx cephalexin 500 mg PO QID #30 tab 02/17/20 Rx amoxicillin-pot clavulanate 1 tab PO Q12H #14 tab 02/23/20 Rx [Augmentin] Allergies Allergy/AdvReac Type Severity Reaction Status Date / Time No Known Drug Allergies Allergy Verified 09/23/19 09:45 Exam Vital signs: 02/24/20 12:53 Last Vital Signs Temp 96.6 F L 02/17/20 12:47 Pulse 83 02/17/20 12:47 Resp 16 02/17/20 12:47 BP 121/76 02/17/20 12:47 Pulse Ox 98 02/17/20 12:47 Narrative: ECOG 1 Gen: WDWN, NAD, pleasant and cooperative. HEENT: NCAT, EOMI, PERRLA, anicteric sclera. Neck: Supple, No palpable thyromegaly or lymphadenopathy. Respiratory: CTAB, no wheezes audible. No JVD Cardiovascular: RRR, S1 and S2 normal, no M/G/R. Abdomen: Soft, NTND, BS normal, no palpable organomegaly. Right colostomy noted. Extremities: Right thigh significantly swollen and bigger compared to the left side. Very mild tinge of erythema without distinct margins noted compared to the left upper thigh. No fluid collection palpable. Significant tenderness noted at the midpoint lateral side of the right thigh. Lymphatic: no palpable lymph nodes in the neck, axillae, or groins. Neurological: AOx3, CN II-XII grossly intact. No focal motor or sensory deficit. Psychiatric: Normal affect; normal thought process; cooperative, no depression, no anxiety. Results - Labs Laboratory Last Values WBC 7.9 X10^3/uL (4.5-11.0) 02/12/20 11:35 RBC 3.99 X10^6/uL (4.0-5.2) L 02/12/20 11:35 Hgb 12.7 g/dL (12.0-16.0) 02/12/20 11:35 Hct 37.4 % (36-46) 02/12/20 11:35 MCV 93.9 fL (80-100) 02/12/20 11:35 MCH 31.8 PG (26-34) 02/12/20 11:35 MCHC 33.9 % (30-36) 02/12/20 11:35 RDW 13.8 % (11.6-14.8) 02/12/20 11:35 Plt Count 372 X10^3/uL (150-400) 02/12/20 11:35 Neut % (Auto) 61.7 % (50-75) 02/12/20 11:35 Lymph % (Auto) 21.7 % (25-40) L 02/12/20 11:35 Grayson % (Auto) 14.8 % (3-14) H 02/12/20 11:35 Eos % (Auto) 1.0 % (2-4) L 02/12/20 11:35 Baso % (Auto) 0.8 % (0-2) 02/12/20 11:35 Neut # (Auto) 4900 /uL (7179-5201) 02/12/20 11:35 Lymph # (Auto) 1700 /uL (8328-1802) 02/12/20 11:35 Grayson # (Auto) 1200 /uL (0-900) H 02/12/20 11:35 Eos # (Auto) 100 /uL (0-450) 02/12/20 11:35 Baso # (Auto) 100 /uL (0-100) 02/12/20 11:35 Total Counted 100 01/15/20 15:00 Seg Neutrophils % 68.0 % (38-70) 01/15/20 15:00 Band Neutrophils % 14.0 % (3-7) H 01/15/20 15:00 Atypical Lymphs % 6.0 % (-0) H 12/18/19 14:45 Lymphocytes % (Manual) 8.0 % (25-45) L 01/15/20 15:00 Eosinophils % (Manual) 1.0 % (2-4) L 11/20/19 14:30 Monocytes % (Manual) 9.0 % (2-11) 01/15/20 15:00 Metamyelocytes % 2.0 % (-0) H 11/20/19 14:30 Basophils % (Manual) 1.0 % (0-1) 01/15/20 15:00 Neutrophils # (Manual) 34951 /uL (1041-6382) H 01/15/20 15:00 Nucleated RBCs 1 #/Diff (-0) H 01/15/20 15:00 RBC Morphology Not Reportable 01/15/20 15:00 Polychromasia 1+ H 01/15/20 15:00 Anisocytosis 1+ H 01/15/20 15:00 Sodium 134 mmol/L (137-145) L 02/12/20 11:35 Potassium 4.0 mmol/L (3.4-5.1) 02/12/20 11:35 Chloride 102 mmol/L (98-107) 02/12/20 11:35 Carbon Dioxide 26 mmol/L (22-32) 02/12/20 11:35 BUN 21 mg/dL (7-17) H 02/12/20 11:35 Creatinine 0.59 mg/dL (0.52-1.04) 02/12/20 11:35 Estimated GFR > 60.0 mL/min (>60) 02/12/20 11:35 BUN/Creatinine Ratio 35.6 (6-22) H 02/12/20 11:35 Glucose 122 mg/dL (80-110) H 02/12/20 11:35 Calcium 8.8 mg/dL (8.4-10.2) 02/12/20 11:35 Magnesium 1.9 mg/dL (1.6-2.3) 03/20/19 14:50 Total Bilirubin 0.3 mg/dL (0.2-1.3) 02/12/20 11:35 AST 50 IU/L (14-36) H 02/12/20 11:35 ALT 23 IU/L (<35) 02/12/20 11:35 Alkaline Phosphatase 213 U/L (38-126) H 02/12/20 11:35 Lactate Dehydrogenase 438 U/L (313-618) 09/03/19 16:00 Total Protein 7.0 g/dL (6.3-8.2) 02/12/20 11:35 Albumin 3.6 g/dL (3.5-5.0) 02/12/20 11:35 Globulin 3.4 g/dL (1.7-4.1) 02/12/20 11:35 Albumin/Globulin Ratio 1.1 (1.0-2.8) 02/12/20 11:35 CA 125 Antigen 1300 U/mL (0-35) H 02/05/20 09:10 Assessment and Plan (1) Pain and swelling of right lower extremity Overview: Acute onset of right thigh swelling, mild pain, and numbness since 01/04/2020. No shortness of breath and no chest pain. Doppler study on 01/08/2020 showed a small amount of nonocclusive thrombus at the confluence of the greater saphenous vein and common femoral vein, without additional findings of deep venous thrombosis. Prominent lymph nodes are noted within the groin and the common femoral vein. She was started on Eliquis 10 mg twice daily for 7 days with plan to switch to 5 mg twice daily. Assessment: Today I reviewed the MRI results with the patient. The scan showed significant cellulitis involving the right thigh with underlying myositis involving anterior right upper to mid thigh muscles. No discrete drainable abscess collection. No gross soft tissue mass is noted. No underlying marrow signal abnormality. No fracture or dislocation. No suspicious bone lesion. I recommended that patient be evaluated at the emergency room. I called the ER and talked with on-call physician Jerome Sam and gave a brief summary and reason for ER visit. Plan: Continue Eliquis 5 mg bid Continue Augmentin Hydrocodone/Acet 5/325, 1# q6h prn, 60# written. Referr to ER for evaluation of possible compartmental syndrome. (2) Ovarian cancer, BRCA2 positive Overview: Medina 60-year-old female, BRCA2 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 Since then, she has undergone multiple surgeries as well as multiple cycles of chemotherapy due to multiple recurrences. The most recent recurrence happened in July 2018. She has been followed at [facility] and was started on olaparib 300 mg twice daily. On 11/13/2019, due to disease progression, olaparib was stopped and she was started on Carboplatin AUC [address] Beavers at [facility]. Assessment: Patient underwent CT abdomen and pelvis on 01/21/2020. It showed interval development of rectal wall thickening and increase in bladder wall thickening, question extraluminal fluid and air outside the rectosigmoid region, possibly representing interloop abscess or necrotic neoplasm. The repeat CT of the pelvis showed that the fluid collection has decreased in size. Clinically patient does not have apparent sepsis presentation. For now I am going to continue observe closely. Plan: RTC on C5D1, labs per protocol (3) Port-A-Cath in place Flush every 4-6 weeks
--- NOTE | 2020-02-26 14:26 | PC.NURSE ---
PATIENT CALLED BY THIS NURSE TO CHECK ON CONDITION POST HOSPITILIZATION. SHE STATES THAT SHE IS MILDLY OPTIMISTIC AND PAIN IS SOMEWHAT BETTER UNDER CONTROL AT 3 ON HYDROMORPHONE. STOOL SOMEWHAT HARDER FOR WHICH SHE IS USING SENNAKOT AND DRINKING PLENTY OF WATER. SHE IS TAKING BACTRIM. SHE WILL CALL IN ON SUNDAY AND LET THE NURSE KNOW HOW SHE IS DOING. PATIENT STATED I FEEL BETTER THAN IN RECENT MEMORY.
[2020-03-04 09:20] LABS: Add Manual Diff / Slide Review NO; Basophils Absolute Auto 100 /uL (0-100); Basophils Percent Auto 0.9 % (0-2); Eosinophils Absolute Auto 200 /uL (0-450); Eosinophils Percent Auto 2.6 % (2-4); Hematocrit 37.9 % (36-46); Hemoglobin 13.1 g/dL (12.0-16.0); Lymphocytes Absolute Auto 3500 /uL (1100-4500); Lymphocytes Percent Auto 38.5 % (25-40); Mean Corpuscular HGB Conc 34.6 % (30-36); Mean Corpuscular Hemoglobin 31.8 PG (26-34); Monocytes Absolute Auto 1300 /uL (0-900); Neutrophils Absolute Auto 3900 /uL (1500-7000); Platelet Count 336 X10^3/uL (150-400); Red Blood Cell Count 4.12 X10^6/uL (4.0-5.2); Red Cell Distribution Width 14.2 % (11.6-14.8)
[2020-03-04 09:33] LABS: Alanine Aminotransferase 20 IU/L (<35); Albumin 3.6 g/dL (3.5-5.0); Alkaline Phosphatase 202 U/L (38-126); Aspartate Aminotransferase 76 IU/L (14-36); BUN Creatinine Ratio 20.3 (6-22); Bilirubin Total 0.4 mg/dL (0.2-1.3); Blood Urea Nitrogen 16 mg/dL (7-17); Calcium 9.3 mg/dL (8.4-10.2); Carbon Dioxide 24 mmol/L (22-32); Chloride 102 mmol/L (98-107); Estimated Glomerular Filt Rate > 60.0 mL/min (>60); Globulin 3.7 g/dL (1.7-4.1); Glucose 97 mg/dL (80-110); Potassium 4.1 mmol/L (3.4-5.1); Sodium 134 mmol/L (137-145); Total Protein 7.3 g/dL (6.3-8.2)
[2020-03-04 09:40] VITALS: BP 120/75; PULSE 85; RESP 18; TEMP 36.4; O2SAT 96
--- NOTE | 2020-03-04 09:55 | P.PNONC_ITS ---
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 She lives in [place] for 6 months during the summer, and in [place] for 6 months during the winter. She is been followed here as well as in [facility] in [place]. Oncology History: Her ovarian cancer history is summarized from [facility] medical records as follows: 12/2012: initial diagnosis, CA 125 2000 and peritoneal nodularity 12/2012: surgery: Laparoscopic RSO, omentectomy, and peritoneal biopsy. 01/04/2013-02/13/2013: Carbo/Taxol x2 02/25/2013: Optimal tumor reductive surgery. 02/2013-05/2013: carbo/Taxol x 4 and avastin added for last 3 cycles 06/2013-06/16/2014: Avastin maintenance 10/2014: Rising CA 125 to 522 and bloating 11/18/2014: [facility] initial visit 12/2014-03/2015: Carbo/Taxol x 6 with some minimal persistent disease 01/19/2017: new liver mets and chest adenopathy on CT scan and elevated CA 125 to 2914. 01/23/2017: Exploratory laparotomy, ALEAH, and diverting loop transverse colostomy for large bowel obstruction. 02/02/2017-09/28/2017: Single agent carboplatin 10/26/2017-07/25/2018: post 9 cycles of Carboplatin with TATUM on imaging and negative CA-125. 07/26/2018: BRCA testing turned out to be positive 07/31/2018: Relapse/recurrence: Feels small hypoattenuating foci in the liver and interval development of bilateral iliac multi compartmental lymphadenopathy with rising CA 125. 08/02/2018-12/13/2018: Carboplatin x 5 cycles 01/16/2019: CT showed minimal evidence of increasing pelvic lymph nodes. 01/2019 - 11/13/2019, Olaparib 300 mg po bid On August 01, 2019, want a was evaluated by Dr. Nicolas Ewing at [facility] in [place]. Repeat CT of chest abdomen and pelvis showed new peritoneal implants involving the vaginal cuff and rectosigmoid colon. It showed stable prominent retroperitoneal and pelvic metastatic lymph nodes. Dr. Ewing discussed the results in detail with the patient. Dr. Ewing recommended continued current olaparib treatment. October 30, 2019 CT chest abdomen pelvis with contrast was performed at [facility]. The results showed slightly increased peritoneal implants and slightly increased pelvic metastatic lymphadenopathy. MD Dmitriy Beavers recommended stop PARP inhibitor, and initiate carboplatin AUC 5 IV over 60 minutes every 28 days for 3 cycles followed by a treatment planning visit at [facility]. On 11/14/2019, she received C1# Carboplatin AUC 5. She has tolerated well except fatigue on day 3 to day 5. No nausea no vomiting. No fever and no chills. No abdominal pain. No diarrhea and no constipation. She is planning to leave on Sun to and plan for 2 weeks of vacation. On 01/04/2020, while she was hiking, she noted right thigh swelling and mild tenderness. In addition patient also noticed mild numbness of the lateral aspect of the right thigh. Stat lower extremity ultrasound showed a small amount of non occlusive thrombus at the confluence of the greater saphenous vein and common femoral vein, without additional findings of deep venous thrombosis. In addition prominent lymph nodes were noted. Patient was therefore started on Eliquis 10 mg twice daily with plan to switch to 5 mg twice daily after [address] of the lower extremity was obtained on 02/12/2020. It showed asymmetric enlargement of the right thigh with suggestion of extensive right-sided cellulitis. No discrete drainable abscess collection was seen. Small amount of fluid along anterior medial right upper to mid thigh muscles noted. No evidence of intramuscular mass or fluid collection. No fracture or dislocation. No suspicious intra [place] lesion. Right hip joint showed osteoarthritis. No evidence of avascular necrosis. Same day CT of the pelvis showed interval decrease in size of previously described extraluminal fluid collection situated between the rectum and urinary bladder with adjacent rectosigmoid colon wall thickening and bladder wall thickening, concerning for abscess collection in this area. This collection now measured 2.3 x 1.9 cm in size compared to 2.8 x 2.8 cm in size on previous study. No peritoneal fluid collection or free air. Sub cm bilateral lymph nodes in the groins noted prominent on the right side. Interim Events: During her previous visit, she called reporting excruciating pain. Due to the pain, we obtained MRI of the right thigh. The scan showed significant cellulitis involving the right thigh with underlying myositis involving anterior right upper to mid thigh muscles. No discrete drainable abscess collection. No gross soft tissue mass is noted. No underlying marrow signal abnormality. No fr acture or dislocation. No suspicious bone lesion. Out of concern for possible compartmental syndrome, I sent the patient to emergency room. At the emergency room patient was started on Bactrim double strength. Patient said that it seems to be working slightly but not so much. She still is having lots of pain. Again she does not have any fever or chills, no nausea no vomiting. She said she is highly functional at this moment. - Patient Self-Reported Symptoms SR Constitution: Fatigue/Malaise SR respiratory issues: Cough SR Cardiovascular issues: Extreme swelling SR Genitourinary issues: Change in stream - Additional ROS All systems PM: reviewed and no additional remarkable complaints except as stated Home Medications and Allergies Home Medications Medication Instructions Recorded Confirmed Type multivitamin [Multiple Vitamins] 1 tab PO DAILY #0 05/16/17 02/24/20 History turmeric 1 dose PO DAILY #0 05/16/17 02/24/20 History fluoxetine 20 mg capsule 20 mg PO DAILY #90 cap 10/21/19 02/24/20 Rx dexamethasone 4 mg PO DAILY #10 tab 11/24/19 02/24/20 Rx sennosides-docusate sodium 1 tab-cap PO BEDTIME PRN 01/08/20 02/24/20 History [Senokot-S] Eliquis 5 mg PO BID 01/15/20 02/24/20 History zolpidem [Ambien] 5 mg PO BEDTIME PRN #30 tab 02/05/20 02/24/20 Rx hydromorphone 1 - 2 mg PO Q3H PRN #35 tab 03/01/20 Rx sulfamethoxazole-trimethoprim 1 tab PO Q12H #26 tab 03/04/20 Rx [Bactrim DS] Allergies Allergy/AdvReac Type Severity Reaction Status Date / Time No Known Drug Allergies Allergy Verified 09/23/19 09:45 Exam Vital signs: Vital Signs Temp Pulse Resp BP Pulse Ox 03/04/20 09:40 97.6 F 85 18 120/75 96 Intake and Output 03/03/20 03/04/20 03/04/20 23:59 07:59 15:59 Other: Weight 79.2 kg Patient Weight 03/04/20 23:59 Weight 79.2 kg Narrative: ECOG 1 Gen: WDWN, NAD, pleasant and cooperative. HEENT: NCAT, EOMI, PERRLA, anicteric sclera. Neck: Supple, No palpable thyromegaly or lymphadenopathy. Respiratory: CTAB, no wheezes audible. No JVD Cardiovascular: RRR, S1 and S2 normal, no M/G/R. Abdomen: Soft, NTND, BS normal, no palpable organomegaly. Right colostomy noted. Extremities: Right thigh significantly swollen and bigger compared to the left side. Very mild tinge of erythema without distinct margins noted compared to the left upper thigh. No fluid collection palpable. Significant tenderness noted at the midpoint lateral side of the right thigh. Lymphatic: no palpable lymph nodes in the neck, or axillae. A hard 1 cm lymph node palpable in the right groin. Neurological: AOx3, CN II-XII grossly intact. No focal motor or sensory deficit. Psychiatric: Normal affect; normal thought process; cooperative, no depression, no anxiety. Results - Labs Laboratory Last Values WBC 9.0 X10^3/uL (4.5-11.0) 03/04/20 09:15 RBC 4.12 X10^6/uL (4.0-5.2) 03/04/20 09:15 Hgb 13.1 g/dL (12.0-16.0) 03/04/20 09:15 Hct 37.9 % (36-46) 03/04/20 09:15 MCV 92.0 fL (80-100) 03/04/20 09:15 MCH 31.8 PG (26-34) 03/04/20 09:15 MCHC 34.6 % (30-36) 03/04/20 09:15 RDW 14.2 % (11.6-14.8) 03/04/20 09:15 Plt Count 336 X10^3/uL (150-400) 03/04/20 09:15 Neut % (Auto) 44.0 % (50-75) L 03/04/20 09:15 Lymph % (Auto) 38.5 % (25-40) 03/04/20 09:15 [place] % (Auto) 14.0 % (3-14) 03/04/20 09:15 Eos % (Auto) 2.6 % (2-4) 03/04/20 09:15 Baso % (Auto) 0.9 % (0-2) 03/04/20 09:15 Neut # (Auto) 3900 /uL (2795-8047) 03/04/20 09:15 Lymph # (Auto) 3500 /uL (6812-3844) 03/04/20 09:15 [place] # (Auto) 1300 /uL (0-900) H 03/04/20 09:15 Eos # (Auto) 200 /uL (0-450) 03/04/20 09:15 Baso # (Auto) 100 /uL (0-100) 03/04/20 09:15 Total Counted 100 01/15/20 15:00 Seg Neutrophils % 68.0 % (38-70) 01/15/20 15:00 Band Neutrophils % 14.0 % (3-7) H 01/15/20 15:00 Atypical Lymphs % 6.0 % (-0) H 12/18/19 14:45 Lymphocytes % (Manual) 8.0 % (25-45) L 01/15/20 15:00 Eosinophils % (Manual) 1.0 % (2-4) L 11/20/19 14:30 Monocytes % (Manual) 9.0 % (2-11) 01/15/20 15:00 Metamyelocytes % 2.0 % (-0) H 11/20/19 14:30 Basophils % (Manual) 1.0 % (0-1) 01/15/20 15:00 Neutrophils # (Manual) 70499 /uL (1003-2122) H 01/15/20 15:00 Nucleated RBCs 1 #/Diff (-0) H 01/15/20 15:00 RBC Morphology Not Reportable 01/15/20 15:00 Polychromasia 1+ H 01/15/20 15:00 Anisocytosis 1+ H 01/15/20 15:00 Sodium 134 mmol/L (137-145) L 03/04/20 09:15 Potassium 4.1 mmol/L (3.4-5.1) 03/04/20 09:15 Chloride 102 mmol/L (98-107) 03/04/20 09:15 Carbon Dioxide 24 mmol/L (22-32) 03/04/20 09:15 BUN 16 mg/dL (7-17) 03/04/20 09:15 Creatinine 0.79 mg/dL (0.52-1.04) 03/04/20 09:15 Estimated GFR > 60.0 mL/min (>60) 03/04/20 09:15 BUN/Creatinine Ratio 20.3 (6-22) 03/04/20 09:15 Glucose 97 mg/dL (80-110) 03/04/20 09:15 Calcium 9.3 mg/dL (8.4-10.2) 03/04/20 09:15 Magnesium 1.9 mg/dL (1.6-2.3) 03/20/19 14:50 Total Bilirubin 0.4 mg/dL (0.2-1.3) 03/04/20 09:15 AST 76 IU/L (14-36) H 03/04/20 09:15 ALT 20 IU/L (<35) 03/04/20 09:15 Alkaline Phosphatase 202 U/L (38-126) H 03/04/20 09:15 Lactate Dehydrogenase 438 U/L (313-618) 09/03/19 16:00 Total Protein 7.3 g/dL (6.3-8.2) 03/04/20 09:15 Albumin 3.6 g/dL (3.5-5.0) 03/04/20 09:15 Globulin 3.7 g/dL (1.7-4.1) 03/04/20 09:15 Albumin/Globulin Ratio 1.0 (1.0-2.8) 03/04/20 09:15 CA 125 Antigen 1300 U/mL (0-35) H 02/05/20 09:10 Assessment and Plan (1) Pain and swelling of right lower extremity Overview: Acute onset of right thigh swelling, mild pain, and numbness since 01/04/2020. No shortness of breath and no chest pain. Doppler study on 01/08/2020 showed a small amount of nonocclusive thrombus at the confluence of the greater saphenous vein and common femoral vein, without additional findings of deep venous thrombosis. Prominent lymph nodes are noted within the groin and the common femoral vein. She was started on Eliquis 10 mg twice daily for 7 days with plan to switch to 5 mg twice daily. Assessment: Talked with the patient that the cellulitis/mastitis of the right lower thigh is of concern. Up until now, we do not have a concrete diagnosis. Infectious cause is high on the differential list. Patient seems to be responding to Bactrim. Talked with the patient that I would favor that we continue the Bactrim at the same time will try to refer the patient to Infectious Disease specialist for more evaluation. A text message Dr. Lizzeth Casper about this case. Plan: Continue Eliquis 5 mg bid Continue Bactrim DS for now Hydrocodone/Acet 5/325, 1# q6h prn, 60# written. Referr to Kamilla Balderas, Infectious Disease for evaluation (2) Ovarian cancer, BRCA2 positive Overview: Medina 60-year-old female, BRCA2 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 Since then, she has undergone multiple surgeries as well as multiple cycles of chemotherapy due to multiple recurrences. The most recent recurrence happened in July 2018. She has been followed at [facility] and was started on olaparib 300 mg twice daily. On 11/13/2019, due to disease progression, olaparib was stopped and she was started on Carboplatin AUC [address] Beavers at [facility]. Patient underwent CT abdomen and pelvis on 01/21/2020. It showed interval development of rectal wall thickening and increase in bladder wall thickening, question extraluminal fluid and air outside the rectosigmoid region, possibly representing interloop abscess or necrotic neoplasm. The repeat CT of the pelvis showed that the fluid collection has decreased in size. Assessment: Given the potential infectious cause of the right lower thigh cellulitis/myositis, I talked with the patient that I will temporarily hold the chemotherapy. Plan: Hold C5D1 for now (3) Port-A-Cath in place Flush every 4-6 weeks
[2020-03-04 10:43] LABS: HEMOLYSIS 17 (0-50)
[2020-03-04 10:46] LABS: Cancer Antigen 125 2100 U/mL (0-35)
[2020-03-04 11:32] LABS: C-Reactive Protein Quant 1.4 mg/dL (<1.0); Lactate Dehydrogenase 633 U/L (313-618)
[2020-03-04 11:42] LABS: Erythrocyte Sedimentation Rate 46 MM/HR (0-20)
[2020-03-19 08:18] LABS: C-Reactive Protein Quant 2.5 mg/dL (<1.0); Creatine Kinase 52 U/L (30-135)
[2020-03-19 08:19] LABS: Erythrocyte Sedimentation Rate 31 MM/HR (0-20)
--- NOTE | 2020-03-23 10:57 | PC.NURSE ---
RX faxed Rx to [facility] for zolpidem, pt aware.
[2020-03-25 09:09] VITALS: BP 116/54; PULSE 101; RESP 16; TEMP 36.8; O2SAT 96
--- NOTE | 2020-03-25 09:33 | ONC.PN ---
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 She lives in [place] for 6 months during the summer, and in [place] for 6 months during the winter. She is been followed here as well as in [facility] in [place]. She presents today for scheduled chemotherapy. Oncology History: Her ovarian cancer history is summarized from [facility] medical records as follows: 12/2012: initial diagnosis, CA 125 2000 and peritoneal nodularity 12/2012: surgery: Laparoscopic RSO, omentectomy, and peritoneal biopsy. 01/04/2013-02/13/2013: Carbo/Taxol x2 02/25/2013: Optimal tumor reductive surgery. 02/2013-05/2013: carbo/Taxol x 4 and avastin added for last 3 cycles 06/2013-06/16/2014: Avastin maintenance 10/2014: Rising CA 125 to 522 and bloating 11/18/2014: [facility] initial visit 12/2014-03/2015: Carbo/Taxol x 6 with some minimal persistent disease 01/19/2017: new liver mets and chest adenopathy on CT scan and elevated CA 125 to 2914. 01/23/2017: Exploratory laparotomy, ALEAH, and diverting loop transverse colostomy for large bowel obstruction. 02/02/2017-09/28/2017: Single agent carboplatin 10/26/2017-07/25/2018: post 9 cycles of Carboplatin with TATUM on imaging and negative CA-125. 07/26/2018: BRCA testing turned out to be positive 07/31/2018: Relapse/recurrence: Feels small hypoattenuating foci in the liver and interval development of bilateral iliac multi compartmental lymphadenopathy with rising CA 125. 08/02/2018-12/13/2018: Carboplatin x 5 cycles 01/16/2019: CT showed minimal evidence of increasing pelvic lymph nodes. 01/2019 - 11/13/2019, Olaparib 300 mg po bid On August 01, 2019, nusrat paulino was evaluated by Dr. Nicolas Ewing at [facility] in [place]. Repeat CT of chest abdomen and pelvis showed new peritoneal implants involving the vaginal cuff and rectosigmoid colon. It showed stable prominent retroperitoneal and pelvic metastatic lymph nodes. Dr. Ewing discussed the results in detail with the patient. Dr. Ewing recommended continued current olaparib treatment. October 30, 2019 CT chest abdomen pelvis with contrast was performed at [facility]. The results showed slightly increased peritoneal implants and slightly increased pelvic metastatic lymphadenopathy. [facility] Dr. Beavers recommended stop PARP inhibitor, and initiate carboplatin AUC 5 IV over 60 minutes every 28 days for 3 cycles followed by a treatment planning visit at [facility]. On 11/14/2019, she received C1# Carboplatin AUC 5. She has tolerated well except fatigue on day 3 to day 5. No nausea no vomiting. No fever and no chills. No abdominal pain. No diarrhea and no constipation. She is planning to leave on Sun to and plan for 2 weeks of vacation. On 01/04/2020, while she was hiking, she noted right thigh swelling and mild tenderness. In addition patient also noticed mild numbness of the lateral aspect of the right thigh. Stat lower extremity ultrasound showed a small amount of non occlusive thrombus at the confluence of the greater saphenous vein and common femoral vein, without additional findings of deep venous thrombosis. In addition prominent lymph nodes were noted. Patient was therefore started on Eliquis 10 mg twice daily with plan to switch to 5 mg twice daily after [address] of the lower extremity was obtained on 02/12/2020. It showed asymmetric enlargement of the right thigh with suggestion of extensive right-sided cellulitis. No discrete drainable abscess collection was seen. Small amount of fluid along anterior medial right upper to mid thigh muscles noted. No evidence of intramuscular mass or fluid collection. No fracture or dislocation. No suspicious intra [place] lesion. Right hip joint showed osteoarthritis. No evidence of avascular necrosis. Same day CT of the pelvis showed interval decrease in size of previously described extraluminal fluid collection situated between the rectum and urinary bladder with adjacent rectosigmoid colon wall thickening and bladder wall thickening, concerning for abscess collection in this area. This collection now measured 2.3 x 1.9 cm in size compared to 2.8 x 2.8 cm in size on previous study. No peritoneal fluid collection or free air. Sub cm bilateral lymph nodes in the groins noted prominent on the right side. Subsequent MRI of the right thigh showed significant cellulitis involving the right thigh with underlying myositis involving anterior right upper to mid thigh muscles. No discrete drainable abscess collection. No grows soft tissue mass was noted. No underlying marrow signal abnormality peers no fracture or dislocation. No suspicious bone lesion. She was referred to emergency room for evaluation and was started on Bactrim double-strength. Interim Events: Since her previous visit, patient was referred to and evaluated by Dr. Lizzeth Casper, an infectious disease specialist at [facility] on 03/05/2020. Patient was started on antibiotics with ceftriaxone. On 03/12/2020, patient underwent CT guided biopsy of the right upper thigh lesion. The final pathology showed skeletal muscle with scattered aquatic fibers associated T-cell inflammation consistent with mild polymyositis. The pathology was negative for acid fast bacilli, fibrosis or malignancy. Multiple bacteria DNA completes detected which cannot be resolved by standard bacteria PCR. Samples are being evaluated for reflexive NGS testing. No fungal DNA detected, no non tuberculous mycobacteria DNA detected, no mycobacterium tuberculosis complex DNA detected neuropathology consultation is pending. 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 Dr. Casper recommended treating with steroids. Patient was started on prednisone 40 mg once a day, patient presents here today for continued follow-up. Patient reported that the right thigh pain has not improved yet. Patient is using pain medications for pain control. Patient denies any fever or chills. She denies any nausea or vomiting. She denies any shortness of breath or chest pain. She denies any abdominal pain, diarrhea or constipation. The right lower extremity is still edematous. - Patient Self-Reported Symptoms SR Constitution: Night Sweats SR respiratory issues: Cough SR Cardiovascular issues: Extreme swelling SR Skin issues: Dry skin SR Gastrointestinal issues: Constipation SR Genitourinary issues: Incontinence SR Musculoskeletal issues: Joint pain or swelling, Muscle pain or cramps, Difficulty walking - Additional ROS All systems PM: reviewed and no additional remarkable complaints except as stated Home Medications and Allergies Home Medications Medication Instructions Recorded Confirmed Type multivitamin [Multiple Vitamins] 1 tab PO DAILY #0 05/16/17 03/25/20 History turmeric 1 dose PO DAILY #0 05/16/17 03/25/20 History fluoxetine 20 mg capsule 20 mg PO DAILY #90 cap 10/21/19 03/25/20 Rx dexamethasone 4 mg PO DAILY #10 tab 11/24/19 03/25/20 Rx sennosides-docusate sodium 1 tab-cap PO BEDTIME PRN 01/08/20 03/25/20 History [Senokot-S] Eliquis 5 mg PO BID 01/15/20 03/25/20 History zolpidem [Ambien] 5 mg PO BEDTIME PRN #30 tab 02/05/20 03/25/20 Rx sulfamethoxazole-trimethoprim 1 tab PO Q12H #26 tab 03/04/20 03/25/20 Rx [Bactrim DS] oxycodone-acetaminophen 1 tab PO Q4H PRN #90 tab 03/11/20 03/25/20 Rx zolpidem 5 mg PO BEDTIME PRN #30 tab 03/22/20 03/25/20 Rx morphine 30 mg PO Q12H #60 tab 03/25/20 Rx prednisone 40 mg PO DAILY #30 tab 03/25/20 Rx Allergies Allergy/AdvReac Type Severity Reaction Status Date / Time No Known Drug Allergies Allergy Verified 09/23/19 09:45 Exam Vital signs: Vital Signs Temp Pulse Resp BP Pulse Ox 03/25/20 09:09 98.3 F 101 H 16 116/54 L 96 Intake and Output 03/24/20 03/25/20 03/25/20 23:59 07:59 15:59 Other: Weight 98.3 kg Patient Weight 03/25/20 23:59 Weight 98.3 kg Narrative: ECOG 1 Gen: WDWN, NAD, pleasant and cooperative. HEENT: NCAT, EOMI, PERRLA, anicteric sclera. Neck: Supple, No palpable thyromegaly or lymphadenopathy. Respiratory: CTAB, no wheezes audible. No JVD Cardiovascular: RRR, S1 and S2 normal, no M/G/R. Abdomen: Soft, NTND, BS normal, no palpable organomegaly. Right colostomy noted. Extremities: Right thigh significantly swollen and bigger compared to the left side. Very mild tinge of erythema without distinct margins noted compared to the left upper thigh. No fluid collection palpable. Significant tenderness noted at the midpoint lateral side of the right thigh. Lymphatic: no palpable lymph nodes in the neck, or axillae. A hard 1 cm lymph node palpable in the right groin. Neurological: AOx3, CN II-XII grossly intact. No focal motor or sensory deficit. Psychiatric: Normal affect; normal thought process; cooperative, no depression, no anxiety. Results - Labs Laboratory Last Values WBC 12.6 X10^3/uL (4.5-11.0) H 03/25/20 09:45 RBC 4.03 X10^6/uL (4.0-5.2) 03/25/20 09:45 Hgb 12.4 g/dL (12.0-16.0) 03/25/20 09:45 Hct 36.5 % (36-46) 03/25/20 09:45 MCV 90.7 fL (80-100) 03/25/20 09:45 MCH 30.8 PG (26-34) 03/25/20 09:45 MCHC 34.0 % (30-36) 03/25/20 09:45 RDW 14.7 % (11.6-14.8) 03/25/20 09:45 Plt Count 442 X10^3/uL (150-400) H 03/25/20 09:45 Neut % (Auto) 76.0 % (50-75) H 03/25/20 09:45 Lymph % (Auto) 12.4 % (25-40) L 03/25/20 09:45 [place] % (Auto) 10.6 % (3-14) 03/25/20 09:45 Eos % (Auto) 0.4 % (2-4) L 03/25/20 09:45 Baso % (Auto) 0.6 % (0-2) 03/25/20 09:45 Neut # (Auto) 9600 /uL (8564-7172) H 03/25/20 09:45 Lymph # (Auto) 1600 /uL (0652-8896) 03/25/20 09:45 [place] # (Auto) 1300 /uL (0-900) H 03/25/20 09:45 Eos # (Auto) 0 /uL (0-450) 03/25/20 09:45 Baso # (Auto) 100 /uL (0-100) 03/25/20 09:45 Total Counted 100 01/15/20 15:00 Seg Neutrophils % 68.0 % (38-70) 01/15/20 15:00 Band Neutrophils % 14.0 % (3-7) H 01/15/20 15:00 Atypical Lymphs % 6.0 % (-0) H 12/18/19 14:45 Lymphocytes % (Manual) 8.0 % (25-45) L 01/15/20 15:00 Eosinophils % (Manual) 1.0 % (2-4) L 11/20/19 14:30 Monocytes % (Manual) 9.0 % (2-11) 01/15/20 15:00 Metamyelocytes % 2.0 % (-0) H 11/20/19 14:30 Basophils % (Manual) 1.0 % (0-1) 01/15/20 15:00 Neutrophils # (Manual) 75730 /uL (8716-8824) H 01/15/20 15:00 Nucleated RBCs 1 #/Diff (-0) H 01/15/20 15:00 RBC Morphology Not Reportable 01/15/20 15:00 Polychromasia 1+ H 01/15/20 15:00 Anisocytosis 1+ H 01/15/20 15:00 ESR 31 MM/HR (0-20) H 03/19/20 07:53 Sodium 134 mmol/L (137-145) L 03/25/20 09:43 Potassium 4.0 mmol/L (3.4-5.1) 03/25/20 09:43 Chloride 99 mmol/L (98-107) 03/25/20 09:43 Carbon Dioxide 28 mmol/L (22-32) 03/25/20 09:43 BUN 26 mg/dL (7-17) H 03/25/20 09:43 Creatinine 1.11 mg/dL (0.52-1.04) H 03/25/20 09:43 Estimated GFR 49.8 mL/min (>60) L 03/25/20 09:43 BUN/Creatinine Ratio 23.4 (6-22) H 03/25/20 09:43 Glucose 124 mg/dL (80-110) H 03/25/20 09:43 Calcium 9.0 mg/dL (8.4-10.2) 03/25/20 09:43 Magnesium 1.9 mg/dL (1.6-2.3) 03/20/19 14:50 Total Bilirubin 0.6 mg/dL (0.2-1.3) 03/25/20 09:43 AST 75 IU/L (14-36) H 03/25/20 09:43 ALT 21 IU/L (<35) 03/25/20 09:43 Alkaline Phosphatase 198 U/L (38-126) H 03/25/20 09:43 Lactate Dehydrogenase 633 U/L (313-618) H 03/04/20 11:07 Total Creatine Kinase 52 U/L (30-135) 03/19/20 07:53 C-Reactive Protein 8.8 mg/dL (<1.0) H 03/25/20 09:45 Total Protein 7.2 g/dL (6.3-8.2) 03/25/20 09:43 Albumin 3.3 g/dL (3.5-5.0) L 03/25/20 09:43 Globulin 3.9 g/dL (1.7-4.1) 03/25/20 09:43 Albumin/Globulin Ratio 0.8 (1.0-2.8) L 03/25/20 09:43 CA 125 Antigen 2400 U/mL (0-35) H 03/25/20 09:43 Assessment and Plan (1) Pain and swelling of right lower extremity Overview: Acute onset of right thigh swelling, mild pain, and numbness since 01/04/2020. No shortness of breath and no chest pain. Doppler study on 01/08/2020 showed a small amount of nonocclusive thrombus at the confluence of the greater saphenous vein and common femoral vein, without additional findings of deep venous thrombosis. Prominent lymph nodes are noted within the groin and the common femoral vein. She was started on Eliquis 10 mg twice daily for 7 days with plan to switch to 5 mg twice daily. Patient underwent CT-guided biopsy on 03/12/2020 and the pathology showed polymyositis. Patient was started on prednisone 40 mg once a day on 03/18/2020. Assessment: The exact etiology swelling of the right lower extremity and upper thigh pain is not clear at this moment. Deep venous thrombosis and lymphedema may have played a some dinora. However the excruciating pain at the lower right thigh muscle is most likely a paraneoplastic phenomenon. Patient has already had CT-guided biopsy of the muscle, no apparent infectious etiologies have been identified at this moment. Patient currently is on prednisone. I will continue and monitor closely. Plan: Continue Eliquis 5 mg bid Hydrocodone/Acet 5/325, 1# q6h prn, 60# written. Morphine 30 mg ER q12h, 60# written I will continue the prednisone at 40 mg once a day. Return to clinic in 1 week, recheck CBC and CMP. Follow up with Kamilla Balderas, Infectious Disease for evaluation (2) Ovarian cancer, BRCA2 positive Overview: Medina 60-year-old female, BRCA2 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 Since then, she has undergone multiple surgeries as well as multiple cycles of chemotherapy due to multiple recurrences. The most recent recurrence happened in July 2018. She has been followed at [facility] and was started on olaparib 300 mg twice daily. On 11/13/2019, due to disease progression, olaparib was stopped and she was started on Carboplatin AUC [address] Beavers at [facility]. Patient underwent CT abdomen and pelvis on 01/21/2020. It showed interval development of rectal wall thickening and increase in bladder wall thickening, question extraluminal fluid and air outside the rectosigmoid region, possibly representing interloop abscess or necrotic neoplasm. The repeat CT of the pelvis showed that the fluid collection has decreased in size. Assessment: Since there is no evidence of bacterial or other infection in the right lower extremity, I will resume chemotherapy with carboplatin. Plan: Ok to proceed to C5D1 today (3) Constipation due to pain medication Recommended daily MiraLax together with Senokot-S. (4) Port-A-Cath in place Flush every 4-6 weeks
[2020-03-25 09:56] LABS: Add Manual Diff / Slide Review NO; Basophils Absolute Auto 100 /uL (0-100); Basophils Percent Auto 0.6 % (0-2); Eosinophils Absolute Auto 0 /uL (0-450); Eosinophils Percent Auto 0.4 % (2-4); Hematocrit 36.5 % (36-46); Hemoglobin 12.4 g/dL (12.0-16.0); Lymphocytes Absolute Auto 1600 /uL (1100-4500); Lymphocytes Percent Auto 12.4 % (25-40); Mean Corpuscular Hemoglobin 30.8 PG (26-34); Mean Corpuscular Volume 90.7 fL (80-100); Monocytes Absolute Auto 1300 /uL (0-900); Monocytes Percent Auto 10.6 % (3-14); Neutrophils Absolute Auto 9600 /uL (1500-7000); Platelet Count 442 X10^3/uL (150-400); Red Blood Cell Count 4.03 X10^6/uL (4.0-5.2); Red Cell Distribution Width 14.7 % (11.6-14.8); White Blood Cell Count 12.6 X10^3/uL (4.5-11.0)
[2020-03-25 10:39] LABS: Alanine Aminotransferase 21 IU/L (<35); Albumin 3.3 g/dL (3.5-5.0); Albumin Globulin Ratio 0.8 (1.0-2.8); Alkaline Phosphatase 198 U/L (38-126); Aspartate Aminotransferase 75 IU/L (14-36); BUN Creatinine Ratio 23.4 (6-22); Bilirubin Total 0.6 mg/dL (0.2-1.3); Blood Urea Nitrogen 26 mg/dL (7-17); Carbon Dioxide 28 mmol/L (22-32); Chloride 99 mmol/L (98-107); Estimated Glomerular Filt Rate 49.8 mL/min (>60); Globulin 3.9 g/dL (1.7-4.1); Glucose 124 mg/dL (80-110); HEMOLYSIS < 15 (0-50); Sodium 134 mmol/L (137-145); Total Protein 7.2 g/dL (6.3-8.2)
[2020-03-25 10:44] LABS: C-Reactive Protein Quant 8.8 mg/dL (<1.0)
[2020-03-25 11:48] LABS: Cancer Antigen 125 2400 U/mL (0-35)
[2020-03-25] MEDS: ONDANSETRON 16 MG in SODIUM CHLORIDE 0.9% 50 ML 232 ML IV (12:12)
[2020-03-25] MEDS: SODIUM CHLORIDE 0.9% 100 ML 30 ML IV (12:14)
[2020-03-25] MEDS: LORazepam 0.5 MG TABLET PO (12:14)
[2020-03-25] MEDS: FOSAPREPITANT 150 MG in SODIUM CHLORIDE 0.9% 150 ML 300 ML IV (12:50)
[2020-03-25] MEDS: SODIUM CHLORIDE 0.9% IV (13:34)
[2020-03-25] MEDS: CARBOPLATIN IV (13:34)
[2020-03-25] MEDS: PEGFILGRASTIM 6 MG/0.6 ML KIT SUBCUT (14:16)
[2020-04-05 14:07] LABS: Add Manual Diff / Slide Review NO; Basophils Absolute Auto 100 /uL (0-100); Basophils Percent Auto 0.4 % (0-2); Eosinophils Absolute Auto 0 /uL (0-450); Hematocrit 30.9 % (36-46); Hemoglobin 10.3 g/dL (12.0-16.0); Lymphocytes Absolute Auto 1100 /uL (1100-4500); Mean Corpuscular HGB Conc 33.5 % (30-36); Mean Corpuscular Hemoglobin 30.3 PG (26-34); Mean Corpuscular Volume 90.3 fL (80-100); Monocytes Absolute Auto 300 /uL (0-900); Monocytes Percent Auto 1.8 % (3-14); Neutrophils Absolute Auto 14700 /uL (1500-7000); Neutrophils Percent Auto 90.8 % (50-75); Platelet Count 266 X10^3/uL (150-400); Red Blood Cell Count 3.42 X10^6/uL (4.0-5.2); Red Cell Distribution Width 14.2 % (11.6-14.8); White Blood Cell Count 16.1 X10^3/uL (4.5-11.0)
[2020-04-05 14:26] LABS: Alanine Aminotransferase 27 IU/L (<35); Albumin 3.3 g/dL (3.5-5.0); Alkaline Phosphatase 204 U/L (38-126); Aspartate Aminotransferase 66 IU/L (14-36); BUN Creatinine Ratio 32.1 (6-22); Bilirubin Total 0.4 mg/dL (0.2-1.3); Blood Urea Nitrogen 35 mg/dL (7-17); Calcium 9.1 mg/dL (8.4-10.2); Carbon Dioxide 28 mmol/L (22-32); Chloride 99 mmol/L (98-107); Estimated Glomerular Filt Rate 50.9 mL/min (>60); Globulin 3.4 g/dL (1.7-4.1); Glucose 185 mg/dL (80-110); HEMOLYSIS < 15 (0-50); Sodium 135 mmol/L (137-145); Total Protein 6.7 g/dL (6.3-8.2)
[2020-04-05 14:43] LABS: C-Reactive Protein Quant 4.8 mg/dL (<1.0)
--- NOTE | 2020-04-12 23:52 | P.PNONC_ITS ---
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 She was hospitalized and was found to have bilateral hydonephrosis and evidence of disease progression. History of Present Illness: Medina Monteiro is a 60 year old with metastatic ovarian cancer. I have been follow her as an outpatient. Please see my previous note of 03/25/2020 for more details. I was asked by Brianda Barrera to discuss with the patient. The patient has a long history of metastatic ovarian cancer first diagnosed in 2012. She has been followed by Dr. Beavers at [facility]. She was found to be positive for BRCA mutations. She has received multiple lines of therapy. Recently, she has been on treatment with Carboplatin per Dr. Beavers's recommendation. In Dec 2019, she developed right leg DVT and has been on Eliqiuis since. In addition, she developed right thigh swelling and pain. She has been evaluated by ID specialist Dr. Casper. Bx of the right uppper thigh muscle was performed and cultures were largely negative. Path review at suggests myositis. Therefore, she has been put on Prednisone about 2 weeks ago. Now she is taking 40 mg daily. She said that the right thigh pain seems to be slightly better. She was admitted due to stroke like symptoms including blurred speech on 04/09/2020. Brain CT/MR showed no evidence of intracranial acute stroke, hemorrhage or mass. But CT abdominal and pelvis showed interval development of moderate to severe right hydronephrosis and right hydroureter to the base of the bladder as well as moderate left hydronephrosis. Furthermore, htere is a posterior wall bladder perforation with communication to either vagina or sigmoid colon, as well as development of small periurethral abscess to the left of midline measuring 2 cm. - Patient Self-Reported Symptoms SR Constitution: Night Sweats SR respiratory issues: Cough SR Cardiovascular issues: Extreme swelling SR Skin issues: Dry skin SR Gastrointestinal issues: Constipation SR Genitourinary issues: Incontinence SR Musculoskeletal issues: Joint pain or swelling, Muscle pain or cramps, Difficulty walking Home Medications and Allergies Home Medications Medication Instructions Recorded Confirmed Type multivitamin [Multiple Vitamins] 1 tab PO DAILY #0 05/16/17 04/09/20 History turmeric 1 dose PO DAILY #0 05/16/17 04/09/20 History fluoxetine 20 mg capsule 20 mg PO DAILY #90 cap 10/21/19 04/09/20 Rx dexamethasone 4 mg PO DAILY #10 tab 11/24/19 04/09/20 Rx sennosides-docusate sodium 1 tab-cap PO BID 01/08/20 04/09/20 History [Senokot-S] Eliquis 5 mg PO BID 01/15/20 04/09/20 History oxycodone-acetaminophen 1 tab PO Q4H PRN #90 tab 03/11/20 04/09/20 Rx zolpidem 5 mg PO BEDTIME PRN #30 tab 03/22/20 04/09/20 Rx morphine 30 mg PO Q12H #60 tab 03/25/20 04/09/20 Rx prednisone 40 mg PO DAILY #30 tab 03/25/20 04/09/20 Rx Allergies Allergy/AdvReac Type Severity Reaction Status Date / Time No Known Drug Allergies Allergy Verified 04/09/20 10:40 Exam Vital signs: T98.1, P84, Bp 124/81, Sat 98% Narrative: ECOG 2 Gen: WDWN, NAD, pleasant and cooperative. Daughter by the bedside. HEENT: NCAT, EOMI, PERRLA, anicteric sclera. Respiratory: no use of accessory muscle. Abdomen: Soft, NTND, BS normal, no palpable organomegaly. Right colostomy noted. Extremities: right thigh swelling but no erythema Neurological: AOx3, CN II-XII grossly intact. No focal motor or sensory deficit. Psychiatric: Normal affect; normal thought process; cooperative, no depression, no anxiety. Results - Labs Laboratory Last Values WBC 16.1 X10^3/uL (4.5-11.0) H 04/05/20 13:56 RBC 3.42 X10^6/uL (4.0-5.2) L 04/05/20 13:56 Hgb 10.3 g/dL (12.0-16.0) L 04/05/20 13:56 Hct 30.9 % (36-46) L 04/05/20 13:56 MCV 90.3 fL (80-100) 04/05/20 13:56 MCH 30.3 PG (26-34) 04/05/20 13:56 MCHC 33.5 % (30-36) 04/05/20 13:56 RDW 14.2 % (11.6-14.8) 04/05/20 13:56 Plt Count 266 X10^3/uL (150-400) 04/05/20 13:56 Neut % (Auto) 90.8 % (50-75) H 04/05/20 13:56 Lymph % (Auto) 7.0 % (25-40) L 04/05/20 13:56 [place] % (Auto) 1.8 % (3-14) L 04/05/20 13:56 Eos % (Auto) 0.0 % (2-4) L 04/05/20 13:56 Baso % (Auto) 0.4 % (0-2) 04/05/20 13:56 Neut # (Auto) 51364 /uL (2597-4623) H 04/05/20 13:56 Lymph # (Auto) 1100 /uL (9533-8103) 04/05/20 13:56 [place] # (Auto) 300 /uL (0-900) 04/05/20 13:56 Eos # (Auto) 0 /uL (0-450) 04/05/20 13:56 Baso # (Auto) 100 /uL (0-100) 04/05/20 13:56 Total Counted 100 01/15/20 15:00 Seg Neutrophils % 68.0 % (38-70) 01/15/20 15:00 Band Neutrophils % 14.0 % (3-7) H 01/15/20 15:00 Atypical Lymphs % 6.0 % (-0) H 12/18/19 14:45 Lymphocytes % (Manual) 8.0 % (25-45) L 01/15/20 15:00 Eosinophils % (Manual) 1.0 % (2-4) L 11/20/19 14:30 Monocytes % (Manual) 9.0 % (2-11) 01/15/20 15:00 Metamyelocytes % 2.0 % (-0) H 11/20/19 14:30 Basophils % (Manual) 1.0 % (0-1) 01/15/20 15:00 Neutrophils # (Manual) 70414 /uL (4025-0137) H 01/15/20 15:00 Nucleated RBCs 1 #/Diff (-0) H 01/15/20 15:00 RBC Morphology Not Reportable 01/15/20 15:00 Polychromasia 1+ H 01/15/20 15:00 Anisocytosis 1+ H 01/15/20 15:00 ESR 31 MM/HR (0-20) H 03/19/20 07:53 Sodium 135 mmol/L (137-145) L 04/05/20 13:56 Potassium 4.0 mmol/L (3.4-5.1) 04/05/20 13:56 Chloride 99 mmol/L (98-107) 04/05/20 13:56 Carbon Dioxide 28 mmol/L (22-32) 04/05/20 13:56 BUN 35 mg/dL (7-17) H 04/05/20 13:56 Creatinine 1.09 mg/dL (0.52-1.04) H 04/05/20 13:56 Estimated GFR 50.9 mL/min (>60) L 04/05/20 13:56 BUN/Creatinine Ratio 32.1 (6-22) H 04/05/20 13:56 Glucose 185 mg/dL (80-110) H 04/05/20 13:56 Calcium 9.1 mg/dL (8.4-10.2) 04/05/20 13:56 Magnesium 1.9 mg/dL (1.6-2.3) 03/20/19 14:50 Total Bilirubin 0.4 mg/dL (0.2-1.3) 04/05/20 13:56 AST 66 IU/L (14-36) H 04/05/20 13:56 ALT 27 IU/L (<35) 04/05/20 13:56 Alkaline Phosphatase 204 U/L (38-126) H 04/05/20 13:56 Lactate Dehydrogenase 633 U/L (313-618) H 03/04/20 11:07 Total Creatine Kinase 52 U/L (30-135) 03/19/20 07:53 C-Reactive Protein 4.8 mg/dL (<1.0) H 04/05/20 13:55 Total Protein 6.7 g/dL (6.3-8.2) 04/05/20 13:56 Albumin 3.3 g/dL (3.5-5.0) L 04/05/20 13:56 Globulin 3.4 g/dL (1.7-4.1) 04/05/20 13:56 Albumin/Globulin Ratio 1.0 (1.0-2.8) 04/05/20 13:56 CA 125 Antigen 2400 U/mL (0-35) H 03/25/20 09:43 Assessment and Plan (1) Ovarian cancer, BRCA2 positive Overview: Medina 60-year-old female, BRCA2 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 She has undergone multiple surgeries as well as multiple cycles of chemotherapy due to multiple recurrences. She is now receiving palliative chemotherapy with Carboplatin per Dr. Beavers at [facility]. Assessment: Her CT abd/pelvis on 04/11/2020 showed clear evidence of disease progression with development of bilaterall hydronephrosis and development of bladder wall perforation with communication to either vagina or sigmoid colon, as well as development of small periurethral abscess to the left of midline measuring 2 cm. I completely agree with Dr. Bond and Brianda Barrera that bilateral percutaneous neprostomy tube insertion is indicated. Patient and her daughter voiced understanding. Then, I talked with her about the ovarian cancer. She has an appointment with Dr. Beavers in late April 2020. I told her that I will try to call Dr. Beavers. Plan: Agree with bilateral nephrostomy (need to transfer to [facility] IR) Will need to call Dr. Beavers at [facility]. (2) Pain and swelling of right lower extremity Overview: Acute onset of right thigh swelling, mild pain, and numbness since 01/04/2020. No shortness of breath and no chest pain. Doppler study on 01/08/2020 showed a small amount of nonocclusive thrombus at the confluence of the greater saphenous vein and common femoral vein, without additional findings of deep venous thrombosis. Prominent lymph nodes are noted within the groin and the common femoral vein. She was started on Eliquis 10 mg twice daily for 7 days with plan to switch to 5 mg twice daily. Patient underwent CT-guided biopsy on 03/12/2020 and the pathology showed polym yositis. Patient was started on prednisone 40 mg once a day on 03/18/2020. Assessment: The right upper thigh pain slightly improved. I recommend start tapering prednisone with close monitoring Plan: Continue Eliquis 5 mg bid Continue Hydrocodone/Acet 5/325, 1# q6h prn, 60# written. Morphine 30 mg ER q12h, 60# written Taper prednisone from 40 mg once a day to 30 mg daily (3) Port-A-Cath in place Flush every 4-6 weeks
--- NOTE | 2020-04-13 12:03 | PC.NURSE ---
Per Dr. Chanel Call placed to Dr. Nicolas Ewing / [facility] on 04/12/20 and 04/13/20 with message to contact Dr. Chanel CECY. Request to carol ann message as urgent. Dr. Ewing not in clinic until Sunday. Spoke with Zoltan on 04/13/20, he assured he would send an urgent message to team to contact Dr. Chanel. Provided his cell number.
--- NOTE | 2020-04-22 10:23 | PC.NURSE ---
Pt on her way to [place], [place] for imaging and provider appointment at [facility]. Pt requesting Prednisone tapering instructions from Dr. Chanel. Pt currently on 20mg PO QD. Per Dr. Chanel, pt to decrease dose to 15mg PO QD, then discuss remaining tapering instruction with provider at [facility]. Pt verbalized understanding and states Will do.
== END ==
PROVIDERS: Internal Medicine Hematology & Oncology; PCP Student in an Organized Health Care Education/Training Program; Visit Provider Internal Medicine Hematology & Oncology
DX: C56.1 Malignant neoplasm of right ovary (principal); C77.8 Secondary and unspecified malignant neoplasm of lymph nodes of multiple regions
CPT/HCPCS: 36415; 36591; 80053; 82550; 83615; 83735; 85025; 85651; 86140; 86304; 87040; 93971; 96365; 96372; 96374; 96375; 96413; 96523; 99214; 99215; 99233; J1100; J1453; J2405; J2505; J9045; Q5111

== ENCOUNTER 2020-04-09 10:16 | Inpatient (IN) | payer OTHER, SELFPAY ==
[2020-02-24 17:49] VITALS: BMI 30.2
[2020-04-09] VITALS (8 sets, daily range): BP systolic 93–125; BP diastolic 52–99; PULSE 81–97; RESP 16–31; TEMP 36.1–36.9; O2SAT 95–99; BMI 15.6
--- NOTE | 2020-04-09 10:34 | DI.CT.S_ITS ---
PROCEDURE: CT STROKE INDICATIONS: r/o stroke TECHNIQUE: Noncontrast 4.5 mm thick angled axial sections acquired from the foramen magnum to the vertex, with coronal reformats. For radiation dose reduction, the following was used: automated exposure control, adjustment of mA and/or kV according to patient size. COMPARISON: None. FINDINGS: Image quality: Excellent. CSF spaces: Basal cisterns are patent. No extra-axial fluid collections. Ventricles are normal in size and shape. Brain: No midline shift. No intracranial masses or hemorrhage. Daniel-white matter interface is normal. There is mild cerebral volume. Mild periventricular white matter chronic small vessel ischemic changes are present. Bilateral basal ganglia calcifications are likely dystrophic. Skull and face: Calvarium and visualized facial bones are intact, without suspicious lesions. Sinuses: Visualized sinuses and mastoids are clear. IMPRESSION: 1. No acute intracranial abnormalities. The result was discussed with Dr. Baltazar on 04/09/2020 at 1047 hours. This study fulfills neurological imaging criteria for inclusion or exclusion of acute stroke therapies based on available published neurological imaging guidelines. Dictated by: Ruby De Jesus M.D. on 04/09/2020 at 10:46 Approved by: Ruby De Jesus M.D. on 04/09/2020 at 10:50
--- NOTE | 2020-04-09 10:52 | ED.NEUROSD ---
HPI - Neuro Symptoms/Deficit General Chief Complaint: Neuro Symptoms/Deficit Stated Complaint: STROKE LIKE SYMPTOMS Time Seen by Provider: 04/09/20 10:50 Source: patient Mode of arrival: Family Vehicle Limitations: no limitations History of Present Illness HPI Narrative: 60-year-old woman with a complicated history of stage IV ovarian cancer, an autoimmune right lower extremity cellulitis with lymphedema, lower extremity DVT currently on Eliquis and pain related to all of the above. Currently on 30 mg of extended release morphine b.i.d. for the last 2 weeks presents with increasing gait instability and concerns with slurred speech this morning. No fevers, cough, chills and no other focal neurologic complaints. The patient does keep her pills in a pill bottle rather than a pillbox and does not believe that she took an extra dose of her morphine by accident either last night or this morning. She has otherwise been doing well and pain is been well controlled and she is asking for suggestions on how to begin weaning morphine appropriately. Recent hospital admission with right thigh pain and concern for cellulitis. Subsequent biopsy and final pathology of the area were consistent with polymyositis which is why patient was started on 40 mg of prednisone daily in early March. On Anticoagulants: Yes Related Data Home Medications Medication Instructions Recorded Confirmed multivitamin [Multiple Vitamins] 1 tab PO DAILY #0 05/16/17 03/25/20 turmeric 1 dose PO DAILY #0 05/16/17 03/25/20 sennosides-docusate sodium 1 tab-cap PO BEDTIME PRN 01/08/20 03/25/20 [Senokot-S] Eliquis 5 mg PO BID 01/15/20 03/25/20 Previous Rx's Medication Instructions Recorded fluoxetine 20 mg capsule 20 mg PO DAILY #90 cap 10/21/19 dexamethasone 4 mg PO DAILY #10 tab 11/24/19 zolpidem [Ambien] 5 mg PO BEDTIME PRN #30 tab 02/05/20 sulfamethoxazole-trimethoprim 1 tab PO Q12H #26 tab 03/04/20 [Bactrim DS] oxycodone-acetaminophen 1 tab PO Q4H PRN #90 tab 03/11/20 zolpidem 5 mg PO BEDTIME PRN #30 tab 03/22/20 morphine 30 mg PO Q12H #60 tab 03/25/20 prednisone 40 mg PO DAILY #30 tab 03/25/20 Allergies Allergy/AdvReac Type Severity Reaction Status Date / Time No Known Drug Allergies Allergy Verified 04/09/20 10:40 Review of Systems Review of Systems Narrative: Pertinent positive and negative findings as per HPI Remainder of review of systems is otherwise unremarkable for Constitutional: Fevers ENT: No sore throat, neck pain, ear pain CV: Chest pain, palpitations, dyspnea on exertion Respiratory: Cough, wheeze, dyspnea GI: Nausea, vomiting, diarrhea, change in bowel habits, black or bloody stools : Dysuria, hematuria, flank pain Neuro: Syncope, dizziness, tingling Patient History Medical History (Updated 04/09/20 @ 13:49 by Dodie Baltazar MD) Chicken pox (Resolved ~1962) Neuropathy (Chronic ~2012) Ovarian cancer, BRCA2 positive (Chronic ~2012) Pneumothorax (Inactive) Port-A-Cath in place (Acute) Vertigo (Inactive ~2012) Surgical History Anesthesia (Resolved) H/O bilateral mastectomy (Resolved ~2015) H/O total hysterectomy (Resolved ~2012) Social History household members: other Smoking Status: Never smoker Smoking Status: Never smoker alcohol intake frequency: 0-2 drinks per day Substance Use Type: does not use Exam Narrative Exam Narrative: General: Healthy appearing, in no acute distress. Able to give a complete and tangential history. Well-nourished well-developed HEENT: Moist mucous membranes, normal sclera with reactive pupils, Neck: No JVD, supple Respiratory: Lungs are clear to auscultation, no wheezing no rales no rhonchi. Full and symmetrical air movement Cardiac: Regular rate and rhythm no murmurs no bruits Abdomen: Soft nontender good bowel tones, no flank pain Skin: Warm and dry, no rashes Neurologic: Grossly neurologically intact with no obvious asymmetries or abnormalities. Mildly slurred speech Extremities: Right thigh and leg significantly more edematous than the left without significant erythema or warmth. consistent with a prior diagnosis of myositis rather than cellulitis. Psych: Cooperative, Initial Vital Signs Initial Vital Signs: Vital Signs Temperature 98.3 F 04/09/20 10:35 Pulse Rate 97 H 04/09/20 10:35 Respiratory Rate 18 04/09/20 10:35 Blood Pressure 112/57 L 04/09/20 10:35 Pulse Oximetry 99 04/09/20 10:35 Course Orders Ordered: ED Orders 04/09/20 10:20 EKG-12 Lead Stat 04/09/20 10:34 CT Stroke Stat 04/09/20 11:05 Complete Blood Count AUTO DIFF Stat Comprehensive Metabolic Panel Stat Lactate (Lactic Acid) Stat Procalcitonin Stat 04/09/20 11:51 XR chest 1V Stat 04/09/20 12:15 Urinalysis and Microscopic Stat Urine Culture Stat 04/09/20 12:55 Blood Culture Stat Sodium Chloride (Normal Saline 0.9%) 1,000 mls @ 150 mls/hr IV CONT KAREN Discontinued Medications Bacitracin (Bacitracin) 5 applic TOP NOW ONE Stop: 04/09/20 12:30 Last Admin: 04/09/20 13:13 Dose: Not Given Documented by: SOUMYA Sodium Chloride (Normal Saline 0.9%) 1,000 mls @ 1,000 mls/hr IV BOLUS ONE Stop: 04/09/20 12:48 Last Admin: 04/09/20 12:12 Dose: 1,000 mls/hr Documented by: SOUMYA Sodium Chloride (Normal Saline 0.9%) 1,000 mls @ 1,000 mls/hr IV BOLUS ONE Stop: 04/09/20 13:28 Last Admin: 04/09/20 13:14 Dose: 1,000 mls/hr Documented by: SOUMYA Piperacillin/Tazobactam/Dextrose (Zosyn) 3.375 gm in 50 mls @ 100 mls/hr IV NOW ONE Stop: 04/09/20 12:58 Last Admin: 04/09/20 13:15 Dose: 100 mls/hr Documented by: SOUMYA Vital Signs Vital signs: Vital Signs - 8 hr 04/09/20 10:35 04/09/20 13:03 Temperature 98.3 F Pulse Rate 97 H 88 Respiratory Rate 18 31 H Blood Pressure 112/57 L Blood Pressure [Left Arm] 102/67 Pulse Oximetry 99 97 MDM - Neuro Symptoms/Deficit Medical Records Attestation: I reviewed the patient's medical records. Lab Data Attestation: I reviewed the patient's lab results. Lab results narrative: Significant leukocytosis with left shift Worsening renal function with creatinine jumping from 1-1.76 Hyponatremia at 129 Urine is consistent with UTI Result diagrams: 04/09/20 11:05 04/09/20 11:05 Labs: Lab Results 04/09/20 04/09/20 04/09/20 Range/Units 11:05 11:05 11:05 WBC 23.1 H (4.5-11.0) X10^3/uL RBC 2.99 L (4.0-5.2) X10^6/uL Hgb 9.0 L (12.0-16.0) g/dL Hct 26.6 L (36-46) % MCV 89.0 (80-100) fL MCH 30.2 (26-34) PG MCHC 34.0 (30-36) % RDW 15.0 H (11.6-14.8) % Plt Count 66 L (150-400) X10^3/uL Neut % (Auto) Not Reportable Lymph % (Auto) Not Reportable [place] % (Auto) Not Reportable Eos % (Auto) Not Reportable Baso % (Auto) Not Reportable Lymph # (Auto) Not Reportable [place] # (Auto) Not Reportable Baso # (Auto) Not Reportable Total Counted 100 Seg Neutrophils % 87.0 H (38-70) % Band Neutrophils % 9.0 H (3-7) % Lymphocytes % (Manual) 3.0 L (25-45) % Monocytes % (Manual) 1.0 L (2-11) % Neutrophils # (Manual) 71185 H (6554-0157) /uL Hypersegmented Neuts 1+ RBC Morphology Normal morphology Sodium 129 L (137-145) mmol/L Potassium 4.3 (3.4-5.1) mmol/L Chloride 94 L (98-107) mmol/L Carbon Dioxide 25 (22-32) mmol/L BUN 52 H (7-17) mg/dL Creatinine 1.76 H (0.52-1.04) mg/dL Estimated GFR 29.3 L (>60) mL/min BUN/Creatinine Ratio 29.5 H (6-22) Glucose 166 H (80-110) mg/dL Lactate (0.7-2.1) mmol/L Calcium 8.4 (8.4-10.2) mg/dL Total Bilirubin 0.5 (0.2-1.3) mg/dL AST 49 H (14-36) IU/L ALT 21 (<35) IU/L Alkaline Phosphatase 216 H (38-126) U/L Total Protein 5.9 L (6.3-8.2) g/dL Albumin 2.7 L (3.5-5.0) g/dL Globulin 3.2 (1.7-4.1) g/dL Albumin/Globulin Ratio 0.8 L (1.0-2.8) Procalcitonin 36.73 H (<0.5) ng/mL Urine Color Urine Appearance Urine pH (4.5-8.0) Ur Specific [place] (1.000-1.035) Urine Protein (Negative) Urine Glucose (UA) (Negative) g/dL Urine Ketones (NEGATIVE) Urine Occult Blood (Negative) Urine Nitrate (Negative) Urine Bilirubin (NEGATIVE) Urine Urobilinogen (0.2) E.U./dL Ur Leukocyte Esterase (NEGATIVE) Urine RBC (0-5/HPF) Urine WBC (0-5/HPF) Urine Bacteria (None) Ur Culture Indicated? COVID-19 PCR (Negative) 04/09/20 04/09/20 04/09/20 Range/Units 11:05 12:15 12:20 WBC (4.5-11.0) X10^3/uL RBC (4.0-5.2) X10^6/uL Hgb (12.0-16.0) g/dL Hct (36-46) % MCV (80-100) fL MCH (26-34) PG MCHC (30-36) % RDW (11.6-14.8) % Plt Count (150-400) X10^3/uL Neut % (Auto) Lymph % (Auto) [place] % (Auto) Eos % (Auto) Baso % (Auto) Lymph # (Auto) [place] # (Auto) Baso # (Auto) Total Counted Seg Neutrophils % (38-70) % Band Neutrophils % (3-7) % Lymphocytes % (Manual) (25-45) % Monocytes % (Manual) (2-11) % Neutrophils # (Manual) ([id number]) /uL Hypersegmented Neuts RBC Morphology Sodium (137-145) mmol/L Potassium (3.4-5.1) mmol/L Chloride (98-107) mmol/L Carbon Dioxide (22-32) mmol/L BUN (7-17) mg/dL Creatinine (0.52-1.04) mg/dL Estimated GFR (>60) mL/min BUN/Creatinine Ratio (6-22) Glucose (80-110) mg/dL Lactate 3.9 H (0.7-2.1) mmol/L Calcium (8.4-10.2) mg/dL Total Bilirubin (0.2-1.3) mg/dL AST (14-36) IU/L ALT (<35) IU/L Alkaline Phosphatase (38-126) U/L Total Protein (6.3-8.2) g/dL Albumin (3.5-5.0) g/dL Globulin (1.7-4.1) g/dL Albumin/Globulin Ratio (1.0-2.8) Procalcitonin (<0.5) ng/mL Urine Color Yellow Urine Appearance Cloudy Urine pH 5.5 (4.5-8.0) Ur Specific [place] 1.010 (1.000-1.035) Urine Protein 1+ H (Negative) Urine Glucose (UA) Negative (Negative) g/dL Urine Ketones Negative (NEGATIVE) Urine Occult Blood 3+ H (Negative) Urine Nitrate Negative (Negative) Urine Bilirubin Negative (NEGATIVE) Urine Urobilinogen 0.2 (0.2) E.U./dL Ur Leukocyte Esterase 3+ H (NEGATIVE) Urine RBC 5-10/hpf H (0-5/HPF) Urine WBC >100/hpf H (0-5/HPF) Urine Bacteria Many (>30) H (None) Ur Culture Indicated? Specimen cultured COVID-19 PCR Negative (Negative) Urine Dip Bedside Urine Glucose Negative Bedside Urine Bilirubin - Negative Bedside Urine Ketone - Negative Urine Specific [place] 1.015 Bedside Urine Occult Blood +++ Bedside Urine pH 6.0 Bedside Urine Protein + 30 Bedside Urine Urobilinogen - Negative Bedside Urine Nitrite - Negative Bedside Urine Leukocytes +++ [address] scan - head: Radiologist's Impression: IMPRESSION: 1. No acute intracranial abnormalities. The result was discussed with Dr. Baltazar on 04/09/2020 at 1047 hours. This study fulfills neurological imaging criteria for inclusion or exclusion of acute stroke therapies based on available published neurological imaging guidelines. Dictated by: Ruby De Jesus M.D. on 04/09/2020 at 10:46 Chest x-ray: Radiologist's Impression: IMPRESSION: Slightly prominent right infrahilar lung markings may represent mild vascular congestion. However, developing pneumonia is difficult to exclude and clinical correlation is recommended. Dictated by: Emile Nielson M.D. on 04/09/2020 at 11:34 ECG Data Attestation: I personally reviewed and interpreted this ECG as follows: Interpretation: Sinus rhythm at a rate of 96 Normal axis, normal intervals No acute ischemic changes MDM Narrative Medical decision making narrative: 60-year-old woman with metastatic ovarian cancer presents with slightly slurred speech and some gait ataxia. The gait difficulties were noticed somewhat yesterday and the slurred speech was noted by the daughters this morning. On my exam the slurred speech sounds more consistent with excessive narcotic dosing rather than more significant pathology. Exam is not suggestive of an acute stroke. Head CT is not read as an acute bleed. 1145 pt does take ambien for sleep and has been known to do things that she is not able to remember. Apparently she has consumed an entire bottle of vodka under the influence of Ambien at 1 point. Labs return with significant leukocytosis(she was started on prednisone 40 mg daily but this was almost a month ago), increased creatinine and hyponatremia. Will add additional blood work chest x-ray and continue evaluation. 1220 now with active hallucination, urine suggests a bladder infection, chest x-ray is pending. Will begin antibiotics with presumption of sepsis. Remains hemodynamically stable and lactic is pending. Anticipate admission. 110pm we discussed leukocytosis patient does note that she did get the ?booster shot? with her last chemotherapy. Assume that she is referring to one of the erythropoietic stimulating factors but can not find documentation as to whether this was actually administered or which ones. Regardless, significantly more PMNs than other white cell lines and clinical signs of infection at this time. Urine has returned and clearly appears infected. 146 lactate returns at 3.9. Care is reviewed with , hospitalist. Patient will be admitted for antibiotics with presumptive urinary tract infection altered mental status worsening renal function, concern for developing sepsis in the setting of metastatic ovarian cancer. Discharge Plan Departure Patient Disposition: Admitted As Inpatient Clinical Impression: Acute UTI, Delirium, Acute kidney insufficiency, Polymyositis Ovarian cancer Qualifiers: Laterality: unspecified laterality Qualified Code(s): C56.9 - Malignant neoplasm of unspecified ovary Referrals: Huber Caba MD [Primary Care Provider] -
[2020-04-09 11:18] LABS: Add Manual Diff / Slide Review YES; Hematocrit 26.6 % (36-46); Mean Corpuscular Hemoglobin 30.2 PG (26-34); Platelet Count 66 X10^3/uL (150-400); Red Blood Cell Count 2.99 X10^6/uL (4.0-5.2); White Blood Cell Count 23.1 X10^3/uL (4.5-11.0)
[2020-04-09 11:26] LABS: Alanine Aminotransferase 21 IU/L (<35); Albumin 2.7 g/dL (3.5-5.0); Albumin Globulin Ratio 0.8 (1.0-2.8); Alkaline Phosphatase 216 U/L (38-126); Aspartate Aminotransferase 49 IU/L (14-36); BUN Creatinine Ratio 29.5 (6-22); Bilirubin Total 0.5 mg/dL (0.2-1.3); Blood Urea Nitrogen 52 mg/dL (7-17); Calcium 8.4 mg/dL (8.4-10.2); Carbon Dioxide 25 mmol/L (22-32); Chloride 94 mmol/L (98-107); Estimated Glomerular Filt Rate 29.3 mL/min (>60); Globulin 3.2 g/dL (1.7-4.1); Glucose 166 mg/dL (80-110); HEMOLYSIS < 15 (0-50); Potassium 4.3 mmol/L (3.4-5.1); Sodium 129 mmol/L (137-145); Total Protein 5.9 g/dL (6.3-8.2)
[2020-04-09 11:37] LABS: Hypersegmented Neutrophils 1+; Neutrophils Absolute Manual 22176 /uL (3000-5900); RBC Morphology Normal Morphology; Total Cells Counted 100
--- NOTE | 2020-04-09 11:51 | DI.RAD.S_ITS ---
PROCEDURE: XR CHEST 1V INDICATIONS: leukocytosis unexplained TECHNIQUE: One view of the chest was acquired. COMPARISON: None. FINDINGS: Surgical changes and devices: None. Lungs and pleura: Prominent interstitial markings are identified within the right infrahilar region. No pleural effusion or definite pneumothorax. Mediastinum: Mediastinal contours appear normal. Heart size is normal. Bones and chest wall: No suspicious bony lesions. Overlying soft tissues appear unremarkable. IMPRESSION: Slightly prominent right infrahilar lung markings may represent mild vascular congestion. However, developing pneumonia is difficult to exclude and clinical correlation is recommended. Dictated by: Emile Nielson M.D. on 04/09/2020 at 11:34 Approved by: Emile Nielson M.D. on 04/09/2020 at 11:35
[2020-04-09 12:08] LABS: Lactate (Lactic Acid) 3.9 mmol/L (0.7-2.1)
[2020-04-09] MEDS: SODIUM CHLORIDE 0.9% 1,000 ML 1000 ML IV ×3 (12:12→15:39)
[2020-04-09 12:24] LABS: Procalcitonin 36.73 ng/mL (<0.5)
[2020-04-09 12:27] LABS: Appearance Urine UA CLOUDY; Bilirubin Urine UA NEGATIVE (NEGATIVE); Color Urine UA YELLOW; Glucose Urine UA NEGATIVE (Negative); Ketones Urine UA NEGATIVE (NEGATIVE); Leukocyte Esterase Urine UA 3+ (NEGATIVE); Nitrite Urine UA NEGATIVE (Negative); Occult Blood Urine UA 3+ (Negative); Protein Urine UA 1+ (Negative); Urobilinogen Urine UA 0.2 E.U./dL (0.2); pH Urine UA 5.5 (4.5-8.0)
[2020-04-09 12:33] LABS: RBC Urine 5-10/HPF (0-5/HPF); WBC Urine >100/HPF (0-5/HPF)
[2020-04-09 12:34] LABS: Bacteria Urine Many (>30); Culture Indicated Urine Specimen Cultured
[2020-04-09] MEDS: PIPERACILLIN-TAZO 3.375 GM/50 ML FROZ.PIGGY IV (13:15)
[2020-04-09 13:46] LABS: COVID19 -Nasal RAPID Negative (Negative)
[2020-04-09 13:57] LABS: Reflexed Lactate in 2 Hours Y
--- NOTE | 2020-04-09 18:01 | PM.HP.1 ---
History of Present Illness History of Present Illness Date Patient Seen: 04/09/20 Time Patient Seen: 18:02 Chief complaint: STROKE LIKE SYMPTOMS Narrative: Medina Monteiro is a 60-year-old female with BCRA-2 mutation, Stage IV ovarian CA on chemo (last round middle of January), right lower extremity DVT on apixaban who was previously admitted approximately a month ago for a presumed right lower extremity cellulitis (subsequently biopsied in presumed to be a myositis versus paraneoplastic syndrome and has been on steroids) who presented at the behest of her daughters over concern for issues with word finding as well as slurred speech. Patient reports that yesterday afternoon she was having more difficulty finding the right words, which is unusual for her. Then this morning her daughters told her that she was actually sewing her words and brought her into the emergency room. She further reports that over the past 2 weeks she has had some difficulty with some increasing gait instability. She denies any recent fevers, cough, chills, shortness of breath, chest pain, abdominal pain. She denies any new numbness or tingling other than the chronic numbness in her bilateral fingers and toes. Her right lower extremity pain has been controlled on oral morphine, 30 mg twice daily, and states that her pain has been controlled recently and has been looking to possibly cut down from 30 mg at night to 15 mg at night to see how this goes. She states that she is potentially a little more confused than normal. She does not endorse any word-finding issues right now, and denies any speech difficulties. As far as her ovarian cancer, she received carboplatin on March 25 and has continued on prednisone for the above right leg presumed myositis. She states that she alternates between dexamethasone when she is on chemotherapy, and prednisone when she is not taking the dexamethasone. In the emergency room, her vital signs were notable for borderline low blood pressures, but generally within normal limits. The rest of her vital signs were unremarkable. Her chest x-ray showed possibly a mild infrahilar prominence as redrew the radiologist. Her EKG was unremarkable. She had a head CT which was also unremarkable. Her labs were notable for leukocytosis of 23.1, which has been trending up since her chemotherapy, she is also more thrombocytopenic with a platelet count of 66. She has mild hyponatremia at 129, a creatinine of 1.76 up from her baseline of around 0.7. Procalcitonin was 36.71. Liver enzymes were unremarkable. UA showed greater than 100 white blood cells, but negative nitrites with many bacteria and was sent for cultures. Patient History Medical History (Updated 04/09/20 @ 13:49 by Dodie Baltazar MD) Chicken pox (Resolved ~1962) Neuropathy (Chronic ~2012) Ovarian cancer, BRCA2 positive (Chronic ~2012) Pneumothorax (Inactive) Port-A-Cath in place (Acute) Vertigo (Inactive ~2012) Surgical History Anesthesia (Resolved) H/O bilateral mastectomy (Resolved ~2015) H/O total hysterectomy (Resolved ~2012) Family & Social History Social History: household members none Prior Living Arrangements Apartment/Condo Safety & Behavioral: Feels Safe in Current Yes Environment Been Physically Hurt or No Threatened By a Person Suicidal Ideation Description None Suicide Plan Description No Plan Tobacco & Substance use: Smoking Status Never smoker alcohol intake frequency 0-2 drinks per day Substance Use Type does not use Meds Home Medications and Allergies Home Medications Medication Instructions Recorded Confirmed Type multivitamin [Multiple Vitamins] 1 tab PO DAILY #0 05/16/17 04/09/20 History turmeric 1 dose PO DAILY #0 05/16/17 04/09/20 History fluoxetine 20 mg capsule 20 mg PO DAILY #90 cap 10/21/19 04/09/20 Rx dexamethasone 4 mg PO DAILY #10 tab 11/24/19 04/09/20 Rx sennosides-docusate sodium 1 tab-cap PO BID 01/08/20 04/09/20 History [Senokot-S] Eliquis 5 mg PO BID 01/15/20 04/09/20 History oxycodone-acetaminophen 1 tab PO Q4H PRN #90 tab 03/11/20 04/09/20 Rx zolpidem 5 mg PO BEDTIME PRN #30 tab 03/22/20 04/09/20 Rx morphine 30 mg PO Q12H #60 tab 03/25/20 04/09/20 Rx prednisone 40 mg PO DAILY #30 tab 03/25/20 04/09/20 Rx Allergies Allergy/AdvReac Type Severity Reaction Status Date / Time No Known Drug Allergies Allergy Verified 04/09/20 10:40 Review of Systems Review of Systems Narrative: All other systems reviewed with the patient and are negative unless otherwise stated. Exam Vital Signs (past 8 hours): - 04/09/20 10:35 04/09/20 13:03 04/09/20 16:09 Temperature 98.3 F 98.1 F Pulse Rate 97 H 88 82 Respiratory Rate 18 31 H 24 Blood Pressure 112/57 L 93/52 L Blood Pressure [Left Arm] 102/67 Pulse Oximetry 99 97 98 04/09/20 16:23 Temperature 97.0 F L Pulse Rate 87 Respiratory Rate 18 Blood Pressure 125/99 H Blood Pressure [Left Arm] Pulse Oximetry 99 Oxygen Delivery Method Room Air Narrative Exam Narrative: GENERAL APPEARANCE: Well developed, well nourished, in no acute distress. SKIN: Inspection of the skin reveals no rashes, ulcerations or petechiae. HEENT: Normocephalic atraumatic, extraocular muscles are intact, oropharynx is clear and mucous membranes are moist, neck is supple without adenopathy NECK: Supple and symmetric. There was no thyroid enlargement, and no tenderness, or masses were felt. CHEST: Normal AP diameter and normal contour without any kyphoscoliosis. LUNGS: Auscultation of the lungs revealed no wheezes, rhonchi, or rales. CARDIOVASCULAR: There was a regular rate and rhythm without any murmurs, gallops, rubs. Peripheral pulses were 2+ and symmetric. ABDOMEN: Soft and nontender with normal bowel sounds. No ascites was noted. MUSCULOSKELETAL: There was no tenderness or effusions noted. Muscle strength and tone were normal. EXTREMITIES: No cyanosis, clubbing or edema. NEUROLOGIC: Alert and oriented x 3. Normal affect. Gait was normal. Strength is +5/5 in the Upper Extremities and Lower Extremities Bilaterally. Sensation to touch was normal. Objective ECG Impression: Normal sinus rhythm without evidence of ischemia. Imaging Chest x-ray: Radiologist's impression: Mild right-sided infra hilar prominence CT scan - head: Radiologist's impression: No acute pathologies Labs Result Diagrams: 04/09/20 11:05 04/09/20 11:05 Labs: Laboratory Results - last 24 hr 04/09/20 04/09/20 04/09/20 11:05 11:05 11:05 WBC 23.1 H RBC 2.99 L Hgb 9.0 L Hct 26.6 L MCV 89.0 MCH 30.2 MCHC 34.0 RDW 15.0 H Plt Count 66 L Neut % (Auto) Not Reportable Lymph % (Auto) Not Reportable [place] % (Auto) Not Reportable Eos % (Auto) Not Reportable Baso % (Auto) Not Reportable Lymph # (Auto) Not Reportable [place] # (Auto) Not Reportable Baso # (Auto) Not Reportable Total Counted 100 Seg Neutrophils % 87.0 H Band Neutrophils % 9.0 H Lymphocytes % (Manual) 3.0 L Monocytes % (Manual) 1.0 L Neutrophils # (Manual) 54675 H Hypersegmented Neuts 1+ RBC Morphology Normal morphology Sodium 129 L Potassium 4.3 Chloride 94 L Carbon Dioxide 25 BUN 52 H Creatinine 1.76 H Estimated GFR 29.3 L BUN/Creatinine Ratio 29.5 H Glucose 166 H Lactate Calcium 8.4 Total Bilirubin 0.5 AST 49 H ALT 21 Alkaline Phosphatase 216 H Total Protein 5.9 L Albumin 2.7 L Globulin 3.2 Albumin/Globulin Ratio 0.8 L Procalcitonin 36.73 H Urine Color Urine Appearance Urine pH Ur Specific [place] Urine Protein Urine Glucose (UA) Urine Ketones Urine Occult Blood Urine Nitrate Urine Bilirubin Urine Urobilinogen Ur Leukocyte Esterase Urine RBC Urine WBC Urine Bacteria Ur Culture Indicated? COVID-19 PCR 04/09/20 04/09/20 04/09/20 11:05 12:15 12:20 WBC RBC Hgb Hct MCV MCH MCHC RDW Plt Count Neut % (Auto) Lymph % (Auto) [place] % (Auto) Eos % (Auto) Baso % (Auto) Lymph # (Auto) [place] # (Auto) Baso # (Auto) Total Counted Seg Neutrophils % Band Neutrophils % Lymphocytes % (Manual) Monocytes % (Manual) Neutrophils # (Manual) Hypersegmented Neuts RBC Morphology Sodium Potassium Chloride Carbon Dioxide BUN Creatinine Estimated GFR BUN/Creatinine Ratio Glucose Lactate 3.9 H Calcium Total Bilirubin AST ALT Alkaline Phosphatase Total Protein Albumin Globulin Albumin/Globulin Ratio Procalcitonin Urine Color Yellow Urine Appearance Cloudy Urine pH 5.5 Ur Specific [place] 1.010 Urine Protein 1+ H Urine Glucose (UA) Negative Urine Ketones Negative Urine Occult Blood 3+ H Urine Nitrate Negative Urine Bilirubin Negative Urine Urobilinogen 0.2 Ur Leukocyte Esterase 3+ H Urine RBC 5-10/hpf H Urine WBC >100/hpf H Urine Bacteria Many (>30) H Ur Culture Indicated? Specimen cultured COVID-19 PCR Negative 04/09/20 14:14 WBC RBC Hgb Hct MCV MCH MCHC RDW Plt Count Neut % (Auto) Lymph % (Auto) [place] % (Auto) Eos % (Auto) Baso % (Auto) Lymph # (Auto) [place] # (Auto) Baso # (Auto) Total Counted Seg Neutrophils % Band Neutrophils % Lymphocytes % (Manual) Monocytes % (Manual) Neutrophils # (Manual) Hypersegmented Neuts RBC Morphology Sodium Potassium Chloride Carbon Dioxide BUN Creatinine Estimated GFR BUN/Creatinine Ratio Glucose Lactate 2.0 Calcium Total Bilirubin AST ALT Alkaline Phosphatase Total Protein Albumin Globulin Albumin/Globulin Ratio Procalcitonin Urine Color Urine Appearance Urine pH Ur Specific [place] Urine Protein Urine Glucose (UA) Urine Ketones Urine Occult Blood Urine Nitrate Urine Bilirubin Urine Urobilinogen Ur Leukocyte Esterase Urine RBC Urine WBC Urine Bacteria Ur Culture Indicated? COVID-19 PCR Assessment & Plan Assessment & Plan narrative: Medina Monteiro is a 60-year-old female with BCRA-2 mutation, Stage IV ovarian CA on chemo (last round middle of January), right lower extremity DVT on apixaban since December who presents at the recommendation of her oncologist for right lower extremity cellulitis and myositis was not responding to outpatient oral antibiotic therapy. 1. Sepsis, acute, present on admission. - SOFA score of 3, evidence of organ damage including possibly encephalopathy, acute renal injury, and thrombocytopenia. - continue zosyn for acute cystitis - consider additional abdominal imaging given prior fluid collection and UTI, if cultures indicate a colonic bacteria consider a possible fistula based on the previously known fluid collection documented below. - LA of 3.9 on admission improved to 2.0 after initial fluid resuscitation. - source is likely urinary at this time. Cultures are pending. Chest xray may have a hilar infiltrate but no recent cough, or shortness of breath, or chest pain. 2. Acute renal failure, present on admission, - likely secondary to sepsis and dehydration - continue IVF and management of sepsis as noted above 3. Thrombocytopenia, acute, present on admission. - admission platelet count of 66, usually her platelet counts are within normal limits. - likely related to sepsis. No abnormal pathologies are present on patient's smear to suggest lysis. Will continue to follow. 4. Hyponatremia, acute, present on admission, - - admission Na of 129, baseline of approx 135 based on prior labs. - continue fluid resuscitation as noted above. initially given 3L of fluid boluses in the ER. 5. toxic metabolic encephalopathy, acute, present on admission. - likely related to sepsis at this time. However patient with reportedly slurred speech and word finding difficulties will need to rule out a CVA with MR stroke protocol. Her NIH is currently 0. - Differentials further include steroid induced encephalopathy or possibly related to opiod overuse. 6. Acute cystitis, present on admission - continue zosyn 7. RLE myositis, chronic, present on admission. - patient reports pain controlled on morphine. Will continue home dosing at this time as well as home prednisone. Unclear on how long she will require steroids for myositis. Further information in Dr. Chanel's outpatient oncology note. 8. RLE DVT, chronic, present on admission. - continue apixaban 5 mg BID 9. Stage IV ovarian CA, active - patient is on decadron daily, 4mg. Will hold for now given likely underlying infection. - Oncologist is Dr. Chanel, follows here. Last chemo carboplatin given on 03/25/2020. Reportedly next round scheduled for 04/22/20. 10. History of colostomy placement - 01/23/2017: Exploratory laparotomy, ALEAH, and diverting loop transverse colostomy for large bowel obstruction 11. Intra-abdominal fluid collection - extraluminal fluid collection situated between rectum and urinary bladder with adjacent rectosigmoid colon wall thickening and bladder wall thickening on prior imaging from previous admission. This has been a chronic finding. As noted above, if urine culture grows a typical colonic bacteria would suspect a possible fistula. -She underwent prior sigmoidoscopy at [facility] in [place] for further evaluation, but no known cause has been found to this time. Code: Full, as discussed with the patient, she elects her surrogate decision maker to be her 2 daughters DVT: Lovenox daily Dispo: Admitted under inpatient status Scores SOFA PaO2/FIO2: >=400 mmHg Platelets: < 100 Bilirubin: < 1.2 mg/dL Hypotension: MAP >= 70 mmHg [place] Coma Scale: 15 Renal: Creatinine 1.2-1.9 mg/dL SOFA Score: 3 Quality VTE Deep Vein Thrombosis/Pulmonary Embolism Present on Admission: No
[2020-04-09] MEDS: SODIUM CHLORIDE 0.9% 1,000 ML 125 ML IV (18:34)
[2020-04-09] MEDS: MORPHINE ER 30 MG TABLET PO (19:32)
--- NOTE | 2020-04-09 20:26 | DI.MRI.S_ITS ---
PROCEDURE: MR STROKE Pre- and post-contrast brain MRI, non-contrast brain MR angiogram, pre- and postcontrast neck MR angiogram INDICATIONS: transient aphasia and slurred speech TECHNIQUE: Brain: Noncontrast axial T1 spin echo, axial T2 fast spin echo, sagittal and axial FLAIR, coronal T2 fast spin echo, axial gradient echo, axial diffusion and ADC through the brain. After the administration of contrast, axial 3D VIBE of the cranial vasculature and brain. Brain MRA: Non-contrast 3-D time of flight MR angiogram, with multiple yupjwbz-nmdsppttm-ygsyzeeqno (MIP) reformats performed. Neck MRA: Axial and sagittal TruFISP through the neck. Coronal dynamic MR angiogram during administration of contrast in the arterial and venous phases, with 3-dimenstional thoinif-nwcstbcya-ndaacpacja (MIP) reformats constructed from subtraction images. COMPARISON: CT stroke dated 04/09/20. FINDINGS: Image quality: Excellent. BRAIN: CSF spaces: Ventricles are normal in size and shape. Basal cisterns are patent. No extra-axial fluid collections. Brain: No intracranial bleeds or mass effects. Daniel-white matter interface is normal. Diffusion weighted images show no acute ischemic insults. Brainstem appears normal. Normal intravascular flow voids are present. No abnormal intracranial enhancement. Skull and face: Calvarial marrow signal is normal. Orbits appear normal. Sinuses: Right maxillary sinus air-fluid level. Patchy bilateral anterior ethmoid opacification. BRAIN MR ANGIOGRAM: Anterior circulation: Intracranial internal carotid arteries are normal in size and enhancement. The flow within the paired anterior cerebral arteries is normal and symmetric. The flow within the middle cerebral arteries is normal and symmetric. The anterior communicating artery is seen. No stenoses, occlusions, or aneurysms. Posterior circulation: The visualized portions of the vertebral arteries demonstrate normal caliber, and join to form a normal appearing basilar artery. The flow within the posterior cerebral arteries is normal and symmetric. No stenoses, occlusions, or aneurysms. NECK MR ANGIOGRAM: Carotids: Great vessels demonstrate a conventional anatomy as they arise from the aortic arch. The origins of the common carotid arteries appear patent. The calibers and courses of both common carotid arteries are normal. The bifurcation regions appear normal bilaterally. The internal carotid arteries demonstrate normal course and caliber. Posterior circulation: The origins of the vertebral arteries appear patent. More superior portions of both vertebral arteries demonstrate normal course and caliber, and join to form a normal appearing basilar artery. Miscellaneous: Subclavian arteries appear patent. Pre-contrast images through the neck show no soft tissue abnormalities. IMPRESSION: BRAIN MRI: 1. No evidence acute stroke, hemorrhage, or mass. 2. Normal appearing brain parenchyma. 3. Acute right sphenoid sinusitis and chronic bilateral anterior ethmoid sinus disease. BRAIN MR ANGIOGRAM: No stenoses, aneurysms, or occlusions. No focal filling defects. Unremarkable. NECK MR ANGIOGRAM: Unremarkable. Widely patent internal carotid arteries. Dictated by: Vitor Connolly M.D. on 04/10/2020 at 8:05 Approved by: Vitor Connolly M.D. on 04/10/2020 at 8:11
[2020-04-09] MEDS: SENNOSIDES 8.6 MG TABLET PO (21:04)
[2020-04-09] MEDS: APIXABAN 5 MG TABLET PO (21:04)
[2020-04-09] MEDS: PIPERACILLIN-TAZO 2.25 GM/50 ML FROZ.PIGGY IV (21:04)
[2020-04-09] MEDS: DOCUSATE 100 MG CAPSULE PO (21:04)
[2020-04-09] MEDS: ZOLPIDEM 5 MG TABLET PO (23:52)
[2020-04-10] VITALS (11 sets, daily range): BP systolic 112–121; BP diastolic 71–79; PULSE 81–91; RESP 15–18; TEMP 35.7–36.8; O2SAT 93–98
[2020-04-10] MEDS: SODIUM CHLORIDE 0.9% 1,000 ML 125 ML IV ×2 (03:11→12:43)
[2020-04-10] MEDS: PIPERACILLIN-TAZO 2.25 GM/50 ML FROZ.PIGGY IV ×3 (04:37→18:41)
[2020-04-10 05:42] LABS: Add Manual Diff / Slide Review NO; Basophils Absolute Auto 0 /uL (0-100); Basophils Percent Auto 0.2 % (0-2); Eosinophils Absolute Auto 200 /uL (0-450); Eosinophils Percent Auto 1.3 % (2-4); Hematocrit 25.5 % (36-46); Hemoglobin 8.6 g/dL (12.0-16.0); Lymphocytes Absolute Auto 1000 /uL (1100-4500); Lymphocytes Percent Auto 6.5 % (25-40); Mean Corpuscular HGB Conc 33.8 % (30-36); Mean Corpuscular Hemoglobin 30.1 PG (26-34); Mean Corpuscular Volume 89.2 fL (80-100); Monocytes Absolute Auto 500 /uL (0-900); Monocytes Percent Auto 3.3 % (3-14); Neutrophils Absolute Auto 14100 /uL (1500-7000); Neutrophils Percent Auto 88.7 % (50-75); Platelet Count 60 X10^3/uL (150-400); Red Blood Cell Count 2.86 X10^6/uL (4.0-5.2); Red Cell Distribution Width 15.2 % (11.6-14.8); White Blood Cell Count 15.9 X10^3/uL (4.5-11.0)
[2020-04-10 05:58] LABS: Acinetobacter baumannii Not Detected (Not Detect); Enterobacteriaceae species Detected (Not Detect); Enterococcus species Not Detected (Not Detect); KPC (carbapenem-resist gene) Not Detected (Not Detect); Listeria monocytogenes Not Detected (Not Detect); Staphylococcus species Not Detected (Not Detect); Streptococcus agalactiae (Gr B Not Detected (Not Detect); Streptococcus pneumonia Not Detected (Not Detect); Streptococcus pyogenes (Gr A) Not Detected (Not Detect); Streptococcus species Not Detected (Not Detect)
[2020-04-10 05:59] LABS: Candida albicans Not Detected (Not Detect); Candida glabrata Not Detected (Not Detect); Candida krusei Not Detected (Not Detect); Candida parapsilosis Not Detected (Not Detect); Candida tropicalis Not Detected (Not Detect); E. coli Detected (Not Detect); Enterobacter cloacae complex Not Detected (Not Detect); Haemophilus influenzae Not Detected (Not Detect); Neisseria meningitidis Not Detected (Not Detect); Proteus species Not Detected (Not Detect); Pseudomonas aeruginosa Not Detected (Not Detect); Serratia marcescens Not Detected (Not Detect)
[2020-04-10 06:04] LABS: Alanine Aminotransferase 20 IU/L (<35); Albumin 2.5 g/dL (3.5-5.0); Albumin Globulin Ratio 0.8 (1.0-2.8); Alkaline Phosphatase 195 U/L (38-126); Aspartate Aminotransferase 41 IU/L (14-36); BUN Creatinine Ratio 30.2 (6-22); Bilirubin Total 0.5 mg/dL (0.2-1.3); Bilirubin Unconjugated 0.3 mg/dL (0.0-1.1); Blood Urea Nitrogen 49 mg/dL (7-17); Carbon Dioxide 25 mmol/L (22-32); Chloride 101 mmol/L (98-107); Estimated Glomerular Filt Rate 32.2 mL/min (>60); Globulin 3.1 g/dL (1.7-4.1); Glucose 108 mg/dL (80-110); HEMOLYSIS < 15 (0-50); Potassium 3.9 mmol/L (3.4-5.1); Sodium 132 mmol/L (137-145); Total Protein 5.6 g/dL (6.3-8.2)
[2020-04-10 06:31] LABS: Procalcitonin 32.84 ng/mL (<0.5)
[2020-04-10] MEDS: SENNOSIDES 8.6 MG TABLET PO ×2 (08:49→20:41)
[2020-04-10] MEDS: predniSONE 20 MG TABLET 40 MG PO (08:49)
[2020-04-10] MEDS: MORPHINE ER 30 MG TABLET PO ×2 (08:50→20:40)
[2020-04-10] MEDS: APIXABAN 5 MG TABLET PO ×2 (08:50→20:41)
[2020-04-10] MEDS: MULTIVITAMIN 1 TABLET 1 TAB PO (08:50)
[2020-04-10] MEDS: FLUoxetine 20 MG CAPSULE PO (08:50)
[2020-04-10] MEDS: DOCUSATE 100 MG CAPSULE PO ×2 (08:50→20:41)
--- NOTE | 2020-04-10 12:24 | PC.NURSE ---
Day shift note: Was notified by G[facility]iota WALL regarding E. Coli growth in Blood CX, notified Dr. Leake. Wright in Pharmacy to increase Zosyn dosing to Q6 hrs.
--- NOTE | 2020-04-10 15:43 | PT.IIE ---
Surgical History (Last Reviewed 02/24/20 @ 16:43 by Eliazar Purdy MD) Anesthesia (Resolved) H/O bilateral mastectomy (Resolved ~2015) H/O total hysterectomy (Resolved ~2012) Medical History (Last Updated 04/09/20 @ 11:08 by Dodie Baltazar MD) Chicken pox (Resolved ~1962) Neuropathy (Chronic ~2012) Ovarian cancer, BRCA2 positive (Chronic ~2012) Pneumothorax (Inactive) Port-A-Cath in place (Acute) Vertigo (Inactive ~2012) Physical Therapy Inpatient Evaluation/Re-Eval M1 PT/OT-IP Prior Functional Status Start: 04/10/20 15:43 Freq: NEEDED Status: Active Protocol: Document 04/10/20 15:43 DLM (Rec: 04/10/20 16:04 DLM [email or web address]) Medical Review Prior Functional Status Medical History Reviewed Yes Diet/Fluid Consistency Regular Communication WNL Mobility and Gait Independent using one crutch Activities of Daily Living and IADL's Independent Prior Functional Level (Other details) has been working with home health PT in past and out-pt therapy for lymphatic drainage Social History Household Members none Living Arrangements Apartment/Condo Number of Floors (Floors) One Floor Number of Stairs To Enter/Railing? second floor apt, up 16 steps with rail and crutch Home Environment Standard Height Toilet,Walk in Shower Home Equipment Crutches Additional Social History Comment adjustable bed M2 PT-IP Current Condition Start: 04/10/20 15:43 Freq: NEEDED Status: Active Protocol: Document 04/10/20 15:43 DLM (Rec: 04/10/20 16:04 DLM [email or web address]) Physical Therapy Current Condition Current Condition Evaluation Date 04/10/20 Treatment Diagnosis Septic Onset Date 04/09/20 Precautions Other Precautions lymphadema wrap for right thigh M3 PT-IP Subjective Start: 04/10/20 15:43 Freq: NEEDED Status: Active Protocol: Document 04/10/20 15:43 DLM (Rec: 04/10/20 16:04 DLM [email or web address]) Subjective Physical Therapy Visit Type Type Initial Evaluation Visit Start Time 15:15 Visit Stop Time 15:43 Total Visit Minutes 28 Number of BRINE SUPERVISOR Visits 0 Physical Therapy Visit Comments Patient Comments she wants to be able to continue her home exercises, does not want to lose all her strength Patient Goals return home Therapy Pain Assessment Pain When Pain Assessed After Treatment Pain Present Pain Present Pain Reported Location Right Leg Intensity 2 Scale Used Numeric (0 - 10) Description Aching Pain Management Techniques Elevation,Re-positioning M4 PT-IP Mobility and Gait Start: 04/10/20 15:43 Freq: NEEDED Status: Active Protocol: Document 04/10/20 15:43 DLM (Rec: 04/10/20 16:04 DLM [email or web address]) PT-Bed Mobility Assessment Rolling Type of Rolling Bilateral Level of Assist Independent Supine to Sit Supine to Sit Independent Sit to Supine Sit to Supine Minimal Assistance Scooting Scooting to Edge of Bed Independent Scooting Up and Down in Bed Independent PT-Transfer Assessment Sit to and From Stand Sit to and from Stand Independent,Use of Upper Extremities Equipment Transfer Assistive Device Front Wheeled Walker Transfers Transfer Destination Bed,Toilet Transfer Technique Stand Step Pivot Transfer Ability Level of Assist Standby Assistance,Use of Upper Extremities Comments Mobility Comments pt using FWW while in hospital for convenience, uses one crutch at home, she needs assist to manage IV pole during mobility Gait Assessment Gait Gait Assistance Required: Standby Assistance Distance (Feet) 20 Assistive Devices Assistive Device Front Wheeled Walker Gait Deviations General Gait Pattern Antalgic Factors Limiting Gait Function Factors Limiting Gait Function Decreased Activity Tolerance, Decreased Strength,Pain Comments Gait Comments pain and weakness right LE since February admission for cellulitis that she reports is now believed to be autoimmune , she needs to have her paths clear and help with IV pole during gait PT-Balance Assessment Sitting Balance and Reactions Static Sitting Balance Ability Normal Dynamic Sitting Balance Ability Normal Standing Balance and Reactions Static Standing Balance Ability Good Dynamic Standing Balance Ability Good Device Used FWW M5 PT-IP Objective Assessments Start: 04/10/20 15:43 Freq: NEEDED Status: Active Protocol: Document 04/10/20 15:43 DLM (Rec: 04/10/20 16:04 DLM [email or web address]) Orientation Orientation/Cognition Level of Alertness Alert Orientation Name,Age,Birthday,Month,Date, Year,Day of Week,Place, Situation Language Function Ability No Deficits Noted Safety Awareness Understands Safety Issues Memory Description No Deficits Noted Gross Range of Motion Upper Extremity ROM Assessment Within Functional Limits Lower Extremity ROM Assessment Right Impaired Impairments limited by pain and edema which are chronic Strength Upper Extremity Strength Assessment Within Functional Limits Lower Extremity Strength Assessment Right Impaired Hip flexion 2+/5 Knee 3+/5 Comments Strength Comments pain in right LE interferes with muscle testing, she requests assists to lift right LE onto pillows on the bed to assist with pain management Coordination Assessment Gross Coordination Gross Coordination WNL Sensation Assessment Sensation Gross Sensation Right UE Impaired,Left UE Impaired,Right LE Impaired, Left LE Impaired Sensation Description Numbness Comments Sensation Comments chronic numbness fingers and toes bilaterally Muscle Tone Muscle Tone WNL Yes M6 PT-IP Treatment Start: 04/10/20 15:43 Freq: NEEDED Status: Active Protocol: Document 04/10/20 15:43 DLM (Rec: 04/10/20 16:04 DLM [email or web address]) Physical Therapy Treatment Other Treatments Other Treatment Performed Reviewed her current HEP, pt using 10# at home. Request pt modifiy the intensity of her exercises while hospitalized. Pt agreed to use her exercise bands instead which her Daughter will bring in for her . Pt to modify her other exercises to be done on her bed in the hospital (uses bench or floor mat at home). M7 PT-IP Assessment and Plan Start: 04/10/20 15:43 Freq: NEEDED Status: Active Protocol: Document 04/10/20 15:43 DLM (Rec: 04/10/20 16:04 DLM [email or web address]) PT Summary Assessment and Plan Potential Rehabilitation Potential Good Status of Condition at Evaluation Evolving Summary Impairments Pain,ROM,Strength,Balance,Bed Mobility,Activity Tolerance Assessment Summary Medina is very motivated to maintain her strenght while hospitalized. She tolerated gait in her room well today and bathroom trips with fWW. She uses one crutch at home but is using a fWW for convenience while hospitalized . Her right LE pain and weakness have limited her function prior to this visit and she does not feel it has changed this admission. She describes no new deficits. Will plan to see her one more visit to increase her activity and if she tolerates this well then discharge her to ambulate with nursing and continue a modified exercise program on her hospital bed. Anticipate she will be able to discharge home when medically stable is she continues to progress. Goals Bed Mobility Goal Independent Gait Goal Standby Assistance,Front Wheel Walker Gait Distance 150 feet Other Goals up and down 16 stairs with rail and crutch Days to Meet Goals 1 Frequency of Treatment Frequency Of Treatment Once a Day Treatment Plan Physical Therapy Treatment Plan Bed Mobility Training,Transfer Training,Gait Training, Therapeutic Exercise,Discharge Planning Other Recommendations and Next Treatment one more visit planned, Focus monitor activity tolerance related to her Sepsis Recommendations To Nursing Amount of Assist Needed Standby Assistance Discharge Recommendations PT Discharge Recommendations Home,Outpatient PT Other Discharge Recommendations pt wants to see PT for lymphedema and incontinence issues as well as strengthening Transportation Needs at Discharge Private Vehicle
--- NOTE | 2020-04-10 16:11 | CM.DANOTE ---
Discharge Planning/Care Management DCP: assessment: case received, EMR reviewed. Pt is a 60 year old female who admitted yesterday afternoon to care of hospitalist team. PCP: Dr. Caba Oncologist: Dr. Chanel/ Oncology clinic: pt carries diagnosis of stage IV ovarian cancer and is on chemotherapy treatment. Full diagnosis and tx plan are in process at this time. Either Dr. Huang or Dr. Orozco will be seeing pt today: those notes are not yet available. P: will check in tomorrow as more is known and discuss in Team Bedside Rounds (meeting with pt at that time) OF NOTE: was was here 02/23 with a d/c home 02/24 and with a referral to [facility] PT and RN at that time. Will see if this referral is still ongoing. Per assessment in February, pt was living alone with prn assist from her daughter....will see if this has changed. Advanced directive, confirm from CLINIC Start: 04/09/20 17:14 Freq: Q24H Status: Active Protocol: Document 04/09/20 17:14 AK (Rec: 04/09/20 17:14 AK [id number]) Advance Directive, confirm on record Time 17:14 Person contacted pt, does not have one Copy received No Advanced directive available on record No CM Discharge Assessment Start: 04/10/20 16:09 Freq: Status: Active Protocol: Document 04/10/20 16:09 ITV (Rec: 04/10/20 16:11 ITV [id number]) Discharge Planning Assessment Advance Directives? No History Provided By Medical Record Prior Living Arrangements Apartment/Condo Household Members none Type of transportation used prior to Relies on Others admit Comment daughter drives her to appointments Review Status In Process
--- NOTE | 2020-04-10 16:13 | P.PN_ITS ---
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 Blood cultures from admission are positive for E coli. Patient reports feeling better and her speech impairment has cleared up. MRI negative for stroke. Exam Vital Signs (past 8 hours): - 04/10/20 10:00 04/10/20 14:00 04/10/20 14:52 Temperature Pulse Rate 87 Respiratory Rate 16 Blood Pressure 119/79 Pulse Oximetry 98 98 95 04/10/20 14:54 04/10/20 15:43 Temperature 98.3 F 96.3 F L Pulse Rate 86 Respiratory Rate 18 Blood Pressure 121/71 Pulse Oximetry 95 Oxygen Delivery Method Room Air Oxygen Flow Rate 0 Narrative Exam Narrative: General: Alert and pleasant female in no acute distress Neurological: Sensorium intact, speech clear and fluent, no focal weakness Objective Labs Result Diagrams: 04/10/20 05:25 04/10/20 05:25 Labs: Laboratory Results - last 24 hr 04/10/20 04/10/20 04/10/20 05:25 05:25 05:25 WBC 15.9 H RBC 2.86 L Hgb 8.6 L Hct 25.5 L MCV 89.2 MCH 30.1 MCHC 33.8 RDW 15.2 H Plt Count 60 L Neut % (Auto) 88.7 H Lymph % (Auto) 6.5 L [place] % (Auto) 3.3 Eos % (Auto) 1.3 L Baso % (Auto) 0.2 Neut # (Auto) 51340 H Lymph # (Auto) 1000 L [place] # (Auto) 500 Eos # (Auto) 200 Baso # (Auto) 0 Sodium 132 L Potassium 3.9 Chloride 101 Carbon Dioxide 25 BUN 49 H Creatinine 1.62 H Estimated GFR 32.2 L BUN/Creatinine Ratio 30.2 H Glucose 108 Calcium 8.0 L Magnesium 2.0 Total Bilirubin 0.5 Conjugated Bilirubin 0.0 Unconjugated Bilirubin 0.3 AST 41 H ALT 20 Alkaline Phosphatase 195 H Total Protein 5.6 L Albumin 2.5 L Globulin 3.1 Albumin/Globulin Ratio 0.8 L Procalcitonin 32.84 H A. baumannii (PCR) Shalonda albicans (PCR) C. glabrata (PCR) C. krusei (PCR) C. parapsilosis (PCR) C. tropicalis (PCR) Enterobacteriac sp PCR E. cloacae complex PCR Enterococcus sp PCR E. coli (PCR) H. influenzae (PCR) Klebsiella oxytoca PCR Klebsiella pneumoniae List. monocytogenes PCR N. meningitidis (PCR) Proteus species (PCR) Serratia marcescens PCR Staphylococcus sp PCR Staph aureus (PCR) mecA-Methicil Res Gene Streptococcus sp PCR Group A Strep (PCR) Strep agalactiae (PCR) Strep pneumoniae (PCR) P. aeruginosa (PCR) Jasmyn/B-Vanco Res Genes KPC-Carbap Res Gene PCR 04/10/20 12:55 WBC RBC Hgb Hct MCV MCH MCHC RDW Plt Count Neut % (Auto) Lymph % (Auto) [place] % (Auto) Eos % (Auto) Baso % (Auto) Neut # (Auto) Lymph # (Auto) [place] # (Auto) Eos # (Auto) Baso # (Auto) Sodium Potassium Chloride Carbon Dioxide BUN Creatinine Estimated GFR BUN/Creatinine Ratio Glucose Calcium Magnesium Total Bilirubin Conjugated Bilirubin Unconjugated Bilirubin AST ALT Alkaline Phosphatase Total Protein Albumin Globulin Albumin/Globulin Ratio Procalcitonin A. baumannii (PCR) Not detected Shalonda albicans (PCR) Not detected C. glabrata (PCR) Not detected C. krusei (PCR) Not detected C. parapsilosis (PCR) Not detected C. tropicalis (PCR) Not detected Enterobacteriac sp PCR Detected H E. cloacae complex PCR Not detected Enterococcus sp PCR Not detected E. coli (PCR) Detected H H. influenzae (PCR) Not detected Klebsiella oxytoca PCR Not detected Klebsiella pneumoniae Not detected List. monocytogenes PCR Not detected N. meningitidis (PCR) Not detected Proteus species (PCR) Not detected Serratia marcescens PCR Not detected Staphylococcus sp PCR Not detected Staph aureus (PCR) Not detected mecA-Methicil Res Gene Not Reportable Streptococcus sp PCR Not detected Group A Strep (PCR) Not detected Strep agalactiae (PCR) Not detected Strep pneumoniae (PCR) Not detected P. 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 Blood cultures from admission are positive for E coli. 1. Sepsis with end-organ damage, due to E coli bacteremia, acute, present on admission. - SOFA score of 3, evidence of organ damage including possibly encephalopathy, acute renal injury, and thrombocytopenia. Has not been hypotensive or tachycardic or febrile. -WBC 23.1, procalcitonin 36.7 on admission, repeat WBC 15.9, repeat procalcitonin 32 -blood cultures from admission positive for E coli, sensitivities pending, urine culture growing gram-negative bacilli - continue zosyn renal dosed - LA of 3.9 on admission improved to 2.0 after initial fluid resuscitation. -repeat CBC and procalcitonin in a.m., patient likely has chronic mild elevated WBC due to daily prednisone -follow-up on culture sensitivities 2. Acute renal failure, present on admission, - likely secondary to sepsis and dehydration -1.76 on admission, repeat creatinine 1.62, recent baseline creatinine 1.09 on 04/05 -received adequate fluid resuscitation, hep-locked IV -repeat BMP in a.m. 3. Thrombocytopenia, acute, present on admission. - admission platelet count of 66, usually her platelet counts are within normal limits. - likely related to sepsis. No abnormal pathologies are present on patient's smear to suggest lysis. -repeat CBC in a.m. 4. Anemia, acute, present on admission -hemoglobin 9.0 on admit, repeat hemoglobin 8.6 -anemia appears fairly new with hemoglobin 10.3 on 04/05 but was 12.4 on 03/25 -follow serial H&H, consider transfusion for hemoglobin less than 7 or patient having symptoms associated with anemia 5. Hyponatremia, acute, present on admission, - admission Na of 129, baseline of approx 135 based on prior labs. -repeat sodium 132, improved 6. Toxic metabolic encephalopathy, acute, present on admission, resolved. -altered mental status was due to sepsis and has resolved -MR negative for CVA -PT consult for gait instability 7. RLE myositis, chronic, present on admission. -recent diagnosis based on biopsy - patient reports pain controlled on morphine. Will continue home dosing at this time as well as home prednisone. Unclear on how long she will require steroids for myositis. Further information in Dr. Chanel's outpatient oncology note. 8. RLE DVT, chronic, present on admission. - continue apixaban 5 mg BID 9. Stage IV ovarian CA, active - Oncologist is Dr. Chanel, follows here. Last chemo carboplatin given on 03/25/2020. Reportedly next round scheduled for 04/22/20. -patient gets dexamethasone been on chemo and prednisone when she is not taking the dexamethasone 10. History of colostomy placement - 01/23/2017: Exploratory laparotomy, ALEAH, and diverting loop transverse colostomy for large bowel obstruction 11. Intra-abdominal fluid collection, chronic - extraluminal fluid collection situated between rectum and urinary bladder with adjacent rectosigmoid colon wall thickening and bladder wall thickening on prior imaging from previous admission. This has been a chronic finding. -rectal vesicular fistula as possible but probably unlikely, will defer to patient's oncologist whether she should have cystoscopy for further evaluation -She underwent prior sigmoidoscopy at [facility] in [place] for further evaluation, but no known cause has been found to this time. -ultrasound showed bilateral mild hydronephrosis, unclear significance Code: Full, as discussed with the patient, she elects her surrogate decision maker to be her 2 daughters DVT: On apixaban Dispo: Admitted under inpatient status Quality VTE Deep Vein Thrombosis/Pulmonary Embolism Present on Admission: No
--- NOTE | 2020-04-10 18:38 | DI.US.S_ITS ---
PROCEDURE: US RENAL COMPLETE INDICATIONS: DELVIS TECHNIQUE: Real-time scanning was performed of the kidneys and bladder, with image documentation. COMPARISON: CT abdomen and pelvis with contrast 01/21/20. FINDINGS: Kidneys: Kidneys are normal in size. Right kidney measures 10.5 cm long; left kidney measures 11.5 cm long. Right renal cortical thickness is 1.3 cm; left renal cortical thickness is 1.5 cm. Renal cortical echotexture is normal. There is mild bilateral hydronephrosis. No suspicious solid mass lesions. Bladder: Pre-void bladder volume is 250 mL. Post-void residual is 188 mL. Pre-void images demonstrate no intraluminal masses or stones this was a technically challenging study. Ureteral jets were not identified. Miscellaneous: No free pelvic fluid. IMPRESSION: Technically challenging study due to patient body habitus. Mild bilateral hydronephrosis. Suggest further evaluation with contrast CT if possible versus noncontrast CT. This would allow direct comparison to the previous study of 01/21/20, which demonstrated a significant process involving the bladder. Dictated by: Vitor Connolly M.D. on 04/10/2020 at 10:09 Approved by: Vitor Connolly M.D. on 04/10/2020 at 10:13
[2020-04-10] MEDS: SODIUM CHLORIDE 0.9% FLUSH 10 ML IV (22:30)
[2020-04-10] MEDS: ZOLPIDEM 5 MG TABLET PO (23:42)
[2020-04-11] VITALS (9 sets, daily range): BP systolic 117–140; BP diastolic 71–87; PULSE 75–85; RESP 15–20; TEMP 36.3–36.7; O2SAT 96–100
[2020-04-11] MEDS: SODIUM CHLORIDE 0.9% FLUSH 10 ML IV (00:35)
[2020-04-11] MEDS: PIPERACILLIN-TAZO 2.25 GM/50 ML FROZ.PIGGY IV ×3 (00:35→12:43)
[2020-04-11 05:11] LABS: Add Manual Diff / Slide Review NO; Basophils Absolute Auto 0 /uL (0-100); Basophils Percent Auto 0.2 % (0-2); Eosinophils Absolute Auto 0 /uL (0-450); Eosinophils Percent Auto 0.1 % (2-4); Hematocrit 25.4 % (36-46); Hemoglobin 8.6 g/dL (12.0-16.0); Lymphocytes Absolute Auto 1200 /uL (1100-4500); Lymphocytes Percent Auto 9.3 % (25-40); Mean Corpuscular HGB Conc 33.8 % (30-36); Mean Corpuscular Hemoglobin 29.9 PG (26-34); Mean Corpuscular Volume 88.6 fL (80-100); Monocytes Absolute Auto 500 /uL (0-900); Monocytes Percent Auto 3.5 % (3-14); Neutrophils Absolute Auto 11300 /uL (1500-7000); Neutrophils Percent Auto 86.9 % (50-75); Platelet Count 63 X10^3/uL (150-400); Red Blood Cell Count 2.86 X10^6/uL (4.0-5.2); Red Cell Distribution Width 15.7 % (11.6-14.8); White Blood Cell Count 13.1 X10^3/uL (4.5-11.0)
[2020-04-11 05:18] LABS: Alanine Aminotransferase 17 IU/L (<35); Albumin 2.4 g/dL (3.5-5.0); Albumin Globulin Ratio 0.8 (1.0-2.8); Alkaline Phosphatase 200 U/L (38-126); Aspartate Aminotransferase 32 IU/L (14-36); BUN Creatinine Ratio 28.2 (6-22); Bilirubin Total 0.5 mg/dL (0.2-1.3); Bilirubin Unconjugated 0.3 mg/dL (0.0-1.1); Blood Urea Nitrogen 50 mg/dL (7-17); Calcium 7.9 mg/dL (8.4-10.2); Carbon Dioxide 24 mmol/L (22-32); Chloride 103 mmol/L (98-107); Estimated Glomerular Filt Rate 29.1 mL/min (>60); Globulin 3.1 g/dL (1.7-4.1); Glucose 146 mg/dL (80-110); HEMOLYSIS < 15 (0-50); Magnesium 2.1 mg/dL (1.6-2.3); Potassium 4.5 mmol/L (3.4-5.1); Sodium 132 mmol/L (137-145); Total Protein 5.5 g/dL (6.3-8.2)
[2020-04-11 05:40] LABS: Procalcitonin 21.87 ng/mL (<0.5)
[2020-04-11] MEDS: MORPHINE ER 30 MG TABLET PO ×2 (06:32→18:37)
[2020-04-11] MEDS: APIXABAN 5 MG TABLET PO ×2 (08:41→21:26)
[2020-04-11] MEDS: MULTIVITAMIN 1 TABLET 1 TAB PO (08:41)
[2020-04-11] MEDS: SENNOSIDES 8.6 MG TABLET PO ×2 (08:41→21:27)
[2020-04-11] MEDS: predniSONE 20 MG TABLET 40 MG PO (08:41)
[2020-04-11] MEDS: FLUoxetine 20 MG CAPSULE PO (08:41)
[2020-04-11] MEDS: DOCUSATE 100 MG CAPSULE PO ×2 (08:41→21:27)
--- NOTE | 2020-04-11 11:00 | PT.IPTN ---
Current Diagnoses Sepsis, unspecified organism (04/09/20) Physical Therapy Treatment Note M2 PT-IP Current Condition Start: 04/10/20 15:43 Freq: NEEDED Status: Active Protocol: Document 04/10/20 15:43 DLM (Rec: 04/10/20 16:04 DLM [email or web address]) Physical Therapy Current Condition Current Condition Evaluation Date 04/10/20 Treatment Diagnosis Septic Onset Date 04/09/20 Precautions Other Precautions lymphedema wrap for right thigh M3 PT-IP Subjective Start: 04/10/20 15:43 Freq: NEEDED Status: Active Protocol: Document 04/11/20 11:00 DLM (Rec: 04/11/20 12:42 DLM [email or web address]) Subjective Physical Therapy Visit Type Type Treatment Note Visit Start Time 10:40 Visit Stop Time 11:00 Total Visit Minutes 20 Number of BEHAVIORAL HEALTH TECH Visits 0 Physical Therapy Visit Comments Patient Comments She plans to go home today, no concerns Patient Goals Return home, start out-pt PT here at [facility] Therapy Pain Assessment Pain When Pain Assessed During Mobility Pain Present Pain Present Pain Reported Location Right Leg Intensity 3 Scale Used Numeric (0 - 10) Description Aching Pain Management Techniques Elevation,Re-positioning M4 PT-IP Mobility and Gait Start: 04/10/20 15:43 Freq: NEEDED Status: Active Protocol: Document 04/11/20 11:00 DLM (Rec: 04/11/20 12:42 DLM [email or web address]) PT-Bed Mobility Assessment Rolling Type of Rolling Bilateral Level of Assist Independent Supine to Sit Supine to Sit Independent Sit to Supine Sit to Supine Minimal Assistance Scooting Scooting to Edge of Bed Independent Scooting Up and Down in Bed Independent PT-Transfer Assessment Sit to and From Stand Sit to and from Stand Independent,Use of Upper Extremities Equipment Transfer Assistive Device Front Wheeled Walker Transfers Transfer Destination Bed Transfer Ability Level of Assist Standby Assistance,Use of Upper Extremities Comments Mobility Comments pt reports it is easier for her to get right LE into bed at home on her own because the bed is lower, needs assist only at hospital Gait Assessment Gait Gait Assistance Required: Independent Distance (Feet) 270 Assistive Devices Assistive Device Front Wheeled Walker Gait Deviations General Gait Pattern Antalgic Factors Limiting Gait Function Factors Limiting Gait Function Decreased Activity Tolerance, Decreased Strength,Pain Comments Gait Comments pt reports she likes using the FWW and may get one for home, discussed equipment options locally Stair Climbing Assessment Comments Stair Climbing Comments pt declined need to practice steps before discharge, she is confident she can manage her apt steps PT-Balance Assessment Sitting Balance and Reactions Static Sitting Balance Ability Normal Dynamic Sitting Balance Ability Normal Standing Balance and Reactions Static Standing Balance Ability Good Dynamic Standing Balance Ability Good Device Used FWW M5 PT-IP Objective Assessments Start: 04/10/20 15:43 Freq: NEEDED Status: Active Protocol: Document 04/11/20 11:00 DLM (Rec: 04/11/20 12:42 DLM [email or web address]) Orientation Orientation/Cognition Level of Alertness Alert Orientation Name,Age,Birthday,Month,Date, Year,Day of Week,Place, Situation Language Function Ability No Deficits Noted Safety Awareness Understands Safety Issues Memory Description No Deficits Noted Gross Range of Motion Upper Extremity ROM Assessment Within Functional Limits Lower Extremity ROM Assessment Right Impaired Impairments limited by pain and edema which are chronic Strength Upper Extremity Strength Assessment Within Functional Limits Lower Extremity Strength Assessment Right Impaired Hip flexion 2+/5 Knee 3+/5 Ankle DF 5/5 Comments Strength Comments pain in right LE interferes with muscle testing, she requests assists to lift right LE onto pillows on the bed to assist with pain management Coordination Assessment Gross Coordination Gross Coordination WNL Sensation Assessment Sensation Gross Sensation Right UE Impaired,Left UE Impaired,Right LE Impaired, Left LE Impaired Sensation Description Numbness Comments Sensation Comments chronic numbness fingers and toes bilaterally Muscle Tone Muscle Tone WNL Yes M6 PT-IP Treatment Start: 04/10/20 15:43 Freq: NEEDED Status: Active Protocol: Document 04/11/20 11:00 DLM (Rec: 04/11/20 12:42 DLM [email or web address]) Physical Therapy Treatment Other Treatments Other Treatment Performed discussed HEP with pt, no need to modify program since pt plans to discharge home today, pt wants to attend out-pt PT to advance her HEP and has discussed this with her physician M7 PT-IP Assessment and Plan Start: 04/10/20 15:43 Freq: NEEDED Status: Active Protocol: Document 04/11/20 11:00 DLM (Rec: 04/11/20 12:42 DLM [email or web address]) PT Summary Assessment and Plan Summary Impairments Pain,ROM,Strength,Balance,Bed Mobility,Activity Tolerance Progress Towards Goals Progressing Toward Goals Assessment Summary Medina tolerated gait well today with FWW in the halls. She reports feeling safe to discharge home today. She appears safe to discharge back to her apt when medically stable. No further physical therapy needs at this time. Defer further PT to out-pt. Goals met today. Goals Bed Mobility Goal Independent Gait Goal Standby Assistance,Front Wheel Walker Gait Distance 150 feet Other Goals up and down 16 stairs with rail and crutch Days to Meet Goals 1 Frequency of Treatment Frequency Of Treatment Discharge Recommendations To Nursing Amount of Assist Needed Standby Assistance Discharge Recommendations PT Discharge Recommendations Home,Outpatient PT Other Discharge Recommendations pt wants to see PT for lymphedema and incontinence issues as well as strengthening Transportation Needs at Discharge Private Vehicle
--- NOTE | 2020-04-11 14:14 | DI.CT.S_ITS ---
PROCEDURE: CT ABDOMEN PELVIS WO/W CON INDICATIONS: Bacteremia TECHNIQUE: Optional 5 mm thick noncontrast images acquired from the diaphragm to the symphysis pubis. After the administration of intravenous contrast, and 260 mL of Cystografin into the bladder via an existing Marinelli catheter, 5 mm thick images acquired from the diaphragm to the symphysis pubis after a 10-minute delay. 2 mm thick coronal and sagittal reformats were then performed of the kidneys and ureters. For radiation dose reduction, the following was used: automated exposure control, adjustment of mA and/or kV according to patient size. COMPARISON: CT abdomen and pelvis with contrast dated 01/21/20, a renal ultrasound at a 04/10/20, CT pelvis with contrast dated 02/12/20. FINDINGS: Image quality: Excellent. Lung bases: Mild to moderate right pleural effusion. Mild left pleural effusion. Associated compressive bibasilar atelectasis. Heart size is normal. Urinary system: The since the previous study, moderate to severe right hydronephrosis and moderate left hydronephrosis have developed. The left nephrogram is delayed relative to the right nephrogram. There is abrupt narrowing of the left ureter at the level of the proximal ureter. Findings suggest proximal left ureteral stricture. The right ureter is dilated to the level of the base of the bladder. The bladder has been filled with contrast in a retrograde fashion through the Marinelli catheter. There is a posterior wall of the bladder perforation with communication either to the vagina or a loop of sigmoid colon. This is difficult to distinguish. There is a periurethral abscess adjacent to the Marinelli catheter to the left of midline which measures approximately 2 cm in diameter. Other solid organs: Liver is normal in size and enhancement. Gallbladder is unremarkable. Biliary system is non dilated. Pancreas enhances normally. Spleen is normal in size and enhancement. No adrenal nodules. Peritoneum and bowel: Again noted is ileostomy. Rectal wall thickening has resolved. The previous area of fluid and air between the rectum and the bladder is no longer present. No free air. Minimal free fluid. Nodes and vessels: No retroperitoneal or mesenteric adenopathy by size criteria. Aorta and inferior vena cava are normal in size. Abdominal wall: Again noted is rectus diastases with herniation of bowel anteriorly. Diffuse anasarca has developed. Pelvis: No pathologic free pelvic fluid. No inguinal hernias or adenopathy. Uterus is surgically absent. Bones: No suspicious bony lesions. No vertebral body compression fractures. IMPRESSION: 1. Interval development of moderate to severe right hydronephrosis. There is right hydroureter to the base of the bladder. The ureter was previously nondilated. 2. Interval development of moderate left hydronephrosis. The left nephrogram is delayed relative to the right nephrogram. There is now a probable stricture of the proximal left ureter. 3. Remote hysterectomy. 4. There is a posterior wall bladder perforation with communication to either vagina or sigmoid colon. It is difficult to distinguish between the [address] 5. Previous abscess between the rectum and the bladder has resolved. 6. Development of small periurethral abscess to the left of midline measuring 2.0 cm. 7. Development of diffuse anasarca. 8. Bilateral pleural effusions and bibasilar atelectasis. Dictated by: Vitor Connolly M.D. on 04/11/2020 at 15:35 Approved by: Vitor Connolly M.D. on 04/11/2020 at 15:55
[2020-04-11] MEDS: MORPHINE 2 MG/ML INJ 1 MG IV ×2 (15:08→15:47)
--- NOTE | 2020-04-11 16:09 | CM.DPC ---
Addendum entered by Ting Caceres LPN 04/11/20 16:17: A check in now shows that pt has not yet arrived back to the floor. Original Note: DCP: continued: Met with pt as planned during Team Bedside Rounds. Introduced self and role. Dr. Huang stated she was planning to d/c pt today and an machine setter and repairer d/c order was place. She also asked that PT see pt again today. Pt said she was pleased that she could go home today. Checked back about 1500 to see about the status of the d/c. [facility] noted that pt had been sent for a CT scan so she was unsure if the d/c order would still be on for today. DCP team will check in tomorrow if pt is still here and follow accordingly.
[2020-04-11] MEDS: SODIUM CHLORIDE 0.9% 1,000 ML 100 ML IV (17:02)
--- NOTE | 2020-04-11 18:47 | PM.PN.1 ---
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 The patient is eager to return home and considered discharging today, however, infectious markers remain high with worsening creatinine and bilateral hydronephrosis which appears new compared to previous studies. Plan for CT IVP and cystogram. Patient reports that her stoma was edematous and when attempted to change appliance yesterday had some localized trauma with bleeding. The patient continues to have right thigh pain which is chronic, unchanged, and controlled with home pain medications. Patient denies headache, chest pain, shortness of breath, abdominal pain, nausea, vomiting, fever, chills, dysuria, diarrhea or constipation. Exam Vital Signs (past 8 hours): - 04/11/20 22:00 04/12/20 00:00 04/12/20 02:00 Temperature 97.2 F L Pulse Rate 78 Respiratory Rate 16 Blood Pressure 123/76 Pulse Oximetry 100 97 97 Oxygen Delivery Method Room Air Oxygen Flow Rate 0 Narrative Exam Narrative: General: Older female lying in bed and in no acute distress, well-developed, well-nourished, good spirits and appropriately interactive. HEENT: Normocephalic, atraumatic. External ears without defect. Pupils equal, round, and reactive to light. Anicteric sclerae, moist conjunctivae, and no lid lag. Oropharynx free of erythema and cobble stoning with moist mucosa. Neck: Supple with full range of motion. No lymphadenopathy or thyromegaly. Cardiovascular: Regular rhythm and rate without murmurs, rubs, or gallops appreciated. Port on right side of chest does not have any surrounding erythema, or edema. Pulmonary: Clear to auscultation bilaterally without crackles, wheezes, or rhonchi. Normal respiratory effort with no use of accessory muscles. Abdomen: Soft, obese, bowel sounds present, nontender, nondistended. Clostomy present with soft stool and dark red blood. Extremities: No clubbing or cyanosis. Asymmetrical swelling of right lower extremity consistent with lymphedema. Right lateral thigh with tenderness to palpation and appears more edematous and firm than previously. Skin: Normal temperature, turgor, and texture; no ulcers, or subcutaneous nodules appreciated. Neurological: Cranial nerves grossly intact. Psychiatric: Normal mood and affect. Alert and oriented to person, place, and time. Objective Labs Result Diagrams: 04/12/20 05:30 04/12/20 05:30 Labs: Laboratory Results - last 24 hr 04/11/20 04/11/20 04/11/20 05:00 05:00 05:00 WBC 13.1 H RBC 2.86 L Hgb 8.6 L Hct 25.4 L MCV 88.6 MCH 29.9 MCHC 33.8 RDW 15.7 H Plt Count 63 L Neut % (Auto) 86.9 H Lymph % (Auto) 9.3 L [place] % (Auto) 3.5 Eos % (Auto) 0.1 L Baso % (Auto) 0.2 Neut # (Auto) 81551 H Lymph # (Auto) 1200 [place] # (Auto) 500 Eos # (Auto) 0 Baso # (Auto) 0 Sodium 132 L Potassium 4.5 Chloride 103 Carbon Dioxide 24 BUN 50 H Creatinine 1.77 H Estimated GFR 29.1 L BUN/Creatinine Ratio 28.2 H Glucose 146 H Calcium 7.9 L Magnesium 2.1 Total Bilirubin 0.5 Conjugated Bilirubin 0.0 Unconjugated Bilirubin 0.3 AST 32 ALT 17 Alkaline Phosphatase 200 H Total Protein 5.5 L Albumin 2.4 L Globulin 3.1 Albumin/Globulin Ratio 0.8 L Procalcitonin 21.87 H Assessment & Plan Assessment & Plan narrative: Medina Monteiro is a 60-year-old female with a past medical history significant for BCRA-2 mutation and prophylactic double mastectomy, 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 1. Acute sepsis, present on admission. Resolved. -SOFA score of 3. Patient presented with leukocytosis, thrombocytopenia and lactic acidosis with end-organ damage including encephalopathy and acute kidney injury with source UTI and bacteremia. -Early goal-directed therapy met including: IV fluid resuscitation and broad-spectrum IV antibiotics. -Initial lactate 3.9 and trended to under 2.0. 2. Acute E. 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 Active. -Initial WBC 23.1 and procalcitonin 36.7. Repeat WBC trending down now 13.1 and procalcitonin 21.87. Continue to monitor WBC and procalcitonin daily. -Blood and urine cultures positive for pansensitive E coli. Ordered repeat blood cultures from peripheral and port to ensure that clearing bacterial bloodstream. -Received Zosyn 3.3.75 g x 1 in ED. Continued renally dosed Zosyn 2.25 g every 6 hours and switched to ceftriaxone tomorrow as blood and urine cultures grew pansensitive E coli. 3. Acute bilateral hydronephrosis, periurethral abscess and acute kidney injury, present on admission. Active. -Likely due to advancing stage IV ovarian serous carcinoma and UTI and bacteremia. -Initial creatinine 1.76. Baseline creatinine previously 0.7-0.8 until beginning of March in which creatinine has been upper trending and likely due to advancing stage IV ovarian serous carcinoma. -Renal ultrasound was a difficult study due to body habitus but demonstrated bilateral mild hydronephrosis and previously the patient had questionable pelvic fluid collection, therefore, pursued CT IVP with cystogram. -CT IVP with cystogram demonstrated interval development of moderate to severe right hydronephrosis to the base of the bladder, moderate left hydronephrosis with delayed nephrogram and probable stricture of the proximal left ureter, posterior wall bladder perforation with communication to either vagina or sigmoid colon, small periurethral abscess to the left of midline measuring 2.0 cm, and development of diffuse anasarca. -Consulted general surgery, Dr. Purdy, Urology, Dr. Bond, and Oncology, Dr. Chanel for multidisciplinary approach. -Continue Marinelli catheter. Plan to give 1 L of IV fluids to post-medicate after CT and avoid contrast nephropathy. Stop if showing signs of fluid overload. -Continue to monitor creatinine daily 4. Stage IV ovarian cancer, chronic, present on admission. Active. -Patient is followed by oncology, Dr. Chanel, with last cycle of carboplatin on 03/25/20 with next cycle scheduled for 04/22/20. -Patient receives dexamethasone for chemotherapy and takes prednisone otherwise to treat polymyositis. -Consulted Dr. Chanel as above, pending. 5. History of large bowel obstruction, status post exploratory laparotomy, lysis of adhesions, and diverting loop transverse colostomy now with acute bleeding due to localized trauma, present on admission. Stable. -Patient previously had exploratory laparotomy, lysis of adhesions and diverting loop transverse colostomy for large bowel obstruction. Patient recently had swelling of stoma and sustained localized trauma to stoma when changing appliance and now has bleeding. -Consulted general surgery, Dr. Tubbs for above and to assess bleeding ileostomy which he does not recommend any intervention as due to localized trauma and should heal on its own. 6. Acute thrombocytopenia, present on admission. Improving. -Likely secondary to acute sepsis and infection as above. -Initial platelet count 66. Platelet count trended down to 60 and is trending up now 63. No abnormal pathologies are present on patient's smear to suggest lysis. Continue to monitor platelet count daily. 7. Acute normocytic anemia, present on admission. Stable. -Likely secondary to acute sepsis and infection as above. Also stoma with mild bleeding as above and possibly contributory. -Initial hemoglobin 9.0. Repeat hemoglobin 8.6 and stable. -Continue to monitor CBC daily. Transfusion goal hemoglobin < 7.0. 8. Acute hyponatremia, present on admission. Improving. -Initial sodium level 129. Baseline sodium level 135. Sodium level improved with treatment of infection as above now 132. -Continue to monitor sodium level closely. 9. Acute metabolic encephalopathy, present on admission. Resolved. -Secondary to UTI and bacteremia. -Patient had mild confusion with slurred speech. -CT brain without contrast in MR stroke protocol did not demonstrate any acute intracranial abnormalities. MR negative for CVA -Continue physical and occupational therapy evaluation and treatment for gait instability. 10. History of right lower extremity DVT. -Continue Eliquis 5 mg twice daily. 11. 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 Stable. -Recent CT-guided muscle biopsy demonstrated polymyositis. -Patient reports pain controlled on morphine ER 30 mg every 12 hours and will continue. Continue home prednisone 40 mg daily. Unclear how long she will require steroids for polymyositis. Further information in Dr. Chanel's outpatient oncology note. Code status: Full code, as discussed with the patient, she elects her surrogate decision maker to be her 2 daughters VTE prophylaxis: Eliquis Disposition: Patient remains hospitalized to treat infection as above and to discern plan of care given above CT findings. Quality VTE Deep Vein Thrombosis/Pulmonary Embolism Present on Admission: No
--- NOTE | 2020-04-11 20:31 | P.CONS_ITS ---
History of Present Illness Consult details Date Patient Seen: 04/11/20 Time Patient Seen: 20:31 Chief complaint: STROKE LIKE SYMPTOMS Narrative: 60-year-old woman with metastatic ovarian cancer admitted to the hospital with a urinary tract infection. Requested to see the patient in regards to 2 issues 1st bleeding from an ileostomy, 2nd colovesicular fistula. She has metastatic ovarian cancer currently palliative chemotherapy. She was initially diagnosed approximately 5 years ago was stage III at that time and has had disease progression despite FRANTZ BSO and chemotherapy at [facility]. A long way she developed a intestinal obstruction which was unable to be fixed and she receieved a diverting ileostomy 2 years ago. Most recently she developed significant edema of the right lower extremity with myositis and a DVT. She is being treated with anticoagulation for the DVT and she has undergone a muscle biopsy of the lower extremity which demonstrated no infectious agent and there was consideration that this was autoimmune in nature and she was therefore placed on dexamethasone 4 mg daily. On this admission she presented with altered mental status result of bacteremia secondary to UTI. She underwent a CT abdomen pelvis today which demonstrates a perforation the posterior bladder wall with the communication with either the vagina or the sigmoid colon in addition to a 2 cm periurethral abscess and diffuse anasarca. As result of the anasarca her ileostomy swelled and she was having some difficulty changing her appliance which caused local ized trauma with associated bleeding of the ileostomy. She has never had prior blood per ileostomy. Currently she says she has no pain at the ileostomy site once it spontaneously decreased in size, the appliance is now fitting comfortably around the ostomy without issue. Meds Home Medications and Allergies Home Medications Medication Instructions Recorded Confirmed Type multivitamin [Multiple Vitamins] 1 tab PO DAILY #0 05/16/17 04/09/20 History turmeric 1 dose PO DAILY #0 05/16/17 04/09/20 History fluoxetine 20 mg capsule 20 mg PO DAILY #90 cap 10/21/19 04/09/20 Rx dexamethasone 4 mg PO DAILY #10 tab 11/24/19 04/09/20 Rx sennosides-docusate sodium 1 tab-cap PO BID 01/08/20 04/09/20 History [Senokot-S] Eliquis 5 mg PO BID 01/15/20 04/09/20 History oxycodone-acetaminophen 1 tab PO Q4H PRN #90 tab 03/11/20 04/09/20 Rx zolpidem 5 mg PO BEDTIME PRN #30 tab 03/22/20 04/09/20 Rx morphine 30 mg PO Q12H #60 tab 03/25/20 04/09/20 Rx prednisone 40 mg PO DAILY #30 tab 03/25/20 04/09/20 Rx Allergies Allergy/AdvReac Type Severity Reaction Status Date / Time No Known Drug Allergies Allergy Verified 04/09/20 10:40 Review of Systems Review of Systems Narrative: A 10 point review of systems is negative except as noted in the HPI Exam Vital Signs (past 8 hours): - 04/11/20 16:50 04/11/20 18:48 Temperature 97.7 F Pulse Rate 85 Respiratory Rate 19 Blood Pressure 140/87 Pulse Oximetry 100 99 Oxygen Delivery Method Room Air Oxygen Flow Rate 0 Narrative Exam Narrative: General-no acute distress, well nourished HEENT-moist mucous membranes, no scleral icterus Neck-supple, no lymphadenopathy Chest- non labored respirations, clear to auscultation bilaterally Cardiac-regular rate no peripheral edema Abdomen-soft, nontender, productive ileostomy, the she tells me she does not want show me the actual ileostomy right now because she does not have an migel liance to change with. Neurological-alert and oriented Objective Labs Result Diagrams: 04/11/20 05:00 04/11/20 05:00 Labs: Laboratory Results - last 24 hr 04/11/20 04/11/20 04/11/20 05:00 05:00 05:00 WBC 13.1 H RBC 2.86 L Hgb 8.6 L Hct 25.4 L MCV 88.6 MCH 29.9 MCHC 33.8 RDW 15.7 H Plt Count 63 L Neut % (Auto) 86.9 H Lymph % (Auto) 9.3 L [place] % (Auto) 3.5 Eos % (Auto) 0.1 L Baso % (Auto) 0.2 Neut # (Auto) 02182 H Lymph # (Auto) 1200 [place] # (Auto) 500 Eos # (Auto) 0 Baso # (Auto) 0 Sodium 132 L Potassium 4.5 Chloride 103 Carbon Dioxide 24 BUN 50 H Creatinine 1.77 H Estimated GFR 29.1 L BUN/Creatinine Ratio 28.2 H Glucose 146 H Calcium 7.9 L Magnesium 2.1 Total Bilirubin 0.5 Conjugated Bilirubin 0.0 Unconjugated Bilirubin 0.3 AST 32 ALT 17 Alkaline Phosphatase 200 H Total Protein 5.5 L Albumin 2.4 L Globulin 3.1 Albumin/Globulin Ratio 0.8 L Procalcitonin 21.87 H Assessment & Plan Assessment & Plan narrative: 60-year-old woman with metastatic ovarian cancer admitted to the hospital with a urinary tract infection. In regards to the bleeding from the ileostomy this appears to be isolated to the ileostomy. She caused some localized trauma to the ileostomy itself when trying to remove the applicane from around an extremely edematous ostomy. Her overall anasarca has improved her ilesotomy has decrased in size and is now back to baseline and her appliance is fitting without issue. The traumatic abrasions should heal without intervention. 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 Interestingly her colon should be largely defunctionalized as result of her diverting ileostomy. I told her that I would not recommend any surgical intervention to repair this fistula. I told her that repairing the fistula would be extremely high risk given her prior abdominal surgery with likely dense adhesions, and extensive malignancy. Further I told her that even if we could fix the fistula there would be a significant risk of recurrence. Therefore I recommended we continue with medical therapy for her urinary tract infection. I told her that I suspect her bladder will never be sterile and she may require long-term antibiotic therapy. There is going to be some complex medical management in regards to her infectious disease treatment and the steroid therapy she is receiving for her right lower extremity swelling. She says that ultimately she may want to return to [facility] for further treatment which is reasonable.
[2020-04-11] MEDS: ZOLPIDEM 5 MG TABLET PO (21:26)
[2020-04-12] VITALS (7 sets, daily range): BP systolic 122–129; BP diastolic 76–92; PULSE 78–89; RESP 16–19; TEMP 36.2–36.7; O2SAT 96–99
[2020-04-12] MEDS: ZOLPIDEM 5 MG TABLET PO (02:19)
[2020-04-12] MEDS: SODIUM CHLORIDE 0.9% 1,000 ML 100 ML IV (02:20)
[2020-04-12 05:45] LABS: Add Manual Diff / Slide Review NO; Basophils Absolute Auto 100 /uL (0-100); Basophils Percent Auto 0.9 % (0-2); Eosinophils Absolute Auto 0 /uL (0-450); Hematocrit 27.3 % (36-46); Hemoglobin 9.3 g/dL (12.0-16.0); Lymphocytes Absolute Auto 1100 /uL (1100-4500); Lymphocytes Percent Auto 7.8 % (25-40); Mean Corpuscular HGB Conc 33.9 % (30-36); Mean Corpuscular Volume 88.5 fL (80-100); Monocytes Absolute Auto 500 /uL (0-900); Monocytes Percent Auto 3.6 % (3-14); Neutrophils Absolute Auto 12100 /uL (1500-7000); Neutrophils Percent Auto 87.7 % (50-75); Platelet Count 74 X10^3/uL (150-400); Red Blood Cell Count 3.09 X10^6/uL (4.0-5.2); Red Cell Distribution Width 15.7 % (11.6-14.8); White Blood Cell Count 13.9 X10^3/uL (4.5-11.0)
[2020-04-12 06:08] LABS: Alanine Aminotransferase 17 IU/L (<35); Albumin 2.7 g/dL (3.5-5.0); Albumin Globulin Ratio 0.8 (1.0-2.8); Alkaline Phosphatase 205 U/L (38-126); Aspartate Aminotransferase 32 IU/L (14-36); BUN Creatinine Ratio 25.3 (6-22); Bilirubin Total 0.6 mg/dL (0.2-1.3); Bilirubin Unconjugated 0.5 mg/dL (0.0-1.1); Blood Urea Nitrogen 44 mg/dL (7-17); Calcium 8.3 mg/dL (8.4-10.2); Carbon Dioxide 21 mmol/L (22-32); Chloride 103 mmol/L (98-107); Estimated Glomerular Filt Rate 29.6 mL/min (>60); Globulin 3.2 g/dL (1.7-4.1); Glucose 110 mg/dL (80-110); HEMOLYSIS < 15 (0-50); Magnesium 2.1 mg/dL (1.6-2.3); Potassium 4.2 mmol/L (3.4-5.1); Sodium 131 mmol/L (137-145); Total Protein 5.9 g/dL (6.3-8.2)
[2020-04-12 06:24] LABS: Procalcitonin 10.99 ng/mL (<0.5)
[2020-04-12] MEDS: MORPHINE ER 30 MG TABLET PO (06:35)
[2020-04-12] MEDS: APIXABAN 5 MG TABLET PO (09:24)
[2020-04-12] MEDS: CEFTRIAXONE 2 GM/50 ML FROZ.PIGGY IV (09:24)
[2020-04-12] MEDS: MULTIVITAMIN 1 TABLET 1 TAB PO (09:24)
[2020-04-12] MEDS: DOCUSATE 100 MG CAPSULE PO (09:24)
[2020-04-12] MEDS: SENNOSIDES 8.6 MG TABLET PO (09:25)
[2020-04-12] MEDS: SODIUM CHLORIDE 0.9% FLUSH 10 ML IV (09:25)
[2020-04-12] MEDS: predniSONE 20 MG TABLET 40 MG PO (09:25)
[2020-04-12] MEDS: FLUoxetine 20 MG CAPSULE PO (09:25)
--- NOTE | 2020-04-12 10:47 | ONC.MSW ---
Description: Care Coordination Activity: Received call from Care Management, pt is now inpt after going to the ER over the weekend with sepsis, UTI, and issues with her ileostomy and possible colovesicular fistula-which was deemed too high of a risk for surgical resection, according to the consult with Dr. Purdy on Sunday. Dr. Chanel and Dr. Key will both be meeting with pt later today. Dr. Huang had posed to the CM team the possibility of wanting a palliative consult, however it is not appropriate at this time. Dr. Chanel states that her treatment will be changed, as she does not seem to be responding to the carbo chemo regimen, however this plan will come from her following oncologist at [facility].\ [employer] FORMER will f/u with pt and family after pt has met with Dr. Chanel, in order to further assist with continued treatment and d/c needs.
--- NOTE | 2020-04-12 11:28 | DIET.PN ---
Dietary Progress Note Assessment: Ms. Monteiro is a 60-year-old female with metastatic ovarian cancer admitted to the hospital with a urinary tract infection. On this admission she presented with increasing gait instability, mild confusion and slurred speech. She reports no changes in appetite, and requests education on the ketogenic diet. Note: unable to obtain much history as patient was in and out of sleep. Will reassess at a later time. HT: 157.48in WT: 87.3kg UBW: 74.8 x6 wks ago BMI: 35.2 (obese class II) Labs: Na: 131 CO2: 21 BUN: 44 Cr: 1.74 eGFR: 29.6 MNA: 12 Ethan: 21 Nutrition Diagnosis: Obesity (class II) related to food- and nutrition-related knowledge deficit as evidenced by BMI more than normative standards (35.2), excessive energy intake, uncertainty regarding nutrition-related recommendations. Interventions: 1. Provided some history and education on the ketogenic diet. Made suggestions for materials to review. 2. Suggested patient request outpatient nutrition referral with provider Dr. Caba for more thorough education and review of personalized meal plan. Pt agreeable. Diet Order: General EER: [id number] annmarie (15-17cal/kg for weight loss) ; 87-104 g pro (1-1.2 g/kg to maintain LBM) Monitoring/Evaluations: weight, PO's, request for outpatient nutrition referral
--- NOTE | 2020-04-12 15:15 | P.CONS_ITS ---
History of Present Illness Consult details Date Patient Seen: 04/12/20 Time Patient Seen: 15:16 Chief complaint: STROKE LIKE SYMPTOMS Reason for consult: Bilateral hydronephrosis Requesting provider: Kathleen Huang Narrative: 60-year-old white female see admitted for ?stroke-like symptoms?. She is BRCA-2 mutation positive and history of stage IV ovarian carcinoma. Her last round of chemotherapy was in mid January 2020. She was admitted on 04/09/2020 with generalized malaise can constitutional symptoms. She was found to be septic and subsequent urine and blood cultures have grown pansensitive E coli. Baseline BUN creatinine were normal. E GFR currently less than 30. Both laboratories and clinical measures have improved dramatically. His CT abdomen pelvis with contrast 04/11/2020 reveals bilateral, and new right hydronephrosis. Hydronephrosis on the right side extends to the level of the bladder. Hydronephrosis on the left is at the level of the proximal ureter. There also appears to be a small area of posterior inferior extravasation from the bladder but it is confined and the extra retroperitoneal space. Meds Home Medications and Allergies Home Medications Medication Instructions Recorded Confirmed Type multivitamin [Multiple Vitamins] 1 tab PO DAILY #0 05/16/17 04/09/20 History turmeric 1 dose PO DAILY #0 05/16/17 04/09/20 History fluoxetine 20 mg capsule 20 mg PO DAILY #90 cap 10/21/19 04/09/20 Rx dexamethasone 4 mg PO DAILY #10 tab 11/24/19 04/09/20 Rx sennosides-docusate sodium 1 tab-cap PO BID 01/08/20 04/09/20 History [Senokot-S] Eliquis 5 mg PO BID 01/15/20 04/09/20 History oxycodone-acetaminophen 1 tab PO Q4H PRN #90 tab 03/11/20 04/09/20 Rx zolpidem 5 mg PO BEDTIME PRN #30 tab 03/22/20 04/09/20 Rx morphine 30 mg PO Q12H #60 tab 03/25/20 04/09/20 Rx prednisone 40 mg PO DAILY #30 tab 03/25/20 04/09/20 Rx Allergies Allergy/AdvReac Type Severity Reaction Status Date / Time No Known Drug Allergies Allergy Verified 04/09/20 10:40 Review of Systems Review of Systems ROS: Yes All systems reviewed with the patient and are negative except as otherwise documented Exam Vital Signs (past 8 hours): - 04/12/20 08:00 04/12/20 12:00 Temperature 97.5 F L 98.1 F Pulse Rate 87 89 Respiratory Rate 18 18 Blood Pressure 126/84 129/92 H Pulse Oximetry 99 98 Oxygen Delivery Method Room Air Oxygen Flow Rate 0 Narrative Exam Narrative: Not repeated. Objective Labs Result Diagrams: 04/12/20 05:30 04/12/20 05:30 Labs: Laboratory Results - last 24 hr 04/12/20 04/12/20 04/12/20 05:30 05:30 05:30 WBC 13.9 H RBC 3.09 L Hgb 9.3 L Hct 27.3 L MCV 88.5 MCH 30.0 MCHC 33.9 RDW 15.7 H Plt Count 74 L Neut % (Auto) 87.7 H Lymph % (Auto) 7.8 L [place] % (Auto) 3.6 Eos % (Auto) 0.0 L Baso % (Auto) 0.9 Neut # (Auto) 68993 H Lymph # (Auto) 1100 [place] # (Auto) 500 Eos # (Auto) 0 Baso # (Auto) 100 Sodium 131 L Potassium 4.2 Chloride 103 Carbon Dioxide 21 L BUN 44 H Creatinine 1.74 H Estimated GFR 29.6 L BUN/Creatinine Ratio 25.3 H Glucose 110 Calcium 8.3 L Magnesium 2.1 Total Bilirubin 0.6 Conjugated Bilirubin 0.0 Unconjugated Bilirubin 0.5 AST 32 ALT 17 Alkaline Phosphatase 205 H Total Protein 5.9 L Albumin 2.7 L Globulin 3.2 Albumin/Globulin Ratio 0.8 L Procalcitonin 10.99 H Assessment & Plan Assessment and plan (1) Hydronephrosis due to obstruction of ureter: Status: Acute (2) Acute kidney injury: Status: Acute (3) Sepsis: Status: Acute Assessment & Plan narrative: Assessment: 1. E coli urosepsis-pansensitive. 2. Bilateral upper tract urinary obstruction. 3. Acute kidney injury. I reviewed the findings and explained impression an options. It is her intent and desire to transfer to [facility] to arrange and proceed with alternative chemotherapy or perhaps a trial she may be a candidate for. Expl ained the rationale and indications for placement bilateral nephrostomy tubes given presence of bacteria, acute renal injury, and anticipated future need for further chemotherapy. She had several clarifying questions and concerns which were answered to her satisfaction at the encounter. She agrees to proceed Plan: 1. I discussed the patient's case in situation with both Dr. Chanel and Sal. They agree with assessment and recommended plan. Plans are currently underway for transfer the local facility providing IR services.
--- NOTE | 2020-04-12 17:12 | P.DS_ITS ---
History of Present Illness History of Present Illness Chief complaint: STROKE LIKE SYMPTOMS Discharge Providers Provider Date of admission: 04/09/20 14:04 Discharge Date: 04/12/20 Primary care physician: Huber Caba MD Consults: 04/09/20 17:13 Consult to Dietitian, Adult Routine Comment: Reason For Exam: desires to start keto diet, would like education 04/09/20 18:29 Consult to Physical Therapy Evaluate & Treat Comment: Physician Instructions: Evaluate and Treat 04/12/20 05:34 Consult to General Surgery Routine Comment: Consulting Provider: Eliazar Purdy Reason for consultation: bleeding ileostomy and colovesicular fistula Has provider been notified: Yes 04/12/20 05:35 Consult to Urology Routine Comment: Consulting Provider: Carol Bond Reason for consultation: colovesilcular and vesicovaginal fistula, b/l hydronephrosis Has provider been notified: Yes 04/12/20 05:56 Consult to Oncology Routine Comment: Consulting Provider: Kolton Chanel Reason for consultation: advancing ovarian carcinoma Has provider been notified: Yes Discharge provider: Kathleen Huang DO Summary Hospital Course Discharge Diagnosis: 1. Acute sepsis, present on admission. Resolved. 2. Acute E. 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 Resolving. 3. Acute bilateral hydronephrosis, small periurethral abscess and acute kidney injury, present on admission. Active. 4. Advanced stage IV ovarian serous carcinoma, acute on chronic, present on admission. Active. 5. History of large bowel obstruction, status post exploratory laparotomy, lysis of adhesions, and diverting loop transverse colostomy, present on admission. St able. 6. Acute thrombocytopenia, present on admission. Improving. 7. Acute normocytic anemia, present on admission. Improving. 8. Acute hyponatremia, present on admission. Improving. 9. Acute metabolic encephalopathy, present on admission. Resolved. 10. History of right lower extremity DVT. 11. 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 Stable. Hospital Course: Medina Monteiro is a 60-year-old female with a past medical history significant for BCRA-2 mutation and prophylactic double mastectomy, 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 1. Acute sepsis, present on admission. Resolved. -SOFA score of 3. Patient presented with leukocytosis, thrombocytopenia and lactic acidosis with end-organ damage including encephalopathy and acute kidney injury with source UTI and bacteremia. -Early goal-directed therapy met including: IV fluid resuscitation and broad- spectrum IV antibiotics. -Initial lactate 3.9 and trended to under 2.0. 2. Acute E. 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 Resolving. -Initial WBC 23.1 and procalcitonin 36.7. Repeat WBC stable at 13.9 (likely falsely elevated due to glucocorticoids) and procalcitonin trending down now 10. 99. Continued to monitor WBC and procalcitonin daily. -Blood and urine cultures positive for pansensitive E coli. Repeat peripheral and port blood cultures have no growth to date and likely cleared blood stream of bacteria. -Received Zosyn 3.3.75 g x 1 in ED. Continued renally dosed Zosyn 2.25 g every 6 hours and switched to ceftriaxone 2 g IV daily as blood and urine cultures grew pansensitive E. coli. Consulted general surgery, Dr. Purdy and we appreciate his time and recommendations. Dr. Purdy recommended that the patient remain on chronic suppressive antibiotic therapy as she is not a surgical candidate due to high risk surgery with dense adhesions and likelihood of recurrence. Patient would like to be evaluated by her oncologist and general surgeon at [facility] in [place]. 3. Acute bilateral hydronephrosis, small periurethral abscess and acute kidney injury, present on admission. Active. -Likely due to advancing stage IV ovarian serous carcinoma and UTI and bacteremia. -Initial creatinine 1.76. Baseline creatinine previously 0.7-0.8 until beginning of March in which creatinine has been upper trending and likely due to advancing stage IV ovarian serous carcinoma. -Renal ultrasound was a difficult study due to body habitus but demonstrated bilateral mild hydronephrosis and previously the patient had questionable pelvic fluid collection, therefore, pursued CT IVP with cystogram. -CT IVP with cystogram demonstrated interval development of moderate to severe right hydronephrosis to the base of the bladder, moderate left hydronephrosis with delayed nephrogram and probable stricture of the proximal left ureter, posterior wall bladder perforation with communication to either vagina or sigmoid colon, small periurethral abscess to the left of midline measuring 2.0 cm, and development of diffuse anasarca. -Consulted general surgery, Dr. Purdy, Urology, Dr. Bond, and Oncology, Dr. Chanel for multidisciplinary approach. Plan to transfer patient to higher level of care for IR guided bilateral nephrostomy tube placement and continued suppressive antibiotic therapy. The patient will then be traveling to [place], [place] to be evaluated by her specialists at [facility]. Dr. Chanel will be in contact with her oncologist at [facility] to further discuss possible treatment options. -Continued Marinelli catheter. -Continued to monitor creatinine daily. 4. Advanced stage IV ovarian serous carcinoma, acute on chronic, present on admission. Active. -Patient is followed by oncology, Dr. Chanel, with last cycle of carboplatin on 03/25/20 with next cycle scheduled for 04/22/20. -Patient receives dexamethasone for chemotherapy and takes prednisone otherwise to treat polymyositis as below. -CT IVP with cystogram demonstrated quickly advancing ovarian serous carcinoma as above. -Consulted Dr. Chanel as above who recommends transfer for IR guided bilateral nephrostomy tube placement. The patient will then be traveling to [place], [place] to be evaluated by her specialists at [facility]. Dr. Chanel will be in contact with her oncologist at [facility] to further discuss possible treatment options. 5. History of large bowel obstruction, status post exploratory laparotomy, lysis of adhesions, and diverting loop transverse colostomy, present on admission. Stable. -Patient previously had exploratory laparotomy, lysis of adhesions and diverting loop transverse colostomy for large bowel obstruction. Patient recently had swelling of stoma and sustained localized trauma to stoma when changing appliance with minimal bleeding that has resolved. -Consulted general surgery, Dr. Purdy, for above and to assess bleeding stoma which he does not recommend any intervention as due to localized trauma, bleeding has resolved and injury should heal on its own. -Continued ostomy care. 6. Acute thrombocytopenia, present on admission. Improving. -Likely secondary to acute sepsis and infection as above. -Initial platelet count 66. Platelet count trended down to 60 and is trending up now 74. No abnormal pathologies are present on patient's smear to suggest hemol ysis. -Continued to monitor platelet count daily. 7. Acute normocytic anemia, present on admission. Improving. -Likely secondary to acute sepsis and infection as above. Also stoma with mild bleeding that has resolved as above which may have contributed. -Initial hemoglobin 9.0. Repeat hemoglobin acting up now 9.3. -Continued to monitor CBC daily. Transfusion goal hemoglobin < 7.0. 8. Acute hyponatremia, present on admission. Improving. -Initial sodium level 129. Baseline sodium level 135. Sodium level improved with treatment of infection as above now 131. -Continued to monitor sodium level closely. 9. Acute metabolic encephalopathy, present on admission. Resolved. -Secondary to UTI and bacteremia. -Patient had mild confusion with slurred speech. -CT brain without contrast and MR stroke protocol did not demonstrate any acute intracranial abnormalities and negative for CVA. -Continued physical and occupational therapy evaluation and treatment. 10. History of right lower extremity DVT. -Continued Eliquis 5 mg twice daily. 11. 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 Stable. -Recent CT-guided muscle biopsy demonstrated polymyositis per her infectious disease specialist Dr. Casper. -Patient reports pain controlled on morphine ER 30 mg every 12 hours and will continue. Continued home prednisone decreased from 40 mg to 30 mg daily. Unclear how long she will require steroids for polymyositis. Further information in Dr. Chanel's outpatient oncology note. Exam Vital Signs (past 8 hours): - 04/12/20 12:00 04/12/20 15:55 04/12/20 16:00 Temperature 98.1 F 98.1 F Pulse Rate 89 84 Respiratory Rate 18 19 Blood Pressure 129/92 H 124/81 Pulse Oximetry 98 96 98 Oxygen Delivery Method Room Air Oxygen Flow Rate 0 Narrative Exam Narrative: General: Older female lying in bed and in no acute distress, well-developed, well-nourished, good spirits and appropriately interactive. HEENT: Normocephalic, atraumatic. External ears without defect. Pupils equal, round, and reactive to light. Anicteric sclerae, moist conjunctivae, and no lid lag. Oropharynx free of erythema and cobble stoning with moist mucosa. Several cold sores on lips and small eschar on tip of nose. Neck: Supple with full range of motion. No lymphadenopathy or thyromegaly. Cardiovascular: Regular rhythm and rate without murmurs, rubs, or gallops appreciated. Port on right side of chest does not have any surrounding erythema, or edema. Pulmonary: Clear to auscultation bilaterally without crackles, wheezes, or rhonchi. Normal respiratory effort with no use of accessory muscles. Abdomen: Soft, obese, bowel sounds present, nontender, nondistended. Abdominal wall edematous. Clostomy in right abdomen present with pink and healthy appearing stoma with soft stool. Bleeding from stoma has resolved. Extremities: No clubbing or cyanosis. Asymmetrical swelling of right lower extremity consistent with lymphedema. Right lateral thigh with tenderness to palpation and appears more edematous and firm than previously. Skin: Normal temperature, turgor, and texture; no ulcers, or subcutaneous nodules appreciated. Neurological: Cranial nerves grossly intact. Psychiatric: Normal mood and affect. Alert and oriented to person, place, and time. Objective Labs Result Diagrams: 04/12/20 05:30 04/12/20 05:30 Labs: Laboratory Results - last 24 hr 04/12/20 04/12/20 04/12/20 05:30 05:30 05:30 WBC 13.9 H RBC 3.09 L Hgb 9.3 L Hct 27.3 L MCV 88.5 MCH 30.0 MCHC 33.9 RDW 15.7 H Plt Count 74 L Neut % (Auto) 87.7 H Lymph % (Auto) 7.8 L [place] % (Auto) 3.6 Eos % (Auto) 0.0 L Baso % (Auto) 0.9 Neut # (Auto) 53943 H Lymph # (Auto) 1100 [place] # (Auto) 500 Eos # (Auto) 0 Baso # (Auto) 100 Sodium 131 L Potassium 4.2 Chloride 103 Carbon Dioxide 21 L BUN 44 H Creatinine 1.74 H Estimated GFR 29.6 L BUN/Creatinine Ratio 25.3 H Glucose 110 Calcium 8.3 L Magnesium 2.1 Total Bilirubin 0.6 Conjugated Bilirubin 0.0 Unconjugated Bilirubin 0.5 AST 32 ALT 17 Alkaline Phosphatase 205 H Total Protein 5.9 L Albumin 2.7 L Globulin 3.2 Albumin/Globulin Ratio 0.8 L Procalcitonin 10.99 H Discharge Plan Discharge Plan Disposition: Xfer Acute Care Hospital Discharge orders & Medications Follow up/Referrals: Huber Caba MD [Primary Care Provider] - Visit Report/Discharge Packet Visit Report Forms: Patient Portal/API, Stroke Signs & Symptoms Discharge Data Primary Care Provider: Huber Caba Quality VTE Deep Vein Thrombosis/Pulmonary Embolism Present on Admission: No
[2020-04-12] MEDS: MORPHINE 2 MG/ML INJ 1 MG IV (18:16)
--- NOTE | 2020-04-12 19:13 | PC.NURSE ---
182 Pt transfered to [facility] via [facility], report given to DUKE Paz at [facility], pt was loaded on to susy, given prn 1mg IV Morphine for pain 04/23 via portacath. All belongs sent with pt, no further pt contact.
== END 2020-04-12 18:20 | disposition short-term general hospital (02) | DRG 871 ==
LOC: ED 13:49 → AC 14:04
PROVIDERS: Admitting Provider Internal Medicine; Emergency Provider Emergency Medicine; PCP Student in an Organized Health Care Education/Training Program; Referring Provider Emergency Medicine; Visit Provider Internal Medicine
DX: A41.51 Sepsis due to Escherichia coli [E. coli] (principal); G93.41 Metabolic encephalopathy; N30.00 Acute cystitis without hematuria; N17.9 Acute kidney failure, unspecified; E87.1 Hypo-osmolality and hyponatremia; C56.9 Malignant neoplasm of unspecified ovary; N13.30 Unspecified hydronephrosis; N34.0 Urethral abscess; M33.20 Polymyositis, organ involvement unspecified; I82.5Z1 Chronic embolism and thrombosis of unspecified deep veins of right distal lower extremity; F11.20 Opioid dependence, uncomplicated; D64.9 Anemia, unspecified; R65.20 Severe sepsis without septic shock; D69.59 Other secondary thrombocytopenia; G89.29 Other chronic pain; N32.89 Other specified disorders of bladder; Z79.01 Long term (current) use of anticoagulants; Z93.3 Colostomy status; Z03.818 Encounter for observation for suspected exposure to other biological agents ruled out
CPT/HCPCS: 36415; 36591; 70450; 70548; 70553; 71045; 74178; 76770; 80048; 80053; 80076; 81001; 81003; 82962; 83605; 83735; 84145; 85025; 87040; 87077; 87086; 87150; 87186; 87205; 87635; 93005; 96361; 96365; 97116; 97162; 99233; 99285; A9579; J0696; J1642; J2270; J2543; Q9967